=== PATIENT | male | born 1950 | race Caucasian/White ===

== ENCOUNTER 2019-06-11 13:49 | Inpatient (IN) | payer MEDICARE, SELFPAY ==
[2019-06-11] VITALS (9 sets, daily range): BP systolic 89–123; BP diastolic 48–83; PULSE 120–130; RESP 16–20; TEMP 36.5–36.9; O2SAT 88–96; BMI 17.6
--- NOTE | ~2019-06-11 | XR_ITS ---
EXAMINATION: XR chest 1V portable DATE: 06/15/2019 06:28 INDICATION: Pneumonia. TECHNIQUE: A single frontal view of the chest was obtained. COMPARISON: Chest single view 06/14/2019 FINDINGS: The lungs are hyperexpanded, consistent with emphysema. There are patchy airspace opacities in all right lung zones. There is mild atelectasis at left lung base. No pleural effusion or pneumot horax. The heart size is normal. The endotracheal tube tip is 4.4 cm above the tracie. The nasogastri c tube tip is beyond the inferior margin of the radiograph, but at least to the stomach. There is int ernal fixation of proximal left humerus. IMPRESSION: 1. Stable diffuse right lung disease, consistent with pneumonia. 2. Emphysema. Reviewed, dictated and finalized at location A.
--- NOTE | ~2019-06-11 | XR_ITS ---
EXAMINATION: XR chest 1V portable DATE: 06/21/2019 05:44 INDICATION: Pneumonia. TECHNIQUE: A single frontal view of the chest was obtained. COMPARISON: Chest single view 06/19/2019 FINDINGS: The patient is rotated to his right. The lungs are hyperexpanded, consistent with emphysema . There are airspace opacities in all right lung zones and in left lower lung zone. No pleural effusi on or pneumothorax. The heart size is normal. The endotracheal tube tip is 4.5 cm above the tracie. T he nasogastric tube tip is in the stomach. There is an old healed fracture of proximal left humerus w ith internal fixation. There are multiple old healed left rib fractures. IMPRESSION: 1. Stable airspace opacities in right lung and left lower lung zone, consistent with pneumonia. 2. Emphysema. Reviewed, dictated and finalized at location A.
--- NOTE | ~2019-06-11 | XR_ITS ---
EXAMINATION: XR chest 1V portable DATE: 06/13/2019 06:03 INDICATION: Pneumonia. TECHNIQUE: A single frontal view of the chest was obtained. COMPARISON: Chest single view at 1:06 AM, chest CT 06/11/2019 FINDINGS: The lungs are hyperexpanded, consistent with emphysema. There are airspace opacities in all right lung zones. No pleural effusion or pneumothorax. The heart size is normal. The endotracheal tu be tip is 5.8 cm above the tracie. The nasogastric tube tip is beyond the inferior margin of the radi ograph, but at least to the stomach. There is a moderate-sized hiatal hernia. There is an old healed fracture of right clavicle. There are old healed left rib fractures. There is a filter in the inferio r vena cava. IMPRESSION: 1. Stable diffuse right lung disease, consistent with pneumonia. 2. Emphysema. 3. Moderate-sized hiatal hernia. Reviewed, dictated and finalized at location A.
--- NOTE | ~2019-06-11 | XR_ITS ---
EXAMINATION: XR chest 1V portable DATE: 06/16/2019 06:23 INDICATION: Pneumonia. TECHNIQUE: A single frontal view of the chest was obtained. COMPARISON: Chest single view 06/15/2019 FINDINGS: The lungs are hyperexpanded, consistent with emphysema. There are airspace opacities in all right lung zones and in left mid and lower lung zones. No pleural effusion or pneumothorax. The hear t size is normal. The endotracheal tube tip is 3.2 cm above the tracie. There is internal fixation of proximal left humerus. IMPRESSION: 1. Airspace opacities in right lung and left mid and lower lung zones with interval worsening on the left, consistent with pneumonia. 2. Emphysema. Reviewed, dictated and finalized at location A. IMPRESSION: 1. Airspace opacities in right lung and left mid and lower lung zones with inte rval worsening on the left, consistent with pneumonia. 2. Emphysema.
--- NOTE | ~2019-06-11 | XR_ITS ---
XR chest 1V portable DATE: 06/29/2019 10:48 INDICATION: Increased shortness of breath TECHNIQUE: Portable AP chest on 06/25/2019 at 1046 hours COMPARISON: Serial portable chest radiographs from 06/13/2019 through 06/27/2019 portable AP chest at 05 36 hours FINDINGS: There is bilateral hyperinflation and relative flattening of the diaphragm, suggesting COPD . There has been improvement of extensive right-sided and to a lesser extent left lower lung infiltrate s since 06/27/2019. Residual infiltrate remains primarily in the right mid and lower lung zones. Focal irregular density in the right mid to upper lung measuring approximately 3.3 x 4 cm is noted; this m ay represent some focal consolidation, but pulmonary mass lesion is not excluded. Continued radiograp hic follow-up is recommended to ensure complete clearing of this area; failing that, CT thorax would be indicated. Cardiac images also is unchanged. Is aortic calcification, ectasia and tortuosity. Prominence of the central pulmonary arteries suggests pulmonary hypertension. Osteopenia. IMPRESSION: Improvement of bilateral pulmonary infiltrates; cannot exclude large right upper lobe mas s Continued radiographic follow-up is paramount to sure complete clearing and to exclude any right mid to upper pulmonary mass lesion. Reviewed, dictated and finalized at location A. IMPRESSION: Improvement of bilateral pulmonary infiltrates; cannot exclude larg e right upper lobe mass Continued radiographic follow-up is paramount to sure complete clearing and to exclude any right mid to upper pulmonary mass lesion.
--- NOTE | ~2019-06-11 | XR_ITS ---
EXAMINATION: XR chest 1V portable EXAM DATE: 06/24/2019 06:30 INDICATION: Respiratory failure. Intubated. TECHNIQUE: Portable AP frontal chest x-ray was obtained. Comparison is made to prior examination from 06/23/2019. FINDINGS: Endotracheal tube tip is 5 centimeters above the tracie (ideal range is between 2 to 5 cm). There is a nasogastric tube seen with tip collimated off the study, but below the left hemidiaphrag m. There is rather extensive right-sided airspace disease, smaller amount of left infrahilar airspace di sease with indistinct reticulation bilaterally. Small right pleural effusion. There is no pneumotho rax suspected. Cardiac silhouette is stable in size compared to prior exam. The bones are osteopen ic. There are bony degenerative changes. There are old left rib fractures. Left humeral hardware. C ompared to last few days, difficult to appreciate any significant interval change. IMPRESSION: 1. Tubes in position. 2. Extensive right-sided, small amount of left-sided acute airspace disease. Reviewed, dictated and finalized at location A.
--- NOTE | ~2019-06-11 | XR_ITS ---
XR lumbar spine 2-3V 06/11/2019 16:13 Indication: Low back pain Procedure: 3 views of the lumbar spine Comparison: 07/14/2011 Findings: There is a T11 burst fracture which appears chronic. Fracture has progressed since prior ex amination. Osteopenia. There is grade 2 spondylolisthesis at L5-S1. There is moderate disc narrowing at this level. There is an IVC filter. There is contrast in nondilated renal collecting systems bilat erally. No acute fractures identified. There is moderate mid and lower facet hypertrophy. There is at herosclerosis of the aorta. Impression: 1: No acute fracture. 2: Progression of chronic T11 burst fracture. 3: Moderate lumbar spondylosis. Reviewed, dictated and finalized at location A. Impression: 1: No acute fracture. 2: Progression of chronic T11 burst fracture. 3: Moderate lumbar spondylosis.
--- NOTE | ~2019-06-11 | XR_ITS ---
EXAMINATION: XR chest 1V portable DATE: 06/22/2019 05:51 INDICATION: Pneumonia. TECHNIQUE: A single frontal view of the chest was obtained on 2 radiographs. COMPARISON: Chest single view 06/21/2019 FINDINGS: The lungs are hyperexpanded, consistent with emphysema. There are patchy airspace opacities in all right lung zones and in left mid and lower lung zones. There is a small right pleural effusio n. No pneumothorax. The heart size is normal. The endotracheal tube tip is 4.7 cm above the tracie. T he nasogastric tube tip is beyond the inferior margin of the radiograph, but at least to the stomach. There is internal fixation of left humerus. There is an old healed fracture of right clavicle. IMPRESSION: 1. Diffuse right lung disease and mild disease in left mid and lower lung zones with worsening on the left, consistent with pneumonia. 2. Emphysema. Reviewed, dictated and finalized at location A.
--- NOTE | ~2019-06-11 | US_ITS ---
EXAMINATION: US soft tissue LE LT DATE: 06/25/2019 10:54 INDICATION: Left calf mass and bruising. TECHNIQUE: Multiple grayscale and Doppler ultrasound images of the region of concern at the left calf were obtained. COMPARISON: None FINDINGS/IMPRESSION: No abnormal masses or loculated fluid collections identified at the left calf. Reviewed, dictated and finalized at location A.
--- NOTE | ~2019-06-11 | CT_ITS ---
EXAMINATION: CT brain wo con DATE: 06/29/2019 11:01 INDICATION: Confusion. Slurred speech. History of dementia. TECHNIQUE: Computed tomography (CT) of the head was performed without intravenous contrast. The mA wa s adjusted according to patient size. Iterative reconstruction technique was employed. Exam dose: 68 1.00 mGy-cm total exam DLP. COMPARISON: None FINDINGS: Bilateral vertebral artery and carotid siphon internal carotid artery calcifications are no jaquan. Chronic left basal ganglia lacunar infarcts. There is nonspecific diminished attenuation of the cereb ral white matter, likely due to chronic small vessel ischemic changes. No intracranial mass lesion or hemorrhage or recent cerebrovascular accident is evident. CT is not se nsitive for hyperacute ischemic infarct. No midline shift or mass effect. Cerebral volume loss, greater than expected for age. No orbital mass lesion. No subdural or epidural hematoma. There are small fluid levels and opacification of the limited number of left mastoid air cells. There is partial opacification of the right mastoid air cells. No fracture or bone destruction of the cranial vault. IMPRESSION: Left chronic basal ganglia lacunar infarcts No acute intracranial significant abnormality Greater than expected cerebral atrophy for age Bilateral mastoid effusions Reviewed, dictated and finalized at Location A. Reviewed, dictated and finalized at location A.
--- NOTE | ~2019-06-11 | US_ITS ---
EXAMINATION: US venous doppler [facility] DATE: 07/06/2019 11:43 INDICATION: Left lower limb pain and swelling TECHNIQUE: Grayscale ultrasound images without and with compression and Doppler ultrasound images of the left lower extremity veins were obtained. COMPARISON: None. FINDINGS: The visualized portions of left common femoral vein, profunda (deep) femoral vein, femoral vein, popl iteal vein, peroneal veins, posterior tibial veins, gastrocnemius vein and greater saphenous vein out flow are patent. Incidentally noted is segmental occlusion of the mid left femoral artery with no dis cernible internal flow on color Doppler. Flow is seen in the more proximal left femoral artery as wel l as more distally in the left popliteal artery. IMPRESSION: 1. No deep venous thrombosis in the left lower limb. 2. 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 Reviewed, dictated and finalized at location A.
--- NOTE | ~2019-06-11 | XR_ITS ---
EXAMINATION: XR chest 1V portable EXAM DATE: 06/23/2019 05:45 INDICATION: Pneumonia. TECHNIQUE: Portable AP frontal chest x-ray was obtained. Comparison is made to prior examination from 06/22/2019, 06/20. FINDINGS: Endotracheal tube tip is 5 centimeters above the tracie (ideal range is between 2 to 5 cm). There is a nasogastric tube seen with tip collimated off the study, but below the left hemidiaphrag m. There is rather extensive right-sided airspace disease, smaller amount of left infrahilar airspace di sease with indistinct reticulation bilaterally. Small right pleural effusion. There is no pneumotho rax suspected. Cardiac silhouette is stable in size compared to prior exam. The bones are osteopen ic. There are bony degenerative changes. There are old left rib fractures. Left humeral hardware. C ompared to last 2 days, mild progression in airspace disease. IMPRESSION: 1. Tubes in position. 2. Mild interval progression in extensive right, small amount of left-sided pneumonia and/or edema. Reviewed, dictated and finalized at location A. IMPRESSION: 1. Tubes in position. 2. Mild interval progression in extensive right, small amount of left-sided pn eumonia and/or edema.
--- NOTE | ~2019-06-11 | XR_ITS ---
EXAMINATION: XR chest 1V portable DATE: 06/19/2019 05:54 INDICATION: Pneumonia TECHNIQUE: frontal view of the chest was obtained. COMPARISON: Chest radiograph dated 06/18/2019 FINDINGS: Endotracheal tube tip 4.0 cm above the tracie. Nasogastric tube extends below the left hemidiaphragm with distal tip collimated off the study. Patient is rotated to the right. Hyperexpansion of lungs. Persistent interstitial and airspace opacit ies throughout the right lung. Improvement in the more subtle opacities in the left lower lung zone. Heart size is normal. IVC filter projects over the intrahepatic inferior vena cava. Several old bilat eral rib fractures. Partially visualized internal fixation of the left humerus.. IMPRESSION: 1. Bilateral lung disease more extensive on the right with improvement in the left lower lung zone wh ich could represent pulmonary edema and/or pneumonia. 2. Emphysema. Reviewed, dictated and finalized at location A. IMPRESSION: 1. Bilateral lung disease more extensive on the right with improvement in the l eft lower lung zone which could represent pulmonary edema and/or pneumonia. 2. Emphysema.
--- NOTE | ~2019-06-11 | XR_ITS ---
EXAMINATION: XR chest ET placement DATE: 06/13/2019 01:04 INDICATION: Intubation. TECHNIQUE: A single frontal view of the chest was obtained. COMPARISON: Chest single view 06/11/2019, chest CT 06/11/2019 FINDINGS: The patient is rotated to his right. The lungs are hyperexpanded with lucencies, consistent with emphysema. There are airspace opacities in all right lung zones. No pleural effusion or pneumot horax. The heart size is normal. The endotracheal tube tip is 4 cm above the tracie. The nasogastric tube tip is in the stomach. There is a filter in the intrahepatic inferior vena cava. There are old h ealed bilateral rib fractures. There is an old healed fracture of right clavicle. IMPRESSION: 1. Worsened diffuse right lung disease, consistent with pneumonia. 2. Emphysema. Reviewed, dictated and finalized at location A.
--- NOTE | ~2019-06-11 | XR_ITS ---
EXAMINATION: XR chest 1V portable INDICATION: Shortness of breath TECHNIQUE: Portable AP chest at 0121 hours COMPARISON: 06/29/2019 FINDINGS: The lungs are hyperinflated. Diffuse lung disease persists with slight worsening in the rig ht lower and upper lung zones. There is no pleural effusion or pneumothorax. The cardiomediastinal si lhouette is stable. Orthopedic hardware is noted in the proximal left humerus. There are healed bilat eral rib fractures. IMPRESSION: 1. Diffuse lung disease with slight worsening on the right, consistent with pneumonia and/or pulmonar y edema and/or atelectasis. Reviewed, dictated and finalized at location A. IMPRESSION: 1. Diffuse lung disease with slight worsening on the right, consistent with pne umonia and/or pulmonary edema and/or atelectasis.
--- NOTE | ~2019-06-11 | XR_ITS ---
EXAMINATION: XR chest 1V portable DATE: 06/20/2019 05:22 INDICATION: Pneumonia. TECHNIQUE: A single frontal view of the chest was obtained. COMPARISON: Chest single view 06/19/2019 FINDINGS: The patient is rotated to his left. The lungs are hyperexpanded, consistent with emphysema. There are patchy airspace opacities in all right lung zones and in left lower lung zone. No pleural effusion or pneumothorax. The heart size is normal. The endotracheal tube tip is 4.5 cm above the car roseann. The nasogastric tube tip is in the stomach. There is internal fixation of left humerus. IMPRESSION: 1. Multifocal lung disease with slight improvement, consistent with pneumonia. 2. Emphysema. Reviewed, dictated and finalized at location A.
--- NOTE | ~2019-06-11 | US_ITS ---
EXAMINATION:US venous doppler LE BI INDICATION:Fever TECHNIQUE: Multiple grayscale, color flow and Doppler images of the lower extremity deep venous syste ms were obtained and reviewed. COMPARISON:No prior studies for comparison. FINDINGS: The common femoral, superficial femoral and popliteal veins demonstrate normal respiratory variation, augmentation and compressibility. Color flow is also seen within the posterior tibial, pe roneal, greater saphenous and profunda veins. Right peroneal vein not visualized. IMPRESSION: 1: No lower extremity deep venous thrombosis. Reviewed, dictated and finalized at location A.
--- NOTE | ~2019-06-11 | CT_ITS ---
EXAMINATION: CTA LE DATE: 07/06/2019 17:41 INDICATION: Left femoral arterial clot. TECHNIQUE: Computed tomographic angiography (CTA) of the left lower extremity was performed with 100 mL Omnipaque-350 intravenous contrast. Automated exposure control and iterative reconstruction techni que were employed. The dose-length product was 512.72 mGy-cm. Maximum intensity projection 3D-reconst ructions of the arteries were created by the technologist on a separate workstation. COMPARISON: Ultrasound 07/06/2019 FINDINGS: There is severe stenosis of right external iliac artery. Partially visualized is at least mild stenos is of left common iliac artery. There is mild stenosis of left external iliac artery and common femor al artery. There is no significant stenosis of right left profunda femoris. There is total occlusion of distal left superficial femoral artery. There is reconstitution of flow in above-knee popliteal ar owen, which demonstrate moderate stenosis. There is mild stenosis of left below-knee popliteal artery and anterior tibial artery. There is moderate stenosis of the tibioperoneal trunk. Posterior tibial artery and peroneal artery are small with moderate to severe stenosis. There is a total right hip art hroplasty. IMPRESSION: 1. 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 2. Total occlusion of distal left superficial femoral artery with reconstitution of flow in above-kne e popliteal artery. 3. Moderate stenosis of left tibioperoneal trunk. 4. Small left posterior tibial artery and peroneal artery with moderate to severe stenosis. Reviewed, dictated and finalized at location A. IMPRESSION: 1. 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 2. Total occlusion of distal left superficial femoral artery with reconstitutio n of flow in above-knee popliteal artery. 3. Moderate stenosis of left tibioperoneal trunk. 4. Small left posterior tibial artery and peroneal artery with moderate to mariza re stenosis.
--- NOTE | ~2019-06-11 | XR_ITS ---
XR chest 1V portable DATE: 06/25/2019 10:55 INDICATION: Hypoxia TECHNIQUE: Portable AP chest on 06/25/2019 at 1053 hours COMPARISON: 06/24/2019 portable AP chest at 0559 hours FINDINGS: Persistent patchy infiltrates in the right mid and both lower lung zones, right greater nasim n left. The left-sided infiltrate is increased since 06/24/2019. Heart size is normal. Endotracheal and nasogastric tubes have been removed since 06/24/2019. IVC filter is noted at approximately L2 level. There is a pin in the proximal left humerus for old proximal left humeral shaft fracture Diffuse osteopenia with multiple fracture deformities of the thoracic spine. Bilateral probable old r ib fractures. IMPRESSION: Persistent bilateral infiltrates, right greater than left, increased in the left lower ivette ng since 06/24/2019 Reviewed, dictated and finalized at location A. IMPRESSION: Persistent bilateral infiltrates, right greater than left, increase d in the left lower lung since 06/24/2019
--- NOTE | ~2019-06-11 | XR_ITS ---
EXAMINATION: XR chest 2V DATE: 07/02/2019 10:24 INDICATION: Pneumonia. TECHNIQUE: Frontal and lateral views of the chest were obtained on 3 radiographs. COMPARISON: Chest single view 06/30/2019, chest CT 06/11/2019 FINDINGS: The patient is rotated to his right. The lungs are hyperexpanded with architectural distort ion, consistent with emphysema. There are airspace opacities in right mid and lower lung zones. There is mild atelectasis in left lower lung zone. There is a small right pleural effusion. No pneumothora x. The heart size is normal. Again seen is a chronic burst fracture in thoracic spine. There is a shasta ter in the intrahepatic inferior vena cava. There are old healed left rib fractures. IMPRESSION: 1. Stable airspace opacities in right mid and lower lung zones, consistent with pneumonia. 2. Small right pleural effusion. Reviewed, dictated and finalized at location A.
--- NOTE | ~2019-06-11 | XR_ITS ---
EXAMINATION: XR chest 1V portable EXAM DATE: 06/19/2019 20:16 INDICATION: Worsening oxygen saturation. Pneumonia. Possible right renal mass. Respiratory failure. TECHNIQUE: Portable AP frontal chest x-ray was obtained. Comparison is made to prior examination from earlier same date, 06/17. FINDINGS: Again there is extensive right-sided, small amount of left-sided airspace disease most like ly acute infectious process. Endotracheal tube and gastric tube are in position. No pneumothorax. The re are some chronic hyperinflation. There are no pleural effusions. Cardiomediastinal silhouette is n ormal. Accounting for differences in technique, there is no significant interval change. IMPRESSION: 1. Extensive right-sided, smaller left-sided airspace disease likely acute infectious process. 2. Hyperinflation. Reviewed, dictated and finalized at location A. IMPRESSION: 1. Extensive right-sided, smaller left-sided airspace disease likely acute inf ectious process. 2. Hyperinflation.
--- NOTE | ~2019-06-11 | XR_ITS ---
EXAMINATION: XR chest 1V portable EXAM DATE: 06/11/2019 15:11 INDICATION: Hypoxic. Shortness of breath. Back pain. TECHNIQUE: Portable AP frontal chest x-ray was obtained. Comparison is made to prior examination from 07/15/2011. FINDINGS: Suspect patchy ill-defined bilateral perihilar airspace disease, could be acute infectious process. Heart is normal in size making edema less likely. Please clinically correlate. There is no i ndeterminant left upper lobe 1 cm nodular density which is new compared to prior study, possible canc er. There is no pneumothorax suspected. There are no pleural effusions. The bones are osteopenic. Th ere are bony degenerative changes. There is left humeral intramedullary alexi. IMPRESSION: 1. Ill-defined bilateral perihilar airspace disease suspicious for acute infectious process. 2. Indeterminate left upper lobe nodular density for which nonemergent chest CT is recommended. Reviewed, dictated and finalized at location B. IMPRESSION: 1. Ill-defined bilateral perihilar airspace disease suspicious for acute infec tious process. 2. Indeterminate left upper lobe nodular density for which nonemergent chest C T is recommended.
--- NOTE | ~2019-06-11 | XR_ITS ---
EXAMINATION: XR chest 1V portable DATE: 06/27/2019 06:06 INDICATION: Pneumonia TECHNIQUE: frontal view of the chest was obtained. COMPARISON: Chest radiograph dated 06/26/2019 FINDINGS: Hyperexpansion of lungs consistent with emphysema better appreciated on CT dated 06/11/2019 Increasing hazy opacities in the bilateral lower lung zones with new blunting at the costophrenic angles consist ent with small bilateral pleural effusions. Otherwise unchanged interstitial and scattered more patch y airspace opacities throughout both lungs relatively sparing the left upper lung zone. No pneumothor ax. Heart size is normal. Tortuous and atherosclerotic thoracic aorta. IVC filter projects over the c ephalad-most superior vena cava. Partially visualized intramedullary alexi and screw fixation at the pr oximal left humerus. Old bilateral rib fractures. IMPRESSION: 1. Diffuse bilateral interstitial and airspace opacities which could represent pneumonia, pulmonary e shanna, atelectasis or some combination thereof. 2. Increasing small bilateral pleural effusions. 3. Emphysema. Reviewed, dictated and finalized at location A. IMPRESSION: 1. Diffuse bilateral interstitial and airspace opacities which could represent pneumonia, pulmonary edema, atelectasis or some combination thereof. 2. Increasing small bilateral pleural effusions. 3. Emphysema.
--- NOTE | ~2019-06-11 | XR_ITS ---
EXAMINATION: XR chest 1V portable DATE: 06/18/2019 05:52 INDICATION: Pneumonia. TECHNIQUE: A single frontal view of the chest was obtained on 2 radiographs. COMPARISON: Chest single view 06/17/2019 FINDINGS: The patient is rotated to his right. The lungs are hyperexpanded, consistent with emphysema . There are airspace opacities in all right lung zones. There are mild airspace opacities in left mid and lower lung zones. No pleural effusion or pneumothorax. The heart size is normal. The endotrachea l tube tip is 3.0 cm above the tracie. The nasogastric tube tip is in the stomach. There is internal fixation of left humerus. There are multiple old healed left rib fractures. IMPRESSION: 1. Multifocal lung disease with worsening on the left, consistent with pneumonia. 2. Emphysema. Reviewed, dictated and finalized at location A. IMPRESSION: 1. Multifocal lung disease with worsening on the left, consistent with pneumoni a. 2. Emphysema.
--- NOTE | ~2019-06-11 | US_ITS ---
EXAMINATION: US venous doppler [facility] DATE: 06/28/2019 11:23 INDICATION: Lower limb swelling TECHNIQUE: Grayscale ultrasound images without and with compression and Doppler ultrasound images of the bilateral lower extremity veins were obtained. COMPARISON: None. FINDINGS: The visualized portions of right common femoral vein, profunda (deep) femoral vein, femoral vein, pop liteal vein, posterior tibial veins, peroneal veins, gastrocnemius vein and greater saphenous vein ou tflow are patent. The visualized portions of left common femoral vein, profunda femoral vein, femoral vein, popliteal v ein, posterior tibial veins, peroneal veins, gastrocnemius vein and greater saphenous vein outflow ar e patent. IMPRESSION: 1. No deep venous thrombosis in either lower limb. Reviewed, dictated and finalized at location A.
--- NOTE | ~2019-06-11 | XR_ITS ---
EXAMINATION: XR abdomen NG/feed tube insert DATE: 06/13/2019 01:04 INDICATION: Nasogastric tube placement. TECHNIQUE: An upright view of the abdomen was obtained. COMPARISON: None. FINDINGS: The lower abdomen is excluded. There are no dilated loops of bowel. The nasogastric tube ti p is in the stomach. There is a filter in the intrahepatic inferior vena cava. There is a total right hip arthroplasty. IMPRESSION: 1. Nasogastric tube tip in the stomach. Reviewed, dictated and finalized at location A.
--- NOTE | ~2019-06-11 | CT_ITS ---
EXAMINATION: CT brain wo con INDICATION: Transient alteration of awareness COMPARISON: 06/29/2019 TECHNIQUE: Standard unenhanced head CT. The dose-length product (DLP) was 756.67 mGy-cm. The mA was a djusted according to patient size. Iterative reconstruction technique was employed. FINDINGS: There is no acute intraparenchymal hemorrhage. No evidence of mass lesion. No evidence of a cute infarction. 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 There is mild perivent ricular and subcortical hypodensity probably related to small vessel ischemic disease. There is mild prominence of the sulci and ventricles related to cerebral atrophy. Intracranial calcified cerebral a therosclerosis is noted. There are no extra-axial collections. There is no mass effect or midline chanda ft. The orbits and soft tissues are unremarkable. There are bilateral mastoid effusions, right great er than left. IMPRESSION: 1. No acute intracranial abnormality. 2. Age related findings. 3. Bilateral mastoid effusions, right greater than left. Reviewed, dictated and finalized at location A.
--- NOTE | ~2019-06-11 | US_ITS ---
US arterial duplex LE 07/06/2019 17:23 Indication: Leg pain Procedure: High-resolution arterial duplex Doppler examination of the lower extremity arteries Comparison: No prior studies for comparison. Findings: The following velocities were obtained in the lower extremity arteries: Right: Common femoral artery 36 cm/s, profunda femoral artery 29 cm/s, proximal femoral artery 22 cm/ s, mid femoral artery 27 cm/s, distal femoral artery 66 cm/s, proximal popliteal artery 21 cm/s, dist al popliteal artery 23 cm/s, posterior tibial artery 26 cm/s, anterior tibial artery 23 cm/s, peronea l artery 14 cm/s, dorsalis pedis artery 25 cm/s. Left: Common femoral artery 81 cm/s, profundus femoral artery 48 cm/s, proximal femoral artery 18 cm/ s, mid femoral artery minimal-no flow visualized, distal femoral artery 47 cm/s, proximal popliteal a rtery 39 cm/s, distal popliteal artery 73 cm/s, posterior tibial artery 29 cm/s, anterior tibial libertad juhi 15 cm/s, peroneal artery 26 cm/s, dorsalis pedis artery 35 cm/s. Impression: 1: Patent right lower extremity arteries without evidence for occlusion. 2: Minimal-no flow visualized in the mid left femoral artery, suspicious for hemodynamically signific ant stenosis. The remainder of the left lower extremity arteries are patent. Reviewed, dictated and finalized at location A. Impression: 1: Patent right lower extremity arteries without evidence for occlusion. 2: Minimal-no flow visualized in the mid left femoral artery, suspicious for he modynamically significant stenosis. The remainder of the left lower extremity a rteries are patent.
--- NOTE | ~2019-06-11 | XR_ITS ---
EXAMINATION: XR barium swallow modified DATE: 06/30/2019 12:26 INDICATION: Drooling TECHNIQUE: The patient was given barium-containing material of multiple consistencies to swallow by otilio castro speech pathologist while I performed fluoroscopy. A single fluoroscopic spot image was recorded. Otilio castro DAP for this procedure was 3.0 Gycm2. Fluoroscopy exposure time was 4.3 minutes. A single lateral spot radiograph of the neck soft tissues was obtained. FINDINGS: The single lateral spot radiograph of the neck demonstrates mild spondylosis. There is delayed initia tion of swallow with vallecular residue but no evidence of aspiration or penetration. IMPRESSION: 1. No aspiration or penetration. Please refer to the speech therapy report for additional swallow-rel ated findings and intake recommendations. Reviewed, dictated and finalized at location A. IMPRESSION: 1. No aspiration or penetration. Please refer to the speech therapy report for additional swallow-related findings and intake recommendations.
--- NOTE | ~2019-06-11 | CT_ITS ---
EXAMINATION: CT chest w con DATE: 06/11/2019 16:01 INDICATION: Lung nodule. TECHNIQUE: Computed tomography (CT) of the chest was performed with 75 cc Omnipaque 350 intravenous c ontrast. The dose-length product was 256.19 mGy-cm. Automated exposure control and iterative reconstr uction technique were employed. COMPARISON: 12/10/2015 FINDINGS: There is a moderate size hiatal hernia with fluid throughout the esophagus, consistent with reflux. There is abnormal thickening of the distal esophagus near the gastroesophageal junction abov e the diaphragm which may relate to esophagitis, although underlying mass is not excluded. There is m oderate atherosclerosis of the aorta without evidence for aneurysm or dissection. There is an IVC shasta ter. There is a 2.6 x 1.9 cm exophytic right renal mass posteriorly measuring 82 Hounsfield units, franklin spicious for renal cell carcinoma. This was not identified on prior examination. There are possible g allstones. There are multiple wedge compression deformities of the thoracic spine which are likely ch ronic. There is a T11 burst fracture which is chronic. There is moderate emphysema. There is mixed in terstitial and airspace consolidation of the right upper and lower lobes. There is left lower lobe at electasis. Stable small fissural nodule on the left, likely benign. No endobronchial lesions. Calcifi ed granuloma left upper lobe. 4 mm left lower lobe nodule, image 94, unchanged. No pneumothorax. No t horacic lymphadenopathy. Subsolid 5.5 mm right middle lobe nodule, image 96 is unchanged. IMPRESSION: 1. Mixed interstitial and airspace disease right upper and lower lobe superimposed on fibrosis and em physema, consistent with pneumonia. 2: 2.6 cm exophytic right renal mass, concerning for renal cell carcinoma. Recommend consultation . 3: Moderate size hiatal hernia with fluid throughout the esophagus, consistent with reflux. Normal ab normal thickening of the distal esophagus near the gastroesophageal junction above the diaphragm whic h may relate to esophagitis, although underlying mass is not excluded. 4: Stable bilateral pulmonary nodules, likely benign. Reviewed, dictated and finalized at location A. IMPRESSION: 1. Mixed interstitial and airspace disease right upper and lower lobe superimpo sed on fibrosis and emphysema, consistent with pneumonia. 2: 2.6 cm exophytic right renal mass, concerning for renal cell carcinoma. [facility] 3: Moderate size hiatal hernia with fluid throughout the esophagus, consistent with reflux. Normal abnormal thickening of the distal esophagus near the gastro esophageal junction above the diaphragm which may relate to esophagitis, althou gh underlying mass is not excluded. 4: Stable bilateral pulmonary nodules, likely benign.
--- NOTE | ~2019-06-11 | XR_ITS ---
EXAMINATION: XR chest 1V portable DATE: 06/14/2019 06:10 INDICATION: Pneumonia. TECHNIQUE: A single frontal view of the chest was obtained on 2 radiographs. COMPARISON: Chest single view 06/13/2019 FINDINGS: The lungs are hyperexpanded, consistent with emphysema. There are airspace opacities in all right lung zones. No pleural effusion or pneumothorax. The heart size is normal. The endotracheal tu be tip is 4.1 cm above the tracie. The nasogastric tube tip is in the stomach. There is internal fixa tion of proximal left humerus. IMPRESSION: 1. Stable airspace opacities in all right lung zones, consistent with pneumonia. 2. Emphysema. Reviewed, dictated and finalized at location A. IMPRESSION: 1. Stable airspace opacities in all right lung zones, consistent with pneumonia . 2. Emphysema.
--- NOTE | ~2019-06-11 | XR_ITS ---
EXAMINATION: XR chest 1V portable DATE: 06/17/2019 06:30 INDICATION: Pneumonia. TECHNIQUE: A single frontal view of the chest was obtained on 2 radiographs. COMPARISON: Chest single view 06/16/2019 FINDINGS: The patient is rotated to his right. The lungs are hyperexpanded, consistent with emphysema . There are airspace opacities in all right lung zones. No pleural effusion or pneumothorax. The hear t size is normal. There are multiple old healed bilateral rib fractures. There is an old healed fract ure of proximal left humerus with internal fixation. The endotracheal tube tip is 4.2 cm above the ca johny. The nasogastric tube tip is beyond the inferior margin of the radiograph, but at least to the s tomach. IMPRESSION: 1. Unchanged diffuse right lung disease, consistent with pneumonia. 2. Emphysema. Reviewed, dictated and finalized at location A.
--- NOTE | ~2019-06-11 | CT_ITS ---
EXAMINATION: CTA brain DATE: 06/30/2019 22:22 INDICATION: Seizure activity, transient alteration of awareness TECHNIQUE: Computed tomographic angiography (CTA) of the head was performed with 100 mL Omnipaque-350 intravenous contrast. Volume-rendered and maximum intensity projection 3D reconstructions of the int racranial arteries were created by the technologist on a separate workstation. Automated exposure con trol and iterative reconstruction technique were employed. COMPARISON: Noncontrast CT from earlier the same date FINDINGS: There is no significant stenosis of the basilar artery or posterior cerebral arteries. Ther e is no significant stenosis of the intracranial internal carotid arteries or the anterior or middle cerebral arteries. The anterior communicating artery and posterior communicating arteries are normal. There is no aneurysm. Calcified atherosclerosis is noted. There is moderate venous contamination. IMPRESSION: 1. No large vessel occlusion. Reviewed, dictated and finalized at location A.
--- NOTE | ~2019-06-11 | XR_ITS ---
EXAMINATION: XR chest 1V portable DATE: 06/26/2019 06:15 INDICATION: Pneumonia TECHNIQUE: frontal view of the chest was obtained. COMPARISON: Chest radiograph dated 06/25/19 FINDINGS: Improved aeration of lungs with decrease in patchy airspace opacities in the left lower lung zone. Mi nimal change in scattered patchy airspace opacities throughout the right lung. Bilateral increased in terstitial pattern with few right-sided peripheral Gretchen B-lines consistent with mild pulmonary raghav a. Increased lucency and architectural distortion at the apices consistent with emphysema. No pneumot horax or definitive pleural effusion. Old bilateral rib fracture deformities. Oliver and screw fixation of an old healed proximal diaphyseal fracture of the left humerus. IVC filter at the level of the cep halad most superior vena cava. IMPRESSION: 1. Diffuse lung disease with minimal change on the right and slight improvement in lung disease in th e left lower lung zone which could represent pneumonia, pulmonary edema, atelectasis or some combinat ion thereof. 2. Emphysema. Reviewed, dictated and finalized at location A. IMPRESSION: 1. Diffuse lung disease with minimal change on the right and slight improvement in lung disease in the left lower lung zone which could represent pneumonia, p ulmonary edema, atelectasis or some combination thereof. 2. Emphysema.
--- NOTE | 2019-06-11 14:11 | PC.NURSE ---
pt denies sob. placed on 02 at 2 lpm nasal cannula for room air sat of 88-90%. saturation came up to 92-93% after oxygen placed.
--- NOTE | 2019-06-11 14:30 | ECG_ITS ---
Measurements Intervals [place] Rate: 135 P: 56 WI: 147 QRS: 50 QRSD: 86 T: 62 QT: 332 QTc: 498 Interpretive Statements SINUS TACHYCARDIA VENTRICULAR PREMATURE COMPLEXES INCOMPLETE RIGHT BUNDLE BRANCH BLOCK NONSPECIFIC ST & T-WAVE ABNORMALITY- ANTERIOR LEADS ABNORMAL ECG Electronically Signed On 06-11-2019 19:14:45 CDT by Nicko Capps D.O.
--- NOTE | 2019-06-11 14:41 | ED.BACK ---
HPI - Back Pain/Injury General Chief Complaint: Back Pain/Injury Stated Complaint: back pain Time Seen by Provider: 06/11/19 14:35 Source: patient Mode of arrival: EMS Limitations: no limitations History of Present Illness HPI Narrative: Patient is a 69 year old male who presents to the emergency department by emergency medical services, with complaints of lower back pain that started 5 days ago. He states that he pushed a bee hive with his leg and that is when his pain started. He notes that he has had back pain in the past but never in his lower back. His pain is better when he does not move, but it worsens when he moves. He rates his pain in the bed a 0/10. Patient is able to walk with his walker but states that his pain worsens. He denies is pain moving to his legs or being short of breath. He has been eating normally. Patient is a daily smoker and drinks about 3 beers a day. He denies drinking any beers today. Patient does not smoke marijuana. He denies a history of lung disease and does not use an inhaler at home. Patient is allergic to bee stings. He has a surgical history of a hip replacement, right leg repair, and a hernia repair. Patient is and is in the ED alone. MD elicited complaint: back pain Pertinent past history: other (pushed a bee hive) Onset (ago): day(s) (5) Timing: intermittent Pain scale (0-10): 0 Location: sacrum Radiation: none Context: other (pushing a bee hive) Associated symptoms: denies other symptoms Related Data Home Medications Medication Instructions Recorded Confirmed No Home Medications 06/11/19 06/11/19 Allergies Allergy/AdvReac Type Severity Reaction Status Date / Time bee pollen Allergy Unknown Anaphylaxis Verified 06/11/19 14:00 Honey Bee Allergy Severe Anaphylaxis Uncoded 06/11/19 14:00 Review of Systems Review of Systems: All systems reviewed & are unremarkable except as noted in HPI and below Constitutional: Constitutional: Reports no additional constitutional complaints and Reports other (eating normally) Cardiovascular: Cardiovascular: Reports no additional cardiovascular complaints and Reports chest pain Respiratory: Respiratory: Denies dyspnea Gastrointestinal: Gastrointestinal: Denies abdominal pain, Denies constipation, Denies diarrhea, Denies nausea and Denies vomiting Musculoskeletal: Musculoskeletal: Reports back pain (lower), Denies arthralgias and Denies joint swelling PMFSH Past Medical History Medical History (Updated 06/11/19 @ 15:06 by Roverto Longoria) Anemia Anxiety Arthritis Barretts esophagus COPD (chronic obstructive pulmonary disease) Dementia Depression Eating disorder Patient has difficulty swallowing Emphysema of lung GERD (gastroesophageal reflux disease) GI bleed Surgical History Surgical History (Updated 06/11/19 @ 15:06 by Roverto Longoria) History of orthopedic surgery ORIF on right tibia History of right hip replacement History of surgery on arm left arm ORIF Hx of tonsillectomy Social History Social History (Updated 06/11/19 @ 15:06 by Roverto Longoria) Smoking packs per day: 1 Smoking cigarettes per day: 20.0 Smoking status: Current every day smoker Tobacco type: cigarettes Second hand tobacco smoke exposure: No Alcohol intake: current Drinks per week: 36 Alcohol use details: Patient drinks 3 beers a day. Substance use: never Substance use type: does not use Living arrangements: alone Additional living arrangements comments: Patient lives alone and is . Gender identity (if verbalized by the patient): Male Spiritual care concerns: No Agree to blood products: Yes Exam Const: General: poor hygiene Nutritional Appearance: thin HENMT: Mouth: Yes lip normal (black around lips) and Yes tongue normal (black) Eyes: Other: Eyes sunken in Resp: Effort & Inspection: normal respiratory effort Auscultation: crackles bilateral and rales bilateral Cardio: Rate: ta
[2019-06-11 15:00] LABS: Basophils Absolute Auto 0.1 K/mm3 (0.0-0.1); Basophils Percent Auto 0.4 % (0.2-1.2); Eosinophils Percent Auto 0.1 % (0-4.4); Hematocrit 44.9 % (42.0-52.0); Hemoglobin 15.4 g/dL (14.0-18.0); Immature Granulocyte Absolute 0.06 K/mm3 (0.00-0.031); Immature Granulocyte Percent A 0.4 % (0-0.5); Lymphocytes Absolute Auto 2.16 K/mm3 (0.9-3.2); Lymphocytes Percent Auto 15.5 % (18.3-44.2); Mean Corpuscular HGB Conc 34.3 g/dl (32-36); Mean Corpuscular Hemoglobin 30.9 pg (26-34); Mean Corpuscular Volume 90.2 fl (80-100); Mean Platelet Volume 10.3 fl (7.4-10.4); Monocytes Absolute Auto 1.2 K/mm3 (0.1-0.6); Monocytes Percent Auto 8.5 % (2.6-8.5); Neutrophils Absolute Auto 10.5 K/mm3 (1.3-6.7); Neutrophils Percent Auto 75.1 % (45.5-73.1); Platelet Count Result 299 k/mm3 (150-375); Red Blood Count 4.98 M/mm3 (4.6-6.20); Red Cell Distribution Width 14.1 % (11.5-14.5); White Blood Count 13.9 K/mm3 (4.5-10.0)
[2019-06-11 15:12] LABS: Alanine Aminotransferase 11 U/L (4-50); Alkaline Phosphatase 52 U/L (38-126); Aspartate Amino Transferase 22 U/L (17-59); Bilirubin,Total 0.6 mg/dL (0.2-1.3); Blood Urea Nitrogen 51 mg/dL (9-20); Calcium 8.9 mg/dL (8.4-10.2); Carbon Dioxide 26 mmol/L (22-30); Chloride 98 mmol/L (98-107); Estimated CRCL calculation 70 ml/min; Estimated Glomerular Filt Rate > 60; Glucose 129 mg/dL (75-110); Potassium 3.4 mmol/L (3.4-5.0); Sodium 136 mmol/L (137-145)
[2019-06-11 15:14] LABS: Alveolar/Arterial O2 Gradient 114.7 mmHg; Base Excess ABG 1.3 mEq/l (+/-2.0); Fractional Inspired Oxygen 30 %; HCO3 ABG 24.4 mEq/l (22.0-26.0); Oxygen Content ABG 19.2 %vol (16.0-22.0); Oxygen Saturation ABG 92.3 % (95.0-100.0); Oxyhemoglobin 86.4 % THb (90.0-100.0); PCO2 ABG 34.3 mmHg (35.0-45.0); PO2 ABG 58.9 mmHg (80.0-100.0); PO2 FiO2 Ratio Arterial Blood 1.96 %; Total Hemoglobin 15.8 g/dL (12.0-18.0)
[2019-06-11 15:15] LABS: Ethanol < 10 mg/dL (<10)
[2019-06-11 15:15] LABS: Device NASAL CANNULA; Liters per Minute 2.5 LPM; Modified Allen's Test Pass; Site Drawn RIGHT RADIAL
[2019-06-11] MEDS: SODIUM CHLORIDE 0.9% IV 1,000 ML 999 ML IV CONT (16:01)
[2019-06-11 16:59] LABS: Lactic Acid 2.1 mmol/L (0.7-2.1)
[2019-06-11] MEDS: ALBUTEROL SULFATE (*SP) AEROSOL 1 PUFF 2 PUFF INHALATION ×2 (17:31→19:49)
--- NOTE | 2019-06-11 18:26 | ADMGEN ---
This patient, Arvind Bone, was admitted to Medical Room 250-01. Patient/family oriented to hospital policies and general routines including ID bracelet, bed and alarms, visiting hours, pain management, procedures, bathroom and other care routines, personal items, smoking policy, room service/diet, and visiting hours. Valuables list has been completed. Information on how to activate the Rapid Response Team has been discussed. Patient/Family are encouraged to report perceived risks to care and to ask questions if they do not understand what they are told or what they should do.
--- NOTE | 2019-06-11 18:46 | PC.NURSE ---
Katherine Dallas notified of pt on tele from er [facility]. New orders received.
[2019-06-11 19:11] LABS: Hematocrit 41.9 % (42.0-52.0); Hemoglobin 14.2 g/dL (14.0-18.0)
[2019-06-11 19:13] LABS: IFOB Positive Control Positive; Immunochemical Fecal Occult Bl Positive (N)
[2019-06-11 19:20] LABS: INR 1.2; Prothrombin Time 14.8 Seconds (11.1-14.7)
[2019-06-11 19:21] LABS: Partial Thromboplastin Time 36.3 SECONDS (22.3-36.8)
[2019-06-11 19:24] LABS: D Dimer 1.16 ug/mL (<0.48)
--- NOTE | 2019-06-11 19:30 | PM.IMHP ---
H&P: HPI History of Present Illness Chief complaint: Low back pain. Narrative: Arvind Bone is a 69-year-old male smoker with history of alcoholism, GERD, Wooten's esophagus, peptic ulcers, COPD, and DVT who presented to the emergency department earlier today for evaluation of low back pain. He has frequent mid back pain due to history of compression fractures, but about 5 days he developed acute pain in the lower back while trying to push a heavy item across the floor using his leg. He has been taking pzso-mkh-[id number] analgesics (?all of them?) with only some relief. His pain is worse with any type of movement, ?and it hurts like hell.? He cannot further qualify, however. There is essentially no pain if he is lying still. Not long after arriving to the floor, he passed a large melanotic stool. An x-ray of the lumbar spine showed no acute fractures but did demonstrate progression of a chronic T11 burst fracture and also showed moderate lumbar spondylosis. A chest x-ray was performed as he was hypoxic 88%, and that showed ill-defined bilateral perihilar space disease suspicious for infection in an indeterminate left upper lobe nodular density. A subsequent chest CT showed findings of pneumonia, a 2.6 centimeter exophytic right renal mass concerning for renal cell carcinoma, stable bilateral pulmonary nodules, and abnormal thickening of the distal esophagus which may be esophagitis although underlying mass not excluded. With further questioning, he does note having a cough for a couple of weeks, productive of green sputum as well as mild shortness of breath with exertion. He has lost some weight over the years, of which he cannot qualify. He denies GI symptoms, telling me he has not experienced heartburn for over 6 months time. No fever, chills, or sweats. He denies headache and neck ache. No sinus congestion, rhinorrhea, otalgia, or odynophagia. He denies chest pain, pleuritic pain, palpitations, orthopnea, PND, and lower extremity edema. He does not believe that he has been having dark stools at home but ?I do not ever look. Occasional dysphagia but no concerns for aspiration. He denies recent travel. No sick contacts. Of note, his last EGD was in November [address] Contreras which showed extensive Wooten's esophagus, esophageal and duodenal ulcers, and hiatal hernia. He has had no follow-up since that time. Review of Systems Review of Systems: Narrative: Twelve systems were reviewed with pertinent positives and negatives as per HPI. No headache. No neck ache. No lymphadenopathy. He denies hematuria. He denies ever having signs or symptoms of alcohol withdrawal. Except as documented, all other systems were reviewed and are negative. [facility] Past Medical History Medical History (Updated 06/11/19 @ 23:02 by Sheyla Dallas PA-C) Alcoholism Anemia Anxiety Arthritis Barretts esophagus Last EGD was on November 10, [address] Contreras and showed Wooten's esophagus, esophageal ulcers, duodenal ulcers, and hiatal hernia. He has had no follow-up since that time. Compression fracture History of T11 burst fracture. COPD with emphysema Dementia Depression Duodenal ulcer Esophageal ulcer GERD (gastroesophageal reflux disease) Osteoporosis Peripheral neuropathy Presence of IVC filter Inserted after trauma in 2002. Tobacco abuse Surgical History Surgical History (Updated 06/11/19 @ 22:12 by Sheyla Dallas PA-C) History of cholecystectomy History of orthopedic surgery ORIF right tibia/fibula fracture History of right hip replacement History of right inguinal hernia repair Open repair with mesh per Dr. Hitchcock. History of surgery on arm Intramedullary alexi left humeral shaft fracture. History of tonsillectomy Family History Family History Father Family history of osteoporosis Mother Hypertension Family history of hypothyroidism Sibling Family history of di
[2019-06-11 19:50] LABS: Lipase 28 U/L (23-300)
[2019-06-11] MEDS: THIAMINE HCL 200 MG/2 ML VIAL 100 MG IV PUSH (23:53)
[2019-06-11] MEDS: NICOTINE (*PBKC) 21 MG PATCH 1 PATCH TRANSDERM (23:54)
[2019-06-12] VITALS (12 sets, daily range): BP systolic 103–131; BP diastolic 58–84; PULSE 109–165; RESP 18–26; TEMP 35.7–37.7; O2SAT 87–95; BMI 17.6
[2019-06-12 00:30] LABS: Hematocrit 37.7 % (42.0-52.0); Hemoglobin 12.8 g/dL (14.0-18.0)
[2019-06-12 00:45] LABS: Magnesium 1.7 mg/dL (1.6-2.3); Phosphorus 2.6 mg/dL (2.5-4.5)
[2019-06-12] MEDS: LORAZEPAM INJ 2 MG/ML VIAL 1 MG IV PUSH (05:13)
[2019-06-12 05:20] LABS: Basophils Absolute Auto 0.1 K/mm3 (0.0-0.1); Basophils Percent Auto 0.4 % (0.2-1.2); Eosinophils Absolute Auto 0.1 K/mm3 (0-0.3); Eosinophils Percent Auto 0.4 % (0-4.4); Hematocrit 38.3 % (42.0-52.0); Immature Granulocyte Absolute 0.06 K/mm3 (0.00-0.031); Immature Granulocyte Percent A 0.4 % (0-0.5); Lymphocytes Absolute Auto 2.68 K/mm3 (0.9-3.2); Lymphocytes Percent Auto 18.8 % (18.3-44.2); Mean Corpuscular HGB Conc 33.9 g/dl (32-36); Mean Corpuscular Hemoglobin 30.7 pg (26-34); Mean Corpuscular Volume 90.3 fl (80-100); Mean Platelet Volume 9.8 fl (7.4-10.4); Monocytes Absolute Auto 1.4 K/mm3 (0.1-0.6); Monocytes Percent Auto 9.8 % (2.6-8.5); Neutrophils Percent Auto 70.2 % (45.5-73.1); Platelet Count Result 274 k/mm3 (150-375); Red Blood Count 4.24 M/mm3 (4.6-6.20); Red Cell Distribution Width 13.8 % (11.5-14.5); White Blood Count 14.2 K/mm3 (4.5-10.0)
[2019-06-12 05:31] LABS: Alanine Aminotransferase 9 U/L (4-50); Albumin Level 3.2 g/dL (3.5-5.1); Alkaline Phosphatase 48 U/L (38-126); Aspartate Amino Transferase 18 U/L (17-59); Bilirubin,Total 0.7 mg/dL (0.2-1.3); Blood Urea Nitrogen 44 mg/dL (9-20); Calcium 8.2 mg/dL (8.4-10.2); Carbon Dioxide 27 mmol/L (22-30); Chloride 102 mmol/L (98-107); Estimated CRCL calculation 80 ml/min; Estimated Glomerular Filt Rate > 60; Glucose 97 mg/dL (75-110); Phosphorus 2.1 mg/dL (2.5-4.5); Potassium 3.4 mmol/L (3.4-5.0); Sodium 135 mmol/L (137-145)
[2019-06-12] MEDS: CHLORDIAZEPOXIDE 25 MG CAPSULE PO ×4 (05:42→23:19)
--- NOTE | 2019-06-12 06:10 | ECG_ITS ---
Measurements Intervals [place] Rate: 163 P: HI: 0 QRS: 69 QRSD: 102 T: 44 QT: 267 QTc: 440 Interpretive Statements SINUS TACHYCARDIA INTERMITTENT RIGHT BUNDLE BRANCH BLOCK QRS MORPHOLOGY ABNORMAL ECG Electronically Signed On 06-12-2019 7:05:02 CDT by Nicko Capps D.O.
[2019-06-12 07:48] LABS: Glucose Point of Care 100 (65-105)
[2019-06-12] MEDS: ALBUTEROL SULFATE (*SP) AEROSOL 1 PUFF 2 PUFF INHALATION ×2 (08:40→12:52)
[2019-06-12] MEDS: PANTOPRAZOLE SODIUM IV 40 MG VIAL IV PUSH ×2 (09:16→20:23)
[2019-06-12] MEDS: MAGNESIUM SULF 2 GM/WATER 50ML 2 GM/50 ML BAG IVPB (09:16)
[2019-06-12] MEDS: FOLIC ACID 1 MG TABLET PO (09:23)
[2019-06-12] MEDS: POTASSIUM CHLORIDE 20 MEQ TABLET PO (09:23)
[2019-06-12] MEDS: POTASSIUM PHOS/SODIUM PHOS 250 MG TABLET PO ×2 (09:23→17:04)
[2019-06-12] MEDS: NICOTINE (*PBKC) 21 MG PATCH 1 PATCH TRANSDERM (09:23)
[2019-06-12] MEDS: THIAMINE HCL 100 MG TABLET PO (09:23)
--- NOTE | 2019-06-12 10:19 | WPDGICN ---
Assessment and Plan Assessment and plan (1) Barretts esophagus: Code(s): K22.70 - Wooten's esophagus without dysplasia Status: Acute Assessment and Plan: because of his history of esophagitis and Wooten's mucosa, he will definitely need of follow-up EGD in the near future. 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 EGD can be done as an outpatient when he has recovered from other problems (2) Melena: Code(s): K92.1 - Melena Status: Acute Assessment and Plan: there is no evidence of active bleeding. His blood counts are stable. GI Consult Note Consult date/time: 06/12/19 10:19 HPI: Arvind Bone is a 69 year old male Who was admitted primarily because of back pain after he has attempted to move some heavy boxes. He has history of back problems and compression fractions in the past. He takes an aspirin tablet for that, but nothing along the lines of an NSAID on a daily basis. He states that he has not been on medication for few years in fact has not seen a doctor for several years. On Admission was found to be somewhat hypoxic and chest x-ray shows of probable pneumonia and also some thickening of the distal esophagus. I have seen the patient once, 8 years ago, when he had an EGD and we found esophagitis with esophageal ulcers and I believe a duodenal ulcer. Biopsies showed Wooten's esophagus. He was started on medication but he has no idea if in he even took any medication or if he did for how long. He did not follow up with us as he was supposed to. At this time he denies vomiting he states appetite is fair. He ate breakfast this morning but was mainly leftovers from last night. He denies dysphagia. He states his bowel movements are normal but apparently he had 1 that was dark before admission. His hemoglobin has remained stable. He denies any history of liver disease. He is known to be a heavy user of alcohol Review of Systems Review of Systems: All systems reviewed & are unremarkable except as noted in HPI and below [facility] Past Medical History Medical History Alcoholism Anemia Anxiety Arthritis Barretts esophagus Last EGD was on November 10, [address] Contreras and showed Wooten's esophagus, esophageal ulcers, duodenal ulcers, and hiatal hernia. He has had no follow-up since that time. Compression fracture History of T11 burst fracture. COPD with emphysema Dementia Depression Duodenal ulcer Esophageal ulcer GERD (gastroesophageal reflux disease) Osteoporosis Peripheral neuropathy Presence of IVC filter Inserted after trauma in 2002. Tobacco abuse Surgical History Surgical History History of cholecystectomy History of orthopedic surgery ORIF right tibia/fibula fracture History of right hip replacement History of right inguinal hernia repair Open repair with mesh per Dr. Hitchcock. History of surgery on arm Intramedullary alexi left humeral shaft fracture. History of tonsillectomy Family History Family History Father Family history of osteoporosis Mother Hypertension Family history of hypothyroidism Sibling Family history of diabetes mellitus in first degree relative Diabetes mellitus Family history of malignant neoplasm Social History Social History Social History: The patient lives alone in [place]. He is on disability. He designates his son, Gigi, as his surrogate decision maker and he wishes to be a full code. He smokes between 2 and 2.5 packs of cigarettes per day and has for over 50 years. He drinks between 6 and 12 beers per day He denies drug use. Additional living arrangements comments: Spiritual care concerns: No Agree to blood products: Yes Meds Home Medications and Allergies Home Medications
--- NOTE | 2019-06-12 11:03 | WPDURCON ---
Assessment and Plan Assessment and plan (1) Right renal mass: Code(s): N28.89 - Other specified disorders of kidney and ureter Status: Acute Assessment and Plan: No intervention during this hospitalization. Needs to get over his acute problems with his COPD and pneumonia. He will need a formal evaluation with a dedicated CT have kidneys with and without contrast in A couple of months. Further recommendation will be made pending that study and determination will be made regarding proceeding with surveillance versus cryoablation of the lesion versus partial nephrectomy Or complete nephrectomy. Urology Consult Note HPI Date Seen: 06/12/19 Time Seen: 11:04 Requesting Physician: LINDA Castellanos Primary Care Provider: Joe Angel, Consult Narrative Reason for consult: Right renal mass 2.6 cm Narrative: Arvind Bone is a 69 year old male who was admitted with complaints of nonspecific back pain as well as shortness of breath. He was also found to have a pneumonia. Other findings revealed a soft the Traci thickening with mass needing to be ruled out. During evaluation of his CT of his chest an incidental finding of a 2.6 cm exophytic posterior right renal mass was seen. We are asked to see him regarding this. denies any gross hematuria. He also has a history of COPD. Review of Systems Review of Systems: All systems reviewed & are unremarkable except as noted in HPI and below [facility] Past Medical History Medical History Alcoholism Anemia Anxiety Arthritis Barretts esophagus Last EGD was on November 10, [address] Contreras and showed Wooten's esophagus, esophageal ulcers, duodenal ulcers, and hiatal hernia. He has had no follow-up since that time. Compression fracture History of T11 burst fracture. COPD with emphysema Dementia Depression Duodenal ulcer Esophageal ulcer GERD (gastroesophageal reflux disease) Osteoporosis Peripheral neuropathy Presence of IVC filter Inserted after trauma in 2002. Tobacco abuse Surgical History Surgical History History of cholecystectomy History of orthopedic surgery ORIF right tibia/fibula fracture History of right hip replacement History of right inguinal hernia repair Open repair with mesh per Dr. Hitchcock. History of surgery on arm Intramedullary alexi left humeral shaft fracture. History of tonsillectomy Family History Family History Father Family history of osteoporosis Mother Hypertension Family history of hypothyroidism Sibling Family history of diabetes mellitus in first degree relative Diabetes mellitus Family history of malignant neoplasm Social History Social History Social History: The patient lives alone in [place]. He is on disability. He designates his son, Gigi, as his surrogate decision maker and he wishes to be a full code. He smokes between 2 and 2.5 packs of cigarettes per day and has for over 50 years. He drinks between 6 and 12 beers per day He denies drug use. Additional living arrangements comments: Spiritual care concerns: No Agree to blood products: Yes Meds Home Medications and Allergies Home Medications Medication Instructions Recorded Confirmed Type No Home Medications 06/11/19 06/11/19 History Allergies Allergy/AdvReac Type Severity Reaction Status Date / Time bee pollen Allergy Unknown Anaphylaxis Verified 06/11/19 14:00 Honey Bee Allergy Severe Anaphylaxis Uncoded 06/11/19 14:00 Vital Signs Vital Signs - 24 hr 06/11/19 13:50 06/11/19 15:27 06/11/19 17:29 Temperature 36.5 C Pulse Rate 130 H 128 H 124 H Pulse Rate [Bilateral Radial] Respiratory Rate 18 20 16 Blood Pressure 119/72 123/83 123/71 Pulse Oxime
[2019-06-12] MEDS: LIDOCAINE 5% PATCH 1 PATCH TRANSDERM (11:20)
--- NOTE | 2019-06-12 11:30 | PCSTNOTE ---
Attempted schedule pt for MBS; however, testing was canceled due to pt having other testing first. This information is per xray transporter. RN then verified cancellation.
--- NOTE | 2019-06-12 11:41 | PM.IMPN ---
Progress Note: A&P Assessment and Plan (1) Pneumonia: Qualifiers: Laterality: unspecified laterality Lung location: unspecified part of lung Pneumonia type: due to unspecified organism Qualified Code(s): J18.9 - Pneumonia, unspecified organism Code(s): J18.9 - Pneumonia, unspecified organism Status: Acute Assessment and Plan: Continue IV azithromycin and rocephin (day 2). Continue albuterol MDI PRN. COVID-19 testing through [facility] performed today. Legionella and pneumococcal antigens pending. Blood cultures pending with no growth to date. (2) Acute respiratory failure: Qualifiers: Respiratory failure complication: hypoxia Qualified Code(s): J96.01 - Acute respiratory failure with hypoxia Code(s): J96.00 - Acute respiratory failure, unspecified whether with hypoxia or hypercapnia Status: Acute Assessment and Plan: Suspect secondary to above, superimposed on emphysema. Does not use supplemental O2 at home. Patient's son notes he activated EMS when the patient's O2 saturation was 83% on room air at home. Edit: Was requiring 2L nasal cannula much of the day today. Notified by nursing late this afternoon that saturations were 83% on 2L; then 87% on 4L. Returned to bedside for reassessment and patient was saturating 88-92% now on 6L nasal cannula. Patient is much more tachypneic with increased work of breathing this afternoon compared to this morning. Transfer to IMU (ICU with IMU overflow status). 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 Appreciate GI consultation - noted Dr Contreras's plan for outpatient EGD. Continue protonix BID. (4) Tachycardia: Code(s): R00.0 - Tachycardia, unspecified Status: Acute Assessment and Plan: Suspect secondary to acute infection. Sinus tach on EKG. Will monitor. (5) Melena: Code(s): K92.1 - Melena Status: Acute Assessment and Plan: x1. H&H stable. Monitor. (6) COPD with emphysema: Qualifiers: Emphysema type: unspecified Qualified Code(s): J43.9 - Emphysema, unspecified Code(s): J43.9 - Emphysema, unspecified Status: Chronic Assessment and Plan: Emphysema noted on imaging. Patient is not noted to be on any inhalers. Continue respiratory regimen noted above. (7) Right renal mass: Code(s): N28.89 - Other specified disorders of kidney and ureter Status: Acute Assessment and Plan: Incidental finding noted on imaging. Discussed case with Dr Gastelum - appreciate his input. Noted the patient can follow up outpatient for repeat imaging. (8) Tobacco abuse: Code(s): Z72.0 - Tobacco use Status: Chronic Assessment and Plan: Smoking cessation encouraged. Nicotine patch. (9) Alcoholism: Code(s): F10.20 - Alcohol dependence, uncomplicated Status: Chronic Assessment and Plan: Known to drink heavily, but patient's son notes he has cut back quite a bit recently. No signs or symptoms if withdrawal today. Continue monitoring with CIWA protocol, librium, thiamine, and folic acid. v Subjective Date/time seen: 06/12/19 1015 Interval history: Mr. Bone is a 69yo M admitted with pneumonia. He reports feeling okay today other than his back pain. He denies any chest pain. He reports a productive cough and shortness of breath. It is recorded that he had
[2019-06-12 11:50] LABS: Hematocrit 35.4 % (42.0-52.0); Hemoglobin 12.1 g/dL (14.0-18.0)
[2019-06-12 12:12] LABS: Glucose Point of Care 96 (65-105)
[2019-06-12] MEDS: SODIUM CHLORIDE 0.9% IV 500 ML 999 ML IV CONT (16:25)
[2019-06-12 20:28] LABS: Glucose Point of Care 82 (65-105)
[2019-06-12 22:47] LABS: Alveolar/Arterial O2 Gradient 473.8 mmHg; Base Excess ABG 1.2 mEq/l (+/-2.0); Carboxyhemoglobin 0.3 % THb (0-2.0); Fractional Inspired Oxygen 80 %; HCO3 ABG 23.8 mEq/l (22.0-26.0); Methemoglobin ABG 0.4 %THb (0-1.5); Oxygen Content ABG 15.2 %vol (16.0-22.0); Oxygen Saturation ABG 94.2 % (95.0-100.0); Oxyhemoglobin 91.3 % THb (90.0-100.0); PCO2 ABG 31.4 mmHg (35.0-45.0); PO2 ABG 63.6 mmHg (80.0-100.0); PO2 FiO2 Ratio Arterial Blood 0.79 %; Total Hemoglobin 11.8 g/dL (12.0-18.0); pH ABG 7.498 (7.350-7.450)
[2019-06-12 22:48] LABS: Modified Allen's Test Pass; Site Drawn RIGHT RADIAL
[2019-06-12 22:49] LABS: Device NASAL CANNULA
--- NOTE | 2019-06-12 23:30 | PM.EVENT ---
Event Note Event Note Event Note: I received a phone call from the patient's nurse at around 22:45 with reports of increasing oxygen requirement. Despite now being on 15 liters non-rebreather, his SpO2 remained around 88%. The patient was tachypneic and told me ?I feel like crap.? ABG was obtained, and demonstrated a pH of 7.498, pCO2 31.4, PO2 63.6 and a bicarb of 23.8. He was obviously beginning to tire out, and due to his frail state it was decided to go ahead and intubate. I did discuss this with attending critical care physician, Dr. Alonzo, prior to the procedure, and he was in agreement. Dr. Alonzo gave vent settings and sedation orders. Patient gave verbal consent for intubation. Please see procedure note and postprocedure chest x-ray
--- NOTE | 2019-06-12 23:45 | WPDPROCEDUR ---
Procedures Intubation: Intubation Date: 06/12/19 <ADRIANNA Fabian Last Filed: 06/13/19 00:13> Intubation Time: 23:45 <ADRIANNA Fabian Last Filed: 06/13/19 00:13> Consent: Patient gave verbal consent. <ADRIANNA Fabian Last Filed: 06/13/19 00:13> A pre-procedural Time-Out was completed immediately before starting the procedure and confirmed: Patient Identification, Site, Procedure, Patient Position and the Availability of Requisite Equipment: Yes <ADRIANNA Fabian Last Filed: 06/13/19 00:13> Sedative: etomidate <ADRIANNA Fabian Last Filed: 06/13/19 00:13> Mg given: 15 <ADRIANNA Fabian Last Filed: 06/13/19 00:13> Paralytic: succinylcholine <ADRINANA Fabian Last Filed: 06/13/19 00:13> Mg given: 60 <ADRIANNA Fabian Last Filed: 06/13/19 00:13> Laryngoscope: fiber optic video scope <ADRIANNA Fabian Last Filed: 06/13/19 00:13> ET tube size: 7.5 <ADRIANNA Fabian Last Filed: 06/13/19 00:13> Tube secured depth (cm): 23 <ADRIANNA Fabian Last Filed: 06/13/19 00:13> Tube secured location: lips <ADRIANNA Fabian Last Filed: 06/13/19 00:13> Tube placement confirmation: visualized tube passing through cords, equal breath sounds bilaterally, no breath sounds over epigastrium and confirmation by capnometry <ADRIANNA Fabian Last Filed: 06/13/19 00:13> Patient tolerated procedure: well <ADRIANNA Fabian Last Filed: 06/13/19 00:13> Intubation complications: none <ADRIANNA Fabian Last Filed: 06/13/19 00:13> Additional comments: Dr. Jason Jamison, attending ED physician, was available if need be. <Sheyla Dallas PA-C - Last Filed: 06/13/19 00:13>
[2019-06-13] VITALS (20 sets, daily range): BP systolic 87–129; BP diastolic 68–99; PULSE 110–125; RESP 13–27; TEMP 36.8–37.7; O2SAT 95–100; BMI 17.6
[2019-06-13] MEDS: PROPOFOL IV EMULSION 100 ML 3.5 MG IV CONT (00:05)
[2019-06-13] MEDS: MIDAZOLAM HCL 2 MG/2 ML VIAL IV PUSH (01:08)
[2019-06-13] MEDS: MIDAZOLAM HCL 50 MG in DEXTROSE 5% 90 ML 6 MG IV CONT ×2 (01:09→14:24)
[2019-06-13 02:04] LABS: Alveolar/Arterial O2 Gradient 422.3 mmHg; Base Excess ABG -0.7 mEq/l (+/-2.0); Carboxyhemoglobin 0.3 % THb (0-2.0); Fractional Inspired Oxygen 80 %; HCO3 ABG 23.8 mEq/l (22.0-26.0); Methemoglobin ABG 0.4 %THb (0-1.5); Oxygen Content ABG 16.3 %vol (16.0-22.0); Oxygen Saturation ABG 97.5 % (95.0-100.0); Oxyhemoglobin 95.8 % THb (90.0-100.0); PCO2 ABG 38.8 mmHg (35.0-45.0); PO2 ABG 97.3 mmHg (80.0-100.0); PO2 FiO2 Ratio Arterial Blood 1.22 %; Reduced Hemoglobin 3.5 %THb (0-5.0); pH ABG 7.406 (7.350-7.450)
[2019-06-13 02:06] LABS: Arterial Blood Gas Vent Mode CMV; Arterial Blood Gas Ventilator rate 16 /MIN; Device VENTILATOR; Modified Allen's Test Unable to perform; Site Drawn RIGHT RADIAL
[2019-06-13 02:07] LABS: Arterial Blood Gas PEEP 8 cmH2O; Arterial Blood Gas Tidal Volume 400 ml
[2019-06-13 06:04] LABS: Basophils Absolute Auto 0.2 K/mm3 (0.0-0.1); Basophils Percent Auto 0.8 % (0.2-1.2); Eosinophils Absolute Auto 0.3 K/mm3 (0-0.3); Eosinophils Percent Auto 1.5 % (0-4.4); Hemoglobin 10.9 g/dL (14.0-18.0); Immature Granulocyte Percent A 0.5 % (0-0.5); Lymphocytes Absolute Auto 2.51 K/mm3 (0.9-3.2); Lymphocytes Percent Auto 13.2 % (18.3-44.2); Mean Corpuscular Hemoglobin 31.1 pg (26-34); Monocytes Absolute Auto 2.3 K/mm3 (0.1-0.6); Monocytes Percent Auto 11.9 % (2.6-8.5); Neutrophils Absolute Auto 13.7 K/mm3 (1.3-6.7); Neutrophils Percent Auto 72.1 % (45.5-73.1); Platelet Count Result 261 k/mm3 (150-375); Red Blood Count 3.51 M/mm3 (4.6-6.20); Red Cell Distribution Width 14.4 % (11.5-14.5)
[2019-06-13 06:44] LABS: Alanine Aminotransferase 10 U/L (4-50); Albumin Level 3.2 g/dL (3.5-5.1); Alkaline Phosphatase 53 U/L (38-126); Aspartate Amino Transferase 22 U/L (17-59); Bilirubin,Total 0.7 mg/dL (0.2-1.3); Blood Urea Nitrogen 40 mg/dL (9-20); Carbon Dioxide 26 mmol/L (22-30); Chloride 101 mmol/L (98-107); Creatine Kinase 188 U/L (55-170); Estimated CRCL calculation 55 ml/min; Estimated Glomerular Filt Rate > 60; Glucose 109 mg/dL (75-110); Lactate Dehydrogenase 353 U/L (313-618); Magnesium 2.2 mg/dL (1.6-2.3); Phosphorus 4.2 mg/dL (2.5-4.5); Potassium 4.1 mmol/L (3.4-5.0); Sodium 135 mmol/L (137-145)
[2019-06-13 06:57] LABS: CRP 37.8 mg/dL (<1.0)
--- NOTE | 2019-06-13 08:27 | PCSTNOTE ---
Spoke with nursing regarding MBS. Patient has been intubated and is no longer appropriate for evaluation at this time.
[2019-06-13] MEDS: FOLIC ACID 1 MG TABLET PO (08:45)
[2019-06-13] MEDS: NICOTINE (*PBKC) 21 MG PATCH 1 PATCH TRANSDERM (08:46)
[2019-06-13] MEDS: LIDOCAINE 5% PATCH 1 PATCH TRANSDERM (08:46)
[2019-06-13] MEDS: PANTOPRAZOLE SODIUM IV 40 MG VIAL IV PUSH ×2 (08:46→20:22)
[2019-06-13] MEDS: POTASSIUM PHOS/SODIUM PHOS 250 MG TABLET PO (08:47)
[2019-06-13] MEDS: THIAMINE HCL 100 MG TABLET PO (08:47)
--- NOTE | 2019-06-13 09:16 | WPDCNINT ---
Assessment and Plan Assessment and plan (1) Acute respiratory failure: Qualifiers: Respiratory failure complication: hypoxia Qualified Code(s): J96.01 - Acute respiratory failure with hypoxia Code(s): J96.00 - Acute respiratory failure, unspecified whether with hypoxia or hypercapnia Status: Acute Assessment and Plan: patient presented with shortness of breath, hypoxia. Chest x-ray and CT chest showed right-sided pneumonia - patient was intubated on 06/12/2019 - Currently on CMV mode, 70% FiO2, peep of 8. Will wean FiO2 as tolerated - continue ceftriaxone and azithromycin - patient did not have any known sick contacts or travel history with the last 14 days. He has been sitting on a recliner for the last 5 days according to his son. - SARS-COV-2 PCR swab has been sent - patient is on droplet and airborne precaution - ferritin is normal, LDH is normal, lymphocytes are normal. CRP is 37.8. D- dimer 1.16. Will obtain procalcitonin (2) Pneumonia: Qualifiers: Pneumonia type: due to unspecified organism Laterality: unspecified laterality Lung location: unspecified part of lung Qualified Code(s): J18.9 - Pneumonia, unspecified organism Code(s): J18.9 - Pneumonia, unspecified organism Status: Acute Assessment and Plan: Chest x-ray and CT chest showed right-sided pneumonia - antibiotics as above (3) COPD with emphysema: Qualifiers: Emphysema type: unspecified Qualified Code(s): J43.9 - Emphysema, unspecified Code(s): J43.9 - Emphysema, unspecified Status: Chronic Assessment and Plan: patient history of COPD with emphysema - maintain O2 sats between 90-96% (4) Right renal mass: Code(s): N28.89 - Other specified disorders of kidney and ureter Status: Acute Assessment and Plan: right renal mass, incidental finding on CT chest - no gross hematuria - appreciate urology evaluation recommendation, no intervention during this hospitalization. Will need a formal evaluation with a dedicated CT of the kidneys with and without contrast and a couple of months. (5) Alcoholism: Code(s): F10.20 - Alcohol dependence, uncomplicated Status: Chronic Assessment and Plan: continue folic acid, Librium, thiamine (6) GERD (gastroesophageal reflux disease): Code(s): K21.9 - Gastro-esophageal reflux disease without esophagitis Status: Acute Assessment and Plan: continue Protonix (7) DVT prophylaxis: Code(s): Z29.9 - Encounter for prophylactic measures, unspecified Status: Acute Assessment and Plan: SCDs, stool for occult blood is positive, patient dropped his hemoglobin. Will avoid chemoprophylaxis for now Additional Plan will discuss with family and update them with patient's condition and plan of care Code status: Full code Critical care time spent: 43 minutes Due to a high probability of clinically significant, life threatening deterioration, the patient required my highest level of preparedness to intervene emergently and I personally spent this critical care time directly and personally managing the patient. This critical care time included obtaining a history; examining the patient; pulse oximetry; ordering and review of studies; arranging urgent treatment with development of a management plan; evaluation of patient's response to treatment; frequent reassessment; and discussions with other providers. It was exclusive of separately billable procedures and treating other patients and teaching time. Please see Assessment and Plan section and the rest of the note for further information on patient assessment and treatment Plastic Surgery Technician Consult Note Consult date: 06/13/19 Time Seen: 06:58 Reason for consult: Acute respiratory failure, pneumonia, melena, right renal mass, anemia HPI: Arvind Bone is a 69 year old male with significant past medical hi
[2019-06-13 10:04] LABS: Hematocrit 33.7 % (42.0-52.0); Hemoglobin 11.3 g/dL (14.0-18.0)
[2019-06-13 11:01] LABS: Glucose Point of Care 96 (65-105)
--- NOTE | 2019-06-13 11:10 | PCFNICU ---
ICU Rounding Note: Pt current nutrition is NPO. Nutrition recommendation: Vital AF 1.2 Last recorded weight is 57.6 kg. Bowel Motility:+BM documented on 06/10 Labs Reviewed:BUN 40,Na 135,Alb 3.2 Meds Noted: Fentanyl, Folic Acid, Thiamine, Protonix Additional Notes: Patient is currently on the mechanical ventilator. Plans to start tube feedings today. Recommend:Vital AF 1.2 at 25 ml/hr advance by 10 ml/hr to goal rate of 60 ml/hr providing 1728 kcals/108 gms protein/1168 ml water. Free water flush 30 ml q 4 hours. Following daily in ICU rounds. Assessing/reassessing every Tuesday and Tuesday.
--- NOTE | 2019-06-13 14:24 | PCPTNOTE ---
Spoke w Dr Vann regarding hold orders for PT/OT due to decline in medical status, on vent/sedated in ICU. He was agreeable to holding PT/OT
--- NOTE | 2019-06-13 16:45 | PM.IMPN ---
Progress Note: A&P Assessment and Plan (1) Pneumonia: Qualifiers: Pneumonia type: due to unspecified organism Laterality: unspecified laterality Lung location: unspecified part of lung Qualified Code(s): J18.9 - Pneumonia, unspecified organism Code(s): J18.9 - Pneumonia, unspecified organism Status: Acute Assessment and Plan: Continue IV azithromycin and rocephin (day 3). Continue albuterol MDI PRN. COVID-19 testing through [facility] performed 06/11 though low index of suspicion. Legionella and pneumococcal antigens pending. Blood cultures pending with no growth to date. (2) Acute respiratory failure: Qualifiers: Respiratory failure complication: hypoxia Qualified Code(s): J96.01 - Acute respiratory failure with hypoxia Code(s): J96.00 - Acute respiratory failure, unspecified whether with hypoxia or hypercapnia Status: Acute Assessment and Plan: Suspect secondary to above, superimposed on emphysema. Does not use supplemental O2 at home. Patient's son notes he activated EMS when the patient's O2 saturation was 83% on room air at home. Intubated and mechanically ventilated now . 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 Appreciate GI consultation - noted Dr Contreras's plan for outpatient EGD. Continue protonix BID., stool positive for blood and monitor serial CBCs (4) Tachycardia: Code(s): R00.0 - Tachycardia, unspecified Status: Acute Assessment and Plan: Suspect secondary to acute infection. Sinus tach on EKG. Will monitor. (5) Melena: Code(s): K92.1 - Melena Status: Acute Assessment and Plan: x1. H&H stable. Monitor. Continue PPI (6) COPD with emphysema: Qualifiers: Emphysema type: unspecified Qualified Code(s): J43.9 - Emphysema, unspecified Code(s): J43.9 - Emphysema, unspecified Status: Chronic Assessment and Plan: Emphysema noted on imaging. Patient is not noted to be on any inhalers. Continue respiratory regimen noted above. (7) Right renal mass: Code(s): N28.89 - Other specified disorders of kidney and ureter Status: Acute Assessment and Plan: Incidental finding noted on imaging. Discussed case with Dr Gastelum - appreciate his input. Noted the patient can follow up outpatient for repeat imaging. (8) Tobacco abuse: Code(s): Z72.0 - Tobacco use Status: Chronic Assessment and Plan: Smoking cessation encouraged. Nicotine patch. (9) Alcoholism: Code(s): F10.20 - Alcohol dependence, uncomplicated Status: Chronic Assessment and Plan: Known to drink heavily, but patient's son notes he has cut back quite a bit recently. No signs or symptoms if withdrawal . Continue monitoring with CIWA protocol, librium, thiamine, and folic acid. v Subjective Date/time seen: 06/13/19 16:45 Interval history: Date of visit 06/12 Mr. Bone is a 69yo M admitted with pneumonia. Became more acutely short of breath last p.m. 7 and had to be intubated and mechanically ventilated. Son Ervin notes that his father has been sitting in his recliner at home for nearly five days prior to admission. Ervin confirms his dad has had no travel in the last 14 days and no known sick contacts. Continues on the ventilator and sedated at present time Exam Narrative: Exam Narrative: Monie
[2019-06-13 18:36] LABS: Glucose Point of Care 96 (65-105)
[2019-06-13 18:36] LABS: Glucose Point of Care 139 (65-105)
[2019-06-13 23:39] LABS: Glucose Point of Care 90 (65-105)
[2019-06-14] VITALS (21 sets, daily range): BP systolic 94–110; BP diastolic 57–85; PULSE 107–127; RESP 10–25; TEMP 37.1–38.2; O2SAT 90–100
[2019-06-14 05:16] LABS: Alveolar/Arterial O2 Gradient 163.7 mmHg; Carboxyhemoglobin 0.2 % THb (0-2.0); Fractional Inspired Oxygen 40 %; HCO3 ABG 28.5 mEq/l (22.0-26.0); Methemoglobin ABG 0.3 %THb (0-1.5); Oxygen Content ABG 13.4 %vol (16.0-22.0); Oxygen Saturation ABG 92.7 % (95.0-100.0); PCO2 ABG 48.3 mmHg (35.0-45.0); PO2 FiO2 Ratio Arterial Blood 1.65 %; Reduced Hemoglobin 8.5 %THb (0-5.0); Total Hemoglobin 10.4 g/dL (12.0-18.0); pH ABG 7.389 (7.350-7.450)
[2019-06-14 05:17] LABS: Device VENTILATOR; Modified Allen's Test Pass; Site Drawn RIGHT RADIAL
[2019-06-14 05:18] LABS: Arterial Blood Gas PEEP 8 cmH2O; Arterial Blood Gas Pressure Support 0 cmH2O; Arterial Blood Gas Tidal Volume 400 ml; Arterial Blood Gas Vent Mode CMV; Arterial Blood Gas Ventilator rate 16 /MIN
[2019-06-14 05:55] LABS: Basophils Absolute Auto 0.1 K/mm3 (0.0-0.1); Basophils Percent Auto 0.3 % (0.2-1.2); Hematocrit 29.9 % (42.0-52.0); Hemoglobin 9.9 g/dL (14.0-18.0); Immature Granulocyte Absolute 0.11 K/mm3 (0.00-0.031); Immature Granulocyte Percent A 0.6 % (0-0.5); Lymphocytes Absolute Auto 2.03 K/mm3 (0.9-3.2); Lymphocytes Percent Auto 10.5 % (18.3-44.2); Mean Corpuscular HGB Conc 33.1 g/dl (32-36); Mean Corpuscular Hemoglobin 31.1 pg (26-34); Mean Platelet Volume 10.5 fl (7.4-10.4); Monocytes Absolute Auto 2.2 K/mm3 (0.1-0.6); Monocytes Percent Auto 11.4 % (2.6-8.5); Neutrophils Percent Auto 72.2 % (45.5-73.1); Platelet Count Result 304 k/mm3 (150-375); Red Blood Count 3.18 M/mm3 (4.6-6.20); Red Cell Distribution Width 14.6 % (11.5-14.5); White Blood Count 19.4 K/mm3 (4.5-10.0)
[2019-06-14 06:08] LABS: D Dimer 1.91 ug/mL (<0.48)
[2019-06-14] MEDS: MIDAZOLAM HCL 50 MG in DEXTROSE 5% 90 ML 6 MG IV CONT (06:49)
[2019-06-14 06:53] LABS: Alanine Aminotransferase 10 U/L (4-50); Albumin Level 3.2 g/dL (3.5-5.1); Alkaline Phosphatase 73 U/L (38-126); Aspartate Amino Transferase 20 U/L (17-59); Bilirubin,Total 0.3 mg/dL (0.2-1.3); Blood Urea Nitrogen 40 mg/dL (9-20); CRP > 45.0 mg/dL (<1.0); Calcium 7.7 mg/dL (8.4-10.2); Carbon Dioxide 27 mmol/L (22-30); Chloride 96 mmol/L (98-107); Estimated CRCL calculation 45 ml/min; Estimated Glomerular Filt Rate > 60; Glucose 231 mg/dL (75-110); Lactate Dehydrogenase 249 U/L (313-618); Magnesium 2.3 mg/dL (1.6-2.3); Phosphorus 3.5 mg/dL (2.5-4.5); Potassium 3.7 mmol/L (3.4-5.0); Sodium 132 mmol/L (137-145)
[2019-06-14 07:46] LABS: Pneumococcal Antigen Urine Not Detected (Not Detected)
[2019-06-14] MEDS: LIDOCAINE 5% PATCH 1 PATCH TRANSDERM (09:15)
[2019-06-14] MEDS: THIAMINE HCL 100 MG TABLET PO (09:15)
[2019-06-14] MEDS: NICOTINE (*PBKC) 21 MG PATCH 1 PATCH TRANSDERM (09:15)
[2019-06-14] MEDS: FOLIC ACID 1 MG TABLET PO (09:15)
[2019-06-14] MEDS: PANTOPRAZOLE SODIUM IV 40 MG VIAL IV PUSH ×2 (09:16→21:20)
--- NOTE | 2019-06-14 11:54 | WPDINTPN ---
Progress Note: A&P Assessment and Plan (1) Acute respiratory failure: Qualifiers: Respiratory failure complication: hypoxia Qualified Code(s): J96.01 - Acute respiratory failure with hypoxia Code(s): J96.00 - Acute respiratory failure, unspecified whether with hypoxia or hypercapnia Status: Acute Assessment and Plan: patient presented with shortness of breath, hypoxia. Chest x-ray and CT chest showed right-sided pneumonia - patient was intubated on 06/12/2019 - Currently on CMV mode, 70% FiO2, peep of 8. Will wean FiO2 as tolerated - continue ceftriaxone and azithromycin - elevated WBC count, along with CRP, will add vancomycin - patient did not have any known sick contacts or travel history with the last 14 days. He has been sitting on a recliner for the last 5 days according to his son. - SARS-COV-2 PCR came back negative - patient is off precautions - ferritin is normal, LDH is normal, lymphocytes are normal. CRP more elevated, D- dimer 1.16. procalcitonin pending (2) Pneumonia: Qualifiers: Pneumonia type: due to unspecified organism Laterality: unspecified laterality Lung location: unspecified part of lung Qualified Code(s): J18.9 - Pneumonia, unspecified organism Code(s): J18.9 - Pneumonia, unspecified organism Status: Acute Assessment and Plan: Chest x-ray and CT chest showed right-sided pneumonia - antibiotics as above - sputum cultures pending - blood cultures are negative x2 (3) COPD with emphysema: Qualifiers: Emphysema type: unspecified Qualified Code(s): J43.9 - Emphysema, unspecified Code(s): J43.9 - Emphysema, unspecified Status: Chronic Assessment and Plan: patient history of COPD with emphysema - maintain O2 sats between 90-96% (4) Right renal mass: Code(s): N28.89 - Other specified disorders of kidney and ureter Status: Acute Assessment and Plan: right renal mass, incidental finding on CT chest - no gross hematuria - appreciate urology evaluation recommendation, no intervention during this hospitalization. Will need a formal evaluation with a dedicated CT of the kidneys with and without contrast and a couple of months. (5) Alcoholism: Code(s): F10.20 - Alcohol dependence, uncomplicated Status: Chronic Assessment and Plan: continue folic acid, Librium, thiamine (6) GERD (gastroesophageal reflux disease): Code(s): K21.9 - Gastro-esophageal reflux disease without esophagitis Status: Acute Assessment and Plan: continue Protonix (7) DVT prophylaxis: Code(s): Z29.9 - Encounter for prophylactic measures, unspecified Status: Acute Assessment and Plan: SCDs, stool for occult blood is positive, patient dropped his hemoglobin. Will avoid chemoprophylaxis for now (8) Dietary counseling and surveillance: Code(s): Z71.3 - Dietary counseling and surveillance Status: Acute Assessment and Plan: patient tolerating tube feeds Additional Plan will discuss with family and update them with patient's condition and plan of care Code status: Full code Critical care time spent: 33 minutes Due to a high probability of clinically significant, life threatening deterioration, the patient required my highest level of preparedness to intervene emergently and I personally spent this critical care time directly and personally managing the patient. This critical care time included obtaining a history; examining the patient; pulse oximetry; ordering and review of studies; arranging urgent treatment with development of a management plan; evaluation of patient's response to treatment; frequent reassessment; and discussions with other providers. It was exclusive of separately billable procedures and treating other patients and teaching time. Please see Assessment and Plan section and the rest of the note for further
--- NOTE | 2019-06-14 12:17 | PCDIET ---
ICU Rounding Note: Patient tolerating Vital 1.2 at 60mL/hr goal rate. Residuals 55mL and below. Last recorded weight is 56.8kg which is decreased. Bowel Motility: +BM on 06/11/19. Labs Reviewed: BUN (40), Na (132), Alb (3.2) Meds Noted: Zithromax, Folic Acid, Versed, Rocephin, Protonix, K-Phos, Fentanyl, Thiamine, Vancomycin Additional Notes: No documented skin breakdown. Recommend continuing present tube feeding at this time. Following daily in ICU rounds. Assessing/reassessing every Tuesday/Tuesday.
[2019-06-14 12:59] LABS: Glucose Point of Care 117 (65-105)
[2019-06-14 14:50] LABS: Legionella pneumophila Ag Ur Not Detected (Not Detected)
--- NOTE | 2019-06-14 17:26 | P.PNIM_ITS ---
Progress Note: A&P Assessment and Plan (1) Pneumonia: Qualifiers: Pneumonia type: due to unspecified organism Laterality: unspecified laterality Lung location: unspecified part of lung Qualified Code(s): J18.9 - Pneumonia, unspecified organism Code(s): J18.9 - Pneumonia, unspecified organism Status: Acute Assessment and Plan: * Continue IV azithromycin and rocephin (day 4). Continue albuterol MDI PRN. * COVID-19 testing through [facility] negative,. Legionella and pneumococcal antigens pending. Blood cultures with no growth to date. (2) Acute respiratory failure: Qualifiers: Respiratory failure complication: hypoxia Qualified Code(s): J96.01 - Acute respiratory failure with hypoxia Code(s): J96.00 - Acute respiratory failure, unspecified whether with hypoxia or hypercapnia Status: Acute Assessment and Plan: * Suspect secondary to above, superimposed on emphysema. Does not use supplemental O2 at home. Patient's son notes he activated EMS when the patient's O2 saturation was 83% on room air at home. * Intubated and mechanically ventilated now . 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 * Appreciate GI consultation - noted Dr Contreras's plan for outpatient EGD. * Continue protonix BID., stool positive for blood and monitor serial CBCs * Hgb 9.9 today (4) Tachycardia: Code(s): R00.0 - Tachycardia, unspecified Status: Acute Assessment and Plan: * Suspect secondary to acute infection. Sinus tach on EKG. Will monitor. (5) Melena: Code(s): K92.1 - Melena Status: Acute Assessment and Plan: * x1. H&H stable. Monitor. Continue PPI * as above hgb 9.9 06/13 (6) COPD with emphysema: Qualifiers: Emphysema type: unspecified Qualified Code(s): J43.9 - Emphysema, unspecified Code(s): J43.9 - Emphysema, unspecified Status: Chronic Assessment and Plan: * Emphysema noted on imaging. Patient is not noted to be on any inhalers. Continue respiratory regimen noted above. (7) Right renal mass: Code(s): N28.89 - Other specified disorders of kidney and ureter Status: Acute Assessment and Plan: * Incidental finding noted on imaging. * Discussed case with Dr Gastelum - appreciate his input. Noted the patient can follow up outpatient for repeat imaging. (8) Tobacco abuse: Code(s): Z72.0 - Tobacco use Status: Chronic Assessment and Plan: * Smoking cessation encouraged. Nicotine patch. (9) Alcoholism: Code(s): F10.20 - Alcohol dependence, uncomplicated Status: Chronic Assessment and Plan: * Known to drink heavily, but patient's son notes he has cut back quite a bit recently. * No signs or symptoms if withdrawal . Continue monitoring with CIWA protocol, librium, thiamine, and folic acid. v Subjective Date/time seen: 06/14/19 17:26 Interval history: Date of visit 06/13 Mr. Bone is a 69yo M admit
--- NOTE | 2019-06-14 17:26 | PM.IMPN ---
Progress Note: A&P Assessment and Plan (1) Pneumonia: Qualifiers: Pneumonia type: due to unspecified organism Laterality: unspecified laterality Lung location: unspecified part of lung Qualified Code(s): J18.9 - Pneumonia, unspecified organism Code(s): J18.9 - Pneumonia, unspecified organism Status: Acute Assessment and Plan: Continue IV azithromycin and rocephin (day 4). Continue albuterol MDI PRN. COVID-19 testing through [facility] negative,. Legionella and pneumococcal antigens pending. Blood cultures with no growth to date. (2) Acute respiratory failure: Qualifiers: Respiratory failure complication: hypoxia Qualified Code(s): J96.01 - Acute respiratory failure with hypoxia Code(s): J96.00 - Acute respiratory failure, unspecified whether with hypoxia or hypercapnia Status: Acute Assessment and Plan: Suspect secondary to above, superimposed on emphysema. Does not use supplemental O2 at home. Patient's son notes he activated EMS when the patient's O2 saturation was 83% on room air at home. Intubated and mechanically ventilated now . 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 Appreciate GI consultation - noted Dr Contreras's plan for outpatient EGD. Continue protonix BID., stool positive for blood and monitor serial CBCs Hgb 9.9 today (4) Tachycardia: Code(s): R00.0 - Tachycardia, unspecified Status: Acute Assessment and Plan: Suspect secondary to acute infection. Sinus tach on EKG. Will monitor. (5) Melena: Code(s): K92.1 - Melena Status: Acute Assessment and Plan: x1. H&H stable. Monitor. Continue PPI as above hgb 9.9 06/13 (6) COPD with emphysema: Qualifiers: Emphysema type: unspecified Qualified Code(s): J43.9 - Emphysema, unspecified Code(s): J43.9 - Emphysema, unspecified Status: Chronic Assessment and Plan: Emphysema noted on imaging. Patient is not noted to be on any inhalers. Continue respiratory regimen noted above. (7) Right renal mass: Code(s): N28.89 - Other specified disorders of kidney and ureter Status: Acute Assessment and Plan: Incidental finding noted on imaging. Discussed case with Dr Gastelum - appreciate his input. Noted the patient can follow up outpatient for repeat imaging. (8) Tobacco abuse: Code(s): Z72.0 - Tobacco use Status: Chronic Assessment and Plan: Smoking cessation encouraged. Nicotine patch. (9) Alcoholism: Code(s): F10.20 - Alcohol dependence, uncomplicated Status: Chronic Assessment and Plan: Known to drink heavily, but patient's son notes he has cut back quite a bit recently. No signs or symptoms if withdrawal . Continue monitoring with CIWA protocol, librium, thiamine, and folic acid. v Subjective Date/time seen: 06/14/19 17:26 Interval history: Date of visit 06/13 Mr. Bone is a 69yo M admitted with pneumonia. Became more acutely short of breath p.m. 06/11 and had to be intubated and mechanically ventilated. Son Ervin notes that his father has been sitting in his recliner at home for nearly five days prior to admission. Ervin confirms his dad has had no travel in the last 14 days and no known sick contacts. Continues on the ventilator and sedated at present time. Covod test negative Exam Narrative: Exam N
[2019-06-14 17:43] LABS: Glucose Point of Care 134 (65-105)
[2019-06-14] MEDS: MIDAZOLAM HCL 50 MG in DEXTROSE 5% 90 ML 8 MG IV CONT (23:38)
[2019-06-15] VITALS (24 sets, daily range): BP systolic 88–115; BP diastolic 57–66; PULSE 87–116; RESP 15–18; TEMP 37.2–38.2; O2SAT 93–100
[2019-06-15 03:49] LABS: Alveolar/Arterial O2 Gradient 127.3 mmHg; Base Excess ABG 8.1 mEq/l (+/-2.0); Carboxyhemoglobin 0.3 % THb (0-2.0); Fractional Inspired Oxygen 35 %; HCO3 ABG 33.2 mEq/l (22.0-26.0); Methemoglobin ABG 0.4 %THb (0-1.5); Oxygen Content ABG 12.6 %vol (16.0-22.0); Oxygen Saturation ABG 93.1 % (95.0-100.0); Oxyhemoglobin 92.1 % THb (90.0-100.0); PCO2 ABG 49.7 mmHg (35.0-45.0); PO2 ABG 64.5 mmHg (80.0-100.0); PO2 FiO2 Ratio Arterial Blood 1.84 %; Reduced Hemoglobin 7.2 %THb (0-5.0); Total Hemoglobin 9.7 g/dL (12.0-18.0); pH ABG 7.443 (7.350-7.450)
[2019-06-15 03:51] LABS: Device VENTILATOR; Site Drawn LEFT BRACHIAL
[2019-06-15 03:52] LABS: Arterial Blood Gas PEEP 8 cmH2O; Arterial Blood Gas Tidal Volume 400 ml; Arterial Blood Gas Vent Mode CMV; Arterial Blood Gas Ventilator rate 16 /MIN
[2019-06-15 04:58] LABS: Basophils Absolute Auto 0.1 K/mm3 (0.0-0.1); Basophils Percent Auto 0.3 % (0.2-1.2); Eosinophils Absolute Auto 0.5 K/mm3 (0-0.3); Hematocrit 24.4 % (42.0-52.0); Hemoglobin 8.3 g/dL (14.0-18.0); Immature Granulocyte Absolute 0.21 K/mm3 (0.00-0.031); Immature Granulocyte Percent A 1.2 % (0-0.5); Lymphocytes Absolute Auto 1.64 K/mm3 (0.9-3.2); Lymphocytes Percent Auto 9.6 % (18.3-44.2); Mean Corpuscular Hemoglobin 31.6 pg (26-34); Mean Corpuscular Volume 92.8 fl (80-100); Mean Platelet Volume 10.9 fl (7.4-10.4); Monocytes Absolute Auto 2.5 K/mm3 (0.1-0.6); Monocytes Percent Auto 14.3 % (2.6-8.5); Neutrophils Absolute Auto 12.3 K/mm3 (1.3-6.7); Neutrophils Percent Auto 71.6 % (45.5-73.1); Platelet Count Result 319 k/mm3 (150-375); Red Blood Count 2.63 M/mm3 (4.6-6.20); Red Cell Distribution Width 14.6 % (11.5-14.5); White Blood Count 17.2 K/mm3 (4.5-10.0)
[2019-06-15 05:12] LABS: Alanine Aminotransferase 10 U/L (4-50); Albumin Level 2.7 g/dL (3.5-5.1); Alkaline Phosphatase 73 U/L (38-126); Aspartate Amino Transferase 23 U/L (17-59); Bilirubin,Total 0.3 mg/dL (0.2-1.3); Blood Urea Nitrogen 30 mg/dL (9-20); Calcium 7.7 mg/dL (8.4-10.2); Carbon Dioxide 32 mmol/L (22-30); Chloride 97 mmol/L (98-107); Estimated CRCL calculation 64 ml/min; Estimated Glomerular Filt Rate > 60; Glucose 128 mg/dL (75-110); Magnesium 2.4 mg/dL (1.6-2.3); Phosphorus 2.4 mg/dL (2.5-4.5); Potassium 3.9 mmol/L (3.4-5.0); Sodium 133 mmol/L (137-145)
[2019-06-15 05:53] LABS: CRP 32.5 mg/dL (<1.0)
[2019-06-15] MEDS: POTASSIUM/PHOSPHORUS/SODIUM 1.5 GM PACKET 1 PACKET PO (08:59)
[2019-06-15] MEDS: NICOTINE (*PBKC) 21 MG PATCH 1 PATCH TRANSDERM (08:59)
[2019-06-15] MEDS: FOLIC ACID 1 MG TABLET PO (09:00)
[2019-06-15] MEDS: THIAMINE HCL 100 MG TABLET PO (09:00)
[2019-06-15] MEDS: PANTOPRAZOLE SODIUM IV 40 MG VIAL IV PUSH ×2 (09:00→20:36)
[2019-06-15] MEDS: LIDOCAINE 5% PATCH 1 PATCH TRANSDERM (09:01)
[2019-06-15 09:38] LABS: Glucose Point of Care 94 (65-105)
--- NOTE | 2019-06-15 11:48 | PCDIET ---
Nutrition Follow-Up Complete: Nutrition Diagnosis: Inadequate energy intake related to decreased appetite as evidenced by BMI of 17.7 Nutrition Goal: Meet estimated nutritional needs Goal met. Patient tolerating Vital 1.2 at 60mL/hr goal rate. Residuals 60mL and below. Last recorded weight is 59.9 kg which is increased. +I/O noted. Bowel Motility: Last documented bowel movement on 06/11/19. Labs Reviewed: Glu (128), BUN (30), Na (133), Alb (2.7), [place]win Ca (8.74), PO4 (2.4), Mg (2.4), CRP (32.5) Meds Noted: Zithromax, Rocephin, Fentanyl, Folic Acid, Versed, K-Phos, Thiamine, Vancomycin Additional Notes: No documented skin breakdown. Recommend continuing present tube feeding; will continue to monitor with same goal. Nutrition Monitoring and Evaluation: Follow up every Tuesday/Tuesday. Follow daily in ICU rounds.
[2019-06-15 12:00] LABS: Glucose Point of Care 108 (65-105)
--- NOTE | 2019-06-15 14:46 | P.PNIM_ITS ---
Progress Note: A&P Assessment and Plan (1) Pneumonia: Qualifiers: Pneumonia type: due to unspecified organism Laterality: unspecified laterality Lung location: unspecified part of lung Qualified Code(s): J18.9 - Pneumonia, unspecified organism Code(s): J18.9 - Pneumonia, unspecified organism Status: Acute Assessment and Plan: * Continue IV azithromycin and rocephin (day 5). Continue albuterol MDI PRN. * COVID-19 testing through [facility] negative,. Legionella and pneumococcal antigens negative. Blood cultures with no growth to date. * still marked infiltrate on cxr (2) Acute respiratory failure: Qualifiers: Respiratory failure complication: hypoxia Qualified Code(s): J96.01 - Acute respiratory failure with hypoxia Code(s): J96.00 - Acute respiratory failure, unspecified whether with hypoxia or hypercapnia Status: Acute Assessment and Plan: * Suspect secondary to above, superimposed on emphysema. Does not use supplemental O2 at home. Patient's son notes he activated EMS when the patient's O2 saturation was 83% on room air at home. * Intubated and mechanically ventilated now . 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 * Appreciate GI consultation - noted Dr Contreras's plan for outpatient EGD. * Continue protonix BID., stool positive for blood and monitor serial CBCs * Hgb 8.3, today noted to have melanic stool early in course of treatment (4) Tachycardia: Code(s): R00.0 - Tachycardia, unspecified Status: Acute Assessment and Plan: * Suspect secondary to acute infection. Sinus tach on EKG. Will monitor. (5) Melena: Code(s): K92.1 - Melena Status: Acute Assessment and Plan: * x1. H&H slowly declining. Monitor. Continue PPI * as above hgb 8.3 today (6) COPD with emphysema: Qualifiers: Emphysema type: unspecified Qualified Code(s): J43.9 - Emphysema, unspecified Code(s): J43.9 - Emphysema, unspecified Status: Chronic Assessment and Plan: * Emphysema noted on imaging. Patient is not noted to be on any inhalers. Continue respiratory regimen noted above. (7) Right renal mass: Code(s): N28.89 - Other specified disorders of kidney and ureter Status: Acute Assessment and Plan: * Incidental finding noted on imaging. * Discussed case with Dr Gastelum - appreciate his input. Noted the patient can follow up outpatient for repeat imaging. (8) Tobacco abuse: Code(s): Z72.0 - Tobacco use Status: Chronic Assessment and Plan: * Smoking cessation encouraged. Nicotine patch. (9) Alcoholism: Code(s): F10.20 - Alcohol dependence, uncomplicated Status: Chronic Assessment and Plan: * Known to drink heavily, but patient's son notes he has cut back quite a bit recently. * No signs or symptoms if withdrawal . Continue monitoring with CIWA protocol, librium, thiamine, and folic acid. v Subjective
--- NOTE | 2019-06-15 14:46 | PM.IMPN ---
Progress Note: A&P Assessment and Plan (1) Pneumonia: Qualifiers: Pneumonia type: due to unspecified organism Laterality: unspecified laterality Lung location: unspecified part of lung Qualified Code(s): J18.9 - Pneumonia, unspecified organism Code(s): J18.9 - Pneumonia, unspecified organism Status: Acute Assessment and Plan: Continue IV azithromycin and rocephin (day 5). Continue albuterol MDI PRN. COVID-19 testing through [facility] negative,. Legionella and pneumococcal antigens negative. Blood cultures with no growth to date. still marked infiltrate on cxr (2) Acute respiratory failure: Qualifiers: Respiratory failure complication: hypoxia Qualified Code(s): J96.01 - Acute respiratory failure with hypoxia Code(s): J96.00 - Acute respiratory failure, unspecified whether with hypoxia or hypercapnia Status: Acute Assessment and Plan: Suspect secondary to above, superimposed on emphysema. Does not use supplemental O2 at home. Patient's son notes he activated EMS when the patient's O2 saturation was 83% on room air at home. Intubated and mechanically ventilated now . 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 Appreciate GI consultation - noted Dr Contreras's plan for outpatient EGD. Continue protonix BID., stool positive for blood and monitor serial CBCs Hgb 8.3, today noted to have melanic stool early in course of treatment (4) Tachycardia: Code(s): R00.0 - Tachycardia, unspecified Status: Acute Assessment and Plan: Suspect secondary to acute infection. Sinus tach on EKG. Will monitor. (5) Melena: Code(s): K92.1 - Melena Status: Acute Assessment and Plan: x1. H&H slowly declining. Monitor. Continue PPI as above hgb 8.3 today (6) COPD with emphysema: Qualifiers: Emphysema type: unspecified Qualified Code(s): J43.9 - Emphysema, unspecified Code(s): J43.9 - Emphysema, unspecified Status: Chronic Assessment and Plan: Emphysema noted on imaging. Patient is not noted to be on any inhalers. Continue respiratory regimen noted above. (7) Right renal mass: Code(s): N28.89 - Other specified disorders of kidney and ureter Status: Acute Assessment and Plan: Incidental finding noted on imaging. Discussed case with Dr Gastelum - appreciate his input. Noted the patient can follow up outpatient for repeat imaging. (8) Tobacco abuse: Code(s): Z72.0 - Tobacco use Status: Chronic Assessment and Plan: Smoking cessation encouraged. Nicotine patch. (9) Alcoholism: Code(s): F10.20 - Alcohol dependence, uncomplicated Status: Chronic Assessment and Plan: Known to drink heavily, but patient's son notes he has cut back quite a bit recently. No signs or symptoms if withdrawal . Continue monitoring with CIWA protocol, librium, thiamine, and folic acid. v Subjective Date/time seen: 06/15/19 14:46 Interval history: Date of visit 06/14 Mr. Bone is a 69yo M admitted with pneumonia. Became more acutely short of breath p.m. 4/7 and had to be intubated and mechanically ventilated. Son Ervin notes that his father has been sitting in his recliner at home for nearly five days prior to admission. Ervin confirms his dad has had no travel in the last 14 days and no known sick contacts.
--- NOTE | 2019-06-15 15:23 | WPDINTPN ---
Progress Note: A&P Assessment and Plan (1) Acute respiratory failure: Qualifiers: Respiratory failure complication: hypoxia Qualified Code(s): J96.01 - Acute respiratory failure with hypoxia Code(s): J96.00 - Acute respiratory failure, unspecified whether with hypoxia or hypercapnia Status: Acute Assessment and Plan: patient presented with shortness of breath, hypoxia. Chest x-ray and CT chest showed right-sided pneumonia - patient was intubated on 06/12/2019 - Currently on CMV mode, 70% FiO2, peep of 8. Will wean FiO2 as tolerated - continue ceftriaxone, azithromycin vancomycin - patient did not have any known sick contacts or travel history with the last 14 days. He has been sitting on a recliner for the last 5 days according to his son. - SARS-COV-2 PCR came back negative - patient is off precautions - ferritin is normal, LDH is normal, lymphocytes are normal. CRP more elevated, D- dimer 1.16. procalcitonin pending (2) Pneumonia: Qualifiers: Pneumonia type: due to unspecified organism Laterality: unspecified laterality Lung location: unspecified part of lung Qualified Code(s): J18.9 - Pneumonia, unspecified organism Code(s): J18.9 - Pneumonia, unspecified organism Status: Acute Assessment and Plan: Chest x-ray and CT chest showed right-sided pneumonia - antibiotics as above - sputum cultures growing yeast - blood cultures are negative x2 (3) COPD with emphysema: Qualifiers: Emphysema type: unspecified Qualified Code(s): J43.9 - Emphysema, unspecified Code(s): J43.9 - Emphysema, unspecified Status: Chronic Assessment and Plan: patient history of COPD with emphysema - maintain O2 sats between 90-96% (4) Right renal mass: Code(s): N28.89 - Other specified disorders of kidney and ureter Status: Acute Assessment and Plan: right renal mass, incidental finding on CT chest - no gross hematuria - appreciate urology evaluation recommendation, no intervention during this hospitalization. Will need a formal evaluation with a dedicated CT of the kidneys with and without contrast and a couple of months. (5) Alcoholism: Code(s): F10.20 - Alcohol dependence, uncomplicated Status: Chronic Assessment and Plan: continue folic acid, Librium, thiamine (6) GERD (gastroesophageal reflux disease): Code(s): K21.9 - Gastro-esophageal reflux disease without esophagitis Status: Acute Assessment and Plan: continue Protonix (7) DVT prophylaxis: Code(s): Z29.9 - Encounter for prophylactic measures, unspecified Status: Acute Assessment and Plan: SCDs, stool for occult blood is positive, patient dropped his hemoglobin. Will avoid chemoprophylaxis for now (8) Dietary counseling and surveillance: Code(s): Z71.3 - Dietary counseling and surveillance Status: Acute Assessment and Plan: patient tolerating tube feeds Additional Plan will discuss with family and update them with patient's condition and plan of care Code status: Full code Critical care time spent: 32 minutes Due to a high probability of clinically significant, life threatening deterioration, the patient required my highest level of preparedness to intervene emergently and I personally spent this critical care time directly and personally managing the patient. This critical care time included obtaining a history; examining the patient; pulse oximetry; ordering and review of studies; arranging urgent treatment with development of a management plan; evaluation of patient's response to treatment; frequent reassessment; and discussions with other providers. It was exclusive of separately billable procedures and treating other patients and teaching time. Please see Assessment and Plan section and the rest of the note for further information on patient assessment and treatm
[2019-06-15] MEDS: MIDAZOLAM HCL 50 MG in DEXTROSE 5% 90 ML 6 MG IV CONT (16:02)
[2019-06-15 18:21] LABS: Glucose Point of Care 155 (65-105)
[2019-06-16] VITALS (24 sets, daily range): BP systolic 98–130; BP diastolic 57–85; PULSE 84–115; RESP 15–23; TEMP 36.3–37.9; O2SAT 89–100
[2019-06-16 00:07] LABS: Glucose Point of Care 102 (65-105)
[2019-06-16 04:24] LABS: Alveolar/Arterial O2 Gradient 93.7 mmHg; Base Excess ABG 9.5 mEq/l (+/-2.0); Fractional Inspired Oxygen 30 %; HCO3 ABG 34.9 mEq/l (22.0-26.0); Methemoglobin ABG 0.2 %THb (0-1.5); Oxygen Content ABG 15.1 %vol (16.0-22.0); Oxygen Saturation ABG 91.7 % (95.0-100.0); Oxyhemoglobin 90.8 % THb (90.0-100.0); PCO2 ABG 51.2 mmHg (35.0-45.0); Total Hemoglobin 11.8 g/dL (12.0-18.0); pH ABG 7.452 (7.350-7.450)
[2019-06-16 04:25] LABS: Modified Allen's Test Pass; Site Drawn RIGHT RADIAL
[2019-06-16 04:26] LABS: Arterial Blood Gas Vent Mode CMV; Arterial Blood Gas Ventilator rate 14 /MIN; Device VENTILATOR
[2019-06-16 04:27] LABS: Arterial Blood Gas PEEP 8 cmH2O; Arterial Blood Gas Tidal Volume 400 ml
[2019-06-16 05:13] LABS: Basophils Absolute Auto 0.1 K/mm3 (0.0-0.1); Basophils Percent Auto 0.5 % (0.2-1.2); Eosinophils Absolute Auto 0.8 K/mm3 (0-0.3); Eosinophils Percent Auto 4.1 % (0-4.4); Hemoglobin 9.2 g/dL (14.0-18.0); Immature Granulocyte Absolute 0.23 K/mm3 (0.00-0.031); Immature Granulocyte Percent A 1.2 % (0-0.5); Lymphocytes Absolute Auto 3.03 K/mm3 (0.9-3.2); Lymphocytes Percent Auto 16.4 % (18.3-44.2); Mean Corpuscular HGB Conc 31.7 g/dl (32-36); Mean Corpuscular Hemoglobin 30.9 pg (26-34); Mean Corpuscular Volume 97.3 fl (80-100); Mean Platelet Volume 11.3 fl (7.4-10.4); Monocytes Absolute Auto 4.4 K/mm3 (0.1-0.6); Monocytes Percent Auto 23.9 % (2.6-8.5); Neutrophils Percent Auto 53.9 % (45.5-73.1); Platelet Count Result 298 k/mm3 (150-375); Red Blood Count 2.98 M/mm3 (4.6-6.20); White Blood Count 18.5 K/mm3 (4.5-10.0)
[2019-06-16 05:49] LABS: Alanine Aminotransferase 14 U/L (4-50); Albumin Level 2.9 g/dL (3.5-5.1); Alkaline Phosphatase 77 U/L (38-126); Aspartate Amino Transferase 47 U/L (17-59); Bilirubin,Total 0.1 mg/dL (0.2-1.3); Blood Urea Nitrogen 20 mg/dL (9-20); CRP 20.5 mg/dL (<1.0); Calcium 7.9 mg/dL (8.4-10.2); Carbon Dioxide 33 mmol/L (22-30); Chloride 94 mmol/L (98-107); Estimated CRCL calculation 89 ml/min; Estimated Glomerular Filt Rate > 60; Glucose 97 mg/dL (75-110); Lactate Dehydrogenase 403 U/L (313-618); Magnesium 2.4 mg/dL (1.6-2.3); Phosphorus 2.5 mg/dL (2.5-4.5); Potassium 3.7 mmol/L (3.4-5.0); Sodium 132 mmol/L (137-145)
[2019-06-16 05:52] LABS: D Dimer 2.41 ug/mL (<0.48)
[2019-06-16 06:08] LABS: Glucose Point of Care 97 (65-105)
[2019-06-16] MEDS: NICOTINE (*PBKC) 21 MG PATCH 1 PATCH TRANSDERM (09:00)
[2019-06-16] MEDS: THIAMINE HCL 100 MG TABLET PO (09:00)
[2019-06-16] MEDS: FOLIC ACID 1 MG TABLET PO (09:00)
[2019-06-16] MEDS: LIDOCAINE 5% PATCH 1 PATCH TRANSDERM (09:01)
[2019-06-16] MEDS: PANTOPRAZOLE SODIUM IV 40 MG VIAL IV PUSH ×2 (09:01→20:11)
[2019-06-16] MEDS: FUROSEMIDE INJ 40 MG/4 ML VIAL IV PUSH (09:19)
[2019-06-16] MEDS: MIDAZOLAM HCL 50 MG in DEXTROSE 5% 90 ML IV CONT (10:56)
[2019-06-16 11:47] LABS: Glucose Point of Care 108 (65-105)
--- NOTE | 2019-06-16 14:07 | WPDINTPN ---
Progress Note: A&P Assessment and Plan (1) Acute respiratory failure: Qualifiers: Respiratory failure complication: hypoxia Qualified Code(s): J96.01 - Acute respiratory failure with hypoxia Code(s): J96.00 - Acute respiratory failure, unspecified whether with hypoxia or hypercapnia Status: Acute Assessment and Plan: patient presented with shortness of breath, hypoxia. Chest x-ray and CT chest showed right-sided pneumonia - patient was intubated on 06/12/2019 - Currently on CMV mode, 30% FiO2, peep of 8. Will wean peep - continue ceftriaxone, azithromycin vancomycin - patient did not have any known sick contacts or travel history with the last 14 days. He has been sitting on a recliner for the last 5 days according to his son. - SARS-COV-2 PCR came back negative - patient is off precautions - ferritin is normal, LDH is normal, lymphocytes are normal. CRP more elevated, D- dimer 1.16. procalcitonin pending (2) Pneumonia: Qualifiers: Pneumonia type: due to unspecified organism Laterality: unspecified laterality Lung location: unspecified part of lung Qualified Code(s): J18.9 - Pneumonia, unspecified organism Code(s): J18.9 - Pneumonia, unspecified organism Status: Acute Assessment and Plan: Chest x-ray and CT chest showed right-sided pneumonia - antibiotics as above - sputum cultures growing yeast - blood cultures are negative x2 (3) COPD with emphysema: Qualifiers: Emphysema type: unspecified Qualified Code(s): J43.9 - Emphysema, unspecified Code(s): J43.9 - Emphysema, unspecified Status: Chronic Assessment and Plan: patient history of COPD with emphysema - maintain O2 sats between 90-96% (4) Right renal mass: Code(s): N28.89 - Other specified disorders of kidney and ureter Status: Acute Assessment and Plan: right renal mass, incidental finding on CT chest - no gross hematuria - appreciate urology evaluation recommendation, no intervention during this hospitalization. Will need a formal evaluation with a dedicated CT of the kidneys with and without contrast and a couple of months. (5) Alcoholism: Code(s): F10.20 - Alcohol dependence, uncomplicated Status: Chronic Assessment and Plan: continue folic acid, Librium, thiamine (6) GERD (gastroesophageal reflux disease): Code(s): K21.9 - Gastro-esophageal reflux disease without esophagitis Status: Acute Assessment and Plan: continue Protonix (7) DVT prophylaxis: Code(s): Z29.9 - Encounter for prophylactic measures, unspecified Status: Acute Assessment and Plan: SCDs, stool for occult blood is positive, patient dropped his hemoglobin. Will avoid chemoprophylaxis for now (8) Dietary counseling and surveillance: Code(s): Z71.3 - Dietary counseling and surveillance Status: Acute Assessment and Plan: patient tolerating tube feeds Additional Plan will discuss with family and update them with patient's condition and plan of care Code status: Full code Critical care time spent: 33 minutes Due to a high probability of clinically significant, life threatening deterioration, the patient required my highest level of preparedness to intervene emergently and I personally spent this critical care time directly and personally managing the patient. This critical care time included obtaining a history; examining the patient; pulse oximetry; ordering and review of studies; arranging urgent treatment with development of a management plan; evaluation of patient's response to treatment; frequent reassessment; and discussions with other providers. It was exclusive of separately billable procedures and treating other patients and teaching time. Please see Assessment and Plan section and the rest of the note for further information on patient assessment and treatment Subjec
--- NOTE | 2019-06-16 15:28 | P.PNIM_ITS ---
Progress Note: A&P Assessment and Plan (1) Pneumonia: Qualifiers: Pneumonia type: due to unspecified organism Laterality: unspecified laterality Lung location: unspecified part of lung Qualified Code(s): J18.9 - Pneumonia, unspecified organism Code(s): J18.9 - Pneumonia, unspecified organism Status: Acute Assessment and Plan: * Continue IV azithromycin and rocephin (day 6). Continue albuterol MDI PRN. * COVID-19 testing through [facility] negative,. Legionella and pneumococcal antigens negative. Blood cultures with no growth to date. * still marked infiltrate on cxr (2) Acute respiratory failure: Qualifiers: Respiratory failure complication: hypoxia Qualified Code(s): J96.01 - Acute respiratory failure with hypoxia Code(s): J96.00 - Acute respiratory failure, unspecified whether with hypoxia or hypercapnia Status: Acute Assessment and Plan: * Suspect secondary to above, superimposed on emphysema. Does not use supplemental O2 at home. Patient's son notes he activated EMS when the patient's O2 saturation was 83% on room air at home. * Intubated and mechanically ventilated now . 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 * Appreciate GI consultation - noted Dr Contreras's plan for outpatient EGD. * Continue protonix BID., stool positive for blood and monitor serial CBCs * Hgb 9.2, today noted to have melanic stool early in course of treatment (4) Tachycardia: Code(s): R00.0 - Tachycardia, unspecified Status: Acute Assessment and Plan: * Suspect secondary to acute infection. Sinus tach on EKG. Will monitor. (5) Melena: Code(s): K92.1 - Melena Status: Acute Assessment and Plan: * x1. H&H slowly declining. Monitor. Continue PPI * as above hgb 9.2 today (6) COPD with emphysema: Qualifiers: Emphysema type: unspecified Qualified Code(s): J43.9 - Emphysema, unspecified Code(s): J43.9 - Emphysema, unspecified Status: Chronic Assessment and Plan: * Emphysema noted on imaging. Patient is not noted to be on any inhalers. Continue respiratory regimen noted above. (7) Right renal mass: Code(s): N28.89 - Other specified disorders of kidney and ureter Status: Acute Assessment and Plan: * Incidental finding noted on imaging. * Discussed case with Dr Gastelum - appreciate his input. Noted the patient can follow up outpatient for repeat imaging. (8) Tobacco abuse: Code(s): Z72.0 - Tobacco use Status: Chronic Assessment and Plan: * Smoking cessation encouraged. Nicotine patch. (9) Alcoholism: Code(s): F10.20 - Alcohol dependence, uncomplicated Status: Chronic Assessment and Plan: * Known to drink heavily, but patient's son notes he has cut back quite a bit recently. * No signs or symptoms if withdrawal . Continue monitoring with CIWA protocol, librium, thiamine, and folic acid. v Subjective
--- NOTE | 2019-06-16 15:28 | PM.IMPN ---
Progress Note: A&P Assessment and Plan (1) Pneumonia: Qualifiers: Pneumonia type: due to unspecified organism Laterality: unspecified laterality Lung location: unspecified part of lung Qualified Code(s): J18.9 - Pneumonia, unspecified organism Code(s): J18.9 - Pneumonia, unspecified organism Status: Acute Assessment and Plan: Continue IV azithromycin and rocephin (day 6). Continue albuterol MDI PRN. COVID-19 testing through [facility] negative,. Legionella and pneumococcal antigens negative. Blood cultures with no growth to date. still marked infiltrate on cxr (2) Acute respiratory failure: Qualifiers: Respiratory failure complication: hypoxia Qualified Code(s): J96.01 - Acute respiratory failure with hypoxia Code(s): J96.00 - Acute respiratory failure, unspecified whether with hypoxia or hypercapnia Status: Acute Assessment and Plan: Suspect secondary to above, superimposed on emphysema. Does not use supplemental O2 at home. Patient's son notes he activated EMS when the patient's O2 saturation was 83% on room air at home. Intubated and mechanically ventilated now . 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 Appreciate GI consultation - noted Dr Contreras's plan for outpatient EGD. Continue protonix BID., stool positive for blood and monitor serial CBCs Hgb 9.2, today noted to have melanic stool early in course of treatment (4) Tachycardia: Code(s): R00.0 - Tachycardia, unspecified Status: Acute Assessment and Plan: Suspect secondary to acute infection. Sinus tach on EKG. Will monitor. (5) Melena: Code(s): K92.1 - Melena Status: Acute Assessment and Plan: x1. H&H slowly declining. Monitor. Continue PPI as above hgb 9.2 today (6) COPD with emphysema: Qualifiers: Emphysema type: unspecified Qualified Code(s): J43.9 - Emphysema, unspecified Code(s): J43.9 - Emphysema, unspecified Status: Chronic Assessment and Plan: Emphysema noted on imaging. Patient is not noted to be on any inhalers. Continue respiratory regimen noted above. (7) Right renal mass: Code(s): N28.89 - Other specified disorders of kidney and ureter Status: Acute Assessment and Plan: Incidental finding noted on imaging. Discussed case with Dr Gastelum - appreciate his input. Noted the patient can follow up outpatient for repeat imaging. (8) Tobacco abuse: Code(s): Z72.0 - Tobacco use Status: Chronic Assessment and Plan: Smoking cessation encouraged. Nicotine patch. (9) Alcoholism: Code(s): F10.20 - Alcohol dependence, uncomplicated Status: Chronic Assessment and Plan: Known to drink heavily, but patient's son notes he has cut back quite a bit recently. No signs or symptoms if withdrawal . Continue monitoring with CIWA protocol, librium, thiamine, and folic acid. v Subjective Date/time seen: 06/16/19 15:28 Interval history: Date of visit 06/15 Mr. Bone is a 69yo M admitted with pneumonia. Became more acutely short of breath p.m. 4/7 and had to be intubated and mechanically ventilated. Son Ervin notes that his father has been sitting in his recliner at home for nearly five days prior to admission. Ervin confirms his dad has had no travel in the last 14 days and no known sick contacts. C
[2019-06-16] MEDS: polyethylene glycoL 3350 17 GM POWD.PACK PO (15:59)
[2019-06-16 17:35] LABS: Glucose Point of Care 138 (65-105)
[2019-06-16 21:35] LABS: Vancomycin Trough 7.2 ug/mL (10.0-20.0)
[2019-06-17] VITALS (23 sets, daily range): BP systolic 97–142; BP diastolic 59–75; PULSE 99–124; RESP 14–21; TEMP 37–37.4; O2SAT 95–100
[2019-06-17 00:13] LABS: Glucose Point of Care 120 (65-105)
[2019-06-17] MEDS: MIDAZOLAM HCL 50 MG in DEXTROSE 5% 90 ML 6 MG IV CONT ×2 (02:54→17:46)
[2019-06-17 02:55] LABS: Prolactin 9.5 ng/mL (***)
[2019-06-17 04:35] LABS: Basophils Absolute Auto 0.1 K/mm3 (0.0-0.1); Basophils Percent Auto 0.4 % (0.2-1.2); Eosinophils Absolute Auto 0.4 K/mm3 (0-0.3); Eosinophils Percent Auto 2.6 % (0-4.4); Hematocrit 27.8 % (42.0-52.0); Hemoglobin 8.9 g/dL (14.0-18.0); Immature Granulocyte Absolute 0.35 K/mm3 (0.00-0.031); Immature Granulocyte Percent A 2.1 % (0-0.5); Lymphocytes Absolute Auto 3.56 K/mm3 (0.9-3.2); Lymphocytes Percent Auto 21.1 % (18.3-44.2); Mean Corpuscular Hemoglobin 30.5 pg (26-34); Mean Corpuscular Volume 95.2 fl (80-100); Mean Platelet Volume 10.7 fl (7.4-10.4); Monocytes Absolute Auto 4.4 K/mm3 (0.1-0.6); Monocytes Percent Auto 25.8 % (2.6-8.5); Neutrophils Absolute Auto 8.1 K/mm3 (1.3-6.7); Platelet Count Result 298 k/mm3 (150-375); Red Blood Count 2.92 M/mm3 (4.6-6.20); Red Cell Distribution Width 14.7 % (11.5-14.5); White Blood Count 16.9 K/mm3 (4.5-10.0)
[2019-06-17 04:43] LABS: Alveolar/Arterial O2 Gradient 133.9 mmHg; Base Excess ABG 12.1 mEq/l (+/-2.0); Carboxyhemoglobin 0.3 % THb (0-2.0); Fractional Inspired Oxygen 35 %; HCO3 ABG 36.4 mEq/l (22.0-26.0); Methemoglobin ABG 0.4 %THb (0-1.5); Oxygen Content ABG 12.8 %vol (16.0-22.0); Oxygen Saturation ABG 93.5 % (95.0-100.0); PCO2 ABG 46.3 mmHg (35.0-45.0); PO2 ABG 61.8 mmHg (80.0-100.0); PO2 FiO2 Ratio Arterial Blood 1.77 %; Reduced Hemoglobin 8.3 %THb (0-5.0)
[2019-06-17 04:45] LABS: Device VENTILATOR; Modified Allen's Test Pass; Site Drawn RIGHT RADIAL; pH ABG 7.513 (7.350-7.450)
[2019-06-17 04:46] LABS: Arterial Blood Gas PEEP 8 cmH2O; Arterial Blood Gas Tidal Volume 400 ml; Arterial Blood Gas Vent Mode CMV; Arterial Blood Gas Ventilator rate 14 /MIN
[2019-06-17 04:58] LABS: Alanine Aminotransferase 18 U/L (4-50); Albumin Level 2.8 g/dL (3.5-5.1); Alkaline Phosphatase 69 U/L (38-126); Aspartate Amino Transferase 62 U/L (17-59); Bilirubin,Total 0.2 mg/dL (0.2-1.3); Blood Urea Nitrogen 19 mg/dL (9-20); Calcium 7.7 mg/dL (8.4-10.2); Carbon Dioxide 34 mmol/L (22-30); Chloride 88 mmol/L (98-107); Estimated CRCL calculation 105 ml/min; Estimated Glomerular Filt Rate > 60; Glucose 94 mg/dL (75-110); Phosphorus 3.1 mg/dL (2.5-4.5); Potassium 3.4 mmol/L (3.4-5.0); Sodium 129 mmol/L (137-145)
[2019-06-17 05:10] LABS: CRP 19.6 mg/dL (<1.0)
[2019-06-17] MEDS: FUROSEMIDE INJ 40 MG/4 ML VIAL IV PUSH (08:45)
[2019-06-17] MEDS: NICOTINE (*PBKC) 21 MG PATCH 1 PATCH TRANSDERM (08:55)
[2019-06-17] MEDS: PANTOPRAZOLE SODIUM IV 40 MG VIAL IV PUSH ×2 (08:57→21:39)
[2019-06-17] MEDS: polyethylene glycoL 3350 17 GM POWD.PACK PO (08:57)
[2019-06-17] MEDS: THIAMINE HCL 100 MG TABLET PO (08:57)
[2019-06-17] MEDS: LIDOCAINE 5% PATCH 1 PATCH TRANSDERM (08:57)
[2019-06-17] MEDS: FOLIC ACID 1 MG TABLET PO (08:57)
[2019-06-17] MEDS: DORNASE ALFA INH SOLN 1 MG/ML 2.5 ML AMP 2.5 MG INHALATION ×2 (10:39→20:59)
[2019-06-17 11:46] LABS: Glucose Point of Care 106 (65-105)
--- NOTE | 2019-06-17 13:44 | WPDINTPN ---
Progress Note: A&P Assessment and Plan (1) Acute respiratory failure: Qualifiers: Respiratory failure complication: hypoxia Qualified Code(s): J96.01 - Acute respiratory failure with hypoxia Code(s): J96.00 - Acute respiratory failure, unspecified whether with hypoxia or hypercapnia Status: Acute Assessment and Plan: patient presented with shortness of breath, hypoxia. Chest x-ray and CT chest showed right-sided pneumonia - patient was intubated on 06/12/2019 - Currently on CMV mode, 35% FiO2, peep of 8. Will wean peep - stop ceftriaxone and azithromycin. Continue vancomycin, will add imipenem since that has not been much change on the chest x-ray. - patient did not have any known sick contacts or travel history with the last 14 days. He has been sitting on a recliner for the last 5 days according to his son. - SARS-COV-2 PCR came back negative - patient is off precautions - ferritin is normal, LDH is normal, lymphocytes are normal. CRP more elevated, D- dimer 1.16. procalcitonin pending (2) Pneumonia: Qualifiers: Pneumonia type: due to unspecified organism Laterality: unspecified laterality Lung location: unspecified part of lung Qualified Code(s): J18.9 - Pneumonia, unspecified organism Code(s): J18.9 - Pneumonia, unspecified organism Status: Acute Assessment and Plan: chest x-ray shows unchanged effusion right lung disease consistent with pneumonia - antibiotics as above - sputum cultures growing yeast - blood cultures are negative x2 (3) COPD with emphysema: Qualifiers: Emphysema type: unspecified Qualified Code(s): J43.9 - Emphysema, unspecified Code(s): J43.9 - Emphysema, unspecified Status: Chronic Assessment and Plan: patient history of COPD with emphysema - maintain O2 sats between 90-96% (4) Right renal mass: Code(s): N28.89 - Other specified disorders of kidney and ureter Status: Acute Assessment and Plan: right renal mass, incidental finding on CT chest - no gross hematuria - appreciate urology evaluation recommendation, no intervention during this hospitalization. Will need a formal evaluation with a dedicated CT of the kidneys with and without contrast and a couple of months. (5) Alcoholism: Code(s): F10.20 - Alcohol dependence, uncomplicated Status: Chronic Assessment and Plan: continue folic acid, thiamine (6) GERD (gastroesophageal reflux disease): Code(s): K21.9 - Gastro-esophageal reflux disease without esophagitis Status: Acute Assessment and Plan: continue Protonix (7) DVT prophylaxis: Code(s): Z29.9 - Encounter for prophylactic measures, unspecified Status: Acute Assessment and Plan: SCDs, stool for occult blood is positive, patient dropped his hemoglobin. Will avoid chemoprophylaxis for now (8) Dietary counseling and surveillance: Code(s): Z71.3 - Dietary counseling and surveillance Status: Acute Assessment and Plan: patient tolerating tube feeds Additional Plan will discuss with family and update them with patient's condition and plan of care Code status: Full code Critical care time spent: 31 minutes Due to a high probability of clinically significant, life threatening deterioration, the patient required my highest level of preparedness to intervene emergently and I personally spent this critical care time directly and personally managing the patient. This critical care time included obtaining a history; examining the patient; pulse oximetry; ordering and review of studies; arranging urgent treatment with development of a management plan; evaluation of patient's response to treatment; frequent reassessment; and discussions with other providers. It was exclusive of separately billable procedures and treating other patients and teaching time. Please see Assessment and Pl
--- NOTE | 2019-06-17 15:42 | P.PNIM_ITS ---
Progress Note: A&P Assessment and Plan (1) Pneumonia: Qualifiers: Pneumonia type: due to unspecified organism Laterality: unspecified laterality Lung location: unspecified part of lung Qualified Code(s): J18.9 - Pneumonia, unspecified organism Code(s): J18.9 - Pneumonia, unspecified organism Status: Acute Assessment and Plan: * IV azithromycin and rocephin (day 7). Intensivest changed to imipenem and Vanc since slow to improve and d/c ceftriaxone. Continue albuterol MDI PRN. * COVID-19 testing through [facility] negative,. Legionella and pneumococcal antigens negative. Blood cultures with no growth to date. * still marked infiltrate on cxr but wbc stight lower (2) Acute respiratory failure: Qualifiers: Respiratory failure complication: hypoxia Qualified Code(s): J96.01 - Acute respiratory failure with hypoxia Code(s): J96.00 - Acute respiratory failure, unspecified whether with hypoxia or hypercapnia Status: Acute Assessment and Plan: * Suspect secondary to above, superimposed on emphysema. Does not use supplemental O2 at home. Patient's son notes he activated EMS when the patient's O2 saturation was 83% on room air at home. * Intubated and mechanically ventilated now and air marshal to decrease peep for further wean . 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 * Appreciate GI consultation - noted Dr Contreras's plan for outpatient EGD. * Continue protonix BID., stool positive for blood and monitor serial CBCs * Hgb 8.9, today noted to have melanic stool early in course of treatment (4) Tachycardia: Code(s): R00.0 - Tachycardia, unspecified Status: Acute Assessment and Plan: * Suspect secondary to acute infection. Sinus tach on EKG. Will monitor. (5) Melena: Code(s): K92.1 - Melena Status: Acute Assessment and Plan: * x1. H&H slowly declining. Monitor. Continue PPI * as above hgb 8.9 today (6) COPD with emphysema: Qualifiers: Emphysema type: unspecified Qualified Code(s): J43.9 - Emphysema, unspecified Code(s): J43.9 - Emphysema, unspecified Status: Chronic Assessment and Plan: * Emphysema noted on imaging. Patient is not noted to be on any inhalers. Continue respiratory regimen noted above. (7) Right renal mass: Code(s): N28.89 - Other specified disorders of kidney and ureter Status: Acute Assessment and Plan: * Incidental finding noted on imaging. * Discussed case with Dr Gastelum - appreciate his input. Noted the patient can follow up outpatient for repeat imaging. (8) Tobacco abuse: Code(s): Z72.0 - Tobacco use Status: Chronic Assessment and Plan: * Smoking cessation encouraged. Nicotine patch. (9) Alcoholism: Code(s): F10.20 - Alcohol dependence, uncomplicated Status: Chronic Assessment and Plan: * Known to drink heavily, but patient's son notes he has cut back quite a bit recently. * No signs or symptoms
--- NOTE | 2019-06-17 15:42 | PM.IMPN ---
Progress Note: A&P Assessment and Plan (1) Pneumonia: Qualifiers: Pneumonia type: due to unspecified organism Laterality: unspecified laterality Lung location: unspecified part of lung Qualified Code(s): J18.9 - Pneumonia, unspecified organism Code(s): J18.9 - Pneumonia, unspecified organism Status: Acute Assessment and Plan: IV azithromycin and rocephin (day 7). Intensivest changed to imipenem and Vanc since slow to improve and d/c ceftriaxone. Continue albuterol MDI PRN. COVID-19 testing through [facility] negative,. Legionella and pneumococcal antigens negative. Blood cultures with no growth to date. still marked infiltrate on cxr but wbc stight lower (2) Acute respiratory failure: Qualifiers: Respiratory failure complication: hypoxia Qualified Code(s): J96.01 - Acute respiratory failure with hypoxia Code(s): J96.00 - Acute respiratory failure, unspecified whether with hypoxia or hypercapnia Status: Acute Assessment and Plan: Suspect secondary to above, superimposed on emphysema. Does not use supplemental O2 at home. Patient's son notes he activated EMS when the patient's O2 saturation was 83% on room air at home. Intubated and mechanically ventilated now and activities therapist to decrease peep for further wean . 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 Appreciate GI consultation - noted Dr Contreras's plan for outpatient EGD. Continue protonix BID., stool positive for blood and monitor serial CBCs Hgb 8.9, today noted to have melanic stool early in course of treatment (4) Tachycardia: Code(s): R00.0 - Tachycardia, unspecified Status: Acute Assessment and Plan: Suspect secondary to acute infection. Sinus tach on EKG. Will monitor. (5) Melena: Code(s): K92.1 - Melena Status: Acute Assessment and Plan: x1. H&H slowly declining. Monitor. Continue PPI as above hgb 8.9 today (6) COPD with emphysema: Qualifiers: Emphysema type: unspecified Qualified Code(s): J43.9 - Emphysema, unspecified Code(s): J43.9 - Emphysema, unspecified Status: Chronic Assessment and Plan: Emphysema noted on imaging. Patient is not noted to be on any inhalers. Continue respiratory regimen noted above. (7) Right renal mass: Code(s): N28.89 - Other specified disorders of kidney and ureter Status: Acute Assessment and Plan: Incidental finding noted on imaging. Discussed case with Dr Gastelum - appreciate his input. Noted the patient can follow up outpatient for repeat imaging. (8) Tobacco abuse: Code(s): Z72.0 - Tobacco use Status: Chronic Assessment and Plan: Smoking cessation encouraged. Nicotine patch. (9) Alcoholism: Code(s): F10.20 - Alcohol dependence, uncomplicated Status: Chronic Assessment and Plan: Known to drink heavily, but patient's son notes he has cut back quite a bit recently. No signs or symptoms if withdrawal . Continue monitoring with CIWA protocol, librium, thiamine, and folic acid. v Subjective Date/time seen: 06/17/19 15:42 Interval history: Date of visit 06/16 Mr. Bone is a 69yo M admitted with pneumonia. Became more acutely short of breath p.m. 4 and had to be intubated and mechanically ventilated. Son Ervin notes that his father has been sitting in his rec
[2019-06-17] MEDS: POTASSIUM CHLORIDE 20 MEQ PACKET (FOR LIQUID) 40 MEQ PO (16:14)
[2019-06-17 18:24] LABS: Glucose Point of Care 107 (65-105)
[2019-06-18] VITALS (27 sets, daily range): BP systolic 97–121; BP diastolic 56–76; PULSE 103–129; RESP 14–25; TEMP 36.8–38.3; O2SAT 90–100
[2019-06-18 03:10] LABS: Alveolar/Arterial O2 Gradient 120.9 mmHg; Base Excess ABG 13.1 mEq/l (+/-2.0); Carboxyhemoglobin 0.3 % THb (0-2.0); Fractional Inspired Oxygen 35 %; HCO3 ABG 37.7 mEq/l (22.0-26.0); Methemoglobin ABG 0.5 %THb (0-1.5); Oxygen Content ABG 12.1 %vol (16.0-22.0); Oxygen Saturation ABG 95.4 % (95.0-100.0); Oxyhemoglobin 92.8 % THb (90.0-100.0); PCO2 ABG 49.2 mmHg (35.0-45.0); PO2 ABG 71.5 mmHg (80.0-100.0); PO2 FiO2 Ratio Arterial Blood 2.04 %; Reduced Hemoglobin 6.4 %THb (0-5.0); Total Hemoglobin 9.2 g/dL (12.0-18.0); pH ABG 7.502 (7.350-7.450)
[2019-06-18 03:11] LABS: Device VENTILATOR; Modified Allen's Test Pass; Site Drawn RIGHT RADIAL
[2019-06-18 03:12] LABS: Arterial Blood Gas PEEP 8 cmH2O; Arterial Blood Gas Tidal Volume 400 ml; Arterial Blood Gas Vent Mode CMV; Arterial Blood Gas Ventilator rate 14 /MIN
[2019-06-18 06:17] LABS: Glucose Point of Care 112 (65-105)
[2019-06-18] MEDS: LIDOCAINE 5% PATCH 1 PATCH TRANSDERM (08:11)
[2019-06-18] MEDS: FOLIC ACID 1 MG TABLET PO (08:11)
[2019-06-18] MEDS: THIAMINE HCL 100 MG TABLET PO (08:11)
[2019-06-18] MEDS: POTASSIUM CHLORIDE 20 MEQ PACKET (FOR LIQUID) 40 MEQ PO (08:11)
[2019-06-18] MEDS: PANTOPRAZOLE SODIUM IV 40 MG VIAL IV PUSH ×2 (08:11→21:20)
[2019-06-18] MEDS: polyethylene glycoL 3350 17 GM POWD.PACK PO (08:11)
[2019-06-18] MEDS: NICOTINE (*PBKC) 21 MG PATCH 1 PATCH TRANSDERM (08:12)
[2019-06-18 08:21] LABS: Basophils Absolute Auto 0.1 K/mm3 (0.0-0.1); Basophils Percent Auto 0.4 % (0.2-1.2); Eosinophils Absolute Auto 0.7 K/mm3 (0-0.3); Eosinophils Percent Auto 3.9 % (0-4.4); Hematocrit 24.3 % (42.0-52.0); Immature Granulocyte Absolute 0.53 K/mm3 (0.00-0.031); Immature Granulocyte Percent A 3.2 % (0-0.5); Lymphocytes Absolute Auto 3.15 K/mm3 (0.9-3.2); Lymphocytes Percent Auto 18.7 % (18.3-44.2); Mean Corpuscular HGB Conc 32.9 g/dl (32-36); Mean Corpuscular Hemoglobin 30.4 pg (26-34); Mean Corpuscular Volume 92.4 fl (80-100); Mean Platelet Volume 9.4 fl (7.4-10.4); Monocytes Absolute Auto 3.1 K/mm3 (0.1-0.6); Monocytes Percent Auto 18.5 % (2.6-8.5); Neutrophils Absolute Auto 9.3 K/mm3 (1.3-6.7); Neutrophils Percent Auto 55.3 % (45.5-73.1); Platelet Count Result 484 k/mm3 (150-375); Red Blood Count 2.63 M/mm3 (4.6-6.20); Red Cell Distribution Width 14.5 % (11.5-14.5); White Blood Count 16.8 K/mm3 (4.5-10.0)
[2019-06-18 08:35] LABS: D Dimer 3.16 ug/mL (<0.48)
[2019-06-18 08:36] LABS: Alanine Aminotransferase 31 U/L (4-50); Albumin Level 2.8 g/dL (3.5-5.1); Alkaline Phosphatase 74 U/L (38-126); Aspartate Amino Transferase 123 U/L (17-59); Bilirubin,Total 0.2 mg/dL (0.2-1.3); Blood Urea Nitrogen 19 mg/dL (9-20); Calcium 7.9 mg/dL (8.4-10.2); Carbon Dioxide > 40 mmol/L (22-30); Chloride 85 mmol/L (98-107); Estimated CRCL calculation 86 ml/min; Estimated Glomerular Filt Rate > 60; Glucose 118 mg/dL (75-110); Lactate Dehydrogenase 437 U/L (313-618); Magnesium 1.9 mg/dL (1.6-2.3); Phosphorus 4.2 mg/dL (2.5-4.5); Potassium 3.7 mmol/L (3.4-5.0); Sodium 128 mmol/L (137-145)
[2019-06-18 09:04] LABS: CRP 19.6 mg/dL (<1.0)
[2019-06-18 09:14] LABS: Vancomycin Trough 12.4 ug/mL (10.0-20.0)
[2019-06-18] MEDS: ALBUTEROL SULFATE NEB 2.5 MG/0.5 ML INH INHALATION ×3 (09:20→19:46)
[2019-06-18] MEDS: IPRATROPIUM BR 0.02% INH SOLN 0.5 MG/2.5 ML VIAL INHALATION ×3 (09:20→19:46)
[2019-06-18] MEDS: DORNASE ALFA INH SOLN 1 MG/ML 2.5 ML AMP 2.5 MG INHALATION ×2 (09:20→19:46)
[2019-06-18] MEDS: MIDAZOLAM HCL 50 MG in DEXTROSE 5% 90 ML 6 MG IV CONT (11:02)
[2019-06-18 11:13] LABS: Glucose Point of Care 101 (65-105)
--- NOTE | 2019-06-18 11:45 | PCDIET ---
ICU Rounding Note: Patient tolerating Vital 1.2 at 60mL/hr goal rate. No significant residuals reported. Last recorded weight is 61.3kg which is increased from last review. +I/O. Bowel Motility: No bowel movement documented since 05/11/19. Patient has been on Miralax and MD plans to add Dulcolax now. Labs Reviewed: Glu (118), Cr (0.6), Na (128), Alb (2.8), Corwin Ca (8.86) Meds Noted: Albuterol, Fentanyl, Folic Acid, Atrovent, Versed, Protonix, Miralax, KCl, K-Phos, Vitamin B1, Vancomycin Additional Notes: Sacrum reddened, but no open sores documented. Recommend continuing present tube feeding. Following daily in ICU rounds. Assessing/reassessing every Tuesday/Tuesday.
--- NOTE | 2019-06-18 11:49 | WPDINTPN ---
Progress Note: A&P Assessment and Plan (1) Acute respiratory failure: Qualifiers: Respiratory failure complication: hypoxia Qualified Code(s): J96.01 - Acute respiratory failure with hypoxia Code(s): J96.00 - Acute respiratory failure, unspecified whether with hypoxia or hypercapnia Status: Acute Assessment and Plan: patient presented with shortness of breath, hypoxia. Chest x-ray and CT chest showed right-sided pneumonia - patient was intubated on 06/12/2019 - Currently on CMV mode, 35% FiO2, peep of 8. Will wean peep - Continue vancomycin, will add imipenem since that has not been much change on the chest x-ray. - according to his son Ervin, patient did not have any known sick contacts or travel history with the last 14 days prior to admission. He has been sitting on a recliner for the last 5 days according to his son. - SARS-COV-2 PCR came back negative - patient is off precautions - ferritin is normal, LDH is normal, lymphocytes are normal. CRP more elevated, D- dimer 1.16. procalcitonin pending (2) Pneumonia: Qualifiers: Pneumonia type: due to unspecified organism Laterality: unspecified laterality Lung location: unspecified part of lung Qualified Code(s): J18.9 - Pneumonia, unspecified organism Code(s): J18.9 - Pneumonia, unspecified organism Status: Acute Assessment and Plan: chest x-ray shows unchanged effusion right lung disease consistent with pneumonia - antibiotics as above - sputum cultures growing yeast - blood cultures are negative x2 - FEBRILE, will repeat blood, urine and sputum cultures - will have pulmonology evaluate the patient, possible bronch (3) COPD with emphysema: Qualifiers: Emphysema type: unspecified Qualified Code(s): J43.9 - Emphysema, unspecified Code(s): J43.9 - Emphysema, unspecified Status: Chronic Assessment and Plan: patient history of COPD with emphysema - maintain O2 sats between 90-96% (4) Right renal mass: Code(s): N28.89 - Other specified disorders of kidney and ureter Status: Acute Assessment and Plan: right renal mass, incidental finding on CT chest - no gross hematuria - appreciate urology evaluation recommendation, no intervention during this hospitalization. Will need a formal evaluation with a dedicated CT of the kidneys with and without contrast and a couple of months. (5) Alcoholism: Code(s): F10.20 - Alcohol dependence, uncomplicated Status: Chronic Assessment and Plan: continue folic acid, thiamine (6) GERD (gastroesophageal reflux disease): Code(s): K21.9 - Gastro-esophageal reflux disease without esophagitis Status: Acute Assessment and Plan: continue Protonix (7) DVT prophylaxis: Code(s): Z29.9 - Encounter for prophylactic measures, unspecified Status: Acute Assessment and Plan: will start heparin SQ will continue SCDs, (8) Dietary counseling and surveillance: Code(s): Z71.3 - Dietary counseling and surveillance Status: Acute Assessment and Plan: patient tolerating tube feeds Additional Plan discussed with his son, Ervin on 06/17/2019 and updated him with patient's condition and plan of care. I answered all questions Code status: Full code Critical care time spent: 31 minutes Due to a high probability of clinically significant, life threatening deterioration, the patient required my highest level of preparedness to intervene emergently and I personally spent this critical care time directly and personally managing the patient. This critical care time included obtaining a history; examining the patient; pulse oximetry; ordering and review of studies; arranging urgent treatment with development of a management plan; evaluation of patient's response to treatment; frequent reassessment; and discussions with other providers. It was exclu
--- NOTE | 2019-06-18 13:28 | PM.CNPUL ---
Assessment and Plan Assessment and plan (1) Acute respiratory failure: Qualifiers: Respiratory failure complication: hypoxia Qualified Code(s): J96.01 - Acute respiratory failure with hypoxia Code(s): J96.00 - Acute respiratory failure, unspecified whether with hypoxia or hypercapnia Status: Acute Assessment and Plan: He was intubated June 11, not requiring high O2, only 35% with PEEP 8 in CMV mode. Covid (-) WBC has been increasing, now slightly lower. Has hyponatremia, left short, normal ferritin and LDH. He has not traveled or had exposure to sick individuals. (2) Pneumonia: Qualifiers: Laterality: unspecified laterality Lung location: unspecified part of lung Pneumonia type: due to unspecified organism Qualified Code(s): J18.9 - Pneumonia, unspecified organism Code(s): J18.9 - Pneumonia, unspecified organism Status: Acute Assessment and Plan: Has infitlrates with right sided effusion. Will plan for bronchoscopy tomorrow to remove secretiosn and obtain specimens for microbiologic exam. He is on vanco and imipenem was added. Continues to have fevers wit hnegative cultures. (3) COPD with emphysema: Qualifiers: Emphysema type: unspecified Qualified Code(s): J43.9 - Emphysema, unspecified Code(s): J43.9 - Emphysema, unspecified Status: Chronic Assessment and Plan: Has COPD at baseline. Was not on home O2. History of Present Illness History of Present Illness Consult date: 06/25/19 Requesting physician: Shakeel Alonzo MD Chief complaint: non-resolving infiltrates Narrative: NEW CONSULT: Shantell Bone is a 69 yo man with pneumonia and COPD admitted June 10 with back pain, had a right renal mass. Sputum is growing yeast, spiking fevers, wbc is high, and he is not responding to imipenem. I spoke with his son Ervin about performing a bronchoscopy tomorrow; he agreed. [phone]. This is to evaluate persistent infiltrates not responding to treatment. Review of Systems Review of Systems: ROS unobtainable: Yes unobtainable due to endotracheal tube PMFSH Past Medical History Medical History Alcoholism Anemia Anxiety Arthritis Barretts esophagus Last EGD was on November 10, [address] Contreras and showed Wooten's esophagus, esophageal ulcers, duodenal ulcers, and hiatal hernia. He has had no follow-up since that time. Compression fracture History of T11 burst fracture. COPD with emphysema Dementia Depression Duodenal ulcer Esophageal ulcer GERD (gastroesophageal reflux disease) Osteoporosis Peripheral neuropathy Presence of IVC filter Inserted after trauma in 2002. Tobacco abuse Surgical History Surgical History History of cholecystectomy History of orthopedic surgery ORIF right tibia/fibula fracture History of right hip replacement History of right inguinal hernia repair Open repair with mesh per Dr. Hitchcock. History of surgery on arm Intramedullary alexi left humeral shaft fracture. History of tonsillectomy Family History Family History Father Family history of osteoporosis Mother Hypertension Family history of hypothyroidism Sibling Family history of diabetes mellitus in first degree relative Diabetes mellitus Family history of malignant neoplasm Social History Social History Social History: The patient lives alone in [place]. He is on disability. He designates his son, Gigi, as his surrogate decision maker and he wishes to be a full code. He smokes between 2 and 2.5 packs of cigarettes per day and has for over 50 years. He drinks between 6 and 12 beers per day He denies drug use. Additional living arrangements comments: Spiritual care concern
[2019-06-18] MEDS: BISACODYL 10 MG SUPPOSITORY RECTAL (14:21)
--- NOTE | 2019-06-18 17:23 | P.PNIM_ITS ---
Progress Note: A&P Assessment and Plan (1) Pneumonia: Qualifiers: Pneumonia type: due to unspecified organism Laterality: unspecified laterality Lung location: unspecified part of lung Qualified Code(s): J18.9 - Pneumonia, unspecified organism Code(s): J18.9 - Pneumonia, unspecified organism Status: Acute Assessment and Plan: * IV azithromycin and rocephin (7 days). Intensivest changed to imipenem and Vanc 06/16 since slow to improve and d/c ceftriaxone. Continue albuterol MDI PRN. Pulmonary to do bronch 06/18 * COVID-19 testing through [facility] negative,. Legionella and pneumococcal antigens negative. Blood cultures with no growth to date. * still marked infiltrate on cxr but wbc no change at 16K (2) Acute respiratory failure: Qualifiers: Respiratory failure complication: hypoxia Qualified Code(s): J96.01 - Acute respiratory failure with hypoxia Code(s): J96.00 - Acute respiratory failure, unspecified whether with hypoxia or hypercapnia Status: Acute Assessment and Plan: * Suspect secondary to above, superimposed on emphysema. Does not use supplemental O2 at home. Patient's son notes he activated EMS when the patient's O2 saturation was 83% on room air at home. * Intubated and mechanically ventilated now and waste chopper to decrease peep for further wean * and as above bronch 06/18 . 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 * Appreciate GI consultation - noted Dr Contreras's plan for outpatient EGD. * Continue protonix BID., stool positive for blood and monitor serial CBCs * Hgb 8.0, today noted to have melanic stool early in course of treatment (4) Tachycardia: Code(s): R00.0 - Tachycardia, unspecified Status: Acute Assessment and Plan: * Suspect secondary to acute infection. Sinus tach on EKG. Will monitor. (5) Melena: Code(s): K92.1 - Melena Status: Acute Assessment and Plan: * x1. H&H slowly declining. Monitor. Continue PPI * as above hgb 8.0 today (6) COPD with emphysema: Qualifiers: Emphysema type: unspecified Qualified Code(s): J43.9 - Emphysema, unspecified Code(s): J43.9 - Emphysema, unspecified Status: Chronic Assessment and Plan: * Emphysema noted on imaging. Patient is not noted to be on any inhalers. Continue respiratory regimen noted above. (7) Right renal mass: Code(s): N28.89 - Other specified disorders of kidney and ureter Status: Acute Assessment and Plan: * Incidental finding noted on imaging. * case was discussed with Dr Gastelum - appreciate his input. Noted the patient can follow up outpatient for repeat imaging. (8) Tobacco abuse: Code(s): Z72.0 - Tobacco use Status: Chronic Assessment and Plan: * Smoking cessation encouraged. Nicotine patch. (9) Alcoholism: Code(s): F10.20 - Alcohol dependence, uncomplicated Status: Chronic Assessment and Plan: * Known to drink heavily, but patient's so
--- NOTE | 2019-06-18 17:23 | PM.IMPN ---
Progress Note: A&P Assessment and Plan (1) Pneumonia: Qualifiers: Pneumonia type: due to unspecified organism Laterality: unspecified laterality Lung location: unspecified part of lung Qualified Code(s): J18.9 - Pneumonia, unspecified organism Code(s): J18.9 - Pneumonia, unspecified organism Status: Acute Assessment and Plan: IV azithromycin and rocephin (7 days). Intensivest changed to imipenem and Vanc 06/16 since slow to improve and d/c ceftriaxone. Continue albuterol MDI PRN. Pulmonary to do bronch 06/18 COVID-19 testing through [facility] negative,. Legionella and pneumococcal antigens negative. Blood cultures with no growth to date. still marked infiltrate on cxr but wbc no change at 16K (2) Acute respiratory failure: Qualifiers: Respiratory failure complication: hypoxia Qualified Code(s): J96.01 - Acute respiratory failure with hypoxia Code(s): J96.00 - Acute respiratory failure, unspecified whether with hypoxia or hypercapnia Status: Acute Assessment and Plan: Suspect secondary to above, superimposed on emphysema. Does not use supplemental O2 at home. Patient's son notes he activated EMS when the patient's O2 saturation was 83% on room air at home. Intubated and mechanically ventilated now and admissions clerk to decrease peep for further wean and as above bronch 06/18 . 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 Appreciate GI consultation - noted Dr Contreras's plan for outpatient EGD. Continue protonix BID., stool positive for blood and monitor serial CBCs Hgb 8.0, today noted to have melanic stool early in course of treatment (4) Tachycardia: Code(s): R00.0 - Tachycardia, unspecified Status: Acute Assessment and Plan: Suspect secondary to acute infection. Sinus tach on EKG. Will monitor. (5) Melena: Code(s): K92.1 - Melena Status: Acute Assessment and Plan: x1. H&H slowly declining. Monitor. Continue PPI as above hgb 8.0 today (6) COPD with emphysema: Qualifiers: Emphysema type: unspecified Qualified Code(s): J43.9 - Emphysema, unspecified Code(s): J43.9 - Emphysema, unspecified Status: Chronic Assessment and Plan: Emphysema noted on imaging. Patient is not noted to be on any inhalers. Continue respiratory regimen noted above. (7) Right renal mass: Code(s): N28.89 - Other specified disorders of kidney and ureter Status: Acute Assessment and Plan: Incidental finding noted on imaging. case was discussed with Dr Gastelum - appreciate his input. Noted the patient can follow up outpatient for repeat imaging. (8) Tobacco abuse: Code(s): Z72.0 - Tobacco use Status: Chronic Assessment and Plan: Smoking cessation encouraged. Nicotine patch. (9) Alcoholism: Code(s): F10.20 - Alcohol dependence, uncomplicated Status: Chronic Assessment and Plan: Known to drink heavily, but patient's son notes he has cut back quite a bit recently. No signs or symptoms if withdrawal . Continue monitoring with CIWA protocol, librium, thiamine, and folic acid. v Subjective Date/time seen: 06/18/19 17:23 Interval history: Date of visit 06/17 Mr. Bone is a 69yo M admitted with pneumonia. Became more acutely short of breath p.m. 06/11 and had to be intubated and mechanically antonio
[2019-06-18 18:30] LABS: Glucose Point of Care 120 (65-105)
[2019-06-18] MEDS: HEPARIN SODIUM 5,000 UNITS/ML VIAL 5000 UNITS SUB-Q (21:20)
[2019-06-19] VITALS (33 sets, daily range): BP systolic 98–117; BP diastolic 55–70; PULSE 101–124; RESP 14–23; TEMP 36.9–38.7; O2SAT 83–100
[2019-06-19 00:52] LABS: Glucose Point of Care 94 (65-105)
[2019-06-19] MEDS: ALBUTEROL SULFATE NEB 2.5 MG/0.5 ML INH INHALATION ×4 (01:33→19:55)
[2019-06-19] MEDS: IPRATROPIUM BR 0.02% INH SOLN 0.5 MG/2.5 ML VIAL INHALATION ×4 (01:34→19:55)
[2019-06-19] MEDS: MIDAZOLAM HCL 50 MG in DEXTROSE 5% 90 ML 8 MG IV CONT ×2 (03:18→15:01)
[2019-06-19 04:44] LABS: Alveolar/Arterial O2 Gradient 150.5 mmHg; Base Excess ABG 13.4 mEq/l (+/-2.0); Carboxyhemoglobin 0.3 % THb (0-2.0); Fractional Inspired Oxygen 40 %; HCO3 ABG 38.2 mEq/l (22.0-26.0); Methemoglobin ABG 0.6 %THb (0-1.5); Oxygen Content ABG 10.6 %vol (16.0-22.0); Oxygen Saturation ABG 94.2 % (95.0-100.0); Oxyhemoglobin 92.1 % THb (90.0-100.0); PCO2 ABG 51.7 mmHg (35.0-45.0); PO2 ABG 66.8 mmHg (80.0-100.0); PO2 FiO2 Ratio Arterial Blood 1.67 %; Total Hemoglobin 8.1 g/dL (12.0-18.0); pH ABG 7.487 (7.350-7.450)
[2019-06-19 04:47] LABS: Device VENTILATOR; Modified Allen's Test Unable to perform; Site Drawn LEFT RADIAL
[2019-06-19 04:48] LABS: Arterial Blood Gas PEEP 8 cmH2O; Arterial Blood Gas Tidal Volume 400 ml; Arterial Blood Gas Vent Mode CMV; Arterial Blood Gas Ventilator rate 14 /MIN
[2019-06-19 05:18] LABS: Alanine Aminotransferase 33 U/L (4-50); Albumin Level 2.6 g/dL (3.5-5.1); Alkaline Phosphatase 63 U/L (38-126); Aspartate Amino Transferase 128 U/L (17-59); Bilirubin,Total 0.1 mg/dL (0.2-1.3); Blood Urea Nitrogen 15 mg/dL (9-20); Calcium 7.6 mg/dL (8.4-10.2); Carbon Dioxide 38 mmol/L (22-30); Chloride 86 mmol/L (98-107); Estimated CRCL calculation 86 ml/min; Estimated Glomerular Filt Rate > 60; Glucose 117 mg/dL (75-110); Magnesium 1.9 mg/dL (1.6-2.3); Phosphorus 4.2 mg/dL (2.5-4.5); Potassium 3.9 mmol/L (3.4-5.0); Sodium 128 mmol/L (137-145)
[2019-06-19] MEDS: DORNASE ALFA INH SOLN 1 MG/ML 2.5 ML AMP 2.5 MG INHALATION ×2 (08:49→23:02)
[2019-06-19] MEDS: FOLIC ACID 1 MG TABLET PO (09:23)
[2019-06-19] MEDS: THIAMINE HCL 100 MG TABLET PO (09:23)
[2019-06-19] MEDS: GUAIFENESIN 200 MG/10 ML UDC PO ×3 (09:23→17:28)
[2019-06-19] MEDS: HEPARIN SODIUM 5,000 UNITS/ML VIAL 5000 UNITS SUB-Q ×2 (09:46→20:58)
[2019-06-19] MEDS: NICOTINE (*PBKC) 21 MG PATCH 1 PATCH TRANSDERM (09:46)
[2019-06-19] MEDS: PANTOPRAZOLE SODIUM IV 40 MG VIAL IV PUSH ×2 (09:46→20:59)
[2019-06-19] MEDS: polyethylene glycoL 3350 17 GM POWD.PACK PO (09:47)
--- NOTE | 2019-06-19 09:53 | P.PNIM_ITS ---
Progress Note: A&P Assessment and Plan (1) Pneumonia: Qualifiers: Pneumonia type: due to unspecified organism Laterality: unspecified laterality Lung location: unspecified part of lung Qualified Code(s): J18.9 - Pneumonia, unspecified organism Code(s): J18.9 - Pneumonia, unspecified organism Status: Acute Assessment and Plan: * IV azithromycin and rocephin initially * Intensivest changed to imipenem and Vanc 06/16 * Continue albuterol MDI PRN. * Pulmonary to do bronch 06/18 * COVID-19 testing through [facility] negative,. Legionella and pneumococcal antigens negative. Blood cultures with no growth to date. * Still marked infiltrate on cxr but wbc no change at 16K (2) Acute respiratory failure: Qualifiers: Respiratory failure complication: hypoxia Qualified Code(s): J96.01 - Acute respiratory failure with hypoxia Code(s): J96.00 - Acute respiratory failure, unspecified whether with hypoxia or hypercapnia Status: Acute Assessment and Plan: * Suspect secondary to above, superimposed on emphysema. * Wean from vent as possible . 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 * GI following * Continue protonix BID., stool positive for blood and monitor serial CBCs (4) Tachycardia: Code(s): R00.0 - Tachycardia, unspecified Status: Acute Assessment and Plan: * Suspect secondary to acute infection. Sinus tach on EKG. (5) Melena: Code(s): K92.1 - Melena Status: Acute Assessment and Plan: * x1. H&H slowly declining. Monitor. Continue PPI (6) COPD with emphysema: Qualifiers: Emphysema type: unspecified Qualified Code(s): J43.9 - Emphysema, unspecified Code(s): J43.9 - Emphysema, unspecified Status: Chronic Assessment and Plan: * Emphysema noted on imaging. Patient is not noted to be on any inhalers. Continue respiratory regimen noted above. (7) Right renal mass: Code(s): N28.89 - Other specified disorders of kidney and ureter Status: Acute Assessment and Plan: * Incidental finding noted on imaging. * Can f/u with outpatient imaging (8) Tobacco abuse: Code(s): Z72.0 - Tobacco use Status: Chronic Assessment and Plan: * Patient not receptive to smoking cessation counseling due to medical condition (9) Alcoholism: Code(s): F10.20 - Alcohol dependence, uncomplicated Status: Chronic Assessment and Plan: * Monitor for s/sx w/d v Subjective Date/time seen: 06/19/19 09:53 Interval history: 69 y/o male admitted 06/10 with pneumonia and respiratory failure. Review of Systems Review of Systems: ROS unobtainable: Yes unobtainable due to medical condition Exam Narrative: Exam Narrative: HEENT: PERRL, sclerae nonicteric, pharyngeal mucosa pink and intact NECK: No JVD CHEST: Decreased BS with scattered crackles
--- NOTE | 2019-06-19 09:53 | PM.IMPN ---
Progress Note: A&P Assessment and Plan (1) Pneumonia: Qualifiers: Pneumonia type: due to unspecified organism Laterality: unspecified laterality Lung location: unspecified part of lung Qualified Code(s): J18.9 - Pneumonia, unspecified organism Code(s): J18.9 - Pneumonia, unspecified organism Status: Acute Assessment and Plan: IV azithromycin and rocephin initially Intensivest changed to imipenem and Vanc 06/16 Continue albuterol MDI PRN. Pulmonary to do bronch 06/18 COVID-19 testing through [facility] negative,. Legionella and pneumococcal antigens negative. Blood cultures with no growth to date. Still marked infiltrate on cxr but wbc no change at 16K (2) Acute respiratory failure: Qualifiers: Respiratory failure complication: hypoxia Qualified Code(s): J96.01 - Acute respiratory failure with hypoxia Code(s): J96.00 - Acute respiratory failure, unspecified whether with hypoxia or hypercapnia Status: Acute Assessment and Plan: Suspect secondary to above, superimposed on emphysema. Wean from vent as possible . 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 GI following Continue protonix BID., stool positive for blood and monitor serial CBCs (4) Tachycardia: Code(s): R00.0 - Tachycardia, unspecified Status: Acute Assessment and Plan: Suspect secondary to acute infection. Sinus tach on EKG. (5) Melena: Code(s): K92.1 - Melena Status: Acute Assessment and Plan: x1. H&H slowly declining. Monitor. Continue PPI (6) COPD with emphysema: Qualifiers: Emphysema type: unspecified Qualified Code(s): J43.9 - Emphysema, unspecified Code(s): J43.9 - Emphysema, unspecified Status: Chronic Assessment and Plan: Emphysema noted on imaging. Patient is not noted to be on any inhalers. Continue respiratory regimen noted above. (7) Right renal mass: Code(s): N28.89 - Other specified disorders of kidney and ureter Status: Acute Assessment and Plan: Incidental finding noted on imaging. Can f/u with outpatient imaging (8) Tobacco abuse: Code(s): Z72.0 - Tobacco use Status: Chronic Assessment and Plan: Patient not receptive to smoking cessation counseling due to medical condition (9) Alcoholism: Code(s): F10.20 - Alcohol dependence, uncomplicated Status: Chronic Assessment and Plan: Monitor for s/sx w/d v Subjective Date/time seen: 06/19/19 09:53 Interval history: 69 y/o male admitted 06/10 with pneumonia and respiratory failure. Review of Systems Review of Systems: ROS unobtainable: Yes unobtainable due to medical condition Exam Narrative: Exam Narrative: HEENT: PERRL, sclerae nonicteric, pharyngeal mucosa pink and intact NECK: No JVD CHEST: Decreased BS with scattered crackles HEART: NL S1/S2, regular, no murmur ABDOMEN: BS+, soft, nontender, no mass, no bruits EXTREMITIES: No cyanosis, edema, or clubbing NEUROLOGIC: CN intact and symmetric to inspection. MUSCULOSKELETAL: Tone and strength symmetric. PSYCH: Drowsy, responds some to voice, touch, but does not follow commands Objective Data Vital Signs Vital Signs: Vital Signs - 24 hr 06/18/19 10:00 06/18/19 12:00 06/18/19 12:58 Temperature 99.3 F 100.6 F H Pulse Rate 115 H 119 H 123 H R
--- NOTE | 2019-06-19 11:07 | PCDIET ---
Nutrition Follow-Up Complete: Nutrition Diagnosis: Inadequate energy intake related to decreased appetite as evidenced by BMI of 17.7. Nutrition Goal: Patient to meet estimated nutritional needs Goal in progress. Patient previously tolerating enteral feedings which are being held for bronchoscopy later today. Vital 1.5 at 50mL/hr was previously substituted for Vital 1.2 at 60mL/hr due to shortage of enteral feeding supply in facility which has now resolved. Last recorded weight is 62.1 kg which is increased. +I/O noted. Bowel Motility: +BM today. Labs Reviewed: Glu (117), Na (128), Alb (2.6), [place] Ca (8.72), CRP (21.0) Meds Noted: Albuterol, Atrovent, LR at 150mL/hr, Versed, Vitamin B1, Vancomycin, Fentanyl, Folic Acid, Protonix, Miralax, K-Phos Additional Notes: Scrotum macerated. No other skin breakdown reported. Recommend resuming Vital 1.2 at 60mL/hr once procedure is complete. Nutrition Monitoring and Evaluation: Follow up every Tuesday/Tuesday. Follow daily in ICU rounds.
[2019-06-19 13:00] LABS: Glucose Point of Care 93 (65-105)
[2019-06-19] MEDS: MIDAZOLAM HCL 2 MG/2 ML VIAL 4 MG (13:05)
--- NOTE | 2019-06-19 13:35 | WPDINTPN ---
Progress Note: A&P Assessment and Plan (1) Acute respiratory failure: Qualifiers: Respiratory failure complication: hypoxia Qualified Code(s): J96.01 - Acute respiratory failure with hypoxia Code(s): J96.00 - Acute respiratory failure, unspecified whether with hypoxia or hypercapnia Status: Acute Assessment and Plan: patient presented with shortness of breath, hypoxia. Chest x-ray and CT chest showed right-sided pneumonia - patient was intubated on 06/12/2019 - Currently on CMV mode, 40% FiO2, peep of 8. - Continue vancomycin and imipenem - appreciate pulmonology evaluation, bronchoscopy will be done today - SARS-COV-2 PCR came back negative - patient is off precautions - patient remains febrile, will check bilateral LE venous Dopplers (2) Pneumonia: Qualifiers: Pneumonia type: due to unspecified organism Laterality: unspecified laterality Lung location: unspecified part of lung Qualified Code(s): J18.9 - Pneumonia, unspecified organism Code(s): J18.9 - Pneumonia, unspecified organism Status: Acute Assessment and Plan: chest x-ray shows unchanged effusion right lung disease consistent with pneumonia - antibiotics as above - sputum cultures growing yeast - blood cultures are negative x2 - repeat sputum cultures growing gram-negative bacilli - repeat blood and urine cultures pending - bronch today (3) COPD with emphysema: Qualifiers: Emphysema type: unspecified Qualified Code(s): J43.9 - Emphysema, unspecified Code(s): J43.9 - Emphysema, unspecified Status: Chronic Assessment and Plan: patient history of COPD with emphysema - maintain O2 sats between 90-96% (4) Right renal mass: Code(s): N28.89 - Other specified disorders of kidney and ureter Status: Acute Assessment and Plan: right renal mass, incidental finding on CT chest - no gross hematuria - appreciate urology evaluation recommendation, no intervention during this hospitalization. Will need a formal evaluation with a dedicated CT of the kidneys with and without contrast and a couple of months. (5) Alcoholism: Code(s): F10.20 - Alcohol dependence, uncomplicated Status: Chronic Assessment and Plan: continue folic acid, thiamine (6) GERD (gastroesophageal reflux disease): Code(s): K21.9 - Gastro-esophageal reflux disease without esophagitis Status: Acute Assessment and Plan: continue Protonix (7) DVT prophylaxis: Code(s): Z29.9 - Encounter for prophylactic measures, unspecified Status: Acute Assessment and Plan: heparin SQ and SCDs, (8) Dietary counseling and surveillance: Code(s): Z71.3 - Dietary counseling and surveillance Status: Acute Assessment and Plan: patient tolerating tube feeds Additional Plan discussed with his son, Ervin and updated him with patient's condition and plan of care. I answered all questions Code status: Full code Critical care time spent: 32 minutes Due to a high probability of clinically significant, life threatening deterioration, the patient required my highest level of preparedness to intervene emergently and I personally spent this critical care time directly and personally managing the patient. This critical care time included obtaining a history; examining the patient; pulse oximetry; ordering and review of studies; arranging urgent treatment with development of a management plan; evaluation of patient's response to treatment; frequent reassessment; and discussions with other providers. It was exclusive of separately billable procedures and treating other patients and teaching time. Please see Assessment and Plan section and the rest of the note for further information on patient assessment and treatment Subjective Date/time seen: 06/19/19 13:35 Reason for consult: Acute respiratory f
[2019-06-19 15:19] LABS: Appearance Bronchial Fluid Cloudy; Color Bronchial Fluid Red; Lymphocytes Bronchial Fluid 3 %; Macrophages Bronchial Fluid 2; Monocytes Bronchial Fluid 1 %; Neutrophils Bronchial Fluid 94 %; Source Bronchial Fluid Bronchial Lavage
[2019-06-19 18:22] LABS: Glucose Point of Care 109 (65-105)
--- NOTE | 2019-06-19 19:40 | PM.OP ---
Procedure Note - Brief Procedure Note - Brief Date of procedure: 06/19/19 Pre-op diagnosis: non-resolving infiltrates Surgeon: BRONCHOSCOPY Informed consent obtained from his son, Ervin, by phone yesterday. Please see Endoprose note through the endoscopy documentation. Start time 12;28 pm, end time 12:43. Samples obtained. Secretions were white, modest in amount, and he tolerated the procedure well. BAL in medial basal segment RLL. All segments were washed and suctioned to clear airways, which were swollen and mildly inflammed. Meds: Versed 2 mg IVP as well as versed and fentanyl drips. Ciara Villanueva MD
--- NOTE | 2019-06-19 20:02 | PCRCNOTE ---
PRIOR TO ALBUTEROL TX, PT DECOMPENSATED SPO2 TO 77%. INCREASED FIO2 TO 100%. PT CONTINUED TO DECOMPENSATE TO 53% - BAGGED PT FOR APRX 2 MINUTES FOR SPO2 97%. RETURNED FIO2 TO 40%. POST ALBUTEROL TX, PT DECOMPENSATED TO 78%. UNABLE TO MAINTAIN SPO2 90% OR ABOVE. RHODA MARTIN NOTIFIED AND CALLED DR. GIRON.
--- NOTE | 2019-06-19 20:07 | PCRCNOTE ---
FIO2 INCREASED TO 100% DUE TO DECOMPENSATION. PER VERONICA DUONG, STAT CXR ORDERED.
--- NOTE | 2019-06-19 23:07 | PCRCNOTE ---
PT SPO2 DROPPED TO 83% ON 60% FIO2. INCREASED TO 100% FOR SPO2 ONLY UP TO 85%. UNABLE TO WEAN FIO2. RN VERONICA AWARE. FIO2 LEFT AT 100% AT THIS TIME.
--- NOTE | 2019-06-19 23:13 | PCRCNOTE ---
PT SPO2 DROPPED TO 77%. BAGGED MFOR APRX 3 MINUTES TO ACHIEVE SPO2 97%. PLACED BACK ON VENT WITH ORDERED SETTINGS AND 100%FIO2.
[2019-06-19 23:56] LABS: Glucose Point of Care 125 (65-105)
[2019-06-20] VITALS (27 sets, daily range): BP systolic 95–115; BP diastolic 58–71; PULSE 88–115; RESP 14–27; TEMP 36.4–37.9; O2SAT 96–100
[2019-06-20] MEDS: GUAIFENESIN 200 MG/10 ML UDC PO ×4 (00:05→18:41)
[2019-06-20] MEDS: ALBUTEROL SULFATE NEB 2.5 MG/0.5 ML INH INHALATION ×4 (01:40→19:40)
[2019-06-20] MEDS: IPRATROPIUM BR 0.02% INH SOLN 0.5 MG/2.5 ML VIAL INHALATION ×4 (01:41→19:40)
[2019-06-20] MEDS: MIDAZOLAM HCL 50 MG in DEXTROSE 5% 90 ML 8 MG IV CONT (03:49)
[2019-06-20 04:22] LABS: Alveolar/Arterial O2 Gradient 224.2 mmHg; Base Excess ABG 12.9 mEq/l (+/-2.0); Carboxyhemoglobin 0.3 % THb (0-2.0); Fractional Inspired Oxygen 60 %; HCO3 ABG 37.2 mEq/l (22.0-26.0); Methemoglobin ABG 0.5 %THb (0-1.5); Oxygen Content ABG 12.4 %vol (16.0-22.0); Oxygen Saturation ABG 99.1 % (95.0-100.0); Oxyhemoglobin 97.6 % THb (90.0-100.0); PCO2 ABG 47.2 mmHg (35.0-45.0); PO2 ABG 151.7 mmHg (80.0-100.0); PO2 FiO2 Ratio Arterial Blood 2.53 %; Reduced Hemoglobin 1.6 %THb (0-5.0); Total Hemoglobin 8.8 g/dL (12.0-18.0)
[2019-06-20 04:26] LABS: Arterial Blood Gas Ventilator rate 20 /MIN; Device VENTILATOR; Modified Allen's Test Pass; Site Drawn RIGHT RADIAL; pH ABG 7.514 (7.350-7.450)
[2019-06-20 04:27] LABS: Arterial Blood Gas PEEP 10 cmH2O; Arterial Blood Gas Tidal Volume 400 ml; Arterial Blood Gas Vent Mode CMV
[2019-06-20 05:14] LABS: Alanine Aminotransferase 35 U/L (4-50); Albumin Level 2.7 g/dL (3.5-5.1); Alkaline Phosphatase 57 U/L (38-126); Aspartate Amino Transferase 147 U/L (17-59); Bilirubin,Total 0.2 mg/dL (0.2-1.3); Blood Urea Nitrogen 17 mg/dL (9-20); CRP 25.9 mg/dL (<1.0); Calcium 7.8 mg/dL (8.4-10.2); Carbon Dioxide 36 mmol/L (22-30); Chloride 86 mmol/L (98-107); Estimated CRCL calculation 111 ml/min; Estimated Glomerular Filt Rate > 60; Glucose 117 mg/dL (75-110); Magnesium 2.3 mg/dL (1.6-2.3); Phosphorus 4.2 mg/dL (2.5-4.5); Potassium 4.2 mmol/L (3.4-5.0); Sodium 127 mmol/L (137-145)
[2019-06-20 05:54] LABS: Glucose Point of Care 110 (65-105)
[2019-06-20 08:32] LABS: Basophils Absolute Auto 0.1 K/mm3 (0.0-0.1); Basophils Percent Auto 0.4 % (0.2-1.2); Eosinophils Absolute Auto 0.3 K/mm3 (0-0.3); Eosinophils Percent Auto 1.4 % (0-4.4); Hematocrit 22.3 % (42.0-52.0); Hemoglobin 7.3 g/dL (14.0-18.0); Immature Granulocyte Absolute 0.36 K/mm3 (0.00-0.031); Immature Granulocyte Percent A 1.7 % (0-0.5); Lymphocytes Absolute Auto 2.55 K/mm3 (0.9-3.2); Lymphocytes Percent Auto 12.3 % (18.3-44.2); Mean Corpuscular HGB Conc 32.7 g/dl (32-36); Mean Corpuscular Hemoglobin 30.7 pg (26-34); Mean Corpuscular Volume 93.7 fl (80-100); Mean Platelet Volume 9.3 fl (7.4-10.4); Monocytes Absolute Auto 2.8 K/mm3 (0.1-0.6); Monocytes Percent Auto 13.4 % (2.6-8.5); Neutrophils Absolute Auto 14.6 K/mm3 (1.3-6.7); Neutrophils Percent Auto 70.8 % (45.5-73.1); Platelet Count Result 616 k/mm3 (150-375); Red Blood Count 2.38 M/mm3 (4.6-6.20); Red Cell Distribution Width 14.5 % (11.5-14.5); White Blood Count 20.7 K/mm3 (4.5-10.0)
[2019-06-20] MEDS: THIAMINE HCL 100 MG TABLET PO (09:13)
[2019-06-20] MEDS: FOLIC ACID 1 MG TABLET PO (09:13)
[2019-06-20] MEDS: polyethylene glycoL 3350 17 GM POWD.PACK PO (09:14)
[2019-06-20] MEDS: PANTOPRAZOLE SODIUM IV 40 MG VIAL IV PUSH ×2 (09:14→21:06)
[2019-06-20] MEDS: HEPARIN SODIUM 5,000 UNITS/ML VIAL 5000 UNITS SUB-Q ×2 (09:14→21:05)
--- NOTE | 2019-06-20 09:51 | P.PNIM_ITS ---
Progress Note: A&P Assessment and Plan (1) Pneumonia: Qualifiers: Pneumonia type: due to unspecified organism Laterality: unspecified laterality Lung location: unspecified part of lung Qualified Code(s): J18.9 - Pneumonia, unspecified organism Code(s): J18.9 - Pneumonia, unspecified organism Status: Acute Assessment and Plan: * IV azithromycin and rocephin initially * Intensivest changed to imipenem and Vanc 06/16 * Continue albuterol MDI PRN. * Pulmonary to do bronch 06/18 * COVID-19 testing through [facility] negative * Legionella and pneumococcal antigens negative. * Blood cultures with no growth to date. * 06/19 Bronch results noted * 06/20 Sputum culture growing Stenotrophomonas maltophilia which should be sensitive to imipenem, sens pending * 06/20 CXR improving (2) Acute respiratory failure: Qualifiers: Respiratory failure complication: hypoxia Qualified Code(s): J96.01 - Acute respiratory failure with hypoxia Code(s): J96.00 - Acute respiratory failure, unspecified whether with hypoxia or hypercapnia Status: Acute Assessment and Plan: * Suspect secondary to above, superimposed on emphysema. * Wean from vent as possible . 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 * GI following * Continue protonix BID. * Heme + stool * F/u h/h (4) Tachycardia: Code(s): R00.0 - Tachycardia, unspecified Status: Acute Assessment and Plan: * Suspect secondary to acute infection. Sinus tach on EKG. (5) Melena: Code(s): K92.1 - Melena Status: Acute Assessment and Plan: * x1. H&H slowly declining. Monitor. Continue PPI (6) COPD with emphysema: Qualifiers: Emphysema type: unspecified Qualified Code(s): J43.9 - Emphysema, unspecified Code(s): J43.9 - Emphysema, unspecified Status: Chronic Assessment and Plan: * Emphysema noted on imaging. Patient is not noted to be on any inhalers. Continue respiratory regimen noted above. (7) Right renal mass: Code(s): N28.89 - Other specified disorders of kidney and ureter Status: Acute Assessment and Plan: * Incidental finding noted on imaging. * Can f/u with outpatient imaging (8) Tobacco abuse: Code(s): Z72.0 - Tobacco use Status: Chronic Assessment and Plan: * Patient not receptive to smoking cessation counseling due to medical condition (9) Alcoholism: Code(s): F10.20 - Alcohol dependence, uncomplicated Status: Chronic Assessment and Plan: * Monitor for s/sx w/d v Subjective Date/time seen: 06/20/19 09:51 Interval history: 69 y/o male admitted 06/10 with pneumonia and respiratory failure. 06/19 was agitated and required increased sedation in AM. Review of Systems Review of Systems: ROS unobtainable: Yes unobtainable due to medical condition Exam
--- NOTE | 2019-06-20 09:51 | PM.IMPN ---
Progress Note: A&P Assessment and Plan (1) Pneumonia: Qualifiers: Pneumonia type: due to unspecified organism Laterality: unspecified laterality Lung location: unspecified part of lung Qualified Code(s): J18.9 - Pneumonia, unspecified organism Code(s): J18.9 - Pneumonia, unspecified organism Status: Acute Assessment and Plan: IV azithromycin and rocephin initially Intensivest changed to imipenem and Vanc 06/16 Continue albuterol MDI PRN. Pulmonary to do bronch 06/18 COVID-19 testing through [facility] negative Legionella and pneumococcal antigens negative. Blood cultures with no growth to date. 06/19 Bronch results noted 06/20 Sputum culture growing Stenotrophomonas maltophilia which should be sensitive to imipenem, sens pending 06/20 CXR improving (2) Acute respiratory failure: Qualifiers: Respiratory failure complication: hypoxia Qualified Code(s): J96.01 - Acute respiratory failure with hypoxia Code(s): J96.00 - Acute respiratory failure, unspecified whether with hypoxia or hypercapnia Status: Acute Assessment and Plan: Suspect secondary to above, superimposed on emphysema. Wean from vent as possible . 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 GI following Continue protonix BID. Heme + stool F/u h/h (4) Tachycardia: Code(s): R00.0 - Tachycardia, unspecified Status: Acute Assessment and Plan: Suspect secondary to acute infection. Sinus tach on EKG. (5) Melena: Code(s): K92.1 - Melena Status: Acute Assessment and Plan: x1. H&H slowly declining. Monitor. Continue PPI (6) COPD with emphysema: Qualifiers: Emphysema type: unspecified Qualified Code(s): J43.9 - Emphysema, unspecified Code(s): J43.9 - Emphysema, unspecified Status: Chronic Assessment and Plan: Emphysema noted on imaging. Patient is not noted to be on any inhalers. Continue respiratory regimen noted above. (7) Right renal mass: Code(s): N28.89 - Other specified disorders of kidney and ureter Status: Acute Assessment and Plan: Incidental finding noted on imaging. Can f/u with outpatient imaging (8) Tobacco abuse: Code(s): Z72.0 - Tobacco use Status: Chronic Assessment and Plan: Patient not receptive to smoking cessation counseling due to medical condition (9) Alcoholism: Code(s): F10.20 - Alcohol dependence, uncomplicated Status: Chronic Assessment and Plan: Monitor for s/sx w/d v Subjective Date/time seen: 06/20/19 09:51 Interval history: 69 y/o male admitted 06/10 with pneumonia and respiratory failure. 06/19 was agitated and required increased sedation in AM. Review of Systems Review of Systems: ROS unobtainable: Yes unobtainable due to medical condition Exam Narrative: Exam Narrative: HEENT: PERRL, sclerae nonicteric, pharyngeal mucosa pink and intact NECK: No JVD CHEST: Decreased BS with scattered crackles HEART: NL S1/S2, regular, no murmur ABDOMEN: BS+, soft, nontender, no mass, no bruits EXTREMITIES: No cyanosis, edema, or clubbing NEUROLOGIC: CN intact and symmetric to inspection. MUSCULOSKELETAL: Tone and strength symmetric. PSYCH: Drowsy, responds some to voice, touch, but does not follow commands Objective Data Vital Signs Vital Sig
--- NOTE | 2019-06-20 10:55 | PCDIET ---
ICU Rounding Note: Patient tolerating Vital 1.5 at 50mL/hr. No significant residuals. Infecious disease consulted. Last recorded weight is 67.7kg which is increased. +I/O. Bowel Motility: +BM on 06/19/19. Labs Reviewed: Hgb (7.3), Hct (22.3), Glu (117), Cr (0.5), Na (127), Alb (2.7), Corwin Ca (8.84) Meds Noted: Albuterol, Fentanyl, Folic Acid, Heparin, Atrovent, Versed, Protonix, Miralax, KPhos, Thiamine, Vancomycin Additional Notes: Scrotum macerated; no other skin issues reported. Following daily in ICU rounds. Assessing/reassessing every Tuesday/Tuesday.
--- NOTE | 2019-06-20 12:19 | WPDINTPN ---
Progress Note: A&P Assessment and Plan (1) Acute respiratory failure: Qualifiers: Respiratory failure complication: hypoxia Qualified Code(s): J96.01 - Acute respiratory failure with hypoxia Code(s): J96.00 - Acute respiratory failure, unspecified whether with hypoxia or hypercapnia Status: Acute Assessment and Plan: patient presented with shortness of breath, hypoxia. Chest x-ray and CT chest showed right-sided pneumonia - patient was intubated on 06/12/2019 - patient had increased oxygen requirements overnight, but this morning has been weaned down to 40% FiO2, peep of 10 in CMV mode of ventilation - sputum cultures growing stenotrophomonas, continue imipenem and vancomycin for now.. - Continue vancomycin and imipenem - CRP and a leukocytosis elevated, will have Infectious Disease evaluate the patient - patient a bronchoscopy on 06/19/2019 - SARS-COV-2 PCR came back negative - patient is off precautions - patient was febrile, lower extremity venous Dopplers were done on 06/19/2019, NO DVT bilateral lower extremities. (2) Pneumonia: Qualifiers: Pneumonia type: due to unspecified organism Laterality: unspecified laterality Lung location: unspecified part of lung Qualified Code(s): J18.9 - Pneumonia, unspecified organism Code(s): J18.9 - Pneumonia, unspecified organism Status: Acute Assessment and Plan: chest x-ray shows unchanged effusion right lung disease consistent with pneumonia - antibiotics as above - Treatment as above (3) COPD with emphysema: Qualifiers: Emphysema type: unspecified Qualified Code(s): J43.9 - Emphysema, unspecified Code(s): J43.9 - Emphysema, unspecified Status: Chronic Assessment and Plan: patient history of COPD with emphysema - maintain O2 sats between 90-96% (4) Right renal mass: Code(s): N28.89 - Other specified disorders of kidney and ureter Status: Acute Assessment and Plan: right renal mass, incidental finding on CT chest - no gross hematuria - appreciate urology evaluation recommendation, no intervention during this hospitalization. Will need a formal evaluation with a dedicated CT of the kidneys with and without contrast and a couple of months. (5) Alcoholism: Code(s): F10.20 - Alcohol dependence, uncomplicated Status: Chronic Assessment and Plan: continue folic acid, thiamine (6) GERD (gastroesophageal reflux disease): Code(s): K21.9 - Gastro-esophageal reflux disease without esophagitis Status: Acute Assessment and Plan: continue Protonix (7) DVT prophylaxis: Code(s): Z29.9 - Encounter for prophylactic measures, unspecified Status: Acute Assessment and Plan: heparin SQ and SCDs, (8) Dietary counseling and surveillance: Code(s): Z71.3 - Dietary counseling and surveillance Status: Acute Assessment and Plan: patient tolerating tube feeds Additional Plan discussed with his son, Ervin and updated him with patient's condition and plan of care. I answered all questions Code status: Full code Critical care time spent: 33 minutes Due to a high probability of clinically significant, life threatening deterioration, the patient required my highest level of preparedness to intervene emergently and I personally spent this critical care time directly and personally managing the patient. This critical care time included obtaining a history; examining the patient; pulse oximetry; ordering and review of studies; arranging urgent treatment with development of a management plan; evaluation of patient's response to treatment; frequent reassessment; and discussions with other providers. It was exclusive of separately billable procedures and treating other patients and teaching time. Please see Assessment and Plan section and the rest of the note for further information on
[2019-06-20] MEDS: NICOTINE (*PBKC) 21 MG PATCH 1 PATCH TRANSDERM (13:16)
[2019-06-20] MEDS: LIDOCAINE 5% PATCH 1 PATCH TRANSDERM (13:57)
[2019-06-20] MEDS: DORNASE ALFA INH SOLN 1 MG/ML 2.5 ML AMP 2.5 MG INHALATION ×2 (14:22→19:40)
[2019-06-20 16:50] LABS: Glucose Point of Care 97 (65-105)
--- NOTE | 2019-06-20 17:53 | PC.NURSE ---
Spoke with Dr Gupta Regarding patient temp of 100.2. Dr gupta ordered IV Tylenol. Order read back and confirmed.
[2019-06-20 18:37] LABS: Glucose Point of Care 110 (65-105)
--- NOTE | 2019-06-20 21:57 | PM.PNPUL ---
Progress Note: A&P Assessment and Plan (1) Acute respiratory failure: Qualifiers: Respiratory failure complication: hypoxia Qualified Code(s): J96.01 - Acute respiratory failure with hypoxia Code(s): J96.00 - Acute respiratory failure, unspecified whether with hypoxia or hypercapnia Status: Acute Assessment and Plan: Due to pneumonia and underlying COPD. (2) COPD with emphysema: Qualifiers: Emphysema type: unspecified Qualified Code(s): J43.9 - Emphysema, unspecified Code(s): J43.9 - Emphysema, unspecified Status: Chronic Assessment and Plan: Was not treated prior to admission. (3) Pneumonia: Qualifiers: Laterality: unspecified laterality Lung location: unspecified part of lung Pneumonia type: due to unspecified organism Qualified Code(s): J18.9 - Pneumonia, unspecified organism Code(s): J18.9 - Pneumonia, unspecified organism Status: Acute Assessment and Plan: Bronchoscopy yesterday yielded Stenotrophomonas in sputum. Vanco and Imipenem; ID has been consulted. Subjective Date/time seen: 06/20/19 21:57 Interval history: 69 y/o male admitted 06/10 with pneumonia R>L, COPD and acute respiratory failure. 06/19 was agitated and required increased sedation this morning. He is growing Stenotrophomonas in his sputum from the bronchoscopy yesterday. Still has fevers. WBC remains elevated 20.7. ID has been consulted per Dr Alonzo. He remain on mechanical ventilation. Review of Systems Review of Systems: ROS unobtainable: Yes unobtainable due to endotracheal tube Exam Narrative: Exam Narrative: Chronically ill appearing, thin. Const: General: comfortable Eyes: General: appearance normal, both eyes and all related structures Neck: Neck: no JVD Resp: Auscultation: diminished lung sounds Cardio: Rate: regular rate Rhythm: regular rhythm GI: Auscultation: normal bowel sounds Urinary Catheter: Urinary Catheter: patent and draining Skin: General skin exam: normal color Neuro: Speech: No normal speech Psych: Other: sedated Objective Data Vital Signs Vital Signs: Vital Signs - 24 hr 06/19/19 22:00 06/19/19 23:02 06/19/19 23:05 Temperature 38.5 C H Pulse Rate 118 H 115 H 115 H Respiratory Rate 20 22 H 21 H Blood Pressure 111/69 Pulse Oximetry 92 83 L 06/19/19 23:30 06/19/19 23:58 06/20/19 01:40 Temperature 38.7 C H 38.6 C H Pulse Rate 116 H 102 H Respiratory Rate 21 H 20 Blood Pressure 117/69 Pulse Oximetry 100 100 06/20/19 01:47 06/20/19 02:00 06/20/19 04:00 Temperature 37.3 C 36.8 C Pulse Rate 102 H 104 H 90 Respiratory Rate 20 20 20 Blood Pressure 115/71 101/67 Pulse Oximetry 100 100 06/20/19 06:00 06/20/19 08:00 06/20/19 08:15 Temperature 36.7 C 36.8 C Pulse Rate 113 H 115 H 113 H Respiratory Rate 14 22 H 27 H Blood Pressure 114/69 109/63 Pulse Oximetry 99 97 06/20/19 08:18 06/20/19 08:23 06/20/19 08:27 Temperature 37.1 C Pulse Rate 107 H 111 H Respiratory Rate 21 H Blood Pressure Pulse Oximetry 96 06/20/19 10:00 06/20/19 11:40 06/20/19 12:00 Temperature 36.7 C Pulse Rate 113 H 112 H 111 H Respiratory Rate 21 H 22 H Blood Pressure 112/65 109/64 Pulse Oximetry 97 100 100 06/20/19 14:00 06/20/19 14:22 06/20/19 14:26 Temperature 37.6 C H Pulse Rate 113 H 109 H 114 H Respiratory Rate 20 20 Blood Pressure 103/69 Pulse Oximetry 100 100 06/20/19 14:35 06/20/19 16:00 06/20/19 17:31 Temperature 37.8 C H Pulse Rate 112 H 114 H 111 H Respiratory Rate 20 21 H Blood Pressure 95/59 L Pulse Oximetry 100 100 06/20/19 18:00 06/20/19 18:40 06/20/19 19:40 Temperature 37.9 C H 37.8 C H Pulse Rate 114 H 114 H Respiratory Rate 19 22 H Blood Pressure 111/67 Pulse Oximetry 98 06/20/19 19:50 06/20/19 19:52 06/20/19 20:00 Temperature 36.9 C Pulse Rate 112 H 112 H 101 H Respiratory Rate 20 20 Blood Pres
[2019-06-21] VITALS (26 sets, daily range): BP systolic 92–117; BP diastolic 53–87; PULSE 85–122; RESP 14–23; TEMP 36.4–37.9; O2SAT 91–100
[2019-06-21] MEDS: GUAIFENESIN 200 MG/10 ML UDC PO ×4 (00:07→18:24)
[2019-06-21 00:40] LABS: Glucose Point of Care 103 (65-105)
[2019-06-21] MEDS: ALBUTEROL SULFATE NEB 2.5 MG/0.5 ML INH INHALATION ×2 (01:31→09:35)
[2019-06-21] MEDS: IPRATROPIUM BR 0.02% INH SOLN 0.5 MG/2.5 ML VIAL INHALATION ×4 (01:31→20:11)
[2019-06-21 03:38] LABS: Alveolar/Arterial O2 Gradient 160.3 mmHg; Base Excess ABG 13.5 mEq/l (+/-2.0); Carboxyhemoglobin 0.3 % THb (0-2.0); Fractional Inspired Oxygen 40 %; HCO3 ABG 38.5 mEq/l (22.0-26.0); Methemoglobin ABG 0.6 %THb (0-1.5); Oxygen Content ABG 10.5 %vol (16.0-22.0); Oxygen Saturation ABG 93.5 % (95.0-100.0); Oxyhemoglobin 91.4 % THb (90.0-100.0); PCO2 ABG 52.7 mmHg (35.0-45.0); PO2 ABG 64.3 mmHg (80.0-100.0); PO2 FiO2 Ratio Arterial Blood 1.61 %; Reduced Hemoglobin 7.7 %THb (0-5.0); Total Hemoglobin 8.1 g/dL (12.0-18.0); pH ABG 7.481 (7.350-7.450)
[2019-06-21 03:40] LABS: Arterial Blood Gas PEEP 10 cmH2O; Arterial Blood Gas Vent Mode CMV; Arterial Blood Gas Ventilator rate 20 /MIN; Device VENTILATOR; Modified Allen's Test Pass; Site Drawn LEFT RADIAL
[2019-06-21 03:41] LABS: Arterial Blood Gas Tidal Volume 400 ml
[2019-06-21 05:26] LABS: Glucose Point of Care 87 (65-105)
[2019-06-21 05:27] LABS: Alanine Aminotransferase 36 U/L (4-50); Albumin Level 2.7 g/dL (3.5-5.1); Alkaline Phosphatase 72 U/L (38-126); Aspartate Amino Transferase 155 U/L (17-59); Bilirubin,Total 0.2 mg/dL (0.2-1.3); Blood Urea Nitrogen 16 mg/dL (9-20); Calcium 7.9 mg/dL (8.4-10.2); Carbon Dioxide 39 mmol/L (22-30); Chloride 86 mmol/L (98-107); Estimated CRCL calculation 111 ml/min; Estimated Glomerular Filt Rate > 60; Glucose 94 mg/dL (75-110); Magnesium 2.4 mg/dL (1.6-2.3); Potassium 4.2 mmol/L (3.4-5.0); Sodium 127 mmol/L (137-145)
[2019-06-21 08:00] LABS: Basophils Absolute Auto 0.1 K/mm3 (0.0-0.1); Basophils Percent Auto 0.6 % (0.2-1.2); Eosinophils Absolute Auto 0.4 K/mm3 (0-0.3); Eosinophils Percent Auto 2.5 % (0-4.4); Hematocrit 22.9 % (42.0-52.0); Hemoglobin 7.2 g/dL (14.0-18.0); Immature Granulocyte Absolute 0.22 K/mm3 (0.00-0.031); Immature Granulocyte Percent A 1.3 % (0-0.5); Lymphocytes Absolute Auto 2.81 K/mm3 (0.9-3.2); Lymphocytes Percent Auto 16.2 % (18.3-44.2); Mean Corpuscular HGB Conc 31.4 g/dl (32-36); Mean Corpuscular Hemoglobin 30.3 pg (26-34); Mean Corpuscular Volume 96.2 fl (80-100); Monocytes Absolute Auto 2.6 K/mm3 (0.1-0.6); Neutrophils Absolute Auto 11.2 K/mm3 (1.3-6.7); Neutrophils Percent Auto 64.4 % (45.5-73.1); Platelet Count Result 607 k/mm3 (150-375); Red Blood Count 2.38 M/mm3 (4.6-6.20); Red Cell Distribution Width 14.6 % (11.5-14.5); White Blood Count 17.4 K/mm3 (4.5-10.0)
[2019-06-21] MEDS: polyethylene glycoL 3350 17 GM POWD.PACK PO (08:40)
[2019-06-21] MEDS: FOLIC ACID 1 MG TABLET PO (08:40)
[2019-06-21] MEDS: PANTOPRAZOLE SODIUM IV 40 MG VIAL IV PUSH ×2 (08:40→21:36)
[2019-06-21] MEDS: HEPARIN SODIUM 5,000 UNITS/ML VIAL 5000 UNITS SUB-Q (08:41)
[2019-06-21] MEDS: NICOTINE (*PBKC) 21 MG PATCH 1 PATCH TRANSDERM (08:41)
[2019-06-21] MEDS: THIAMINE HCL 100 MG TABLET PO (08:57)
--- NOTE | 2019-06-21 09:30 | P.PNIM_ITS ---
Progress Note: A&P Assessment and Plan (1) Pneumonia: Qualifiers: Laterality: unspecified laterality Lung location: unspecified part of lung Pneumonia type: due to unspecified organism Qualified Code(s): J18.9 - Pneumonia, unspecified organism Code(s): J18.9 - Pneumonia, unspecified organism Status: Acute Assessment and Plan: * IV azithromycin and rocephin initially but changed to imipenem and Vanc 06/16 * Continue albuterol and atrovent nebs * Pulmonary did bronch 06/19/19 * COVID-19 testing through [facility] negative * Legionella and pneumococcal antigens negative. * Blood cultures with no growth to date. * Sputum Cx 06/18/19: Sputum culture growing Stenotrophomonas maltophilia which should be sensitive to imipenem, sens pending * 06/19/19 Bronch results: Negative for fungal elements but Cx growing gram negative bacilli * 06/20 CXR improving overall but WBC still elevated in the 16-20K range. * Appreciate pulmonary input; ID consult ordered (2) Acute respiratory failure: Qualifiers: Respiratory failure complication: hypoxia Qualified Code(s): J96.01 - Acute respiratory failure with hypoxia Code(s): J96.00 - Acute respiratory failure, unspecified whether with hypoxia or hypercapnia Status: Acute Assessment and Plan: * Secondary to above, superimposed on emphysema. * Wean from vent as possible * Vent management per fireboat operator; Appreciate fireboat operator input. Discussed. 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 * HH on admission was 15.4/44.9 on 06/11/19 * GI following who recommended outpatient EGD. * Continue Protonix BID. * Heme + stool * HH slowly trending down to 7.2/22.9 (related to dilution?) * Will re-consult GI (4) Tachycardia: Code(s): R00.0 - Tachycardia, unspecified Status: Acute Assessment and Plan: * Suspect secondary to acute infection. Sinus tach on EKG. * Tele showing sinus arrhythmias (5) Melena: Code(s): K92.1 - Melena Status: Acute Assessment and Plan: * x1 in the ER and Guaiac positive * H&H slowly declining. * Continue PPI (6) COPD with emphysema: Qualifiers: Emphysema type: unspecified Qualified Code(s): J43.9 - Emphysema, unspecified Code(s): J43.9 - Emphysema, unspecified Status: Chronic Assessment and Plan: * Emphysema noted on imaging. * Patient is not noted to be on any inhalers. * Continue respiratory regimen noted above. (7) Right renal mass: Code(s): N28.89 - Other specified disorders of kidney and ureter Status: Acute Assessment and Plan: * Right renal mass measuring 2.6cm incidentally noted on imaging. * Will need f/u with outpatient imaging (8) Tobacco abuse: Code(s): Z72.0 - Tobacco use Status: Chronic Assessment and Plan: * Patient not receptive to smoking cessation counseling due to medical condition * Continue Nicotine patch (9) Alcoholism: Code(s): F10.20 - Alcohol dependence, uncomplicated Status: Chronic Assessment and Plan: * Monitor for s/sx w/d * Contineu Thiamine and Folate. * Currently on s
--- NOTE | 2019-06-21 09:30 | PM.IMPN ---
Progress Note: A&P Assessment and Plan (1) Pneumonia: Qualifiers: Laterality: unspecified laterality Lung location: unspecified part of lung Pneumonia type: due to unspecified organism Qualified Code(s): J18.9 - Pneumonia, unspecified organism Code(s): J18.9 - Pneumonia, unspecified organism Status: Acute Assessment and Plan: IV azithromycin and rocephin initially but changed to imipenem and Vanc 06/16 Continue albuterol and atrovent nebs Pulmonary did bronch 06/19/19 COVID-19 testing through [facility] negative Legionella and pneumococcal antigens negative. Blood cultures with no growth to date. Sputum Cx 06/18/19: Sputum culture growing Stenotrophomonas maltophilia which should be sensitive to imipenem, sens pending 06/19/19 Bronch results: Negative for fungal elements but Cx growing gram negative bacilli 06/20 CXR improving overall but WBC still elevated in the 16-20K range. Appreciate pulmonary input; ID consult ordered (2) Acute respiratory failure: Qualifiers: Respiratory failure complication: hypoxia Qualified Code(s): J96.01 - Acute respiratory failure with hypoxia Code(s): J96.00 - Acute respiratory failure, unspecified whether with hypoxia or hypercapnia Status: Acute Assessment and Plan: Secondary to above, superimposed on emphysema. Wean from vent as possible Vent management per stitcher operator; Appreciate stitcher operator input. Discussed. 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 HH on admission was 15.4/44.9 on 06/11/19 GI following who recommended outpatient EGD. Continue Protonix BID. Heme + stool HH slowly trending down to 7.2/22.9 (related to dilution?) Will re-consult GI (4) Tachycardia: Code(s): R00.0 - Tachycardia, unspecified Status: Acute Assessment and Plan: Suspect secondary to acute infection. Sinus tach on EKG. Tele showing sinus arrhythmias (5) Melena: Code(s): K92.1 - Melena Status: Acute Assessment and Plan: x1 in the ER and Guaiac positive H&H slowly declining. Continue PPI (6) COPD with emphysema: Qualifiers: Emphysema type: unspecified Qualified Code(s): J43.9 - Emphysema, unspecified Code(s): J43.9 - Emphysema, unspecified Status: Chronic Assessment and Plan: Emphysema noted on imaging. Patient is not noted to be on any inhalers. Continue respiratory regimen noted above. (7) Right renal mass: Code(s): N28.89 - Other specified disorders of kidney and ureter Status: Acute Assessment and Plan: Right renal mass measuring 2.6cm incidentally noted on imaging. Will need f/u with outpatient imaging (8) Tobacco abuse: Code(s): Z72.0 - Tobacco use Status: Chronic Assessment and Plan: Patient not receptive to smoking cessation counseling due to medical condition Continue Nicotine patch (9) Alcoholism: Code(s): F10.20 - Alcohol dependence, uncomplicated Status: Chronic Assessment and Plan: Monitor for s/sx w/d Contineu Thiamine and Folate. Currently on sedation Elevated AST - possibly related to congestion? or alcoholism? Lasix once and check TCK. (10) Hyponatremia: Code(s): E87.1 - Hypo-osmolality and hyponatremia Status: Acute Assessment and Plan: Na 136 on admission but down to 127. Fluid positive at 9.2L Lasix IV once (11) DVT prophylaxis: Code(s): Z29.9 - Encounter for prophylactic measures, unspecified Status: Acute Assessment and Plan: Doppler negative. H
[2019-06-21] MEDS: FUROSEMIDE INJ 40 MG/4 ML VIAL IV PUSH (10:22)
--- NOTE | 2019-06-21 11:19 | PM.PNPUL ---
Progress Note: A&P Assessment and Plan (1) Hospital-acquired bacterial pneumonia: Code(s): J15.9 - Unspecified bacterial pneumonia Status: Acute Assessment and Plan: -Stenotrophomonas Maltophia growing in sputum from 06/17 along with intermittent fevers and persistent leukocytosis and persistent infiltrates. - Would recommend starting Bactrim high dose bid for 7-10 days (2) Acute respiratory failure: Qualifiers: Respiratory failure complication: hypoxia Qualified Code(s): J96.01 - Acute respiratory failure with hypoxia Code(s): J96.00 - Acute respiratory failure, unspecified whether with hypoxia or hypercapnia Status: Acute Assessment and Plan: - recommend slowly decreasing PEEP, patients on minimal FiO2 and stable - consider sedation holidays and CPAP trials (3) COPD with emphysema: Qualifiers: Emphysema type: unspecified Qualified Code(s): J43.9 - Emphysema, unspecified Code(s): J43.9 - Emphysema, unspecified Status: Chronic Assessment and Plan: - continue Ipratopium 0.5 mg Q6h scheduled - change Albuterol 2.5 mg to Q6h PRN in light of tachycardia Time Spent With Patient Time with patient: 25 - 35 minutes Subjective Date/time seen: 06/21/19 11:19 Interval history: Pt is intubated, sedated on CMV 400/10/30% on combination of versed and fentanyl drip. Somewhat awake Review of Systems Review of Systems: ROS unobtainable: Yes unobtainable due to endotracheal tube Exam Const: General: no acute distress Neck: Neck: supple and no JVD Resp: Auscultation: crackles and diminished lung sounds Cardio: Rate: tachycardic Rhythm: regular rhythm GI: Auscultation: normal bowel sounds Extrem: General: normal to inspection, no edema and no pedal edema Objective Data Vital Signs Vital Signs: Vital Signs - 24 hr 06/20/19 11:40 06/20/19 12:00 06/20/19 14:00 Temperature 36.7 C 37.6 C H Pulse Rate 112 H 111 H 113 H Respiratory Rate 22 H 20 Blood Pressure 109/64 103/69 Pulse Oximetry 100 100 100 06/20/19 14:22 06/20/19 14:26 06/20/19 14:35 Temperature Pulse Rate 109 H 114 H 112 H Respiratory Rate 20 20 Blood Pressure Pulse Oximetry 100 04/15/20 16:00 06/20/19 17:31 06/20/19 18:00 Temperature 37.8 C H 37.9 C H Pulse Rate 114 H 111 H 114 H Respiratory Rate 21 H 19 Blood Pressure 95/59 L 111/67 Pulse Oximetry 100 100 98 06/20/19 18:40 06/20/19 19:40 06/20/19 19:50 Temperature 37.8 C H Pulse Rate 114 H 112 H Respiratory Rate 22 H Blood Pressure Pulse Oximetry 100 06/20/19 19:52 06/20/19 20:00 06/20/19 22:00 Temperature 36.9 C 36.4 C L Pulse Rate 112 H 101 H 88 Respiratory Rate 20 20 20 Blood Pressure 100/60 100/58 L Pulse Oximetry 100 100 06/20/19 23:10 06/21/19 00:00 06/21/19 01:31 Temperature 36.4 C Pulse Rate 91 86 85 Respiratory Rate 20 20 Blood Pressure 104/64 Pulse Oximetry 100 99 06/21/19 01:40 06/21/19 01:57 06/21/19 02:00 Temperature Pulse Rate 85 85 96 Respiratory Rate 20 20 Blood Pressure 112/62 Pulse Oximetry 100 99 06/21/19 04:00 06/21/19 04:39 06/21/19 06:00 Temperature 37.2 C 37.6 C H Pulse Rate 106 H 108 H 119 H Respiratory Rate 20 22 H Blood Pressure 105/66 116/87 Pulse Oximetry 100 100 97 06/21/19 09:35 06/21/19 09:45 06/21/19 11:17 Temperature 37.9 C H Pulse Rate 118 H 118 H Respiratory Rate 20 20 Blood Pressure Pulse Oximetry 99 Intake/Output Intake/Output: Intake & Output 06/18/19 06/19/19 06/20/19 06/21/19 23:59 23:59 23:59 23:59 Intake Total 3300 2025 1965 840 Output Total 1925 1200 1375 900 Balance 1375 825 590 -60 Meds/Results Medications: Active Medications Generic Name Dose Route Start Last Admin Trade Name Freq PRN Reason Stop Dose Admin Albuterol 2.5 mg 06/18/19 08:00 06/21/19 09:35 Albuterol Sulf Neb 2.5mg/0.5ml INHALATION 2.5 mg Q6HRT CANDI Administration Dorna
--- NOTE | 2019-06-21 11:36 | PCDIET ---
ICU Rounding Note: Pt current nutrition is Vital 1.5 at 50ml/hr. Nutrition recommendation: Agree Last recorded weight is 67.2kg, steady Bowel Motility: 06/18 Labs Reviewed:C reactive 25.9, Mg 2.4, Bilirubin 155, Na 127, Hgb 7.2, Hct 22.9 Meds Noted:Fentanyl, Folic Acid, Thiamin, Mirilax, Protonix Additional Notes: Agree with folic acid/thiamin due to ETOH use. Pt tolerating EN at goal with 0 residuals. EN providing 1650kcals over 22hrs meeting 100% of pt needs. Following daily in ICU rounds. Assessing/reassessing q t/f.
[2019-06-21 12:45] LABS: Glucose Point of Care 119 (65-105)
--- NOTE | 2019-06-21 13:22 | WPDINTPN ---
Progress Note: A&P Assessment and Plan (1) Acute respiratory failure: Qualifiers: Respiratory failure complication: hypoxia Qualified Code(s): J96.01 - Acute respiratory failure with hypoxia Code(s): J96.00 - Acute respiratory failure, unspecified whether with hypoxia or hypercapnia Status: Acute Assessment and Plan: patient presented with shortness of breath, hypoxia. Chest x-ray and CT chest showed right-sided pneumonia - patient was intubated on 06/12/2019 - On CMV mode of ventilation, 40% FiO2, peep of 10 - sputum cultures growing stenotrophomonas, continue imipenem and vancomycin for now.. - infectious Disease has been consulted - patient a bronchoscopy on 06/19/2019, BAL also growing stenotrophomonas - SARS-COV-2 PCR came back negative - patient was febrile, lower extremity venous Dopplers were done on 06/19/2019, NO DVT bilateral lower extremities. - will diurese today (2) Pneumonia: Qualifiers: Pneumonia type: due to unspecified organism Laterality: unspecified laterality Lung location: unspecified part of lung Qualified Code(s): J18.9 - Pneumonia, unspecified organism Code(s): J18.9 - Pneumonia, unspecified organism Status: Acute Assessment and Plan: chest x-ray shows unchanged effusion right lung disease consistent with pneumonia - antibiotics as above - Treatment as above (3) COPD with emphysema: Qualifiers: Emphysema type: unspecified Qualified Code(s): J43.9 - Emphysema, unspecified Code(s): J43.9 - Emphysema, unspecified Status: Chronic Assessment and Plan: patient history of COPD with emphysema - maintain O2 sats between 90-96% (4) Right renal mass: Code(s): N28.89 - Other specified disorders of kidney and ureter Status: Acute Assessment and Plan: right renal mass, incidental finding on CT chest - no gross hematuria - appreciate urology evaluation recommendation, no intervention during this hospitalization. Will need a formal evaluation with a dedicated CT of the kidneys with and without contrast and a couple of months. (5) Alcoholism: Code(s): F10.20 - Alcohol dependence, uncomplicated Status: Chronic Assessment and Plan: continue folic acid, thiamine (6) GERD (gastroesophageal reflux disease): Code(s): K21.9 - Gastro-esophageal reflux disease without esophagitis Status: Acute Assessment and Plan: continue Protonix (7) DVT prophylaxis: Code(s): Z29.9 - Encounter for prophylactic measures, unspecified Status: Acute Assessment and Plan: heparin SQ and SCDs, (8) Dietary counseling and surveillance: Code(s): Z71.3 - Dietary counseling and surveillance Status: Acute Assessment and Plan: patient tolerating tube feeds (9) Anemia: Code(s): D64.9 - Anemia, unspecified Status: Acute Assessment and Plan: hemoglobin has been trending down, patient was guaiac positive - patient had some melena on admission - continue Protonix q.12 hours Additional Plan discussed with his son, Ervin and updated him with patient's condition and plan of care. I answered all questions Code status: Full code Critical care time spent: 32 minutes Due to a high probability of clinically significant, life threatening deterioration, the patient required my highest level of preparedness to intervene emergently and I personally spent this critical care time directly and personally managing the patient. This critical care time included obtaining a history; examining the patient; pulse oximetry; ordering and review of studies; arranging urgent treatment with development of a management plan; evaluation of patient's response to treatment; frequent reassessment; and discussions with other providers. It was exclusive of separately billable procedures and treating other patients and teaching ti
--- NOTE | 2019-06-21 15:38 | WPDINFPN2 ---
Progress Note: A&P Assessment and Plan (1) Hospital-acquired bacterial pneumonia: Code(s): J15.9 - Unspecified bacterial pneumonia Status: Acute Assessment and Plan: Stenotrophomonas HCAP REC TMP-SMX #1 and follow Subjective Date/time seen: 06/21/19 15:38 Objective Data Vital Signs Vital Signs: Vital Signs - 24 hr 06/20/19 16:00 06/20/19 17:31 06/20/19 18:00 Temperature 37.8 C H 37.9 C H Pulse Rate 114 H 111 H 114 H Respiratory Rate 21 H 19 Blood Pressure 95/59 L 111/67 Pulse Oximetry 100 100 98 06/20/19 18:40 06/20/19 19:40 06/20/19 19:50 Temperature 37.8 C H Pulse Rate 114 H 112 H Respiratory Rate 22 H Blood Pressure Pulse Oximetry 100 06/20/19 19:52 06/20/19 20:00 06/20/19 22:00 Temperature 36.9 C 36.4 C L Pulse Rate 112 H 101 H 88 Respiratory Rate 20 20 20 Blood Pressure 100/60 100/58 L Pulse Oximetry 100 100 06/20/19 23:10 06/21/19 00:00 06/21/19 01:31 Temperature 36.4 C Pulse Rate 91 86 85 Respiratory Rate 20 20 Blood Pressure 104/64 Pulse Oximetry 100 99 06/21/19 01:40 06/21/19 01:57 06/21/19 02:00 Temperature Pulse Rate 85 85 96 Respiratory Rate 20 20 Blood Pressure 112/62 Pulse Oximetry 100 99 06/21/19 04:00 06/21/19 04:39 06/21/19 06:00 Temperature 37.2 C 37.6 C H Pulse Rate 106 H 108 H 119 H Respiratory Rate 20 22 H Blood Pressure 105/66 116/87 Pulse Oximetry 100 100 97 06/21/19 09:35 06/21/19 09:45 06/21/19 11:17 Temperature 37.9 C H Pulse Rate 118 H 118 H Respiratory Rate 20 20 Blood Pressure Pulse Oximetry 99 Intake/Output Intake/Output: Intake & Output 06/18/19 06/19/19 06/20/19 06/21/19 23:59 23:59 23:59 23:59 Intake Total 3300 5 1965 840 Output Total 1925 1200 1375 900 Balance 1375 825 590 -60 Meds/Results Medications: Active Medications Generic Name Dose Route Start Last Admin Trade Name Freq PRN Reason Stop Dose Admin Albuterol 2.5 mg 06/21/19 11:36 Albuterol Sulf Neb 2.5mg/0.5ml INHALATION Q6HRT PRN Wheezing Dornase Deonte 2.5 mg 06/17/19 10:25 06/21/19 09:35 Pulmozyme INHALATION Not Given Q12HRT CANDI Folic Acid 1 mg 06/12/19 09:00 06/21/19 08:40 Folic Acid PO 1 mg DAILY CANDI Administration Guaifenesin 200 mg 06/19/19 08:00 06/21/19 13:51 Guaifenesin Liq PO 200 mg Q6HR CANDI Administration Heparin Sodium (Porcine) 5,000 units 06/18/19 21:00 06/21/19 08:41 Heparin Sodium SUB-Q 5,000 units Q12HR CANDI Administration Fentanyl Citrate 2,500 mcg in 250 mls @ 12.5 mls/hr 06/20/19 14:00 06/21/19 12:03 Fentanyl 2,500 Mcg/Ns 250 Ml IV CONT 125 mcg/hr .Q20H CANDI 12.5 mls/hr Administration Protocol 125 MCG/HR Midazolam HCl 50 mg in 100 mls @ 8 mls/hr 06/20/19 14:00 06/21/19 08:00 Versed 50 Mg/D5w 100 Ml IV CONT 4 mg/hr .[id number] CANDI 8 mls/hr Titration Protocol 4 MG/HR Acetaminophen 1,000 mg in 100 mls @ 400 mls/hr 06/20/19 17:58 06/21/19 11:17 Ofirmev 1,000 Mg Ivpb IVPB 06/21/19 17:59 400 mls/hr Q6H PRN Administration Pain Rated 4-6 Ipratropium Wilkinson 0.5 mg 06/18/19 08:00 06/21/19 09:35 Atrovent Neb INHALATION 0.5 mg Q6HRT CANDI Administration Lidocaine 1 patch 06/12/19 10:00 06/20/19 13:57 Lidoderm TRANSDERM 1 patch DAILY CANDI Administration Multi-Ingred Cream/Lotion/Oil/Oint 1 applic 06/13/19 09:00 06/21/19 08:41 Lubrifresh Pm Eye Ointment EACH EYE 1 applic Q12HR CANDI Administration Nicotine 1 patch 06/11/19 23:10 06/21/19 08:41 Nicoderm Cq 21 Mg TRANSDERM 1 patch QAM CANDI Administration Pantoprazole Sodium 40 mg 06/12/19 09:00 06/21/19 08:40 Protonix Iv IV PUSH 40 mg Q12HR CANDI Administration Polyethylene Glycol 17 gm 06/16/19 14:12 06/21/19 08:40 Miralax PO 17 gm QAM CANDI Administration Thiamine HCl 100 mg 06/12/19 09:00 06/21/19 08:57 Vitamin B-1 PO 100 mg QAM CANDI Adminis
--- NOTE | 2019-06-21 16:53 | CONS_ITS ---
DATE OF CONSULTATION: 06/21/2019 REASON FOR CONSULTATION: Pneumonia. HISTORY OF PRESENT ILLNESS: The patient is a 69-year-old male who cannot provide any history, as he is intubated and sedated. He recently was admitted to the hospital on June 10 with back pain in the lower spine. After arrival, he had melena, hypoxemia, right renal mass, distal esophagus thickening along with cough. His hospital course has been complicated by respiratory insufficiency requiring intubation on the evening of the . He was given imipenem and vancomycin for suspected pneumonia when his chest x-ray showed further deterioration. He had a bronchoscopy performed on June 18 and consultation now requested. His hospital course otherwise has been complicated by ongoing respiratory insufficiency requiring a mechanical ventilation, multiple electrolyte abnormalities, persistent tachycardia. Bronchoscopy revealed erythematous airways with white thin mucus aspirated from all lobes. ALLERGIES: NO KNOWN DRUG ALLERGIES. HABITS: Alcohol to excess and tobacco to excess. PRESENT MEDICATIONS: No systemic immunosuppressants. PAST MEDICAL HISTORY: Tonsillectomy, inguinal hernia repair, right hip replacement, cholecystectomy, IVC filter, peripheral neuropathy, osteoporosis, GERD, Wooten's esophagus, peptic ulcer disease, depression, dementia, details not available. Compression fracture in the past. Anxiety and anemia. REVIEW OF SYSTEMS: 14-point review not obtainable from the patient, but attempted, intubated and sedated. FAMILY HISTORY: Not pertinent to his present illness. SOCIAL HISTORY: Lives locally, disabled and no family at the bedside. PHYSICAL EXAMINATION: GENERAL: Middle-aged male who appears much older than his actual age. Cachectic. No respiratory distress. He is on no pressors, sedated. VITAL SIGNS: Temperature on arrival was normal, jill up to 37.7 the following day. On the and , he had a temperature up to 38.2 and up to 38.3 on the . In the last 24 hours, T-max 37.9, 118, 20, 116/87. SKIN: No generalized rashes. Warm and dry. Poor turgor. EENT: The conjunctivae are normal. There is no icterus. Orogastric tube and oral endotracheal tube. Compromised exam, but inspection is normal otherwise. NECK: There is no meningismus mass, thyromegaly. LUNGS: Diminished breath sounds. Coarse at both bases. Breath sounds are vesicular. Clear to percussion. CHEST: No indwelling vascular devices. There is a peripheral IV in the left arm. CARDIAC: Tachycardic. Regular. No murmur or gallop. ABDOMEN: Soft. There is no apparent tenderness. No masses. No evidence of ascites on exam. EXTREMITIES: No clubbing, cyanosis, or edema. LABORATORY DATA: From the bronchoscopy, two sputum samples with Stenotrophomonas. His sputum culture from the 8th had yeast. Blood cultures, 4 sets total, no growth. His white blood cell count has been persistently high 17.4 today, down from 20.7, hemoglobin 7.2, which is lower and platelets are 607. Blood gas 7.48, 53, 64, 39 on the noted ventilator settings. His hyponatremia, CO2 is 39, chloride is 86, BUN and creatinine normal. His magnesium 2.4. AST is high, ALT is normal. Albumin 2.7. Bronchial alveolar lavage was red, cloudy, 94% . Viral cultures from the bronchoscopy are in process. RADIOLOGY DATA: I personally reviewed his chest x-ray, he has infiltrates in the right and left lungs without change. ASSESSMENT: 1. Fever with lung infiltrates, hypoxemia and positive BAL. I suspect true pneumonia with the above organism and not an airway colonizer. Other pathogens are less likely in this situation. 2. Chronic obstructive pulmonary disease with acute and chronic respiratory failure. 3. Alcoh
[2019-06-21 18:44] LABS: Glucose Point of Care 120 (65-105)
[2019-06-21] MEDS: DORNASE ALFA INH SOLN 1 MG/ML 2.5 ML AMP 2.5 MG INHALATION (20:11)
[2019-06-22] VITALS (30 sets, daily range): BP systolic 99–125; BP diastolic 52–83; PULSE 98–117; RESP 20–24; TEMP 37.3–37.9; O2SAT 83–100
[2019-06-22 00:24] LABS: Glucose Point of Care 87 (65-105)
[2019-06-22] MEDS: GUAIFENESIN 200 MG/10 ML UDC PO ×4 (00:43→18:29)
[2019-06-22] MEDS: ALBUTEROL SULFATE NEB 2.5 MG/0.5 ML INH INHALATION ×3 (01:11→13:27)
[2019-06-22] MEDS: IPRATROPIUM BR 0.02% INH SOLN 0.5 MG/2.5 ML VIAL INHALATION ×4 (01:12→19:53)
[2019-06-22 04:36] LABS: Alveolar/Arterial O2 Gradient 229.1 mmHg; Base Excess ABG 12.1 mEq/l (+/-2.0); Carboxyhemoglobin 0.3 % THb (0-2.0); Fractional Inspired Oxygen 50 %; HCO3 ABG 36.6 mEq/l (22.0-26.0); Methemoglobin ABG 0.6 %THb (0-1.5); Oxygen Content ABG 10.4 %vol (16.0-22.0); Oxygen Saturation ABG 95.6 % (95.0-100.0); Oxyhemoglobin 93.4 % THb (90.0-100.0); PCO2 ABG 48.2 mmHg (35.0-45.0); PO2 ABG 73.2 mmHg (80.0-100.0); PO2 FiO2 Ratio Arterial Blood 1.46 %; Reduced Hemoglobin 5.7 %THb (0-5.0); pH ABG 7.498 (7.350-7.450)
[2019-06-22 04:37] LABS: Modified Allen's Test Pass; Site Drawn LEFT RADIAL; Total Hemoglobin 7.8 g/dL (12.0-18.0)
[2019-06-22 04:38] LABS: Arterial Blood Gas PEEP 12 cmH2O; Arterial Blood Gas Pressure Support 0 cmH2O; Arterial Blood Gas Tidal Volume 400 ml; Arterial Blood Gas Vent Mode CMV; Arterial Blood Gas Ventilator rate 12 /MIN; Device VENTILATOR
[2019-06-22 04:52] LABS: Basophils Percent Auto 0.3 % (0.2-1.2); Eosinophils Absolute Auto 0.3 K/mm3 (0-0.3); Eosinophils Percent Auto 1.9 % (0-4.4); Hematocrit 22.4 % (42.0-52.0); Hemoglobin 7.4 g/dL (14.0-18.0); Immature Granulocyte Absolute 0.14 K/mm3 (0.00-0.031); Immature Granulocyte Percent A 0.9 % (0-0.5); Lymphocytes Absolute Auto 1.69 K/mm3 (0.9-3.2); Lymphocytes Percent Auto 11.3 % (18.3-44.2); Mean Corpuscular Hemoglobin 29.8 pg (26-34); Mean Corpuscular Volume 90.3 fl (80-100); Mean Platelet Volume 9.1 fl (7.4-10.4); Monocytes Absolute Auto 1.9 K/mm3 (0.1-0.6); Monocytes Percent Auto 12.7 % (2.6-8.5); Neutrophils Absolute Auto 10.9 K/mm3 (1.3-6.7); Neutrophils Percent Auto 72.9 % (45.5-73.1); Platelet Count Result 710 k/mm3 (150-375); Red Blood Count 2.48 M/mm3 (4.6-6.20); Red Cell Distribution Width 14.2 % (11.5-14.5); White Blood Count 14.9 K/mm3 (4.5-10.0)
[2019-06-22 05:11] LABS: Alanine Aminotransferase 44 U/L (4-50); Albumin Level 2.7 g/dL (3.5-5.1); Alkaline Phosphatase 76 U/L (38-126); Aspartate Amino Transferase 165 U/L (17-59); Bilirubin,Total 0.1 mg/dL (0.2-1.3); Blood Urea Nitrogen 16 mg/dL (9-20); Carbon Dioxide > 40 mmol/L (22-30); Chloride 85 mmol/L (98-107); Estimated CRCL calculation 94 ml/min; Estimated Glomerular Filt Rate > 60; Glucose 116 mg/dL (75-110); Magnesium 2.1 mg/dL (1.6-2.3); Sodium 128 mmol/L (137-145)
[2019-06-22] MEDS: polyethylene glycoL 3350 17 GM POWD.PACK PO (08:15)
[2019-06-22] MEDS: NICOTINE (*PBKC) 21 MG PATCH 1 PATCH TRANSDERM (08:15)
[2019-06-22] MEDS: PANTOPRAZOLE SODIUM IV 40 MG VIAL IV PUSH ×2 (08:16→20:26)
[2019-06-22] MEDS: THIAMINE HCL 100 MG TABLET PO (08:16)
[2019-06-22] MEDS: FOLIC ACID 1 MG TABLET PO (08:16)
[2019-06-22] MEDS: LIDOCAINE 5% PATCH 1 PATCH TRANSDERM (08:17)
[2019-06-22 08:37] LABS: Creatine Kinase 3083 U/L (55-170)
--- NOTE | 2019-06-22 08:38 | P.PNIM_ITS ---
Progress Note: A&P Assessment and Plan (1) Pneumonia: Qualifiers: Laterality: unspecified laterality Lung location: unspecified part of lung Pneumonia type: due to unspecified organism Qualified Code(s): J18.9 - Pneumonia, unspecified organism Code(s): J18.9 - Pneumonia, unspecified organism Status: Acute Assessment and Plan: * IV azithromycin and rocephin initially but changed to imipenem and Vanc on 06/16 and to TMP/SMX IV on 06/21/19 * BCx negative on 06/11/19. Sputum 06/12 growing yeast * 06/18/19: Repeat BCx NGTD; Sputum culture growing Stenotrophomonas maltophilia sensitive to Levaquin and TMP/SMX * Pulmonary did bronch 06/19/19 * COVID-19 testing through [facility] negative * Legionella and pneumococcal antigens negative. * Bronch Cx 06/19/19: growing Stenotrophomonas maltophilia with same sensitivity pattern and Patt Albicans. * No acid fast bacilli seen by bronch sample * 06/21 CXR reviewed without much change overall and mostly right sided; WBC trending down. * Appreciate pulmonary and ID input * Continue atrovent nebs (2) Acute respiratory failure: Qualifiers: Respiratory failure complication: hypoxia Qualified Code(s): J96.01 - Acute respiratory failure with hypoxia Code(s): J96.00 - Acute respiratory failure, unspecified whether with hypoxia or hypercapnia Status: Acute Assessment and Plan: * Secondary to above, superimposed on emphysema. * Wean from vent as possible * Vent management per gas singer; Appreciate gas singer input. Discussed. (3) Rhabdomyolysis: Qualifiers: Rhabdomyolysis type: non-traumatic Qualified Code(s): M62.82 - Rhabdomyolysis Code(s): M62.82 - Rhabdomyolysis Status: Acute Assessment and Plan: Total CK 188 on admission but now up to 3083. Probably related to viral illness and/or medications. Contineu to monitor. (4) Barretts esophagus: Qualifiers: Wooten's esophagus type: with dysplasia of unspecified degree Qualified Code(s): K22.719 - Wooten's esophagus with dysplasia, unspecified Code(s): K22.70 - Wooten's esophagus without dysplasia Status: Chronic Assessment and Plan: * Noted on EGD dating back to 2011, but did not follow up. * HH on admission was 15.4/44.9 on 06/11/19 * GI following who recommended outpatient EGD. * Continue Protonix BID. * Heme + stool * HH slowly trending down to 7 range * GI re-consulted (5) Tachycardia: Code(s): R00.0 - Tachycardia, unspecified Status: Acute Assessment and Plan: * Suspect secondary to acute infection. Sinus tach on EKG. * Tele showing sinus arrhythmias at times (6) Melena: Code(s): K92.1 - Melena Status: Acute Assessment and Plan: * x1 event in the ER * Stool Guaiac positive * H&H slowly declining to 7 range where it has remained stablepast 3 days * Continue PPI * GI re-consulted (7) COPD with emphysema: Qualifiers: Emphysema type: unspecified Qualified Code(s): J43.9 - Emphysema, unspecified Code(s): J43.9 - Emphysema, unspecified Status: Chronic Assessment and Plan: * Emphysema noted on imaging. * Patient is not noted to be on any inhalers at home. * Has not required steroids here and no wheezing on exam * Continue respiratory regimen noted above. (8) Right renal mass: Code(s): N28.89 - Other specified disorders of kidney and ureter Status: Acute Assessment
--- NOTE | 2019-06-22 08:38 | PM.IMPN ---
Progress Note: A&P Assessment and Plan (1) Pneumonia: Qualifiers: Laterality: unspecified laterality Lung location: unspecified part of lung Pneumonia type: due to unspecified organism Qualified Code(s): J18.9 - Pneumonia, unspecified organism Code(s): J18.9 - Pneumonia, unspecified organism Status: Acute Assessment and Plan: IV azithromycin and rocephin initially but changed to imipenem and Vanc on 06/16 and to TMP/SMX IV on 06/21/19 BCx negative on 06/11/19. Sputum 06/12 growing yeast 06/18/19: Repeat BCx NGTD; Sputum culture growing Stenotrophomonas maltophilia sensitive to Levaquin and TMP/SMX Pulmonary did bronch 06/19/19 COVID-19 testing through [facility] negative Legionella and pneumococcal antigens negative. Bronch Cx 06/19/19: growing Stenotrophomonas maltophilia with same sensitivity pattern and Patt Albicans. No acid fast bacilli seen by bronch sample 06/21 CXR reviewed without much change overall and mostly right sided; WBC trending down. Appreciate pulmonary and ID input Continue atrovent nebs (2) Acute respiratory failure: Qualifiers: Respiratory failure complication: hypoxia Qualified Code(s): J96.01 - Acute respiratory failure with hypoxia Code(s): J96.00 - Acute respiratory failure, unspecified whether with hypoxia or hypercapnia Status: Acute Assessment and Plan: Secondary to above, superimposed on emphysema. Wean from vent as possible Vent management per spot man; Appreciate spot man input. Discussed. (3) Rhabdomyolysis: Qualifiers: Rhabdomyolysis type: non-traumatic Qualified Code(s): M62.82 - Rhabdomyolysis Code(s): M62.82 - Rhabdomyolysis Status: Acute Assessment and Plan: Total CK 188 on admission but now up to 3083. Probably related to viral illness and/or medications. Contineu to monitor. (4) Barretts esophagus: Qualifiers: Wooten's esophagus type: with dysplasia of unspecified degree Qualified Code(s): K22.719 - Wooten's esophagus with dysplasia, unspecified Code(s): K22.70 - Wooten's esophagus without dysplasia Status: Chronic Assessment and Plan: Noted on EGD dating back to 2011, but did not follow up. HH on admission was 15.4/44.9 on 06/11/19 GI following who recommended outpatient EGD. Continue Protonix BID. Heme + stool HH slowly trending down to 7 range GI re-consulted (5) Tachycardia: Code(s): R00.0 - Tachycardia, unspecified Status: Acute Assessment and Plan: Suspect secondary to acute infection. Sinus tach on EKG. Tele showing sinus arrhythmias at times (6) Melena: Code(s): K92.1 - Melena Status: Acute Assessment and Plan: x1 event in the ER Stool Guaiac positive H&H slowly declining to 7 range where it has remained stablepast 3 days Continue PPI GI re-consulted (7) COPD with emphysema: Qualifiers: Emphysema type: unspecified Qualified Code(s): J43.9 - Emphysema, unspecified Code(s): J43.9 - Emphysema, unspecified Status: Chronic Assessment and Plan: Emphysema noted on imaging. Patient is not noted to be on any inhalers at home. Has not required steroids here and no wheezing on exam Continue respiratory regimen noted above. (8) Right renal mass: Code(s): N28.89 - Other specified disorders of kidney and ureter Status: Acute Assessment and Plan: Right renal mass measuring 2.6cm incidentally noted on imaging. Will need f/u with outpatient imaging (9) Tobacco abuse: Code(s): Z72.0 - Tobacco use Status: Chronic Assessment and Plan: Patient not receptive to smoking cessation counseling due to medical condition Continue Nicotine patch (10) Alcoholism: Code(s): F10.20 - Alcohol dependence, uncomplicated Status: Chronic Assessment and Plan: Marley
[2019-06-22] MEDS: DORNASE ALFA INH SOLN 1 MG/ML 2.5 ML AMP 2.5 MG INHALATION ×2 (09:22→19:53)
--- NOTE | 2019-06-22 11:11 | PCDIET ---
Nutrition Follow-Up Complete: Nutrition Diagnosis: Decreased energy intake related to decreased appetite as evidenced by BMI of 17.7. Nutrition Goal: Patient to meet estimated nutritional needs. Goal met. Patient tolerating Vital 1.5 at 50mL/hr. No residuals reported. Last recorded weight is 66 kg which is decreased from last review (still up from admission). Bowel Motility: Last reported BM on 06/19/19. Good bowel sounds, per RN. Continuing Miralax daily. Labs Reviewed: Glu (116), Na (128), Alb (2.7) Meds Noted: Albuterol, Fentanyl, Folic Acid, Atrovent, Versed, Protonix, Miralax, Vitamin B1 Additional Notes: Scrotum macerated. No other reported skin issues. Recommend continuing present tube feeding. Nutrition Monitoring and Evaluation: Follow up every Tuesday/Tuesday. Follow daily in ICU rounds.
[2019-06-22 13:03] LABS: Glucose Point of Care 97 (65-105)
--- NOTE | 2019-06-22 13:03 | WPDINTPN ---
Progress Note: A&P Assessment and Plan (1) Acute respiratory failure: Qualifiers: Respiratory failure complication: hypoxia Qualified Code(s): J96.01 - Acute respiratory failure with hypoxia Code(s): J96.00 - Acute respiratory failure, unspecified whether with hypoxia or hypercapnia Status: Acute Assessment and Plan: patient presented with shortness of breath, hypoxia. Chest x-ray and CT chest showed right-sided pneumonia - patient was intubated on 06/12/2019 - patient a bronchoscopy on 06/19/2019, - On CMV mode of ventilation, 50% FiO2, peep of 12. peep was decreased to 10. - sputum cultures And BAL cultures growing stenotrophomonas. Patient was started on sulfamethoxazole and trimethoprim - vancomycin and imipenem were discontinued on 06/21/2019. - Appreciate infectious disease evaluation recommendation. - SARS-COV-2 PCR negative 06/13/2019 - patient was febrile, lower extremity venous Dopplers were done on 06/19/2019, NO DVT bilateral lower extremities. - responded well to diuresis, hold diuresis today (2) Pneumonia: Qualifiers: Pneumonia type: due to unspecified organism Laterality: unspecified laterality Lung location: unspecified part of lung Qualified Code(s): J18.9 - Pneumonia, unspecified organism Code(s): J18.9 - Pneumonia, unspecified organism Status: Acute Assessment and Plan: chest x-ray shows unchanged effusion right lung disease consistent with pneumonia - antibiotics as above - continue Pulmozyme (3) COPD with emphysema: Qualifiers: Emphysema type: unspecified Qualified Code(s): J43.9 - Emphysema, unspecified Code(s): J43.9 - Emphysema, unspecified Status: Chronic Assessment and Plan: patient history of COPD with emphysema - maintain O2 sats between 90-96% (4) Right renal mass: Code(s): N28.89 - Other specified disorders of kidney and ureter Status: Acute Assessment and Plan: right renal mass, incidental finding on CT chest - no gross hematuria - appreciate urology evaluation recommendation, no intervention during this hospitalization. Will need a formal evaluation with a dedicated CT of the kidneys with and without contrast and a couple of months. (5) Alcoholism: Code(s): F10.20 - Alcohol dependence, uncomplicated Status: Chronic Assessment and Plan: continue folic acid, thiamine (6) GERD (gastroesophageal reflux disease): Code(s): K21.9 - Gastro-esophageal reflux disease without esophagitis Status: Acute Assessment and Plan: continue Protonix (7) DVT prophylaxis: Code(s): Z29.9 - Encounter for prophylactic measures, unspecified Status: Acute Assessment and Plan: will hold heparin as patient dropped his hemoglobin. Also discontinue SCDs and place patient on foot pumps (8) Dietary counseling and surveillance: Code(s): Z71.3 - Dietary counseling and surveillance Status: Acute Assessment and Plan: patient tolerating tube feeds - positive bowel movement (9) Anemia: Code(s): D64.9 - Anemia, unspecified Status: Acute Assessment and Plan: hemoglobin has been trending down, patient was guaiac positive - patient had some melena on admission - continue Protonix q.12 hours Additional Plan discussed with his son, Ervin and updated him with patient's condition and plan of care. I answered all questions Code status: Full code Critical care time spent: 32 minutes Due to a high probability of clinically significant, life threatening deterioration, the patient required my highest level of preparedness to intervene emergently and I personally spent this critical care time directly and personally managing the patient. This critical care time included obtaining a history; examining the patient; pulse oximetry; ordering and review of studies; arranging urg
--- NOTE | 2019-06-22 15:03 | WPDINFPN2 ---
Progress Note: A&P Assessment and Plan (1) Hospital-acquired bacterial pneumonia: Code(s): J15.9 - Unspecified bacterial pneumonia Status: Acute Assessment and Plan: 1. Stenotrophomonas HCAP, slightly improved status 2. Respiratory failure 3. COPD 4. Alcohol to excess 5. Tobacco REC TMP-SMX #2, continue IV, tolerating, no rash Subjective Date/time seen: 06/22/19 15:04 Exam Narrative: Exam Narrative: t max 37.9 Const: General: no acute distress Eyes: Sclera: normal sclerae Resp: Effort & Inspection: normal respiratory effort Auscultation: rales and diminished lung sounds Cardio: Rate: tachycardic Rhythm: regular rhythm Heart sounds: no gallops GI: Inspection: non-distended GI Palp: Yes Soft to palpation and No Tenderness to palpation present (GI) Objective Data Vital Signs Vital Signs: Vital Signs - 24 hr 06/21/19 16:00 06/21/19 16:23 06/21/19 18:00 Temperature 37.1 C 37.1 C Pulse Rate 108 H 103 H 103 H Respiratory Rate 23 H 20 Blood Pressure 104/57 L 101/58 L Pulse Oximetry 95 99 91 06/21/19 20:00 06/21/19 20:13 06/21/19 20:14 Temperature 36.9 C Pulse Rate 98 101 H 101 H Respiratory Rate 22 H 21 H Blood Pressure 95/62 L Pulse Oximetry 91 91 06/21/19 20:40 06/21/19 23:08 06/21/19 23:30 Temperature Pulse Rate 105 H 114 H 114 H Respiratory Rate 22 H 14 Blood Pressure 117/65 Pulse Oximetry 100 97 06/22/19 00:00 06/22/19 01:15 06/22/19 01:20 Temperature Pulse Rate 112 H 108 H 108 H Respiratory Rate 20 20 Blood Pressure 99/68 L Pulse Oximetry 93 86 L 06/22/19 01:30 06/22/19 01:44 06/22/19 02:00 Temperature 37.9 C H Pulse Rate 103 H 116 H Respiratory Rate 20 20 Blood Pressure 117/72 Pulse Oximetry 94 99 06/22/19 04:00 06/22/19 04:19 06/22/19 06:00 Temperature 37.6 C H 37.5 C Pulse Rate 107 H 105 H 100 Respiratory Rate 20 20 Blood Pressure 102/74 104/80 Pulse Oximetry 99 98 100 06/22/19 08:00 06/22/19 09:23 06/22/19 09:26 Temperature 37.6 C Pulse Rate 105 H 104 H 104 H Respiratory Rate 20 23 H Blood Pressure 115/70 Pulse Oximetry 99 100 06/22/19 09:32 06/22/19 10:00 06/22/19 12:00 Temperature 37.6 C 37.4 C Pulse Rate 105 H 106 H 106 H Respiratory Rate 20 20 22 H Blood Pressure 115/70 125/68 Pulse Oximetry 100 100 06/22/19 13:28 06/22/19 13:31 06/22/19 14:00 Temperature 37.3 C Pulse Rate 99 101 H 103 H Respiratory Rate 20 20 Blood Pressure 102/52 L Pulse Oximetry 98 95 Intake/Output Intake/Output: Intake & Output 06/19/19 06/20/19 06/21/19 06/22/19 23:59 23:59 23:59 23:59 Intake Total 2025 1965 2334 1447 Output Total 1200 1375 2300 500 Balance 825 590 34 947 Meds/Results Medications: Active Medications Generic Name Dose Route Start Last Admin Trade Name Freq PRN Reason Stop Dose Admin Albuterol 2.5 mg 06/21/19 11:36 06/22/19 13:27 Albuterol Sulf Neb 2.5mg/0.5ml INHALATION 2.5 mg Q6HRT PRN Administration Wheezing Dornase Deonte 2.5 mg 06/17/19 10:25 06/22/19 09:22 Pulmozyme INHALATION 2.5 mg Q12HRT CANDI Administration Folic Acid 1 mg 06/12/19 09:00 06/22/19 08:16 Folic Acid PO 1 mg DAILY CANDI Administration Guaifenesin 200 mg 06/19/19 08:00 06/22/19 12:54 Guaifenesin Liq PO 200 mg Q6HR CANDI Administration Heparin Sodium (Porcine) 5,000 units 06/18/19 21:00 06/21/19 08:41 Heparin Sodium SUB-Q 5,000 units Q12HR CANDI Administration Fentanyl Citrate 2,500 mcg in 250 mls @ 12.5 mls/hr 06/20/19 14:00 06/22/19 12:00 Fentanyl 2,500 Mcg/Ns 250 Ml IV CONT 125 mcg/hr .Q20H CANDI 12.5 mls/hr Titration Protocol 125 MCG/HR Midazolam HCl 50 mg in 100 mls @ 8 mls/hr 06/20/19 14:00 06/22/19 12:00 Versed 50 Mg/D5w 100 Ml IV CONT 4 mg/hr .[id number] CANDI 8 mls/hr Titration Protocol 4 MG/HR Trimethoprim/Sulfamethoxazole 260 mls @ 260 mls/hr 06/21/19 18:00 06/22/19 12:53
--- NOTE | 2019-06-22 16:39 | PM.PNPUL ---
Progress Note: A&P Assessment and Plan (1) COPD with emphysema: Qualifiers: Emphysema type: unspecified Qualified Code(s): J43.9 - Emphysema, unspecified Code(s): J43.9 - Emphysema, unspecified Status: Chronic Assessment and Plan: - continue Atrovent 0.5 mg Q6h with Albuterol 2.5 mg Q6h PRN (2) Hospital-acquired bacterial pneumonia: Code(s): J15.9 - Unspecified bacterial pneumonia Status: Acute Assessment and Plan: - continue Bactrim per Dr. Rios recs - wean PEEP if possible - consider sedation holidays and CPAP trials Subjective Date/time seen: 06/22/19 16:39 Interval history: Sedated on Fentanyl 125 mcg/hr and Versed 4 mg/hr this morning. Started on Bactrim for Stenotrophomonas yesterday. All other antibiotics discontinued. Less tachycardic today. Review of Systems Review of Systems: All systems reviewed & are unremarkable except as noted in HPI and below Exam Const: General: no acute distress HENMT: Mouth: Yes moist mucous membranes Neck: Neck: supple and no JVD Resp: Auscultation: crackles and diminished lung sounds Cardio: Rate: tachycardic Rhythm: regular rhythm GI: Auscultation: normal bowel sounds Extrem: General: normal to inspection, no edema and no pedal edema Objective Data Vital Signs Vital Signs: Vital Signs - 24 hr 06/21/19 18:00 06/21/19 20:00 06/21/19 20:13 Temperature 37.1 C 36.9 C Pulse Rate 103 H 98 101 H Respiratory Rate 20 22 H Blood Pressure 101/58 L 95/62 L Pulse Oximetry 91 91 91 06/21/19 20:14 06/21/19 20:40 06/21/19 23:08 Temperature Pulse Rate 101 H 105 H 114 H Respiratory Rate 21 H 22 H 14 Blood Pressure 117/65 Pulse Oximetry 100 06/21/19 23:30 06/22/19 00:00 06/22/19 01:15 Temperature Pulse Rate 114 H 112 H 108 H Respiratory Rate 20 Blood Pressure 99/68 L Pulse Oximetry 97 93 86 L 06/22/19 01:20 06/22/19 01:30 06/22/19 01:44 Temperature Pulse Rate 108 H 103 H Respiratory Rate 20 20 Blood Pressure Pulse Oximetry 94 04/17/20 02:00 06/22/19 04:00 06/22/19 04:19 Temperature 37.9 C H 37.6 C H Pulse Rate 116 H 107 H 105 H Respiratory Rate 20 20 Blood Pressure 117/72 102/74 Pulse Oximetry 99 99 98 06/22/19 06:00 06/22/19 08:00 06/22/19 09:23 Temperature 37.5 C 37.6 C Pulse Rate 100 105 H 104 H Respiratory Rate 20 20 23 H Blood Pressure 104/80 115/70 Pulse Oximetry 100 99 06/22/19 09:26 06/22/19 09:32 06/22/19 10:00 Temperature 37.6 C Pulse Rate 104 H 105 H 106 H Respiratory Rate 20 20 Blood Pressure 115/70 Pulse Oximetry 100 100 06/22/19 12:00 06/22/19 13:28 06/22/19 13:31 Temperature 37.4 C Pulse Rate 106 H 99 101 H Respiratory Rate 22 H 20 Blood Pressure 125/68 Pulse Oximetry 100 98 06/22/19 14:00 Temperature 37.3 C Pulse Rate 103 H Respiratory Rate 20 Blood Pressure 102/52 L Pulse Oximetry 95 Intake/Output Intake/Output: Intake & Output 06/19/19 06/20/19 06/21/19 06/22/19 23:59 23:59 23:59 23:59 Intake Total 5 1965 2334 1707 Output Total 1200 1375 2300 500 Balance 825 860 43 5731 Meds/Results Medications: Active Medications Generic Name Dose Route Start Last Admin Trade Name Freq PRN Reason Stop Dose Admin Albuterol 2.5 mg 06/21/19 11:36 06/22/19 13:27 Albuterol Sulf Neb 2.5mg/0.5ml INHALATION 2.5 mg Q6HRT PRN Administration Wheezing Dornase Deonte 2.5 mg 06/17/19 10:25 06/22/19 09:22 Pulmozyme INHALATION 2.5 mg Q12HRT CANDI Administration Folic Acid 1 mg 06/12/19 09:00 06/22/19 08:16 Folic Acid PO 1 mg DAILY CANDI Administration Guaifenesin 200 mg 06/19/19 08:00 06/22/19 12:54 Guaifenesin Liq PO 200 mg Q6HR CANDI Administration Heparin Sodium (Porcine) 5,000 units 06/18/19 21:00 06/21/19 08:41 Heparin Sodium SUB-Q 5,000 units Q12HR CANDI Administration Fentanyl Citrate 2,500 mcg in 250 mls @ 12.5 mls/hr 06/20/19 14:00 06/22/19
[2019-06-22 18:50] LABS: Glucose Point of Care 104 (65-105)
[2019-06-23] VITALS (33 sets, daily range): BP systolic 91–127; BP diastolic 53–75; PULSE 88–125; RESP 17–26; TEMP 36.5–38.1; O2SAT 98–100
[2019-06-23] MEDS: GUAIFENESIN 200 MG/10 ML UDC PO ×5 (00:03→23:44)
[2019-06-23 00:09] LABS: Glucose Point of Care 87 (65-105)
[2019-06-23] MEDS: IPRATROPIUM BR 0.02% INH SOLN 0.5 MG/2.5 ML VIAL INHALATION ×4 (01:21→20:25)
[2019-06-23 03:47] LABS: Alveolar/Arterial O2 Gradient 217.1 mmHg; Base Excess ABG 13.7 mEq/l (+/-2.0); Carboxyhemoglobin 0.3 % THb (0-2.0); Fractional Inspired Oxygen 50 %; HCO3 ABG 38.6 mEq/l (22.0-26.0); Methemoglobin ABG 0.7 %THb (0-1.5); Oxygen Saturation ABG 96.5 % (95.0-100.0); Oxyhemoglobin 94.6 % THb (90.0-100.0); PCO2 ABG 51.9 mmHg (35.0-45.0); PO2 FiO2 Ratio Arterial Blood 1.62 %; Reduced Hemoglobin 4.4 %THb (0-5.0); Total Hemoglobin 8.2 g/dL (12.0-18.0); pH ABG 7.489 (7.350-7.450)
[2019-06-23 03:48] LABS: Arterial Blood Gas PEEP 10 cmH2O; Arterial Blood Gas Tidal Volume 400 ml; Arterial Blood Gas Vent Mode CMV; Arterial Blood Gas Ventilator rate 20 /MIN; Device VENTILATOR; Modified Allen's Test Pass; Site Drawn LEFT RADIAL
[2019-06-23 05:16] LABS: Alanine Aminotransferase 55 U/L (4-50); Albumin Level 2.7 g/dL (3.5-5.1); Alkaline Phosphatase 82 U/L (38-126); Aspartate Amino Transferase 171 U/L (17-59); Bilirubin,Total 0.1 mg/dL (0.2-1.3); Blood Urea Nitrogen 14 mg/dL (9-20); Carbon Dioxide 37 mmol/L (22-30); Chloride 85 mmol/L (98-107); Creatine Kinase 2511 U/L (55-170); Estimated CRCL calculation 112 ml/min; Estimated Glomerular Filt Rate > 60; Glucose 102 mg/dL (75-110); Magnesium 2.1 mg/dL (1.6-2.3); Phosphorus 4.3 mg/dL (2.5-4.5); Sodium 129 mmol/L (137-145)
[2019-06-23] MEDS: DORNASE ALFA INH SOLN 1 MG/ML 2.5 ML AMP 2.5 MG INHALATION ×2 (08:21→20:25)
[2019-06-23] MEDS: ALBUTEROL SULFATE NEB 2.5 MG/0.5 ML INH INHALATION ×3 (08:21→20:25)
[2019-06-23] MEDS: THIAMINE HCL 100 MG TABLET PO (08:35)
[2019-06-23] MEDS: FOLIC ACID 1 MG TABLET PO (08:35)
[2019-06-23] MEDS: NICOTINE (*PBKC) 21 MG PATCH 1 PATCH TRANSDERM (08:35)
[2019-06-23] MEDS: polyethylene glycoL 3350 17 GM POWD.PACK PO (08:35)
[2019-06-23] MEDS: PANTOPRAZOLE SODIUM IV 40 MG VIAL IV PUSH ×2 (08:35→20:49)
[2019-06-23] MEDS: LIDOCAINE 5% PATCH 1 PATCH TRANSDERM (08:36)
[2019-06-23 11:54] LABS: Glucose Point of Care 105 (65-105)
--- NOTE | 2019-06-23 12:52 | WPDINTPN ---
Progress Note: A&P Assessment and Plan (1) Acute respiratory failure: Qualifiers: Respiratory failure complication: hypoxia Qualified Code(s): J96.01 - Acute respiratory failure with hypoxia Code(s): J96.00 - Acute respiratory failure, unspecified whether with hypoxia or hypercapnia Status: Acute Assessment and Plan: Patient presented with shortness of breath, hypoxia. Chest x-ray and CT chest showed right-sided pneumonia - patient was intubated on 06/12/2019 - patient a bronchoscopy on 06/19/2019 Because of no significant improvement with antibiotics and supportive measures. - On CMV mode of ventilation, 50% FiO2, peep of 8. peep was decreased to 8. He was placed on SBT trial though he can be extubated today because of mental status and significant amount of secretion. - sputum cultures And BAL cultures growing stenotrophomonas. Patient was started on sulfamethoxazole and trimethoprim. - vancomycin and imipenem were discontinued on 06/21/2019. - Appreciate infectious disease evaluation recommendation. - SARS-COV-2 PCR negative 06/13/2019 - patient was febrile, lower extremity venous Dopplers were done on 06/19/2019, NO DVT bilateral lower extremities. - He had a net positive fluid balance of 1.5 L yesterday. He will be given 40 mg of Lasix and will try to make him net negative with 1-1.5 L in the next 24 hours. Fentanyl and Versed for sedation. Daily sedation vacation trials. (2) Pneumonia: Qualifiers: Laterality: unspecified laterality Lung location: unspecified part of lung Pneumonia type: due to unspecified organism Qualified Code(s): J18.9 - Pneumonia, unspecified organism Code(s): J18.9 - Pneumonia, unspecified organism Status: Acute Assessment and Plan: chest x-ray shows unchanged effusion right lung disease consistent with pneumonia - He is currently on Bactrim IV. Rest of the antibiotics have been discontinued by Infectious Disease service. - continue Pulmozyme. Still having moderate amount of secretions. (3) COPD with emphysema: Qualifiers: Emphysema type: unspecified Qualified Code(s): J43.9 - Emphysema, unspecified Code(s): J43.9 - Emphysema, unspecified Status: Chronic Assessment and Plan: patient history of COPD with emphysema - maintain O2 sats between 90-96%. He is not actively wheezing. Systemic steroids not indicated. (4) Right renal mass: Code(s): N28.89 - Other specified disorders of kidney and ureter Status: Acute Assessment and Plan: right renal mass, incidental finding on CT chest - no gross hematuria - appreciate urology evaluation recommendation, no intervention during this hospitalization. Will need a formal evaluation with a dedicated CT of the kidneys with and without contrast and a couple of months. (5) Alcoholism: Code(s): F10.20 - Alcohol dependence, uncomplicated Status: Chronic Assessment and Plan: continue folic acid, thiamine (6) GERD (gastroesophageal reflux disease): Code(s): K21.9 - Gastro-esophageal reflux disease without esophagitis Status: Acute Assessment and Plan: continue Protonix (7) DVT prophylaxis: Code(s): Z29.9 - Encounter for prophylactic measures, unspecified Status: Acute Assessment and Plan: will hold heparin as patient dropped his hemoglobin. Also discontinue SCDs and place patient on foot pumps (8) Dietary counseling and surveillance: Code(s): Z71.3 - Dietary counseling and surveillance Status: Acute Assessment and Plan: patient tolerating tube feeds - positive bowel movement (9) Anemia: Code(s): D64.9 - Anemia, unspecified Status: Acute Assessment and Plan: Hemoglobin has been trending down, patient was guaiac positive - patient had some melena on admission - continue Protonix q.12 hours (10) Rha
[2019-06-23] MEDS: DEXTROSE 5% IN WATER 250 ML 10 ML (12:59)
[2019-06-23] MEDS: FUROSEMIDE INJ 40 MG/4 ML VIAL IV PUSH (13:25)
--- NOTE | 2019-06-23 14:55 | P.PNIM_ITS ---
Progress Note: A&P Assessment and Plan (1) Pneumonia: Qualifiers: Laterality: unspecified laterality Lung location: unspecified part of lung Pneumonia type: due to unspecified organism Qualified Code(s): J18.9 - Pneumonia, unspecified organism Code(s): J18.9 - Pneumonia, unspecified organism Status: Acute Assessment and Plan: * IV azithromycin and rocephin initially but changed to imipenem and Vanc on 06/16 and to TMP/SMX IV on 06/21/19 * BCx negative on 06/11/19. Sputum 06/12 growing yeast * 06/18/19: Repeat BCx NGTD; Sputum culture growing Stenotrophomonas maltophilia sensitive to Levaquin and TMP/SMX * Pulmonary did bronch 06/19/19 * COVID-19 testing through [facility] negative * Legionella and pneumococcal antigens negative. * Bronch Cx 06/19/19: growing Stenotrophomonas maltophilia with same sensitivity pattern and Patt Albicans. * No acid fast bacilli seen by bronch sample * 06/22 CXR reviewed and appears worsening * Appreciate pulmonary and ID input * Continue atrovent nebs (2) Acute respiratory failure: Qualifiers: Respiratory failure complication: hypoxia Qualified Code(s): J96.01 - Acute respiratory failure with hypoxia Code(s): J96.00 - Acute respiratory failure, unspecified whether with hypoxia or hype rcapnia Status: Acute Assessment and Plan: * Secondary to above, superimposed on emphysema. * Wean vent as possible * Vent management per bread distributor; Appreciate bread distributor input. Discussed. (3) Rhabdomyolysis: Qualifiers: Rhabdomyolysis type: non-traumatic Qualified Code(s): M62.82 - Rhabdomyolysis Code(s): M62.82 - Rhabdomyolysis Status: Acute Assessment and Plan: * Total CK 188 on admission but now up to 3083. Probably related to viral illness and/or medications. * Repeat level down to 2511 * Continue to monitor. (4) Barretts esophagus: Qualifiers: Wooten's esophagus type: with dysplasia of unspecified degree Qualified Code(s): K22.719 - Wooten's esophagus with dysplasia, unspecified Code(s): K22.70 - Wooten's esophagus without dysplasia Status: Chronic Assessment and Plan: * Noted on EGD dating back to 2011, but did not follow up. * HH on admission was 15.4/44.9 on 06/11/19 * GI following who recommended outpatient EGD. * Heme + stool * HH slowly trending down to 7 range * Continue Protonix BID. * GI re-consulted (5) Tachycardia: Code(s): R00.0 - Tachycardia, unspecified Status: Acute Assessment and Plan: * No CTA but venous doppler on 06/18 was negative for DVT * TSH 3.1 on 06/12/19 * Suspect secondary to acute infection. Sinus tach on EKG. * Tele showing sinus arrhythmias/sinus tach at times * May worsen as sedation being weaned (6) Melena: Code(s): K92.1 - Melena Status: Acute Assessment and Plan: * x1 event in the ER * Stool Guaiac positive * H&H slowly declining to 7 range where it has remained stablepast 3 days (not checked today) * Continue PPI * GI re-consulted but not sen yet (7) COPD with emphysema: Qualifiers: Emphysema type: unspecified Qualified Code(s): J43.9 - Emphysema, unspecified Code(s): J43.9 - Emphysema, unspecified Status: Chronic Assessment and Plan: * Emphysema noted on imaging. * Patient is not noted to be on any inhalers at home. * Has not required steroids here and no wheezing on exam * Continue respiratory regimen noted above.
--- NOTE | 2019-06-23 14:55 | PM.IMPN ---
Progress Note: A&P Assessment and Plan (1) Pneumonia: Qualifiers: Laterality: unspecified laterality Lung location: unspecified part of lung Pneumonia type: due to unspecified organism Qualified Code(s): J18.9 - Pneumonia, unspecified organism Code(s): J18.9 - Pneumonia, unspecified organism Status: Acute Assessment and Plan: IV azithromycin and rocephin initially but changed to imipenem and Vanc on 06/16 and to TMP/SMX IV on 06/21/19 BCx negative on 06/11/19. Sputum 06/12 growing yeast 06/18/19: Repeat BCx NGTD; Sputum culture growing Stenotrophomonas maltophilia sensitive to Levaquin and TMP/SMX Pulmonary did bronch 06/19/19 COVID-19 testing through [facility] negative Legionella and pneumococcal antigens negative. Bronch Cx 06/19/19: growing Stenotrophomonas maltophilia with same sensitivity pattern and Patt Albicans. No acid fast bacilli seen by bronch sample 06/22 CXR reviewed and appears worsening Appreciate pulmonary and ID input Continue atrovent nebs (2) Acute respiratory failure: Qualifiers: Respiratory failure complication: hypoxia Qualified Code(s): J96.01 - Acute respiratory failure with hypoxia Code(s): J96.00 - Acute respiratory failure, unspecified whether with hypoxia or hypercapnia Status: Acute Assessment and Plan: Secondary to above, superimposed on emphysema. Wean vent as possible Vent management per tile designer; Appreciate tile designer input. Discussed. (3) Rhabdomyolysis: Qualifiers: Rhabdomyolysis type: non-traumatic Qualified Code(s): M62.82 - Rhabdomyolysis Code(s): M62.82 - Rhabdomyolysis Status: Acute Assessment and Plan: Total CK 188 on admission but now up to 3083. Probably related to viral illness and/or medications. Repeat level down to 2511 Continue to monitor. (4) Barretts esophagus: Qualifiers: Wooten's esophagus type: with dysplasia of unspecified degree Qualified Code(s): K22.719 - Wooten's esophagus with dysplasia, unspecified Code(s): K22.70 - Wooten's esophagus without dysplasia Status: Chronic Assessment and Plan: Noted on EGD dating back to 2011, but did not follow up. HH on admission was 15.4/44.9 on 06/11/19 GI following who recommended outpatient EGD. Heme + stool HH slowly trending down to 7 range Continue Protonix BID. GI re-consulted (5) Tachycardia: Code(s): R00.0 - Tachycardia, unspecified Status: Acute Assessment and Plan: No CTA but venous doppler on 06/18 was negative for DVT TSH 3.1 on 06/12/19 Suspect secondary to acute infection. Sinus tach on EKG. Tele showing sinus arrhythmias/sinus tach at times May worsen as sedation being weaned (6) Melena: Code(s): K92.1 - Melena Status: Acute Assessment and Plan: x1 event in the ER Stool Guaiac positive H&H slowly declining to 7 range where it has remained stablepast 3 days (not checked today) Continue PPI GI re-consulted but not sen yet (7) COPD with emphysema: Qualifiers: Emphysema type: unspecified Qualified Code(s): J43.9 - Emphysema, unspecified Code(s): J43.9 - Emphysema, unspecified Status: Chronic Assessment and Plan: Emphysema noted on imaging. Patient is not noted to be on any inhalers at home. Has not required steroids here and no wheezing on exam Continue respiratory regimen noted above. (8) Right renal mass: Code(s): N28.89 - Other specified disorders of kidney and ureter Status: Acute Assessment and Plan: Right renal mass measuring 2.6cm incidentally noted on imaging. Will need f/u with outpatient imaging (9) Tobacco abuse: Code(s): Z72.0 - Tobacco use Status: Chronic Assessment and Plan: Patient not receptive to smoking cessation counseling due to medical condition Continue Nicotine patch
[2019-06-23] MEDS: ACETAMINOPHEN ELIXIR 325 MG/10.15 ML UDC 650 MG PO (16:31)
[2019-06-23 18:18] LABS: Glucose Point of Care 126 (65-105)
[2019-06-24] VITALS (23 sets, daily range): BP systolic 99–128; BP diastolic 59–82; PULSE 97–134; RESP 18–96; TEMP 36.6–37.8; O2SAT 90–100
[2019-06-24 00:13] LABS: Glucose Point of Care 116 (65-105)
[2019-06-24 03:57] LABS: Basophils Absolute Auto 0.1 K/mm3 (0.0-0.1); Basophils Percent Auto 0.4 % (0.2-1.2); Eosinophils Absolute Auto 0.3 K/mm3 (0-0.3); Eosinophils Percent Auto 1.9 % (0-4.4); Hematocrit 21.9 % (42.0-52.0); Hemoglobin 7.3 g/dL (14.0-18.0); Immature Granulocyte Absolute 0.09 K/mm3 (0.00-0.031); Immature Granulocyte Percent A 0.7 % (0-0.5); Lymphocytes Percent Auto 14.9 % (18.3-44.2); Mean Corpuscular HGB Conc 33.3 g/dl (32-36); Mean Corpuscular Volume 90.1 fl (80-100); Mean Platelet Volume 8.4 fl (7.4-10.4); Monocytes Absolute Auto 2.2 K/mm3 (0.1-0.6); Monocytes Percent Auto 16.4 % (2.6-8.5); Neutrophils Absolute Auto 8.8 K/mm3 (1.3-6.7); Neutrophils Percent Auto 65.7 % (45.5-73.1); Platelet Count Result 800 k/mm3 (150-375); Red Blood Count 2.43 M/mm3 (4.6-6.20); Red Cell Distribution Width 14.2 % (11.5-14.5); White Blood Count 13.4 K/mm3 (4.5-10.0)
[2019-06-24 04:08] LABS: Creatine Kinase 1219 U/L (55-170)
[2019-06-24 04:10] LABS: Alanine Aminotransferase 59 U/L (4-50); Albumin Level 2.8 g/dL (3.5-5.1); Alkaline Phosphatase 84 U/L (38-126); Aspartate Amino Transferase 140 U/L (17-59); Bilirubin,Total 0.2 mg/dL (0.2-1.3); Blood Urea Nitrogen 15 mg/dL (9-20); Carbon Dioxide 39 mmol/L (22-30); Chloride 85 mmol/L (98-107); Estimated CRCL calculation 83 ml/min; Estimated Glomerular Filt Rate > 60; Glucose 114 mg/dL (75-110); Phosphorus 4.6 mg/dL (2.5-4.5); Potassium 3.4 mmol/L (3.4-5.0); Sodium 129 mmol/L (137-145)
[2019-06-24] MEDS: GUAIFENESIN 200 MG/10 ML UDC PO ×2 (06:11→11:07)
[2019-06-24 06:14] LABS: Alveolar/Arterial O2 Gradient 207.7 mmHg; Base Excess ABG 13.2 mEq/l (+/-2.0); Fractional Inspired Oxygen 45 %; HCO3 ABG 38.2 mEq/l (22.0-26.0); Oxygen Content ABG 12.8 %vol (16.0-22.0); Oxygen Saturation ABG 89.9 % (95.0-100.0); Oxyhemoglobin 86.8 % THb (90.0-100.0); PCO2 ABG 51.7 mmHg (35.0-45.0); PO2 ABG 54.3 mmHg (80.0-100.0); PO2 FiO2 Ratio Arterial Blood 1.21 %; Total Hemoglobin 10.5 g/dL (12.0-18.0); pH ABG 7.487 (7.350-7.450)
[2019-06-24 06:15] LABS: Device VENTILATOR; Modified Allen's Test Pass; Site Drawn RIGHT RADIAL
[2019-06-24 06:16] LABS: Arterial Blood Gas PEEP 8 cmH2O; Arterial Blood Gas Tidal Volume 400 ml; Arterial Blood Gas Vent Mode CMV; Arterial Blood Gas Ventilator rate 20 /MIN
[2019-06-24] MEDS: IPRATROPIUM BR 0.02% INH SOLN 0.5 MG/2.5 ML VIAL INHALATION ×4 (06:34→20:26)
--- NOTE | 2019-06-24 06:34 | PCRCNOTE ---
Window of time for administration has passed. See next scheduled administration.
[2019-06-24] MEDS: NICOTINE (*PBKC) 21 MG PATCH 1 PATCH TRANSDERM (08:16)
[2019-06-24] MEDS: PANTOPRAZOLE SODIUM IV 40 MG VIAL IV PUSH ×2 (08:16→20:11)
[2019-06-24] MEDS: THIAMINE HCL 100 MG TABLET PO (08:16)
[2019-06-24] MEDS: polyethylene glycoL 3350 17 GM POWD.PACK PO (08:16)
[2019-06-24] MEDS: FOLIC ACID 1 MG TABLET PO (08:17)
[2019-06-24] MEDS: LIDOCAINE 5% PATCH 1 PATCH TRANSDERM (08:17)
[2019-06-24] MEDS: DORNASE ALFA INH SOLN 1 MG/ML 2.5 ML AMP 2.5 MG INHALATION ×2 (08:45→20:26)
[2019-06-24] MEDS: ALBUTEROL SULFATE NEB 2.5 MG/0.5 ML INH INHALATION ×3 (08:46→20:26)
--- NOTE | 2019-06-24 09:15 | WPDGIPROGNO ---
Progress Note: A&P Assessment and Plan (1) Anemia: Code(s): D64.9 - Anemia, unspecified Status: Acute Assessment and Plan: he has a heme-positive stool, although there has been obvious apparent gastrointestinal bleeding. No stools for the past 2 days. The anemia is likely multifactorial. At this point we will observe him but consider EGD if blood counts begin to drop or if there is overt evidence of bleeding. (2) Alcoholism: Code(s): F10.20 - Alcohol dependence, uncomplicated Status: Chronic Assessment and Plan: Not surprisingly, LFTs are somewhat elevated, though bilirubin is normal an INR reasonably good. Subjective Date/time seen: 06/24/19 09:15 Patient remains intubated and sedated due to pneumonia and respiratory failure. There had been a steady drop in his hemoglobin since admission, down to 8.3 g on June 14. He has remained in the 7.3-7.4 range for the past 4 days. No recent bowel movement. No blood in NG tube.. We know from CT scan that he apparently has esophagitis and he has a past been found to have reflux esophagitis and in fact Wooten's esophagus. Exam GI: Inspection: normal to inspection GI Palp: No abdominal tenderness Percussion: Yes normal to percussion Auscultation: normal bowel sounds Objective Data Vital Signs Vital Signs: Vital Signs - 24 hr 06/23/19 10:00 06/23/19 12:00 06/23/19 12:40 Temperature 37.4 C 37.6 C H Pulse Rate 113 H 116 H 112 H Respiratory Rate 21 H 19 Blood Pressure 117/69 123/75 Pulse Oximetry 98 99 99 06/23/19 12:52 06/23/19 14:00 06/23/19 14:24 Temperature 37.8 C H Pulse Rate 114 H 117 H 122 H Respiratory Rate 26 H 17 Blood Pressure 127/63 Pulse Oximetry 99 98 06/23/19 14:25 06/23/19 14:30 06/23/19 16:00 Temperature 38.1 C H Pulse Rate 121 H 121 H 125 H Respiratory Rate 23 H 24 H Blood Pressure 106/60 Pulse Oximetry 99 100 06/23/19 16:31 06/23/19 17:07 06/23/19 17:34 Temperature 38.1 C H 37.9 C H Pulse Rate 117 H Respiratory Rate Blood Pressure Pulse Oximetry 98 04/18/20 18:00 06/23/19 19:56 06/23/19 20:00 Temperature 37.7 C H 36.7 C Pulse Rate 102 H 95 88 Respiratory Rate 20 20 Blood Pressure 100/61 100/61 Pulse Oximetry 100 100 99 06/23/19 20:26 06/23/19 20:35 06/23/19 22:00 Temperature 36.5 C Pulse Rate 90 89 91 Respiratory Rate 20 20 21 H Blood Pressure 91/53 L Pulse Oximetry 100 06/23/19 23:30 06/24/19 00:00 06/24/19 02:00 Temperature 36.6 C 36.8 C Pulse Rate 90 97 107 H Respiratory Rate 18 21 H Blood Pressure 105/65 102/62 Pulse Oximetry 100 100 98 06/24/19 04:00 06/24/19 05:30 06/24/19 06:00 Temperature 37.3 C 37.4 C Pulse Rate 111 H 115 H 112 H Respiratory Rate 23 H 20 Blood Pressure 110/61 105/61 Pulse Oximetry 98 97 99 06/24/19 08:00 06/24/19 08:47 06/24/19 08:48 Temperature 37.3 C Pulse Rate 114 H 115 H 114 H Respiratory Rate 20 20 Blood Pressure 99/59 L Pulse Oximetry 98 99 06/24/19 08:52 Temperature Pulse Rate 114 H Respiratory Rate 20 Blood Pressure Pulse Oximetry Intake/Output Intake/Output: Intake & Output 06/21/19 06/22/19 06/23/19 06/24/19 23:59 23:59 23:59 23:59 Intake Total 2334 2848 2752.5 1321.5 Output Total 2300 1400 3125 950 Balance 34 1448 -372.5 371.5 Meds/Results Medications: Active Medications Generic Name Dose Route Start Last Admin Trade Name Freq PRN Reason Stop Dose Admin Acetaminophen 650 mg 06/23/19 12:51 06/23/19 16:31 Tylenol Elixir PO 650 mg Q6H PRN Administration Fever > 100.4 Albuterol 2.5 mg 06/21/19 11:36 06/24/19 08:46 Albuterol Sulf Neb 2.5mg/0.5ml INHALATION 2.5 mg Q6HRT PRN Administration Wheezing Dornase Deonte 2.5 mg 06/17/19 10:25 06/24/19 08:45 Pulmozyme INHALATION 2.5 mg Q12HRT CANDI Administration Folic Acid 1 mg 06/12/19 09:00 06/24/19 08:17 Folic Acid PO 1 mg DAILY CANDI Administration Gu
--- NOTE | 2019-06-24 10:12 | P.PNIM_ITS ---
Progress Note: A&P Assessment and Plan (1) Pneumonia: Qualifiers: Pneumonia type: due to unspecified organism Laterality: unspecified laterality Lung location: unspecified part of lung Qualified Code(s): J18.9 - Pneumonia, unspecified organism Code(s): J18.9 - Pneumonia, unspecified organism Status: Acute Assessment and Plan: * IV azithromycin and rocephin initially but changed to imipenem and Vanc on 06/16 and to TMP/SMX IV on 06/21/19 * BCx negative on 06/11/19. Sputum 06/12 growing yeast * 06/18/19: Repeat BCx NGTD; Sputum culture growing Stenotrophomonas maltophilia sensitive to Levaquin and TMP/SMX * Pulmonary did bronch 06/19/19 * COVID-19 testing through [facility] negative * Legionella and pneumococcal antigens negative. * Bronch Cx 06/19/19: growing Stenotrophomonas maltophilia with same sensitivity pattern and Patt Albicans. * No acid fast bacilli seen by bronch sample * 06/22 CXR reviewed and appears worsening * Appreciate pulmonary and ID input * Continue atrovent nebs * Discussed with sister yesterday by phone (2) Acute respiratory failure: Qualifiers: Respiratory failure complication: hypoxia Qualified Code(s): J96.01 - Acute respiratory failure with hypoxia Code(s): J96.00 - Acute respiratory failure, unspecified whether with hypoxia or hypercapnia Status: Acute Assessment and Plan: * Secondary to above, superimposed on emphysema. * Wean vent as toelrated * Vent management per stunt driver; Appreciate stunt driver input. Discussed. (3) Rhabdomyolysis: Qualifiers: Rhabdomyolysis type: non-traumatic Qualified Code(s): M62.82 - Rhabdomyolysis Code(s): M62.82 - Rhabdomyolysis Status: Acute Assessment and Plan: * Total CK 188 on admission but now up to 3083. Probably related to viral illness and/or medications. * Repeat level down to 1220. Not on IVF. * Continue to monitor. (4) Barretts esophagus: Qualifiers: Wooten's esophagus type: with dysplasia of unspecified degree Qualified Code(s): K22.719 - Wooten's esophagus with dysplasia, unspecified Code(s): K22.70 - Wooten's esophagus without dysplasia Status: Chronic Assessment and Plan: * Noted on EGD dating back to 2011, but did not follow up. * HH on admission was 15.4/44.9 on 06/11/19 * GI following who recommended outpatient EGD. * Heme + stool * HH trended down to 7 range but now stable * Continue Protonix BID. * GI following and appreciate their input (5) Tachycardia: Code(s): R00.0 - Tachycardia, unspecified Status: Acute Assessment and Plan: * No CTA but venous doppler on 06/18 was negative for DVT * TSH 3.1 on 06/12/19 * Suspect secondary to acute infection. Sinus tach on EKG. * Tele showing sinus arrhythmias/sinus tach at times * May worsen as sedation being weaned (6) Melena: Code(s): K92.1 - Melena Status: Acute Assessment and Plan: * x1 event in the ER * Stool Guaiac positive * H&H slowly declining to 7 range where it has remained stable past 4 days * Continue PPI * GI re-consulted but felt conservative approach the best at this time (7) COPD with emphysema: Qualifiers: Emphysema type: unspecified Qualified Code(s): J43.9 - Emphysema, unspecified Code(s): J43.9 - Emphysema, unspecified Status: Chronic Assessment and Plan: * Emphysema noted on imaging. * Patient is not noted to be on any inhalers at home.
--- NOTE | 2019-06-24 10:12 | PM.IMPN ---
Progress Note: A&P Assessment and Plan (1) Pneumonia: Qualifiers: Pneumonia type: due to unspecified organism Laterality: unspecified laterality Lung location: unspecified part of lung Qualified Code(s): J18.9 - Pneumonia, unspecified organism Code(s): J18.9 - Pneumonia, unspecified organism Status: Acute Assessment and Plan: IV azithromycin and rocephin initially but changed to imipenem and Vanc on 06/16 and to TMP/SMX IV on 06/21/19 BCx negative on 06/11/19. Sputum 06/12 growing yeast 06/18/19: Repeat BCx NGTD; Sputum culture growing Stenotrophomonas maltophilia sensitive to Levaquin and TMP/SMX Pulmonary did bronch 06/19/19 COVID-19 testing through [facility] negative Legionella and pneumococcal antigens negative. Bronch Cx 06/19/19: growing Stenotrophomonas maltophilia with same sensitivity pattern and Patt Albicans. No acid fast bacilli seen by bronch sample 06/22 CXR reviewed and appears worsening Appreciate pulmonary and ID input Continue atrovent nebs Discussed with sister yesterday by phone (2) Acute respiratory failure: Qualifiers: Respiratory failure complication: hypoxia Qualified Code(s): J96.01 - Acute respiratory failure with hypoxia Code(s): J96.00 - Acute respiratory failure, unspecified whether with hypoxia or hypercapnia Status: Acute Assessment and Plan: Secondary to above, superimposed on emphysema. Wean vent as toelrated Vent management per oil pipe inspector; Appreciate oil pipe inspector input. Discussed. (3) Rhabdomyolysis: Qualifiers: Rhabdomyolysis type: non-traumatic Qualified Code(s): M62.82 - Rhabdomyolysis Code(s): M62.82 - Rhabdomyolysis Status: Acute Assessment and Plan: Total CK 188 on admission but now up to 3083. Probably related to viral illness and/or medications. Repeat level down to 1220. Not on IVF. Continue to monitor. (4) Barretts esophagus: Qualifiers: Wooten's esophagus type: with dysplasia of unspecified degree Qualified Code(s): K22.719 - Wooten's esophagus with dysplasia, unspecified Code(s): K22.70 - Wooten's esophagus without dysplasia Status: Chronic Assessment and Plan: Noted on EGD dating back to 2011, but did not follow up. HH on admission was 15.4/44.9 on 06/11/19 GI following who recommended outpatient EGD. Heme + stool HH trended down to 7 range but now stable Continue Protonix BID. GI following and appreciate their input (5) Tachycardia: Code(s): R00.0 - Tachycardia, unspecified Status: Acute Assessment and Plan: No CTA but venous doppler on 06/18 was negative for DVT TSH 3.1 on 06/12/19 Suspect secondary to acute infection. Sinus tach on EKG. Tele showing sinus arrhythmias/sinus tach at times May worsen as sedation being weaned (6) Melena: Code(s): K92.1 - Melena Status: Acute Assessment and Plan: x1 event in the ER Stool Guaiac positive H&H slowly declining to 7 range where it has remained stable past 4 days Continue PPI GI re-consulted but felt conservative approach the best at this time (7) COPD with emphysema: Qualifiers: Emphysema type: unspecified Qualified Code(s): J43.9 - Emphysema, unspecified Code(s): J43.9 - Emphysema, unspecified Status: Chronic Assessment and Plan: Emphysema noted on imaging. Patient is not noted to be on any inhalers at home. Has not required steroids here and no wheezing on exam Continue respiratory regimen noted above. (8) Right renal mass: Code(s): N28.89 - Other specified disorders of kidney and ureter Status: Acute Assessment and Plan: Right renal mass measuring 2.6cm incidentally noted on imaging. Will need f/u with outpatient imaging (9) Tobacco abuse: Code(s): Z72.0 - Tobacco use Status: Chronic Assessment and Plan:
[2019-06-24] MEDS: FUROSEMIDE INJ 40 MG/4 ML VIAL IV PUSH (11:06)
--- NOTE | 2019-06-24 11:07 | WPDINTPN ---
Progress Note: A&P Assessment and Plan (1) Acute respiratory failure: Qualifiers: Respiratory failure complication: hypoxia Qualified Code(s): J96.01 - Acute respiratory failure with hypoxia Code(s): J96.00 - Acute respiratory failure, unspecified whether with hypoxia or hypercapnia Status: Acute Assessment and Plan: Patient presented with shortness of breath, hypoxia. Chest x-ray and CT chest showed right-sided pneumonia. - patient was intubated on 06/12/2019. He was extubated on 06/24/19. - patient a bronchoscopy on 06/19/2019 Because of no significant improvement with antibiotics and supportive measures. - On CMV mode of ventilation, 50% FiO2, peep of 8. - sputum cultures And BAL cultures growing stenotrophomonas. Patient was started on sulfamethoxazole and trimethoprim. - vancomycin and imipenem were discontinued on 06/21/2019. - Appreciate infectious disease evaluation recommendation. - SARS-COV-2 PCR negative 06/13/2019 - patient was febrile, lower extremity venous Dopplers were done on 06/19/2019, NO DVT bilateral lower extremities. Fentanyl and Versed for sedation. We will wean Versed today. Daily sedation vacation trials. He was placed on SBT trial with pressure support of 10 and a PEEP of 5. He will be wean down to pressure support of 5 over PEEP of 5 if he is doing well. A blood gas will be performed while he is on pressure support 5/5 for 30 minutes to 1 hour. If blood gas looks acceptable and clinically he is better with no tachypnea and oxygen saturations are within acceptable range then an attempt will be made to extubate him. Has been intubated for 12 days already an will likely need tracheostomy in the next few days if he is not extubated. Leak test will be performed before extubation because of prolonged need for intubation. Tube feed has been on hold for extubation if he does well with SBT trial. He was given 1 dose of Lasix today. He tolerated SBT trial very well. ABG showed mild alkalosis. He was awake and alert. He was extubated successfully and seems to be tolerating it very well. He is currently on 6 L of oxygen through nasal cannula. He has good strength cough. (2) Pneumonia: Qualifiers: Laterality: unspecified laterality Lung location: unspecified part of lung Pneumonia type: due to unspecified organism Qualified Code(s): J18.9 - Pneumonia, unspecified organism Code(s): J18.9 - Pneumonia, unspecified organism Status: Acute Assessment and Plan: chest x-ray shows effusion right lung disease consistent with pneumonia - He is currently on Bactrim IV. Rest of the antibiotics have been discontinued by Infectious Disease service. - continue Pulmozyme. Still having small amount of secretions. Reviewed chest x-ray today. Is still showing bilateral airspace disease more on the right side but a bit better compared to chest x-ray done yesterday. (3) COPD with emphysema: Qualifiers: Emphysema type: unspecified Qualified Code(s): J43.9 - Emphysema, unspecified Code(s): J43.9 - Emphysema, unspecified Status: Chronic Assessment and Plan: patient history of COPD with emphysema - maintain O2 sats between 90-96%. Continue bronchodilators. He is not actively wheezing. Systemic steroids not indicated. (4) Right renal mass: Code(s): N28.89 - Other specified disorders of kidney and ureter Status: Acute Assessment and Plan: right renal mass, incidental finding on CT chest - no gross hematuria - appreciate urology evaluation recommendation, no intervention during this hospitalization. Will need a formal evaluation with a dedicated CT of the kidneys with and without contrast and a couple of months. (5) Alcoholism: Code(s): F10.20 - Alcohol dependence, uncomplicated Status: Chronic Assessment and Plan: continue folic acid, thiamine (6)
[2019-06-24 11:26] LABS: Glucose Point of Care 100 (65-105)
[2019-06-24 12:38] LABS: Alveolar/Arterial O2 Gradient 171.8 mmHg; Base Excess ABG 13.7 mEq/l (+/-2.0); Fractional Inspired Oxygen 40 %; HCO3 ABG 37.6 mEq/l (22.0-26.0); Oxygen Content ABG 10.3 %vol (16.0-22.0); Oxygen Saturation ABG 93.7 % (95.0-100.0); Oxyhemoglobin 90.6 % THb (90.0-100.0); PCO2 ABG 45.4 mmHg (35.0-45.0); PO2 ABG 61.2 mmHg (80.0-100.0); PO2 FiO2 Ratio Arterial Blood 1.53 %
[2019-06-24 12:39] LABS: pH ABG 7.536 (7.350-7.450)
[2019-06-24 12:40] LABS: Device VENTILATOR; Modified Allen's Test Pass; Site Drawn LEFT RADIAL
[2019-06-24 12:41] LABS: Arterial Blood Gas Vent Mode SPONTANEOUS; Arterial Blood Gas Ventilator rate 0 /MIN; Peak Inspiratory Pressure 0 cmH2O
[2019-06-24 12:42] LABS: Arterial Blood Gas Minute Volume 0 LPM; Arterial Blood Gas PEEP 5 cmH2O; Arterial Blood Gas Pressure Support 5 cmH2O; Arterial Blood Gas Tidal Volume 0 ml
--- NOTE | 2019-06-24 14:59 | PCOTNOTE ---
Nurse reports they would like therapy to hold off until tomorrow, since the patient was just extubated. Will complete OT eval tomorrow.
--- NOTE | 2019-06-24 15:03 | PCPTNOTE ---
PT eval referral received this later afternoon - review of chart revealed pt had just been extubated this date after 12 days of intubation. Call made to ICU - to hold eval until tomorrow.
[2019-06-24 17:26] LABS: Glucose Point of Care 113 (65-105)
[2019-06-24 23:49] LABS: Glucose Point of Care 113 (65-105)
[2019-06-25] VITALS (24 sets, daily range): BP systolic 118–154; BP diastolic 59–94; PULSE 95–114; RESP 17–97; TEMP 36.9–37.7; O2SAT 87–100
[2019-06-25] MEDS: IPRATROPIUM BR 0.02% INH SOLN 0.5 MG/2.5 ML VIAL INHALATION ×4 (02:14→19:41)
[2019-06-25] MEDS: ALBUTEROL SULFATE NEB 2.5 MG/0.5 ML INH INHALATION ×4 (02:14→19:40)
[2019-06-25 04:59] LABS: Basophils Absolute Auto 0.1 K/mm3 (0.0-0.1); Basophils Percent Auto 0.8 % (0.2-1.2); Eosinophils Percent Auto 0.3 % (0-4.4); Hematocrit 24.8 % (42.0-52.0); Hemoglobin 8.1 g/dL (14.0-18.0); Immature Granulocyte Absolute 0.09 K/mm3 (0.00-0.031); Immature Granulocyte Percent A 0.8 % (0-0.5); Lymphocytes Absolute Auto 2.07 K/mm3 (0.9-3.2); Lymphocytes Percent Auto 17.4 % (18.3-44.2); Mean Corpuscular HGB Conc 32.7 g/dl (32-36); Mean Corpuscular Hemoglobin 30.2 pg (26-34); Mean Corpuscular Volume 92.5 fl (80-100); Mean Platelet Volume 10.3 fl (7.4-10.4); Monocytes Percent Auto 16.5 % (2.6-8.5); Neutrophils Absolute Auto 7.6 K/mm3 (1.3-6.7); Neutrophils Percent Auto 64.2 % (45.5-73.1); Platelet Count Result 582 k/mm3 (150-375); Red Blood Count 2.68 M/mm3 (4.6-6.20); Red Cell Distribution Width 14.3 % (11.5-14.5); White Blood Count 11.9 K/mm3 (4.5-10.0)
[2019-06-25 05:07] LABS: Glucose Point of Care 103 (65-105)
[2019-06-25 05:17] LABS: Alanine Aminotransferase 51 U/L (4-50); Alkaline Phosphatase 75 U/L (38-126); Aspartate Amino Transferase 112 U/L (17-59); Bilirubin,Total 0.3 mg/dL (0.2-1.3); Blood Urea Nitrogen 12 mg/dL (9-20); Calcium 8.3 mg/dL (8.4-10.2); Carbon Dioxide 33 mmol/L (22-30); Chloride 88 mmol/L (98-107); Creatine Kinase 703 U/L (55-170); Estimated CRCL calculation 99 ml/min; Estimated Glomerular Filt Rate > 60; Glucose 100 mg/dL (75-110); Magnesium 1.9 mg/dL (1.6-2.3); Phosphorus 3.5 mg/dL (2.5-4.5); Sodium 129 mmol/L (137-145)
[2019-06-25] MEDS: LIDOCAINE 5% PATCH 1 PATCH TRANSDERM (08:53)
[2019-06-25] MEDS: NICOTINE (*PBKC) 21 MG PATCH 1 PATCH TRANSDERM (08:53)
[2019-06-25] MEDS: PANTOPRAZOLE SODIUM IV 40 MG VIAL IV PUSH ×2 (08:54→20:11)
[2019-06-25] MEDS: DORNASE ALFA INH SOLN 1 MG/ML 2.5 ML AMP 2.5 MG INHALATION ×2 (09:21→19:41)
--- NOTE | 2019-06-25 10:03 | P.PNIM_ITS ---
Progress Note: A&P Assessment and Plan (1) Pneumonia: Qualifiers: Laterality: unspecified laterality Lung location: unspecified part of lung Pneumonia type: due to unspecified organism Qualified Code(s): J18.9 - Pneumonia, unspecified organism Code(s): J18.9 - Pneumonia, unspecified organism Status: Acute Assessment and Plan: * IV azithromycin and rocephin initially but changed to imipenem and Vanc on 06/16 and to TMP/SMX IV on 06/21/19 * BCx negative on 06/11/19. Sputum 06/12 growing yeast * 06/18/19: Repeat BCx Negative; Sputum culture growing Stenotrophomonas maltophilia sensitive to Levaquin and TMP/SMX * Bronch 06/18: growing Stenotrophomonas maltophilia with same sensitivity pattern and Patt Albicans. * No acid fast bacilli seen by bronch sample * COVID-19 testing through [facility] negative; Legionella and pneumococcal antigens negative. * No CXR today: CXR from 06/23 reviewed showing predominately right sided PNA * Appreciate pulmonary and ID input * Continue atrovent nebs * Repeat CXR today given the increased O2 requirment. (2) Acute respiratory failure: Qualifiers: Respiratory failure complication: hypoxia Qualified Code(s): J96.01 - Acute respiratory failure with hypoxia Code(s): J96.00 - Acute respiratory failure, unspecified whether with hypoxia or hypercapnia Status: Acute Assessment and Plan: * Secondary to above, superimposed on emphysema. * Intubated on 06/13/19 * Extubated on 06/24/19 but now on 15L. * Continue aggressive pulmonary toilet * Appreciate dry charge process attendant input. (3) Rhabdomyolysis: Qualifiers: Rhabdomyolysis type: non-traumatic Qualified Code(s): M62.82 - Rhabdomyolysis Code(s): M62.82 - Rhabdomyolysis Status: Acute Assessment and Plan: * Total CK 188 on admission but now up to 3083. Probably related to current illness and/or medications. * Repeat level down to 703. Not on IVF. * Continue to monitor. (4) Tachycardia: Code(s): R00.0 - Tachycardia, unspecified Status: Acute Assessment and Plan: * DDimer positive: No CTA but venous doppler on 06/18 was negative for DVT * TSH 3.1 on 06/12/19 * Suspect secondary to acute infection. Sinus tach on EKG. * Tele showing sinus arrhythmias/sinus tach at times * Continue to monitor (5) Melena: Code(s): K92.1 - Melena Status: Acute Assessment and Plan: * x1 event in the ER * Stool Guaiac positive * Hgb dropped to 7 range but better today at 8.1 * Continue PPI * GI felt conservative approach the best at this time (6) Barretts esophagus: Qualifiers: Wooten's esophagus type: with dysplasia of unspecified degree Qualified Code(s): K22.719 - Wooten's esophagus with dysplasia, unspecified Code(s): K22.70 - [place]en's esophagus without dysplasia Status: Chronic Assessment and Plan: * Noted on EGD dating back to 2011, but did not follow up. * HH on admission was 15.4/44.9 on 06/11/19 * GI following who recommended outpatient EGD. * Continue Protonix BID. * GI following and appreciate their input (7) COPD with emphysema: Qualifiers: Emphysema type: unspecified Qualified Code(s): J43.9 - Emphysema, unspecified Code(s): J43.9 - Emphysema, unspecified Status: Chronic Assessment and Plan: * Emphysema noted on imaging. * Patient is not noted to be on any inhalers at home. * Has not required steroids here and no wheezing on exam
--- NOTE | 2019-06-25 10:03 | PM.IMPN ---
Progress Note: A&P Assessment and Plan (1) Pneumonia: Qualifiers: Laterality: unspecified laterality Lung location: unspecified part of lung Pneumonia type: due to unspecified organism Qualified Code(s): J18.9 - Pneumonia, unspecified organism Code(s): J18.9 - Pneumonia, unspecified organism Status: Acute Assessment and Plan: IV azithromycin and rocephin initially but changed to imipenem and Vanc on 06/16 and to TMP/SMX IV on 06/21/19 BCx negative on 06/11/19. Sputum 06/12 growing yeast 06/18/19: Repeat BCx Negative; Sputum culture growing Stenotrophomonas maltophilia sensitive to Levaquin and TMP/SMX Bronch 06/18: growing Stenotrophomonas maltophilia with same sensitivity pattern and Patt Albicans. No acid fast bacilli seen by bronch sample COVID-19 testing through [facility] negative; Legionella and pneumococcal antigens negative. No CXR today: CXR from 06/23 reviewed showing predominately right sided PNA Appreciate pulmonary and ID input Continue atrovent nebs Repeat CXR today given the increased O2 requirment. (2) Acute respiratory failure: Qualifiers: Respiratory failure complication: hypoxia Qualified Code(s): J96.01 - Acute respiratory failure with hypoxia Code(s): J96.00 - Acute respiratory failure, unspecified whether with hypoxia or hypercapnia Status: Acute Assessment and Plan: Secondary to above, superimposed on emphysema. Intubated on 06/13/19 Extubated on 06/24/19 but now on 15L. Continue aggressive pulmonary toilet Appreciate compensation specialist input. (3) Rhabdomyolysis: Qualifiers: Rhabdomyolysis type: non-traumatic Qualified Code(s): M62.82 - Rhabdomyolysis Code(s): M62.82 - Rhabdomyolysis Status: Acute Assessment and Plan: Total CK 188 on admission but now up to 3083. Probably related to current illness and/or medications. Repeat level down to 703. Not on IVF. Continue to monitor. (4) Tachycardia: Code(s): R00.0 - Tachycardia, unspecified Status: Acute Assessment and Plan: DDimer positive: No CTA but venous doppler on 06/18 was negative for DVT TSH 3.1 on 06/12/19 Suspect secondary to acute infection. Sinus tach on EKG. Tele showing sinus arrhythmias/sinus tach at times Continue to monitor (5) Melena: Code(s): K92.1 - Melena Status: Acute Assessment and Plan: x1 event in the ER Stool Guaiac positive Hgb dropped to 7 range but better today at 8.1 Continue PPI GI felt conservative approach the best at this time (6) Barretts esophagus: Qualifiers: Wooten's esophagus type: with dysplasia of unspecified degree Qualified Code(s): K22.719 - Wooten's esophagus with dysplasia, unspecified Code(s): K22.70 - Wooten's esophagus without dysplasia Status: Chronic Assessment and Plan: Noted on EGD dating back to 2011, but did not follow up. HH on admission was 15.4/44.9 on 06/11/19 GI following who recommended outpatient EGD. Continue Protonix BID. GI following and appreciate their input (7) COPD with emphysema: Qualifiers: Emphysema type: unspecified Qualified Code(s): J43.9 - Emphysema, unspecified Code(s): J43.9 - Emphysema, unspecified Status: Chronic Assessment and Plan: Emphysema noted on imaging. Patient is not noted to be on any inhalers at home. Has not required steroids here and no wheezing on exam Continue respiratory regimen noted above. (8) Right renal mass: Code(s): N28.89 - Other specified disorders of kidney and ureter Status: Acute Assessment and Plan: Right renal mass measuring 2.6cm incidentally noted on imaging. Will need f/u with outpatient imaging (9) Tobacco abuse: Code(s): Z72.0 - Tobacco use Status: Chronic Assessment and Plan: Continue Nicotine patch Discuss benefits of smokin
--- NOTE | 2019-06-25 11:22 | PCDIET ---
ICU Rounding Note: Patient is extubated and NPO. BAIL BOND AGENT evaluation ordered. Patient with increasing O2 requirements. Last recorded weight is 71.0kg which is increased from last review. I/O negative. Bowel Motility: BM x 4 today. Labs Reviewed: Glu (103), K (3.0), Na (129) Meds Noted: Miralax, KCl, Thiamine, Albuterol, Folic Acid, Atrovent, Protonix Additional Notes: Corrected calcium WNL. Scrotum/buttock areas macerated. Will follow for results of BAIL BOND AGENT evaluation and provide further recommendations, as needed. Following daily in ICU rounds. Assessing/reassessing every 3 days.
--- NOTE | 2019-06-25 12:55 | WPDINFPN2 ---
Progress Note: A&P Assessment and Plan (1) Hospital-acquired bacterial pneumonia: Code(s): J15.9 - Unspecified bacterial pneumonia Status: Acute Assessment and Plan: 1. Stenotrophomonas HCAP, improved status. Worsening CXR may be due to spontaneous ventilation, though cannot yet exclude progressive pneumonia 2. Respiratory failure 3. COPD 4. Alcohol to excess, bilirubin normal 5. Tobacco REC TMP-SMX #5 / 10 days tentatively. On high flow O2 Subjective Date/time seen: 06/25/19 12:55 Interval history: extubated yesterday. Offers no complaints. Exam Narrative: Exam Narrative: all temperatures between 37.1 and 37.8 Const: General: no acute distress Other: appears ill Eyes: General: appearance normal, both eyes and all related structures Sclera: sclerae normal Neck: Neck: supple Resp: Effort & Inspection: normal respiratory effort Auscultation: clear to auscultation bilaterally and diminished lung sounds Cardio: Rate: tachycardic Rhythm: regular rhythm Heart sounds: no murmurs GI: Inspection: non-distended GI Palp: Yes Soft to palpation and No Tenderness to palpation present (GI) Urinary Catheter: Urinary Catheter: patent and draining Skin: Other: yellow tinge to his skin, but anicteric slerae Objective Data Vital Signs Vital Signs: Vital Signs - 24 hr 06/24/19 14:00 06/24/19 14:54 06/24/19 15:00 Temperature 37.6 C Pulse Rate 121 H 120 H 119 H Respiratory Rate 23 H 25 H 18 Blood Pressure 103/81 Pulse Oximetry 92 06/24/19 15:30 06/24/19 16:00 06/24/19 17:56 Temperature 37.8 C H Pulse Rate 124 H 134 H 125 H Respiratory Rate 96 H 26 H Blood Pressure 128/82 Pulse Oximetry 90 06/24/19 18:00 06/24/19 20:00 06/24/19 20:26 Temperature 37.7 C H 37.6 C H Pulse Rate 128 H 123 H 124 H Respiratory Rate 19 24 H 27 H Blood Pressure 123/63 116/68 Pulse Oximetry 94 94 06/24/19 20:39 06/24/19 22:00 06/25/19 00:00 Temperature 37.2 C Pulse Rate 129 H 127 H 112 H Respiratory Rate 21 H 20 19 Blood Pressure 116/66 126/67 Pulse Oximetry 90 91 06/25/19 02:00 06/25/19 02:14 06/25/19 02:22 Temperature Pulse Rate 107 H 112 H 106 H Respiratory Rate 20 24 H 24 H Blood Pressure 131/74 Pulse Oximetry 91 06/25/19 04:00 06/25/19 06:00 06/25/19 08:00 Temperature 37.1 C 37.3 C Pulse Rate 114 H 113 H 107 H Respiratory Rate 20 24 H 21 H Blood Pressure 125/93 H 121/59 L 130/71 Pulse Oximetry 90 93 90 06/25/19 09:24 06/25/19 09:25 06/25/19 09:33 Temperature Pulse Rate 110 H 110 H Respiratory Rate 24 H 93 H 20 Blood Pressure Pulse Oximetry 06/25/19 09:53 06/25/19 09:55 06/25/19 10:00 Temperature 37.2 C Pulse Rate 111 H Respiratory Rate 21 H Blood Pressure 138/73 Pulse Oximetry 87 L 87 L 97 06/25/19 10:05 06/25/19 12:00 Temperature 37.7 C H Pulse Rate 107 H Respiratory Rate 19 Blood Pressure 154/94 H Pulse Oximetry 95 94 Intake/Output Intake/Output: Intake & Output 06/22/19 06/23/19 06/24/19 06/25/19 23:59 23:59 23:59 23:59 Intake Total 2848 2752.5 2209.5 520 Output Total 1400 3125 2475 1250 Balance 1448 -372.5 -265.5 -730 Meds/Results Medications: Active Medications Generic Name Dose Route Start Last Admin Trade Name Bruceq PRN Reason Stop Dose Admin Acetaminophen 650 mg 06/23/19 12:51 06/23/19 16:31 Tylenol Elixir PO 650 mg Q6H PRN Administration Fever > 100.4 Albuterol 2.5 mg 06/24/19 20:00 06/25/19 09:21 Albuterol Sulf Neb 2.5mg/0.5ml INHALATION 2.5 mg Q6HRT CANDI Administration Dornase Deonte 2.5 mg 06/17/19 10:25 06/25/19 09:21 Pulmozyme INHALATION 2.5 mg Q12HRT CANDI Administration Folic Acid 1 mg 06/12/19 09:00 06/25/19 08:52 Folic Acid PO Not Given DAILY [facility] Guaifenesin 200 mg 06/19/19 08:00 06/25/19 12:43 Guaifenesin Liq PO Not Given Q6HR [facility] Trimethoprim/Sulfamethoxazole 260 mls @ 260 mls/hr 06/21/19 18:00 06/25/19 06
[2019-06-25 13:05] LABS: Glucose Point of Care 112 (65-105)
--- NOTE | 2019-06-25 14:24 | WPDINTPN ---
Progress Note: A&P Assessment and Plan (1) Acute respiratory failure: Qualifiers: Respiratory failure complication: hypoxia Qualified Code(s): J96.01 - Acute respiratory failure with hypoxia Code(s): J96.00 - Acute respiratory failure, unspecified whether with hypoxia or hypercapnia Status: Acute Assessment and Plan: Patient presented with shortness of breath, hypoxia. intubated on 06/12/2019, bronchoscopy on 06/19/2019, extubated 06/24/2019 - sputum cultures And BAL cultures growing stenotrophomonas. Patient was started on sulfamethoxazole and trimethoprim, , ID following the patient - patient did receive azithromycin and Rocephin initially and then was switched to vancomycin and imipenem were discontinued on 06/21/2019. - SARS-COV-2 PCR negative 06/13/2019 - patient was febrile, lower extremity venous Dopplers were done on 06/19/2019, NO DVT bilateral lower extremities. - patient's oxygen requirements have increased from 6 L nasal cannula O2 15 L high-flow nasal cannula. - Chest x-ray shows persistent bilateral infiltrates right greater than left - increase activity, continue bronchodilators (2) Pneumonia: Qualifiers: Pneumonia type: due to unspecified organism Laterality: unspecified laterality Lung location: unspecified part of lung Qualified Code(s): J18.9 - Pneumonia, unspecified organism Code(s): J18.9 - Pneumonia, unspecified organism Status: Acute Assessment and Plan: chest x-ray as above - continue IV Bactrim per Infectious Disease for stenotrophomonas , antibiotics per Infectious Disease - continue Pulmozyme. Still having small amount of secretions. (3) COPD with emphysema: Qualifiers: Emphysema type: unspecified Qualified Code(s): J43.9 - Emphysema, unspecified Code(s): J43.9 - Emphysema, unspecified Status: Chronic Assessment and Plan: patient history of COPD with emphysema - maintain O2 sats between 90-96%. Continue bronchodilators. He is not actively wheezing. Systemic steroids not indicated. (4) Right renal mass: Code(s): N28.89 - Other specified disorders of kidney and ureter Status: Acute Assessment and Plan: right renal mass, incidental finding on CT chest - no gross hematuria - appreciate urology evaluation recommendation, no intervention during this hospitalization. Will need a formal evaluation with a dedicated CT of the kidneys with and without contrast and a couple of months. (5) Alcoholism: Code(s): F10.20 - Alcohol dependence, uncomplicated Status: Chronic Assessment and Plan: continue folic acid, thiamine (6) GERD (gastroesophageal reflux disease): Code(s): K21.9 - Gastro-esophageal reflux disease without esophagitis Status: Acute Assessment and Plan: continue Protonix Twice a day (7) DVT prophylaxis: Code(s): Z29.9 - Encounter for prophylactic measures, unspecified Status: Acute Assessment and Plan: will hold heparin as patient dropped his hemoglobin. Also discontinue SCDs and place patient on foot pumps (8) Dietary counseling and surveillance: Code(s): Z71.3 - Dietary counseling and surveillance Status: Acute Assessment and Plan: speech evaluation was done, patient passed his swallow test, thin liquids with mechanical soft diet (9) Anemia: Code(s): D64.9 - Anemia, unspecified Status: Acute Assessment and Plan: Hemoglobin has been trending down, patient was guaiac positive - patient had some melena on admission - continue Protonix q.12 hours. Gastroenterology service recommendations appreciated. Conservative management for now but if he has further drop in H&H or has melanotic/fresh blood per rectum then he will need endoscopy. (10) Rhabdomyolysis: Qualifiers: Rhabdomyolysis type: non-traumatic Qualified Code(s): M
--- NOTE | 2019-06-25 14:51 | PM.PNPUL ---
Progress Note: A&P Assessment and Plan (1) Acute respiratory failure: Qualifiers: Respiratory failure complication: hypoxia Qualified Code(s): J96.01 - Acute respiratory failure with hypoxia Code(s): J96.00 - Acute respiratory failure, unspecified whether with hypoxia or hypercapnia Status: Acute Assessment and Plan: He was intubated June 11, extubated June 23. Now on 6 L/min, weaned from 15 L/min earlier today. WBC now decreasing, persistent hyponatremia. Decreased O2 needs today. He did not require high O2 levels while on the vent. (2) Pneumonia: Qualifiers: Laterality: unspecified laterality Lung location: unspecified part of lung Pneumonia type: due to unspecified organism Qualified Code(s): J18.9 - Pneumonia, unspecified organism Code(s): J18.9 - Pneumonia, unspecified organism Status: Acute Assessment and Plan: Has infiltrates with right sided effusion. Bactrim started June 20. Fever resolved. He grew Stenotrophomonas from BAL. (3) COPD with emphysema: Qualifiers: Emphysema type: unspecified Qualified Code(s): J43.9 - Emphysema, unspecified Code(s): J43.9 - Emphysema, unspecified Status: Chronic Assessment and Plan: Has COPD at baseline. Was not on home O2. Has not had wheezing. Talked with him about tobacco cessation. Will address again. PFTs after discharge when he is back to his baseline. He has a right renal mass suspicious for renal cell carcinoma, and may need surgery later. Subjective Date/time seen: 06/25/19 14:51 This 69 yo man is seen in follow up for pneumonia growing Stenotrophomonas, COPD and acute respiratory failure. He was extubated yesterday. He is awake, has been weaned from 15 L/min to 6 L/min, no specific complaints. He passed his swallow today. PT saw him this am, sat him on the side of the bed. He has not been out of bed yet. Afebrile. I talked with him about tobacco cessation. Will try again next visit. d/w Dr Alonzo. June 11-intubated June 18-bronchoscopy June 20- changed to Bactrim for Stenotrophomonas from BAL June 23 - extubated Other issues: Rght renal mass needing CT scan with contrast after discharge; GERD; anemia; alcohol dependence. Was found unresponsive on the floor with rhabdomyolysis prior toadmission. Review of Systems Review of Systems: Narrative: He is coughing, productive of sputum, light color. Denies pain. Exam Const: General: no acute distress Other: Alert, answers questions without difficulty. Eyes: General: appearance normal, both eyes and all related structures Resp: Effort & Inspection: normal respiratory effort Auscultation: diminished lung sounds Cardio: Rate: bradycardic Rhythm: regular rhythm Heart sounds: S1 normal heart sound present and S2 normal heart sound present GI: Auscultation: normal bowel sounds Skin: General skin exam: normal color Psych: Speech and movement: Clear speech present Other: generalized deconditioning, manager java strength is excellent Objective Data Vital Signs Vital Signs: Vital Signs - 24 hr 06/24/19 14:54 06/24/19 15:00 06/24/19 15:30 Temperature Pulse Rate 120 H 119 H 124 H Respiratory Rate 25 H 18 96 H Blood Pressure Pulse Oximetry 06/24/19 16:00 06/24/19 17:56 06/24/19 18:00 Temperature 37.8 C H 37.7 C H Pulse Rate 134 H 125 H 128 H Respiratory Rate 26 H 19 Blood Pressure 128/82 123/63 Pulse Oximetry 90 94 06/24/19 20:00 06/24/19 20:26 06/24/19 20:39 Temperature 37.6 C H Pulse Rate 123 H 124 H 129 H Respiratory Rate 24 H 27 H 21 H Blood Pressure 116/68 Pulse Oximetry 94 06/24/19 22:00 06/25/19 00:00 06/25/19 02:00 Temperature 37.2 C Pulse Rate 127 H 112 H 107 H Respiratory Rate 20 19 20 Blood Pressure 116/66 126/67 131/74 Pulse Oximetry 90 91 91 06/25/19 02:14 06/25/19 02:22 06/25/19 04:00 Temperature 37.1 C Pulse Rate 112 H 106 H 114 H Respiratory Rate 24
[2019-06-25 18:17] LABS: Glucose Point of Care 109 (65-105)
[2019-06-26] VITALS (19 sets, daily range): BP systolic 115–150; BP diastolic 61–87; PULSE 102–117; RESP 20–26; TEMP 36.3–37.7; O2SAT 89–97
[2019-06-26] MEDS: GUAIFENESIN 200 MG/10 ML UDC PO ×4 (00:12→17:07)
[2019-06-26 00:23] LABS: Glucose Point of Care 99 (65-105)
[2019-06-26] MEDS: ALBUTEROL SULFATE NEB 2.5 MG/0.5 ML INH INHALATION ×4 (01:58→20:00)
[2019-06-26] MEDS: IPRATROPIUM BR 0.02% INH SOLN 0.5 MG/2.5 ML VIAL INHALATION ×4 (01:59→20:00)
[2019-06-26 05:09] LABS: Basophils Absolute Auto 0.1 K/mm3 (0.0-0.1); Eosinophils Absolute Auto 0.1 K/mm3 (0-0.3); Eosinophils Percent Auto 0.6 % (0-4.4); Hematocrit 21.2 % (42.0-52.0); Hemoglobin 7.3 g/dL (14.0-18.0); Immature Granulocyte Absolute 0.08 K/mm3 (0.00-0.031); Immature Granulocyte Percent A 0.6 % (0-0.5); Lymphocytes Absolute Auto 2.41 K/mm3 (0.9-3.2); Lymphocytes Percent Auto 17.7 % (18.3-44.2); Mean Corpuscular HGB Conc 34.4 g/dl (32-36); Mean Corpuscular Hemoglobin 30.4 pg (26-34); Mean Corpuscular Volume 88.3 fl (80-100); Mean Platelet Volume 8.5 fl (7.4-10.4); Monocytes Absolute Auto 2.3 K/mm3 (0.1-0.6); Monocytes Percent Auto 17.1 % (2.6-8.5); Neutrophils Absolute Auto 8.6 K/mm3 (1.3-6.7); Platelet Count Result 910 k/mm3 (150-375); Red Cell Distribution Width 13.9 % (11.5-14.5); White Blood Count 13.6 K/mm3 (4.5-10.0)
[2019-06-26 05:21] LABS: Alanine Aminotransferase 44 U/L (4-50); Albumin Level 2.7 g/dL (3.5-5.1); Alkaline Phosphatase 69 U/L (38-126); Aspartate Amino Transferase 78 U/L (17-59); Bilirubin,Total 0.4 mg/dL (0.2-1.3); Blood Urea Nitrogen 7 mg/dL (9-20); Calcium 8.4 mg/dL (8.4-10.2); Carbon Dioxide 31 mmol/L (22-30); Chloride 91 mmol/L (98-107); Estimated CRCL calculation 99 ml/min; Estimated Glomerular Filt Rate > 60; Glucose 94 mg/dL (75-110); Magnesium 1.6 mg/dL (1.6-2.3); Phosphorus 3.6 mg/dL (2.5-4.5); Potassium 3.3 mmol/L (3.4-5.0); Sodium 130 mmol/L (137-145)
[2019-06-26 06:02] LABS: Glucose Point of Care 104 (65-105)
[2019-06-26] MEDS: DORNASE ALFA INH SOLN 1 MG/ML 2.5 ML AMP 2.5 MG INHALATION (08:57)
--- NOTE | 2019-06-26 09:01 | PM.IMPN ---
Progress Note: A&P Assessment and Plan (1) Pneumonia: Qualifiers: Laterality: unspecified laterality Lung location: unspecified part of lung Pneumonia type: due to unspecified organism Qualified Code(s): J18.9 - Pneumonia, unspecified organism Code(s): J18.9 - Pneumonia, unspecified organism Status: Acute Assessment and Plan: Chest x-ray today with diffuse lung disease with minimal change on right slight improvement on the left. Clinically patient has improved. He was initially on IV ceftriaxone and azithromycin but switched to IV imipenem and vancomycin on 06/17/2019. Then switched to IV TMP/SMZ on 06/21/2019 per Infectious Disease. 1st sputum culture on 06/13/2019 with yeast. 2nd sputum culture on 06/18/2019 with stenotrophomonas maltophilia resulting in current IV antibiotic. Bronchoscopy on 06/19 19 with growth of stenotrophomonas maltophilia and Patt albicans. COVID-19 testing through [facility] negative. Legionella pneumococcal antigens negative. Appreciate help from pulmonology and live out nanny. Will transfer to medical floor with telemetry after discussion with live out nanny. (2) Acute respiratory failure: Qualifiers: Respiratory failure complication: hypoxia Qualified Code(s): J96.01 - Acute respiratory failure with hypoxia Code(s): J96.00 - Acute respiratory failure, unspecified whether with hypoxia or hypercapnia Status: Acute Assessment and Plan: Result of pneumonia and emphysema. Patient was intubated on 06/13/2019 with successful extubation on 06/24/2019. Continue respiratory treatments as noted above. Now on high-flow oxygen at 4-5 L. Will wean oxygen as tolerated. (3) Hypokalemia: Code(s): E87.6 - Hypokalemia Status: Acute Assessment and Plan: Potassium 3.3 today with oral replacement given. Will continue to monitor replace as needed. (4) Tachycardia: Code(s): R00.0 - Tachycardia, unspecified Status: Acute Assessment and Plan: D-dimer positive. No CTA chest done but venous Dopplers of the lower extremities negative for DVT. Appears to be result of infection. Telemetry reviewed on 06/26/2019 with sinus rhythm. TSH is normal. Will continue to monitor. (5) Rhabdomyolysis: Qualifiers: Rhabdomyolysis type: non-traumatic Qualified Code(s): M62.82 - Rhabdomyolysis Code(s): M62.82 - Rhabdomyolysis Status: Acute Assessment and Plan: Result of current illness and/or medications. Last creatine kinase down to 703. Not on IV fluids. Will monitor. (6) Melena: Code(s): K92.1 - Melena Status: Acute Assessment and Plan: Had 1 melanotic stool in the ER. Stool guaiac positive. Appreciate input from GI with plan for conservative approach. Hemoglobin 7.3 today but is staying within this range. Will continue to monitor. Continue Protonix. (7) Barretts esophagus: Qualifiers: Wooten's esophagus type: with dysplasia of unspecified degree Qualified Code(s): K22.719 - Wooten's esophagus with dysplasia, unspecified Code(s): K22.70 - Wooten's esophagus without dysplasia Status: Chronic Assessment and Plan: As noted on EGD dating back to 2011 but no follow-up. Appreciate help from GI as noted above. Continue Protonix b.i.d.. Hemoglobin as noted above. Plan for outpatient EGD. (8) COPD with emphysema: Qualifiers: Emphysema type: unspecified Qualified Code(s): J43.9 - Emphysema, unspecified Code(s): J43.9 - Emphysema, unspecified Status: Chronic Assessment and Plan: Noted on imaging. Not on inhalers at home. Continue respiratory treatments as noted above. (9) Right renal mass: Code(s): N28.89 - Other specified disorders of kidney and ureter Status: Acute Assessment and Plan: Right renal mass measuring 2.6cm incidentally noted on imaging. Will need follow-up as outpatient. (1
[2019-06-26] MEDS: FOLIC ACID 1 MG TABLET PO (09:23)
[2019-06-26] MEDS: POTASSIUM CHLORIDE 20 MEQ TABLET 40 MEQ PO (09:23)
[2019-06-26] MEDS: LIDOCAINE 5% PATCH 1 PATCH TRANSDERM (09:24)
[2019-06-26] MEDS: NICOTINE (*PBKC) 21 MG PATCH 1 PATCH TRANSDERM (09:24)
[2019-06-26] MEDS: polyethylene glycoL 3350 17 GM POWD.PACK PO (09:25)
[2019-06-26] MEDS: THIAMINE HCL 100 MG TABLET PO (09:25)
[2019-06-26] MEDS: PANTOPRAZOLE SODIUM IV 40 MG VIAL IV PUSH ×2 (09:25→21:18)
--- NOTE | 2019-06-26 10:58 | PCDIET ---
Nutrition Follow-Up Complete: Nutrition Diagnosis: Inadequate energy intake related to decreased appetite as evidenced by BMI of 17.7. Nutrition Goal: Patient to meet estimated nutritional needs Goal in progress. Diet advanced to soft and bite size, level 6, per INDUSTRIAL MAINTENANCE INSTRUCTOR recommendations. Will follow closely for intakes and recommend further intervention, if needed. Last recorded weight is 71 kg which is stable. Bowel Motility: BM x 4 today. Labs Reviewed: Hgb (7.3), Hct (21.2), BUN (7), Cr (0.6), K (3.3), Na (130), Alb (2.7) Meds Noted: Albuterol, Folic Acid, Atrovent, Miralax, Thiamine, Protonix Additional Notes: Scrotum/buttocks macerated. s/p KCl earlier today. Will continue to monitor with same goal. Nutrition Monitoring and Evaluation: Follow up in 3 days.
--- NOTE | 2019-06-26 13:15 | WPDINTPN ---
Progress Note: A&P Assessment and Plan (1) Acute respiratory failure: Qualifiers: Respiratory failure complication: hypoxia Qualified Code(s): J96.01 - Acute respiratory failure with hypoxia Code(s): J96.00 - Acute respiratory failure, unspecified whether with hypoxia or hypercapnia Status: Acute Assessment and Plan: Patient presented with shortness of breath, hypoxia. intubated on 06/12/2019, bronchoscopy on 06/19/2019, extubated 06/24/2019 - sputum cultures And BAL cultures growing stenotrophomonas. Patient was started on sulfamethoxazole and trimethoprim, , ID following the patient - patient did receive azithromycin and Rocephin initially and then was switched to vancomycin and imipenem were discontinued on 06/21/2019. - SARS-COV-2 PCR negative 06/13/2019 - patient was febrile, lower extremity venous Dopplers were done on 06/19/2019, NO DVT bilateral lower extremities. - Pt currently on 4 L NC and comfortable - Chest x-ray shows persistent bilateral infiltrates right greater than left - increase activity, continue bronchodilators (2) Pneumonia: Qualifiers: Pneumonia type: due to unspecified organism Laterality: unspecified laterality Lung location: unspecified part of lung Qualified Code(s): J18.9 - Pneumonia, unspecified organism Code(s): J18.9 - Pneumonia, unspecified organism Status: Acute Assessment and Plan: chest x-ray as above - continue IV Bactrim per Infectious Disease for stenotrophomonas , antibiotics per Infectious Disease - stop pulmozyme (3) COPD with emphysema: Qualifiers: Emphysema type: unspecified Qualified Code(s): J43.9 - Emphysema, unspecified Code(s): J43.9 - Emphysema, unspecified Status: Chronic Assessment and Plan: patient history of COPD with emphysema - maintain O2 sats between 90-94%. Continue bronchodilators. He is not actively wheezing. Systemic steroids not indicated. (4) Right renal mass: Code(s): N28.89 - Other specified disorders of kidney and ureter Status: Acute Assessment and Plan: right renal mass, incidental finding on CT chest - no gross hematuria - appreciate urology evaluation recommendation, no intervention during this hospitalization. Will need a formal evaluation with a dedicated CT of the kidneys with and without contrast and a couple of months. (5) Alcoholism: Code(s): F10.20 - Alcohol dependence, uncomplicated Status: Chronic Assessment and Plan: continue folic acid, thiamine (6) GERD (gastroesophageal reflux disease): Code(s): K21.9 - Gastro-esophageal reflux disease without esophagitis Status: Acute Assessment and Plan: continue Protonix Twice a day (7) DVT prophylaxis: Code(s): Z29.9 - Encounter for prophylactic measures, unspecified Status: Acute Assessment and Plan: will hold heparin as patient dropped his hemoglobin. Also discontinue SCDs and place patient on foot pumps (8) Dietary counseling and surveillance: Code(s): Z71.3 - Dietary counseling and surveillance Status: Acute Assessment and Plan: speech evaluation was done 06/25/2019, patient passed his swallow test, thin liquids with mechanical soft diet (9) Anemia: Code(s): D64.9 - Anemia, unspecified Status: Acute Assessment and Plan: Hemoglobin has been trending down, patient was guaiac positive - patient had some melena on admission - continue Protonix q.12 hours. Gastroenterology service recommendations appreciated. Conservative management for now but if he has further drop in H&H or has melanotic/fresh blood per rectum then he will need endoscopy. (10) Rhabdomyolysis: Qualifiers: Rhabdomyolysis type: non-traumatic Qualified Code(s): M62.82 - Rhabdomyolysis Code(s): M62.82 - Rhabdomyolysis Status: Acute Assessment and
[2019-06-26 13:16] LABS: Glucose Point of Care 88 (65-105)
--- NOTE | 2019-06-26 13:45 | PC.NURSE ---
This patient, Arvind Bone, was received from ICU on 06/26/19 at 1345. Personal belongings list checked and signed. Patient/family oriented to unit policies and routines
--- NOTE | 2019-06-26 13:56 | PC.NURSE ---
This patient, Arvind Bone, was transferred to [[id number] ] on 06/26/19 at 1356. Personal belongings sent with patient. Belongings list checked and signed with receiving [ ]. Report given to [RHODA Koo ]. Appropriate documentation sent with patient.
--- NOTE | 2019-06-26 14:04 | WPDINFPN2 ---
Progress Note: A&P Assessment and Plan (1) Hospital-acquired bacterial pneumonia: Code(s): J15.9 - Unspecified bacterial pneumonia Status: Acute Assessment and Plan: 1. Stenotrophomonas HCAP, improved status. Improving CXR 2. Respiratory failure 3. COPD 4. Alcohol to excess, bilirubin normal 5. Tobacco REC TMP-SMX #6 / 10 days tentatively. O2 on taper Subjective Date/time seen: 06/26/19 14:04 Interval history: no dyspnea by report Exam Narrative: Exam Narrative: t max 37.7 Const: General: no acute distress Other: cachectic Resp: Effort & Inspection: normal respiratory effort Auscultation: clear to auscultation bilaterally and diminished lung sounds GI: GI Palp: Yes Soft to palpation and No Tenderness to palpation present (GI) Objective Data Vital Signs Vital Signs: Vital Signs - 24 hr 06/25/19 16:00 06/25/19 17:54 06/25/19 17:56 Temperature 37.4 C Pulse Rate 106 H 107 H 110 H Respiratory Rate 19 22 H Blood Pressure 123/72 144/90 H Pulse Oximetry 99 100 06/25/19 19:41 06/25/19 19:50 06/25/19 20:00 Temperature 36.9 C Pulse Rate 102 H 99 106 H Respiratory Rate 22 H 19 18 Blood Pressure 132/79 Pulse Oximetry 94 98 06/25/19 22:00 06/26/19 00:00 06/26/19 01:59 Temperature 36.9 C Pulse Rate 104 H 104 H 106 H Respiratory Rate 26 H 26 H 22 H Blood Pressure 118/83 135/87 Pulse Oximetry 99 95 06/26/19 02:00 06/26/19 02:08 06/26/19 04:00 Temperature 37.7 C H Pulse Rate 107 H 106 H 112 H Respiratory Rate 22 H 24 H 22 H Blood Pressure 123/61 115/62 Pulse Oximetry 97 96 06/26/19 06:00 06/26/19 08:00 06/26/19 08:55 Temperature 37.5 C Pulse Rate 103 H 103 H 109 H Respiratory Rate 25 H 22 H 24 H Blood Pressure 129/73 150/75 H Pulse Oximetry 96 94 06/26/19 09:11 06/26/19 09:13 06/26/19 10:00 Temperature Pulse Rate 106 H 117 H Respiratory Rate 24 H Blood Pressure Pulse Oximetry 90 06/26/19 12:00 06/26/19 13:58 Temperature 37.0 C Pulse Rate 116 H 110 H Respiratory Rate 20 Blood Pressure 144/64 H Pulse Oximetry 94 Intake/Output Intake/Output: Intake & Output 06/23/19 06/24/19 06/25/19 06/26/19 23:59 23:59 23:59 23:59 Intake Total 2752.5 2209.5 1040 880 Output Total 3125 2475 1700 1450 Balance -372.5 -265.5 -660 -570 Meds/Results Medications: Active Medications Generic Name Dose Route Start Last Admin Trade Name Freq PRN Reason Stop Dose Admin Acetaminophen 650 mg 06/23/19 12:51 06/23/19 16:31 Tylenol Elixir PO 650 mg Q6H PRN Administration Fever > 100.4 Albuterol 2.5 mg 06/24/19 20:00 06/26/19 13:59 Albuterol Sulf Neb 2.5mg/0.5ml INHALATION 2.5 mg Q6HRT CANDI Administration Folic Acid 1 mg 06/12/19 09:00 06/26/19 09:23 Folic Acid PO 1 mg DAILY CANDI Administration Guaifenesin 200 mg 06/19/19 08:00 06/26/19 12:33 Guaifenesin Liq PO 200 mg Q6HR CANDI Administration Trimethoprim/Sulfamethoxazole 260 mls @ 260 mls/hr 06/21/19 18:00 06/26/19 12:32 10 ml/ Dextrose IVPB 250 mls/hr Q6HR CANDI Administration Ipratropium [place] 0.5 mg 06/18/19 08:00 06/26/19 13:59 Atrovent Neb INHALATION 0.5 mg Q6HRT CANDI Administration Lidocaine 1 patch 06/12/19 10:00 06/26/19 09:24 Lidoderm TRANSDERM 1 patch DAILY CANDI Administration Multi-Ingred Cream/Lotion/Oil/Oint 1 applic 06/13/19 09:00 06/26/19 09:24 Lubrifresh Pm Eye Ointment EACH EYE Not Given Q12HR CANDI Nicotine 1 patch 06/11/19 23:10 06/26/19 09:24 Nicoderm Cq 21 Mg TRANSDERM 1 patch QAM CANDI Administration Pantoprazole Sodium 40 mg 06/12/19 09:00 06/26/19 09:25 Protonix Iv IV PUSH 40 mg Q12HR CANDI Administration Polyethylene Glycol 17 gm 06/16/19 14:12 06/26/19 09:25 Miralax PO 17 gm QAM CANDI Administration Thiamine HCl 100 mg 06/12/19 09:00 06/26/19 09:25 Vitamin B-1 PO 100 mg QAM CANDI Administration Radiology Results: ITS I
--- NOTE | 2019-06-26 16:53 | PM.PNPUL ---
Progress Note: A&P Assessment and Plan (1) Acute respiratory failure: Qualifiers: Respiratory failure complication: hypoxia Qualified Code(s): J96.01 - Acute respiratory failure with hypoxia Code(s): J96.00 - Acute respiratory failure, unspecified whether with hypoxia or hypercapnia Status: Acute Assessment and Plan: Due to pneumonia and underlying COPD. Vented June 11-, down to 5 L/min. (2) COPD with emphysema: Qualifiers: Emphysema type: unspecified Qualified Code(s): J43.9 - Emphysema, unspecified Code(s): J43.9 - Emphysema, unspecified Status: Chronic Assessment and Plan: Was not treated prior to admission. (3) Pneumonia: Qualifiers: Laterality: unspecified laterality Lung location: unspecified part of lung Pneumonia type: due to unspecified organism Qualified Code(s): J18.9 - Pneumonia, unspecified organism Code(s): J18.9 - Pneumonia, unspecified organism Status: Acute Assessment and Plan: Stenotrophomonas in sputum. Bactrim June 20, started per Dr Rios Infiltrates slightly better. Subjective Date/time seen: 06/26/19 16:53 This 69 yo man is seen in follow up for pneumonia growing Stenotrophomonas, COPD and acute respiratory failure. awake, O2 is down to 4 L/min. Afebrile. Brief discussion about tobacco cessation. He is not back to normal mentally. June 11-intubated June 18-bronchoscopy June 20- changed to Bactrim for Stenotrophomonas from BAL June 23 - extubated June 24 passed swallow study June 25 moved out of ICU; able to stand with 2 person assist. Other issues: Right renal mass needing CT scan with contrast after discharge; GERD; anemia; alcohol dependence. Was found unresponsive on the floor with rhabdomyolysis prior toadmission. Review of Systems Review of Systems: Narrative: He is coughing, productive of sputum, light color. Denies pain. Exam Narrative: Exam Narrative: Chronically ill appearing, thin. Const: General: comfortable and no acute distress Nutritional Appearance: thin Other: Alert, answers questions without difficulty. HENMT: Face and sinus: normal facial exam Mouth: Yes moist mucous membranes and Yes other (ETT) Eyes: General: appearance normal, both eyes and all related structures Neck: Neck: normal visual inspection, no lymphadenopathy, supple and no JVD Chest: Chest palpation & inspection: normal inspection of the chest Resp: Effort & Inspection: normal respiratory effort and decreased respiratory effort Auscultation: crackles, diminished lung sounds and vesicular breath sounds Cardio: Rate: regular rate, bradycardic and tachycardic Rhythm: regular rhythm Heart sounds: S1 normal heart sound present and S2 normal heart sound present GI: Auscultation: normal bowel sounds Urinary Catheter: Urinary Catheter: patent and draining Skin: General skin exam: normal color Neuro: Speech: No normal speech Extrem: General: normal to inspection, no edema and no pedal edema Psych: Speech and movement: Clear speech present Other: generalized deconditioning, 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 Objective Data Vital Signs Vital Signs: Vital Signs - 24 hr 06/25/19 17:54 06/25/19 17:56 06/25/19 19:41 Temperature Pulse Rate 107 H 110 H 102 H Respiratory Rate 22 H 22 H Blood Pressure 144/90 H Pulse Oximetry 100 94 06/25/19 19:50 06/25/19 20:00 06/25/19 22:00 Temperature 36.9 C Pulse Rate 99 106 H 104 H Respiratory Rate 19 18 26 H Blood Pressure 132/79 118/83 Pulse Oximetry 98 99 06/26/19 00:00 06/26/19 01:59 06/26/19 02:00 Temperature 36.9 C Pulse Rate 104 H 106 H 107 H Respiratory Rate 26 H 22 H 22 H Blood Pressure 135/87 123/61 Pulse Oximetry 95 97 06/26/19 02:08 06/26/19 04:00 06/26/19 06:00 Temperature 37.7 C H Pulse Rate 106 H 112 H 103 H Respiratory Rate 24 H 22 H 25 H Blood Pressure 115/62 129/73 Pulse Oximetry 96 96
[2019-06-26 16:59] LABS: Glucose Point of Care 95 (65-105)
[2019-06-26 21:29] LABS: Glucose Point of Care 85 (65-105)
[2019-06-27] VITALS (16 sets, daily range): BP systolic 123–152; BP diastolic 55–86; PULSE 76–127; RESP 16–24; TEMP 36.4–37.6; O2SAT 90–97
[2019-06-27] MEDS: ALBUTEROL SULFATE NEB 2.5 MG/0.5 ML INH INHALATION ×4 (01:51→20:12)
[2019-06-27] MEDS: IPRATROPIUM BR 0.02% INH SOLN 0.5 MG/2.5 ML VIAL INHALATION ×4 (01:51→20:12)
[2019-06-27] MEDS: GUAIFENESIN 200 MG/10 ML UDC PO ×5 (05:39→23:22)
[2019-06-27 06:09] LABS: Hematocrit 25.3 % (42.0-52.0); Hemoglobin 8.3 g/dL (14.0-18.0); Mean Corpuscular HGB Conc 32.8 g/dl (32-36); Mean Corpuscular Hemoglobin 29.4 pg (26-34); Mean Corpuscular Volume 89.7 fl (80-100); Mean Platelet Volume 8.7 fl (7.4-10.4); Platelet Count Result 978 k/mm3 (150-375); Red Blood Count 2.82 M/mm3 (4.6-6.20); White Blood Count 12.5 K/mm3 (4.5-10.0)
[2019-06-27 06:26] LABS: Blood Urea Nitrogen 6 mg/dL (9-20); Calcium 8.8 mg/dL (8.4-10.2); Carbon Dioxide 26 mmol/L (22-30); Chloride 93 mmol/L (98-107); Estimated CRCL calculation 85 ml/min; Estimated Glomerular Filt Rate > 60; Glucose 78 mg/dL (75-110); Magnesium 1.7 mg/dL (1.6-2.3); Potassium 3.5 mmol/L (3.4-5.0); Sodium 128 mmol/L (137-145)
[2019-06-27 07:51] LABS: Glucose Point of Care 79 (65-105)
[2019-06-27] MEDS: NICOTINE (*PBKC) 21 MG PATCH 1 PATCH TRANSDERM (09:19)
[2019-06-27] MEDS: LIDOCAINE 5% PATCH 1 PATCH TRANSDERM (09:20)
[2019-06-27] MEDS: PANTOPRAZOLE SODIUM IV 40 MG VIAL IV PUSH ×2 (09:20→21:55)
[2019-06-27] MEDS: FOLIC ACID 1 MG TABLET PO (09:20)
[2019-06-27] MEDS: THIAMINE HCL 100 MG TABLET PO (09:20)
[2019-06-27] MEDS: polyethylene glycoL 3350 17 GM POWD.PACK PO (09:20)
--- NOTE | 2019-06-27 09:55 | PM.PNPUL ---
Progress Note: A&P Assessment and Plan (1) Acute respiratory failure: Qualifiers: Respiratory failure complication: hypoxia Qualified Code(s): J96.01 - Acute respiratory failure with hypoxia Code(s): J96.00 - Acute respiratory failure, unspecified whether with hypoxia or hypercapnia Status: Acute Assessment and Plan: Due to pneumonia and underlying COPD. Vented June 11-, down to 4 L/min. He is able to get into a chair, and will continue to improve his mobility. His CXR shows small increase in pulmonary effusions. (2) COPD with emphysema: Qualifiers: Emphysema type: unspecified Qualified Code(s): J43.9 - Emphysema, unspecified Code(s): J43.9 - Emphysema, unspecified Status: Chronic Assessment and Plan: Was not treated prior to admission. (3) Pneumonia: Qualifiers: Laterality: unspecified laterality Lung location: unspecified part of lung Pneumonia type: due to unspecified organism Qualified Code(s): J18.9 - Pneumonia, unspecified organism Code(s): J18.9 - Pneumonia, unspecified organism Status: Acute Assessment and Plan: Stenotrophomonas in sputum. Bactrim June 20, started per Dr Rios Infiltrates slightly better. Subjective Date/time seen: 06/27/19 09:55 Interval history: This 69 yo man is seen in follow up for pneumonia growing Stenotrophomonas, COPD and acute respiratory failure. awake, O2 is down to 4 L/min. Afebrile. He is not back to normal mentally. Answers 'Monkey' when asked how he is feeling. HE has Physical Therapist at the bedside, has gotten up and pivoted to the chair. June 11-intubated June 18-bronchoscopy June 20- changed to Bactrim for Stenotrophomonas from BAL June 23 - extubated June 24 passed swallow study June 25 moved out of ICU; able to stand with 2 person assist. June 26 increased activity, up to a chair Other issues: Right renal mass needing CT scan with contrast after discharge; GERD; anemia; alcohol dependence. Was found unresponsive on the floor with rhabdomyolysis prior to admission. Review of Systems Review of Systems: All systems reviewed & are unremarkable except as noted in HPI and below Exam Narrative: Exam Narrative: Chronically ill appearing, thin. Const: General: comfortable and no acute distress Nutritional Appearance: thin Other: Alert, answers questions without difficulty. Does not make sense all the time, responsded with 'monkey' when I asked how he was feeling. HENMT: Face and sinus: normal facial exam Mouth: Yes moist mucous membranes Eyes: General: appearance normal, both eyes and all related structures Neck: Neck: no lymphadenopathy, supple and no JVD Chest: Chest palpation & inspection: normal inspection of the chest Resp: Effort & Inspection: normal respiratory effort and decreased respiratory effort Auscultation: diminished lung sounds Cardio: Rate: regular rate Rhythm: regular rhythm Heart sounds: S1 normal heart sound present and S2 normal heart sound present Skin: General skin exam: normal color Extrem: General: normal to inspection, no edema and no pedal edema Psych: Other: generalized deconditioning Objective Data Vital Signs Vital Signs: Vital Signs - 24 hr 06/26/19 10:00 06/26/19 12:00 06/26/19 13:55 Temperature Pulse Rate 117 H 116 H 109 H Respiratory Rate 24 H Blood Pressure Pulse Oximetry 06/26/19 13:58 06/26/19 14:05 06/26/19 16:00 Temperature 37.0 C Pulse Rate 110 H 111 H 112 H Respiratory Rate 20 24 H Blood Pressure 144/64 H Pulse Oximetry 94 06/26/19 17:48 06/26/19 20:00 06/26/19 20:11 Temperature 37.3 C 36.3 C L Pulse Rate 105 H 115 H 109 H Respiratory Rate 22 H 22 H 24 H Blood Pressure 130/79 140/62 Pulse Oximetry 95 89 L 06/27/19 00:00 06/27/19 01:51 06/27/19 01:59 Temperature 37.0 C Pulse Rate 105 H 104 H 107 H Respiratory Rate 24 H 24 H 24 H Blood Pressure 133/76
[2019-06-27 11:27] LABS: Glucose Point of Care 133 (65-105)
--- NOTE | 2019-06-27 12:30 | WPDINFPN2 ---
Progress Note: A&P Assessment and Plan (1) Hospital-acquired bacterial pneumonia: Code(s): J15.9 - Unspecified bacterial pneumonia Status: Acute Assessment and Plan: 1. Stenotrophomonas HCAP, improved status. Improving CXR, other than small effusions. I doubt empyema 2. Respiratory failure, incompletely compensated, but O2 need is improved 3. COPD 4. Alcohol to excess, bilirubin normal 5. Tobacco REC TMP-SMX #7 / 10 days tentatively.On nutritional support Subjective Date/time seen: 06/27/19 12:30 Interval history: no complaints. Exam Narrative: Exam Narrative: afebrile, cachectic and appears chronically ill. Thoracic kyphosis Const: General: no acute distress Eyes: General: appearance normal, both eyes and all related structures Resp: Effort & Inspection: normal respiratory effort Auscultation: clear to auscultation bilaterally and diminished lung sounds Cardio: Rate: tachycardic Rhythm: regular rhythm Heart sounds: no gallops and no murmurs GI: Inspection: non-distended GI Palp: Yes Soft to palpation and No Tenderness to palpation present (GI) Skin: General skin exam: normal color and no rashes or lesions noted Objective Data Vital Signs Vital Signs: Vital Signs - 24 hr 06/26/19 13:55 06/26/19 13:58 06/26/19 14:05 Temperature 37.0 C Pulse Rate 109 H 110 H 111 H Respiratory Rate 24 H 20 24 H Blood Pressure 144/64 H Pulse Oximetry 94 06/26/19 16:00 06/26/19 17:48 06/26/19 20:00 Temperature 37.3 C 36.3 C L Pulse Rate 112 H 105 H 115 H Respiratory Rate 22 H 22 H Blood Pressure 130/79 140/62 Pulse Oximetry 95 89 L 06/26/19 20:11 06/27/19 00:00 06/27/19 01:51 Temperature 37.0 C Pulse Rate 109 H 105 H 104 H Respiratory Rate 24 H 24 H 24 H Blood Pressure 133/76 Pulse Oximetry 94 93 06/27/19 01:59 06/27/19 04:00 06/27/19 08:00 Temperature 36.5 C Pulse Rate 107 H 117 H 76 Respiratory Rate 24 H 22 H Blood Pressure 123/55 L Pulse Oximetry 92 06/27/19 08:22 06/27/19 08:28 06/27/19 12:00 Temperature Pulse Rate 111 H 114 H 123 H Respiratory Rate 22 H 20 Blood Pressure Pulse Oximetry 91 Intake/Output Intake/Output: Intake & Output 06/24/19 06/25/19 06/26/19 06/27/19 23:59 23:59 23:59 23:59 Intake Total 2209.5 1040 1460 760 Output Total 2475 1700 1850 1600 Balance -265.5 -660 -390 -840 Meds/Results Medications: Active Medications Generic Name Dose Route Start Last Admin Trade Name Freq PRN Reason Stop Dose Admin Acetaminophen 650 mg 06/23/19 12:51 06/23/19 16:31 Tylenol Elixir PO 650 mg Q6H PRN Administration Fever > 100.4 Albuterol 2.5 mg 06/24/19 20:00 06/27/19 08:20 Albuterol Sulf Neb 2.5mg/0.5ml INHALATION 2.5 mg Q6HRT CANDI Administration Folic Acid 1 mg 06/12/19 09:00 06/27/19 09:20 Folic Acid PO 1 mg DAILY CANDI Administration Guaifenesin 200 mg 06/19/19 08:00 06/27/19 11:06 Guaifenesin Liq PO 200 mg Q6HR CANDI Administration Trimethoprim/Sulfamethoxazole 260 mls @ 260 mls/hr 06/21/19 18:00 06/27/19 11:08 10 ml/ Dextrose IVPB 150 mls/hr Q6HR CANDI Infusion Ipratropium [place] 0.5 mg 06/18/19 08:00 06/27/19 08:20 Atrovent Neb INHALATION 0.5 mg Q6HRT CANDI Administration Lidocaine 1 patch 06/12/19 10:00 06/27/19 09:20 Lidoderm TRANSDERM 1 patch DAILY CANDI Administration Multi-Ingred Cream/Lotion/Oil/Oint 1 applic 06/13/19 09:00 06/27/19 09:20 Lubrifresh Pm Eye Ointment EACH EYE 1 applic Q12HR CANDI Administration Nicotine 1 patch 06/11/19 23:10 06/27/19 09:19 Nicoderm Cq 21 Mg TRANSDERM 1 patch QAM CANDI Administration Pantoprazole Sodium 40 mg 06/12/19 09:00 06/27/19 09:20 Protonix Iv IV PUSH 40 mg Q12HR CANDI Administration Polyethylene Glycol 17 gm 06/16/19 14:12 06/27/19 09:20 Miralax PO 17 gm QAM CANDI Administration Thiamine HCl 100 mg 06/12/19 09:00 06/27/19 09:20 Vitamin B-1
--- NOTE | 2019-06-27 15:17 | PM.IMPN ---
Progress Note: A&P Assessment and Plan (1) Pneumonia: Qualifiers: Laterality: unspecified laterality Lung location: unspecified part of lung Pneumonia type: due to unspecified organism Qualified Code(s): J18.9 - Pneumonia, unspecified organism Code(s): J18.9 - Pneumonia, unspecified organism Status: Acute Assessment and Plan: Chest x-ray today again with diffuse lung disease. Continues to improve clinically. He was initially on IV ceftriaxone and azithromycin but switched to IV imipenem and vancomycin on 06/17/2019. Then switched to IV TMP/SMZ on 06/21/2019 per Infectious Disease - on Day #7/10 tentatively. 1st sputum culture on 06/13/2019 with yeast. 2nd sputum culture on 06/18/2019 with stenotrophomonas maltophilia resulting in current IV antibiotic. Bronchoscopy on 06/19 19 with growth of stenotrophomonas maltophilia and Patt albicans. COVID-19 testing through [facility] negative. Legionella pneumococcal antigens negative. Appreciate help from pulmonology and infectious disease. Will continue to monitor. (2) Acute respiratory failure: Qualifiers: Respiratory failure complication: hypoxia Qualified Code(s): J96.01 - Acute respiratory failure with hypoxia Code(s): J96.00 - Acute respiratory failure, unspecified whether with hypoxia or hypercapnia Status: Acute Assessment and Plan: Result of pneumonia and emphysema. Patient was intubated on 06/13/2019 with successful extubation on 06/24/2019. Continue respiratory treatments as noted above. Presently on oxygen by nasal cannula at 5 L. Wean oxygen as tolerated. (3) Edema of left lower extremity: Code(s): R60.0 - Localized edema Status: Acute Assessment and Plan: Left lower extremity noted to be larger than right lower extremity today. Initial venous Dopplers negative for DVT but will recheck as patient is only on foot pumps. (4) Tachycardia: Code(s): R00.0 - Tachycardia, unspecified Status: Acute Assessment and Plan: D-dimer positive. No CTA chest done but initial venous Dopplers of the lower extremities negative for DVT. Appears to be result of infection. Telemetry reviewed on 06/27/2019 with sinus tachycardia with rate in 120s at times. TSH is normal. Will continue to monitor. (5) Hypokalemia: Code(s): E87.6 - Hypokalemia Status: Acute Assessment and Plan: Potassium 3.5 today. Will continue to monitor replace as needed. (6) Rhabdomyolysis: Qualifiers: Rhabdomyolysis type: non-traumatic Qualified Code(s): M62.82 - Rhabdomyolysis Code(s): M62.82 - Rhabdomyolysis Status: Acute Assessment and Plan: Result of current illness and/or medications. Last creatine kinase down to 703. Not on IV fluids. Will monitor. (7) Melena: Code(s): K92.1 - Melena Status: Acute Assessment and Plan: Had 1 melanotic stool in the ER. Stool guaiac positive. Appreciate input from GI with plan for conservative approach. Hemoglobin better at 8.3 today. Will continue to monitor. Continue Protonix. (8) Barretts esophagus: Qualifiers: Wooten's esophagus type: with dysplasia of unspecified degree Qualified Code(s): K22.719 - Wooten's esophagus with dysplasia, unspecified Code(s): K22.70 - Wooten's esophagus without dysplasia Status: Chronic Assessment and Plan: As noted on EGD dating back to 2011 but no follow-up. Appreciate help from GI as noted above. Continue Protonix b.i.d.. Hemoglobin as noted above. Plan for outpatient EGD. (9) COPD with emphysema: Qualifiers: Emphysema type: unspecified Qualified Code(s): J43.9 - Emphysema, unspecified Code(s): J43.9 - Emphysema, unspecified Status: Chronic Assessment and Plan: Noted on imaging. Not on inhalers at home. Continue respiratory treatments as noted above. Appreciate help from pulmonology. (
[2019-06-27 16:46] LABS: Glucose Point of Care 80 (65-105)
[2019-06-27 22:57] LABS: Glucose Point of Care 83 (65-105)
[2019-06-28] VITALS (17 sets, daily range): BP systolic 126–149; BP diastolic 52–73; PULSE 101–118; RESP 16–22; TEMP 37.2–37.6; O2SAT 19–97
[2019-06-28] MEDS: IPRATROPIUM BR 0.02% INH SOLN 0.5 MG/2.5 ML VIAL INHALATION ×4 (01:52→19:34)
[2019-06-28] MEDS: ALBUTEROL SULFATE NEB 2.5 MG/0.5 ML INH INHALATION ×3 (01:53→14:38)
[2019-06-28 05:24] LABS: Hematocrit 24.8 % (42.0-52.0); Hemoglobin 8.4 g/dL (14.0-18.0); Mean Corpuscular HGB Conc 33.9 g/dl (32-36); Mean Corpuscular Hemoglobin 29.9 pg (26-34); Mean Corpuscular Volume 88.3 fl (80-100); Mean Platelet Volume 8.5 fl (7.4-10.4); Platelet Count Result 922 k/mm3 (150-375); Red Blood Count 2.81 M/mm3 (4.6-6.20); Red Cell Distribution Width 14.2 % (11.5-14.5)
[2019-06-28 05:47] LABS: Blood Urea Nitrogen 9 mg/dL (9-20); Calcium 8.5 mg/dL (8.4-10.2); Carbon Dioxide 25 mmol/L (22-30); Chloride 94 mmol/L (98-107); Estimated CRCL calculation 73 ml/min; Estimated Glomerular Filt Rate > 60; Glucose 86 mg/dL (75-110); Magnesium 1.7 mg/dL (1.6-2.3); Potassium 3.8 mmol/L (3.4-5.0); Sodium 128 mmol/L (137-145)
[2019-06-28] MEDS: GUAIFENESIN 200 MG/10 ML UDC PO ×3 (06:10→17:43)
[2019-06-28 07:53] LABS: Glucose Point of Care 100 (65-105)
[2019-06-28] MEDS: PANTOPRAZOLE SODIUM IV 40 MG VIAL IV PUSH ×2 (08:36→21:19)
[2019-06-28] MEDS: polyethylene glycoL 3350 17 GM POWD.PACK PO (08:36)
[2019-06-28] MEDS: NICOTINE (*PBKC) 21 MG PATCH 1 PATCH TRANSDERM (08:37)
[2019-06-28] MEDS: FOLIC ACID 1 MG TABLET PO (08:37)
[2019-06-28] MEDS: THIAMINE HCL 100 MG TABLET PO (08:39)
--- NOTE | 2019-06-28 10:54 | PC.NURSE ---
Pt off the floor via transport for Venous Dopplar test
[2019-06-28 11:49] LABS: Glucose Point of Care 110 (65-105)
--- NOTE | 2019-06-28 13:35 | WPDINFPN2 ---
Progress Note: A&P Assessment and Plan (1) Hospital-acquired bacterial pneumonia: Code(s): J15.9 - Unspecified bacterial pneumonia Status: Acute Assessment and Plan: 1. Stenotrophomonas HCAP, improved status. Improving CXR, other than small effusions. I doubt empyema. WBC almost back to normal 2. Respiratory failure, incompletely compensated, but O2 need is improved 3. COPD 4. Alcohol to excess 5. Tobacco 6. Thrombocytosis REC TMP-SMX #8 / 10 days tentatively. On nutritional support Subjective Date/time seen: 06/28/19 13:35 Interval history: confused, denies dyspnea Exam Narrative: Exam Narrative: t max 37.6 Const: General: no acute distress Other: cachectic Eyes: Sclera: sclerae normal Resp: Effort & Inspection: normal respiratory effort Auscultation: clear to auscultation bilaterally and diminished lung sounds Cardio: Rate: regular rate Rhythm: regular rhythm Heart sounds: no murmurs GI: Inspection: non-distended GI Palp: Yes Soft to palpation and No Tenderness to palpation present (GI) Skin: General skin exam: no rashes or lesions noted Objective Data Vital Signs Vital Signs: Vital Signs - 24 hr 06/27/19 14:00 06/27/19 15:01 06/27/19 15:11 Temperature 36.4 C L Pulse Rate 105 H 114 H 115 H Respiratory Rate 22 H 20 24 H Blood Pressure 152/86 H Pulse Oximetry 90 06/27/19 16:00 06/27/19 20:00 06/27/19 20:13 Temperature Pulse Rate 127 H 118 H 112 H Respiratory Rate 20 Blood Pressure Pulse Oximetry 93 06/27/19 20:25 06/27/19 22:00 06/28/19 00:00 Temperature 37.6 C H Pulse Rate 109 H 119 H 117 H Respiratory Rate 16 Blood Pressure 137/68 Pulse Oximetry 97 06/28/19 01:53 06/28/19 02:00 06/28/19 04:00 Temperature Pulse Rate 106 H 105 H 118 H Respiratory Rate 20 20 Blood Pressure Pulse Oximetry 06/28/19 06:00 06/28/19 08:00 Temperature 37.6 C H Pulse Rate 111 H 114 H Respiratory Rate 16 20 Blood Pressure 126/55 L Pulse Oximetry 96 97 Intake/Output Intake/Output: Intake & Output 0406/26/19 06/27/19 06/28/19 23:59 23:59 23:59 23:59 Intake Total 1040 1460 1870 1180 Output Total 6680 6260 7637 1200 [facility] -660 -390 -880 -20 Meds/Results Medications: Active Medications Generic Name Dose Route Start Last Admin Trade Name Freq PRN Reason Stop Dose Admin Acetaminophen 650 mg 06/23/19 12:51 06/23/19 16:31 Tylenol Elixir PO 650 mg Q6H PRN Administration Fever > 100.4 Albuterol 2.5 mg 06/24/19 20:00 06/28/19 08:28 Albuterol Sulf Neb 2.5mg/0.5ml INHALATION 2.5 mg Q6HRT CANDI Administration Folic Acid 1 mg 06/12/19 09:00 06/28/19 08:37 Folic Acid PO 1 mg DAILY CANDI Administration Guaifenesin 200 mg 06/19/19 08:00 06/28/19 11:41 Guaifenesin Liq PO 200 mg Q6HR CANDI Administration Trimethoprim/Sulfamethoxazole 260 mls @ 260 mls/hr 06/21/19 18:00 06/28/19 12:38 10 ml/ Dextrose IVPB Infused Q6HR CANDI Infusion Ipratropium [place] 0.5 mg 06/18/19 08:00 06/28/19 08:28 Atrovent Neb INHALATION 0.5 mg Q6HRT CANDI Administration Lidocaine 1 patch 06/12/19 10:00 06/28/19 08:38 Lidoderm TRANSDERM Not Given DAILY [facility] Multi-Ingred Cream/Lotion/Oil/Oint 1 applic 06/13/19 09:00 06/28/19 08:36 Lubrifresh Pm Eye Ointment EACH EYE 1 applic Q12HR [facility] Administration Nicotine 1 patch 06/11/19 23:10 06/28/19 08:37 Nicoderm Cq 21 Mg TRANSDERM 1 patch QAM CANDI Administration Pantoprazole Sodium 40 mg 06/12/19 09:00 06/28/19 08:36 Protonix Iv IV PUSH 40 mg Q12HR CANDI Administration Polyethylene Glycol 17 gm 06/16/19 14:12 06/28/19 08:36 Miralax PO 17 gm QAM CANDI Administration Thiamine HCl 100 mg 06/12/19 09:00 06/28/19 08:39 Vitamin B-1 PO 100 mg QAM CANDI Administration Radiology Results: ITS Impressions Chest CT 06/11/19 16:11 IMPRESSION: 1. Mixed interstitial and airspace disease r
--- NOTE | 2019-06-28 14:40 | PM.IMPN ---
Progress Note: A&P Assessment and Plan (1) Pneumonia: Qualifiers: Laterality: unspecified laterality Lung location: unspecified part of lung Pneumonia type: due to unspecified organism Qualified Code(s): J18.9 - Pneumonia, unspecified organism Code(s): J18.9 - Pneumonia, unspecified organism Status: Acute Assessment and Plan: Chest x-ray today again with diffuse lung disease. Continues to improve clinically. He was initially on IV ceftriaxone and azithromycin but switched to IV imipenem and vancomycin on 06/17/2019. Then switched to IV TMP/SMZ on 06/21/2019 per Infectious Disease - on Day #8/10 tentatively. 1st sputum culture on 06/13/2019 with yeast. 2nd sputum culture on 06/18/2019 with stenotrophomonas maltophilia resulting in current IV antibiotic. Bronchoscopy on 06/19 19 with growth of stenotrophomonas maltophilia and Patt albicans. COVID-19 testing through [facility] negative. Legionella pneumococcal antigens negative. Appreciate help from pulmonology and infectious disease. Will continue to monitor. (2) Acute respiratory failure: Qualifiers: Respiratory failure complication: hypoxia Qualified Code(s): J96.01 - Acute respiratory failure with hypoxia Code(s): J96.00 - Acute respiratory failure, unspecified whether with hypoxia or hypercapnia Status: Acute Assessment and Plan: Result of pneumonia and emphysema. Patient was intubated on 06/13/2019 with successful extubation on 06/24/2019. Continue respiratory treatments as noted above. Now down to 4 L oxygen by nasal cannula. Wean oxygen as tolerated. Continue to monitor. Adjust albuterol nebulizer to Xopenex. Continue ipratropium nebulizer treatments. (3) Edema of left lower extremity: Code(s): R60.0 - Localized edema Status: Acute Assessment and Plan: Left lower extremity noted to be larger than right lower extremity yesterday with some improvement today. Initial venous Dopplers negative for DVT. Repeat venous Dopplers of the lower extremities on 06/27/2019 also negative for DVT. Will continue to monitor. (4) Tachycardia: Code(s): R00.0 - Tachycardia, unspecified Status: Acute Assessment and Plan: D-dimer positive. No CTA chest done but initial venous Dopplers of the lower extremities negative for DVT. Appears to be result of infection. Telemetry reviewed on 06/28/2019 with sinus tachycardia with rate in 120s at times. He is on albuterol nebulizer treatments and will transition to Xopenex as may be aggravating issue. TSH is normal. Will discontinue telemetry and monitor clinically at this point. (5) Hypokalemia: Code(s): E87.6 - Hypokalemia Status: Acute Assessment and Plan: Potassium stable at 3.8 today. Will continue to monitor and replace as needed. (6) Rhabdomyolysis: Qualifiers: Rhabdomyolysis type: non-traumatic Qualified Code(s): M62.82 - Rhabdomyolysis Code(s): M62.82 - Rhabdomyolysis Status: Acute Assessment and Plan: Result of current illness and/or medications. Last creatine kinase down to 703. Not on IV fluids. Will monitor. (7) Melena: Code(s): K92.1 - Melena Status: Acute Assessment and Plan: Had 1 melanotic stool in the ER. Stool guaiac positive. Appreciate input from GI with plan for conservative approach. Hemoglobin stable at 8.4 today. Will continue to monitor. Continue Protonix. (8) Barretts esophagus: Qualifiers: Wooten's esophagus type: with dysplasia of unspecified degree Qualified Code(s): K22.719 - Wooten's esophagus with dysplasia, unspecified Code(s): K22.70 - Wooten's esophagus without dysplasia Status: Chronic Assessment and Plan: As noted on EGD dating back to 2011 but no follow-up. Appreciate help from GI as noted above. Continue Protonix b.i.d.. Hemoglobin as noted above. Plan for outpatient EGD. (9) COPD
--- NOTE | 2019-06-28 17:57 | PM.PNPUL ---
Progress Note: A&P Assessment and Plan (1) Acute respiratory failure: Qualifiers: Respiratory failure complication: hypoxia Qualified Code(s): J96.01 - Acute respiratory failure with hypoxia Code(s): J96.00 - Acute respiratory failure, unspecified whether with hypoxia or hypercapnia Status: Acute Assessment and Plan: Due to pneumonia and underlying COPD. Vented June 11-, down to 3 L/min. He is able to get into a chair, and will continue to improve his mobility. His CXR shows small increase in pulmonary effusions. (2) COPD with emphysema: Qualifiers: Emphysema type: unspecified Qualified Code(s): J43.9 - Emphysema, unspecified Code(s): J43.9 - Emphysema, unspecified Status: Chronic Assessment and Plan: Was not treated prior to admission. (3) Pneumonia: Qualifiers: Laterality: unspecified laterality Lung location: unspecified part of lung Pneumonia type: due to unspecified organism Qualified Code(s): J18.9 - Pneumonia, unspecified organism Code(s): J18.9 - Pneumonia, unspecified organism Status: Acute Assessment and Plan: Stenotrophomonas in sputum. Bactrim June 20, started per Dr Rios Infiltrates slightly better. Subjective Date/time seen: 06/28/19 17:57 Interval history: This 69 yo man is seen in follow up for pneumonia growing Stenotrophomonas, COPD and acute respiratory failure. Awake, O2 is down to 3 L/min, confused, told me his father today. Nurse said that was not true. The patient is playing with the [employer] box, thinks it is a remote control. He is not back to normal mentally. He is in a chair at the bedside. June 11-intubated June 18-bronchoscopy June 20- changed to Bactrim for Stenotrophomonas from BAL June 23 - extubated June 24 passed swallow study June 25 moved out of ICU; able to stand with 2 person assist. June 26 increased activity, up to a chair Other issues: Right renal mass needing CT scan with contrast after discharge; GERD; anemia; alcohol dependence. Was found unresponsive on the floor with rhabdomyolysis prior to admission. Review of Systems Review of Systems: All systems reviewed & are unremarkable except as noted in HPI and below ROS unobtainable: Yes unobtainable due to endotracheal tube Exam Narrative: Exam Narrative: Chronically ill appearing, thin. Const: General: comfortable and no acute distress Nutritional Appearance: thin Other: Alert, answers questions without difficulty. Does not make sense all the time, responsded with 'monkey' when I asked how he was feeling. HENMT: Face and sinus: normal facial exam Mouth: Yes moist mucous membranes Eyes: General: appearance normal, both eyes and all related structures Neck: Neck: no lymphadenopathy, supple and no JVD Chest: Chest palpation & inspection: normal inspection of the chest Resp: Effort & Inspection: normal respiratory effort and decreased respiratory effort Auscultation: diminished lung sounds Cardio: Rate: regular rate Rhythm: regular rhythm Heart sounds: S1 normal heart sound present and S2 normal heart sound present GI: Auscultation: normal bowel sounds Urinary Catheter: Urinary Catheter: patent and draining Skin: General skin exam: normal color Neuro: Speech: No normal speech Extrem: General: normal to inspection, no edema and no pedal edema Psych: Speech and movement: Clear speech present Other: generalized deconditioning Objective Data Vital Signs Vital Signs: Vital Signs - 24 hr 06/27/19 20:00 06/27/19 20:13 06/27/19 20:25 Temperature Pulse Rate 118 H 112 H 109 H Respiratory Rate 20 Blood Pressure Pulse Oximetry 93 06/27/19 22:00 06/28/19 00:00 06/28/19 01:53 Temperature 37.6 C H Pulse Rate 119 H 117 H 106 H Respiratory Rate 16 20 Blood Pressure 137/68 Pulse Oximetry 97 06/28/19 02:00 06/28/19 04:00 06/28/19 06:00 Temperature 37.6 C H Pulse Ra
[2019-06-28] MEDS: LEVALBUTEROL NEB 1.25 MG/3 ML 0.63 MG INHALATION (19:34)
[2019-06-29] VITALS (16 sets, daily range): BP systolic 104–190; BP diastolic 51–95; PULSE 88–117; RESP 22–26; TEMP 36.5–37.6; O2SAT 89–100
[2019-06-29] MEDS: GUAIFENESIN 200 MG/10 ML UDC PO ×4 (00:40→23:03)
[2019-06-29] MEDS: LEVALBUTEROL NEB 1.25 MG/3 ML 0.63 MG INHALATION ×4 (01:49→19:32)
[2019-06-29] MEDS: IPRATROPIUM BR 0.02% INH SOLN 0.5 MG/2.5 ML VIAL INHALATION ×4 (01:49→19:32)
[2019-06-29 05:00] LABS: Hematocrit 24.4 % (42.0-52.0); Hemoglobin 8.3 g/dL (14.0-18.0); Mean Corpuscular Hemoglobin 29.7 pg (26-34); Mean Corpuscular Volume 87.5 fl (80-100); Mean Platelet Volume 8.1 fl (7.4-10.4); Platelet Count Result 839 k/mm3 (150-375); Red Blood Count 2.79 M/mm3 (4.6-6.20); Red Cell Distribution Width 14.5 % (11.5-14.5); White Blood Count 9.3 K/mm3 (4.5-10.0)
[2019-06-29 05:11] LABS: Blood Urea Nitrogen 10 mg/dL (9-20); Carbon Dioxide 22 mmol/L (22-30); Chloride 94 mmol/L (98-107); Estimated CRCL calculation 65 ml/min; Estimated Glomerular Filt Rate > 60; Glucose 87 mg/dL (75-110); Magnesium 1.8 mg/dL (1.6-2.3); Sodium 127 mmol/L (137-145)
[2019-06-29] MEDS: PANTOPRAZOLE SODIUM IV 40 MG VIAL IV PUSH ×2 (08:50→20:16)
[2019-06-29] MEDS: LIDOCAINE 5% PATCH 1 PATCH TRANSDERM (08:51)
[2019-06-29] MEDS: NICOTINE (*PBKC) 21 MG PATCH 1 PATCH TRANSDERM (08:52)
--- NOTE | 2019-06-29 10:49 | PM.IMPN ---
Progress Note: A&P Assessment and Plan (1) Unresponsive episode: Code(s): R41.89 - Other symptoms and signs involving cognitive functions and awareness Status: Acute Assessment and Plan: Questionable etiology. Does not appear to be seizure at this point but possibility of stroke or aspiration present. Portable chest x-ray already done and personally reviewed with improvement compared to last xray. CT brain without contrast ordered and in process being done. Restart telemetry. May need MRI brain if CT negative. May also need repeat swallow study with current events. Did have bedside swallow on 06/25/2019 with recommendation for soft & bite sized food. Continue to monitor closely. CT brain with left chronic basal ganglia lacunar infarcts, no acute intracranial significant abnormality, greater than expected cerebral atrophy for age and bilateral mastoid effusions. MRI brain ordered and attempted but could not be completed as patient unable to keep head still. I returned to see patient mid afternoon. Patient now more awake and saying a few words. Indicates he does remember not feeling well this morning but unable to elaborate when asked further questions. Will continue to monitor for now. Updated son, Ervin, by phone this evening. Total time spent in critical care is 40 minutes. (2) Pneumonia: Qualifiers: Laterality: unspecified laterality Lung location: unspecified part of lung Pneumonia type: due to unspecified organism Qualified Code(s): J18.9 - Pneumonia, unspecified organism Code(s): J18.9 - Pneumonia, unspecified organism Status: Acute Assessment and Plan: Chest x-ray today as noted above. 1st sputum culture on 06/13/2019 with yeast. 2nd sputum culture on 06/18/2019 with stenotrophomonas maltophilia resulting in current IV antibiotic. Bronchoscopy on 06/19 19 with growth of stenotrophomonas maltophilia and Patt albicans. COVID-19 testing through [facility] negative. Legionella pneumococcal antigens negative. Appreciate help from pulmonology and infectious disease. He was initially on IV ceftriaxone and azithromycin but switched to IV imipenem and vancomycin on 06/17/2019. Then switched to IV TMP/SMZ on 06/21/2019 per Infectious Disease - on Day #9/10 tentatively. Will continue to monitor. (3) Acute respiratory failure: Qualifiers: Respiratory failure complication: hypoxia Qualified Code(s): J96.01 - Acute respiratory failure with hypoxia Code(s): J96.00 - Acute respiratory failure, unspecified whether with hypoxia or hypercapnia Status: Acute Assessment and Plan: Result of pneumonia and emphysema. Patient was intubated on 06/13/2019 with successful extubation on 06/24/2019. Continue respiratory treatments as noted above. Despite issues this morning, remains on 4 L oxygen with O2 saturation greater than 90%. Continue Xopenex and ipratropium nebulizer treatments. Will monitor with other issues. (4) Tachycardia: Code(s): R00.0 - Tachycardia, unspecified Status: Acute Assessment and Plan: D-dimer positive. No CTA chest done but initial venous and repeat Dopplers of the lower extremities negative for DVT. Appears to be result of infection. Telemetry have been discontinued on 06/28/2019 with persistent sinus tachycardia but no other issues. Restarting tachycardia today given unresponsive episode. Still in sinus rhythm with heart rate in the 110s presently. Transition to Xopenex nebulizers from albuterol yesterday. TSH normal. Continue to monitor. (5) Edema of left lower extremity: Code(s): R60.0 - Localized edema Status: Acute Assessment and Plan: Left lower extremity noted to be larger than right lower extremity yesterday with some improvement today. Initial venous Dopplers negative for DVT. Repeat venous Dopplers of the lower extremities on 06/27/2019 also negative for DVT. Edema now centrally resolved. W
--- NOTE | 2019-06-29 11:51 | PCPTNOTE ---
Pt performed LE exercises and bed mobility with assist, however transfers were not performed today due to change in patients medical status. Patient began breathing loudly and not responding to vedrbal or tactile stimulation when I returned to patient's room from getting linens for neftaly. RN called to room and physician notified. Vital signs taken by RN. PT held for today.
--- NOTE | 2019-06-29 12:46 | WPDINFPN2 ---
Progress Note: A&P Assessment and Plan (1) Hospital-acquired bacterial pneumonia: Code(s): J15.9 - Unspecified bacterial pneumonia Status: Acute Assessment and Plan: 1. Stenotrophomonas HCAP, improved status. Improving CXR, other than small effusions. I doubt empyema. WBC back to normal 2. Respiratory failure, incompletely compensated, but O2 need is improved 3. COPD 4. Alcohol to excess 5. Tobacco 6. Thrombocytosis 7. Decr LOC, not directly related to his pneumonia nor the antibiotic REC TMP-SMX #9 / 10 days. Discussed Subjective Date/time seen: 06/29/19 12:46 Interval history: events noted Exam Narrative: Exam Narrative: afebrile. Cachectic as before, no resp distress. confused, not dysarthric Const: General: no acute distress Eyes: General: appearance normal, both eyes and all related structures Neck: Neck: supple Resp: Effort & Inspection: normal respiratory effort Auscultation: clear to auscultation bilaterally and diminished lung sounds Cardio: Rate: tachycardic Rhythm: regular rhythm Heart sounds: no murmurs GI: Inspection: non-distended GI Palp: Yes Soft to palpation and No Tenderness to palpation present (GI) Objective Data Vital Signs Vital Signs: Vital Signs - 24 hr 06/28/19 14:00 06/28/19 14:38 06/28/19 14:45 Temperature 37.2 C Pulse Rate 114 H 102 H 103 H Respiratory Rate 22 H 20 20 Blood Pressure 149/52 H Pulse Oximetry 19 L 06/28/19 16:00 06/28/19 19:35 06/28/19 19:37 Temperature Pulse Rate 112 H 101 H Respiratory Rate 22 H Blood Pressure Pulse Oximetry 92 06/28/19 19:40 06/28/19 20:00 06/29/19 00:53 Temperature 37.5 C 37.6 C Pulse Rate 104 H 113 H 110 H Respiratory Rate 22 H 22 H 22 H Blood Pressure 132/73 138/81 Pulse Oximetry 93 94 06/29/19 01:50 06/29/19 01:59 06/29/19 04:00 Temperature 37.1 C Pulse Rate 112 H 94 109 H Respiratory Rate 24 H 24 H 22 H Blood Pressure 127/51 L Pulse Oximetry 100 06/29/19 07:45 06/29/19 07:54 06/29/19 10:20 Temperature Pulse Rate 88 94 117 H Respiratory Rate 24 H 24 H Blood Pressure 190/95 H Pulse Oximetry 90 93 Intake/Output Intake/Output: Intake & Output 06/26/19 06/27/19 06/28/19 06/29/19 23:59 23:59 23:59 23:59 Intake Total 1460 1870 1760 570 Output Total 1850 2750 1200 Balance -390 -880 560 570 Meds/Results Medications: Active Medications Generic Name Dose Route Start Last Admin Trade Name Freq PRN Reason Stop Dose Admin Acetaminophen 650 mg 06/23/19 12:51 06/23/19 16:31 Tylenol Elixir PO 650 mg Q6H PRN Administration Fever > 100.4 Folic Acid 1 mg 06/12/19 09:00 06/28/19 08:37 Folic Acid PO 1 mg DAILY CANDI Administration Guaifenesin 200 mg 06/19/19 08:00 06/29/19 12:36 Guaifenesin Liq PO Not Given Q6HR CANDI Trimethoprim/Sulfamethoxazole 260 mls @ 260 mls/hr 06/21/19 18:00 06/29/19 07:49 10 ml/ Dextrose IVPB Infused Q6HR CANDI Infusion Ipratropium [place] 0.5 mg 06/18/19 08:00 06/29/19 07:53 Atrovent Neb INHALATION 0.5 mg Q6HRT CANDI Administration Levalbuterol HCl 0.63 mg 06/28/19 20:00 06/29/19 07:53 Xopenex 1.25 Mg/3 Ml INHALATION 0.63 mg Q6HRT CANDI Administration Lidocaine 1 patch 06/12/19 10:00 06/29/19 08:51 Lidoderm TRANSDERM 1 patch DAILY CANDI Administration Multi-Ingred Cream/Lotion/Oil/Oint 1 applic 06/13/19 09:00 06/29/19 08:51 Lubrifresh Pm Eye Ointment EACH EYE 1 applic Q12HR CANDI Administration Nicotine 1 patch 06/11/19 23:10 06/29/19 08:52 Nicoderm Cq 21 Mg TRANSDERM 1 patch QAM CANDI Administration Pantoprazole Sodium 40 mg 06/12/19 09:00 06/29/19 08:50 Protonix Iv IV PUSH 40 mg Q12HR CANDI Administration Polyethylene Glycol 17 gm 06/16/19 14:12 06/28/19 08:36 Miralax PO 17 gm QAM CANDI Administration Thiamine HCl 100 mg 06/12/19 09:00 06/28/19 08:39 Vitamin B-1 PO 100 mg QAM CANDI Administration
--- NOTE | 2019-06-29 14:00 | PCDIET ---
Nutrition Follow-Up Complete: Inadequate energy intake related to decreased appetite as evidenced by BMI of 17.7 Meet estimated nutritional needs Goal:Goal not met. Continue current goal. Pt current nutrition is Soft and Bite Sized Level 6. Nutrition recommendation: Agree Last recorded weight is 60.5 kg (down from 71kg four days ago, question accuracy) Bowel Motility: Labs Reviewed:Na 127 Meds Noted:Miralax, Thiamin, Folic Acid Additional Notes: RN note on pt pocketing food. BLOCK [employer]ATOR made aware. PO intake poor with average of 30% over the last five meals. Thrive added BID to help meet pt needs. Thrive provides 9 grams of protein, 24 vitamins and minerals, 6grams of fiber, and 270 kcal per serving. Recommend assistance with feeding to help achieve adequate intake. We will continue to monitor PO intake and wt every three days.
[2019-06-29] MEDS: FOLIC ACID 1 MG TABLET PO (14:20)
[2019-06-29] MEDS: THIAMINE HCL 100 MG TABLET PO (14:20)
[2019-06-29] MEDS: polyethylene glycoL 3350 17 GM POWD.PACK PO (14:20)
--- NOTE | 2019-06-29 16:52 | PM.PNPUL ---
Progress Note: A&P Assessment and Plan (1) Acute respiratory failure: Qualifiers: Respiratory failure complication: hypoxia Qualified Code(s): J96.01 - Acute respiratory failure with hypoxia Code(s): J96.00 - Acute respiratory failure, unspecified whether with hypoxia or hypercapnia Status: Acute Assessment and Plan: Due to pneumonia and underlying COPD. Vented June 11-, down to 3 L/min. He is able to get into a chair, and will continue to improve his mobility. His CXR shows improvement in infiltrates and effusions. (2) COPD with emphysema: Qualifiers: Emphysema type: unspecified Qualified Code(s): J43.9 - Emphysema, unspecified Code(s): J43.9 - Emphysema, unspecified Status: Chronic Assessment and Plan: Was not treated prior to admission. (3) Pneumonia: Qualifiers: Laterality: unspecified laterality Lung location: unspecified part of lung Pneumonia type: due to unspecified organism Qualified Code(s): J18.9 - Pneumonia, unspecified organism Code(s): J18.9 - Pneumonia, unspecified organism Status: Acute Assessment and Plan: Stenotrophomonas in sputum. Bactrim June 20, started per Dr Rios, 10 day total Infiltrates slightly better. Subjective Date/time seen: 06/29/19 16:52 Interval history: This 69 yo man had an episode of unresponsiveness while having PT before noon, had a stat head CT. He seemed to improve in 10 minutes, unclear what the precipitating event was. His CXR is better. He is alert, not speaking much; one word answers. O2 need is still low, 3 L/min. June 11-intubated June 18-bronchoscopy June 20- changed to Bactrim for Stenotrophomonas from BAL June 23 - extubated June 24 passed swallow study June 25 moved out of ICU; able to stand with 2 person assist. June 26 increased activity, up to a chair Other issues: Right renal mass needing CT scan with contrast after discharge; GERD; anemia; alcohol dependence. Was found unresponsive on the floor with rhabdomyolysis prior to admission. Review of Systems Review of Systems: All systems reviewed & are unremarkable except as noted in HPI and below Exam Narrative: Exam Narrative: Chronically ill appearing, thin. Const: General: comfortable and no acute distress Nutritional Appearance: thin HENMT: Face and sinus: normal facial exam Mouth: Yes moist mucous membranes Eyes: General: appearance normal, both eyes and all related structures Neck: Neck: no lymphadenopathy, supple and no JVD Chest: Chest palpation & inspection: normal inspection of the chest Resp: Effort & Inspection: normal respiratory effort and decreased respiratory effort Auscultation: diminished lung sounds Cardio: Rate: regular rate Rhythm: regular rhythm Heart sounds: S1 normal heart sound present and S2 normal heart sound present GI: Auscultation: normal bowel sounds Skin: General skin exam: normal color Extrem: General: no edema and no pedal edema Psych: Other: generalized deconditioning Objective Data Vital Signs Vital Signs: Vital Signs - 24 hr 06/28/19 19:35 06/28/19 19:37 06/28/19 19:40 Temperature Pulse Rate 101 H 104 H Respiratory Rate 22 H 22 H Blood Pressure Pulse Oximetry 92 06/28/19 20:00 06/29/19 00:53 06/29/19 01:50 Temperature 37.5 C 37.6 C Pulse Rate 113 H 110 H 112 H Respiratory Rate 22 H 22 H 24 H Blood Pressure 132/73 138/81 Pulse Oximetry 93 94 06/29/19 01:59 06/29/19 04:00 06/29/19 07:45 Temperature 37.1 C Pulse Rate 94 109 H 88 Respiratory Rate 24 H 22 H 24 H Blood Pressure 127/51 L Pulse Oximetry 100 06/29/19 07:54 06/29/19 10:20 06/29/19 12:00 Temperature Pulse Rate 94 117 H 115 H Respiratory Rate 24 H Blood Pressure 190/95 H Pulse Oximetry 90 93 06/29/19 14:00 06/29/19 14:19 Temperature 36.5 C Pulse Rate 100 101 H Respiratory Rate 26 H 24 H Blood Pressure 142/76 H Pul
[2019-06-30] VITALS (22 sets, daily range): BP systolic 114–182; BP diastolic 51–83; PULSE 91–120; RESP 12–24; TEMP 36.4–36.8; O2SAT 89–96
--- NOTE | 2019-06-30 01:03 | ECG_ITS ---
Measurements Intervals [place] Rate: 118 P: 71 [place]: 157 QRS: 44 QRSD: 75 T: 63 QT: 315 QTc: 441 Interpretive Statements SINUS TACHYCARDIA CHANGES TO ATRIAL TACHYCARDIA EARLY PRECORDIAL R/S TRANSITION ABNORMAL ECG Electronically Signed On 06-30-2019 8:54:26 CDT by Nicko Capps D.O.
--- NOTE | 2019-06-30 01:03 | PM.EVENT ---
Event Note Event Note Event Note: Rapid Response Note Called to bedside via Rapid response. Nursing staff found the patient seizing with tonic clonic movement of his upper extremities. On my arrival to bedside the patient has stopped seizing but does appear to be hyperventilating. He is postictal and poorly responsive. Vital signs were stable and ABG was obtained and within normal limits. Bedside glucose was normal. Routine labs and EKG was obtained. CT brain was obtained and was unremarkable. On return from radiology, the patient appears to now be more responsive and at his baseline. He is now answering my questions appropriately. PRN ativan for any further seizures. Seizure precautions. Neurology consult in am. I will reassess the patient as needed overnight.
[2019-06-30 01:04] LABS: Alveolar/Arterial O2 Gradient 150.5 mmHg; Base Excess ABG -10.2 mEq/l (+/-2.0); Carboxyhemoglobin 0.3 % THb (0-2.0); Fractional Inspired Oxygen 36 %; Methemoglobin ABG 0.6 %THb (0-1.5); Oxygen Content ABG 12.6 %vol (16.0-22.0); PCO2 ABG 25.9 mmHg (35.0-45.0); PO2 ABG 76.1 mmHg (80.0-100.0); PO2 FiO2 Ratio Arterial Blood 2.11 %; Reduced Hemoglobin 7.1 %THb (0-5.0); Total Hemoglobin 9.7 g/dL (12.0-18.0); pH ABG 7.352 (7.350-7.450)
[2019-06-30 01:05] LABS: Device NASAL CANNULA; Modified Allen's Test Pass; Site Drawn LEFT RADIAL
--- NOTE | 2019-06-30 01:08 | PC.NURSE ---
0055 found patient with whole body jerking, hands clenched. Eyes fixed up at the ceiling with loud snoring respirations. He is diaphoretic. Called a rapid response.
[2019-06-30 01:18] LABS: Basophils Absolute Auto 0.2 K/mm3 (0.0-0.1); Basophils Percent Auto 1.4 % (0.2-1.2); Eosinophils Absolute Auto 0.3 K/mm3 (0-0.3); Eosinophils Percent Auto 2.5 % (0-4.4); Hematocrit 26.1 % (42.0-52.0); Hemoglobin 8.6 g/dL (14.0-18.0); Immature Granulocyte Absolute 0.06 K/mm3 (0.00-0.031); Immature Granulocyte Percent A 0.5 % (0-0.5); Lymphocytes Absolute Auto 3.69 K/mm3 (0.9-3.2); Lymphocytes Percent Auto 33.5 % (18.3-44.2); Mean Corpuscular Hemoglobin 29.7 pg (26-34); Mean Platelet Volume 8.5 fl (7.4-10.4); Monocytes Absolute Auto 1.7 K/mm3 (0.1-0.6); Monocytes Percent Auto 15.3 % (2.6-8.5); Neutrophils Absolute Auto 5.1 K/mm3 (1.3-6.7); Neutrophils Percent Auto 46.8 % (45.5-73.1); Platelet Count Result 818 k/mm3 (150-375); Red Cell Distribution Width 14.9 % (11.5-14.5)
[2019-06-30 01:27] LABS: Glucose Point of Care 117 (65-105)
[2019-06-30 01:48] LABS: Troponin I < 0.012 ng/mL (0.000-0.034)
[2019-06-30 01:59] LABS: Alanine Aminotransferase 35 U/L (4-50); Albumin Level 3.3 g/dL (3.5-5.1); Alkaline Phosphatase 76 U/L (38-126); Aspartate Amino Transferase 52 U/L (17-59); Bilirubin,Total 0.4 mg/dL (0.2-1.3); Blood Urea Nitrogen 7 mg/dL (9-20); Calcium 8.6 mg/dL (8.4-10.2); Carbon Dioxide 16 mmol/L (22-30); Chloride 94 mmol/L (98-107); Estimated CRCL calculation 58 ml/min; Estimated Glomerular Filt Rate > 60; Glucose 109 mg/dL (75-110); Magnesium 1.9 mg/dL (1.6-2.3); Phosphorus 3.8 mg/dL (2.5-4.5); Sodium 126 mmol/L (137-145)
[2019-06-30] MEDS: IPRATROPIUM BR 0.02% INH SOLN 0.5 MG/2.5 ML VIAL INHALATION ×4 (02:20→19:29)
[2019-06-30] MEDS: LEVALBUTEROL NEB 1.25 MG/3 ML 0.63 MG INHALATION ×4 (02:20→19:29)
[2019-06-30 04:21] LABS: Reflex Lactic Acid Yes or No Add Lactic
[2019-06-30] MEDS: SODIUM CHLORIDE 0.9% IV 500 ML IV CONT (04:36)
[2019-06-30 04:55] LABS: Hematocrit 24.2 % (42.0-52.0); Hemoglobin 8.1 g/dL (14.0-18.0); Mean Corpuscular HGB Conc 33.5 g/dl (32-36); Mean Corpuscular Hemoglobin 29.9 pg (26-34); Mean Corpuscular Volume 89.3 fl (80-100); Mean Platelet Volume 8.4 fl (7.4-10.4); Platelet Count Result 800 k/mm3 (150-375); Red Blood Count 2.71 M/mm3 (4.6-6.20); White Blood Count 9.7 K/mm3 (4.5-10.0)
[2019-06-30 05:09] LABS: Lactic Acid 0.8 mmol/L (0.7-2.1)
[2019-06-30 05:10] LABS: Alanine Aminotransferase 32 U/L (4-50); Albumin Level 3.1 g/dL (3.5-5.1); Alkaline Phosphatase 74 U/L (38-126); Aspartate Amino Transferase 52 U/L (17-59); Bilirubin,Total 0.4 mg/dL (0.2-1.3); Blood Urea Nitrogen 8 mg/dL (9-20); Calcium 8.4 mg/dL (8.4-10.2); Carbon Dioxide 21 mmol/L (22-30); Chloride 94 mmol/L (98-107); Estimated CRCL calculation 58 ml/min; Estimated Glomerular Filt Rate > 60; Glucose 82 mg/dL (75-110); Magnesium 1.8 mg/dL (1.6-2.3); Sodium 126 mmol/L (137-145)
[2019-06-30] MEDS: GUAIFENESIN 200 MG/10 ML UDC PO ×2 (05:44→16:41)
--- NOTE | 2019-06-30 07:28 | PC.NURSE ---
Called patient's son Ervin to let him know we called a rapid response over night and what our plan of care entailed. Let him know Suspects patient had a seizure. Explained plan of care he voiced understanding with no complaints.
--- NOTE | 2019-06-30 08:19 | PM.IMPN ---
Progress Note: A&P Assessment and Plan (1) Seizure: Code(s): R56.9 - Unspecified convulsions Status: Acute Assessment and Plan: Witnessed seizure overnight. Resolved without medication. IV lorazepam available as needed. Neurology consulted and aware of patient. CT scan without contrast of the brain times to in past 24 hours with no acute changes but chronic old lacunar infarct of left basal ganglia seen along with age related findings. Will re-attempt to get MRI brain/brainstem with without contrast this morning. Does have IV lorazepam available if needed for further seizure activity while awaiting Neurology consultation. Telemetry reviewed on 06/30/2019 with sinus rhythm with heart rate currently around 100 but will increase to 120s at times. Patient also with noted elevated platelet levels. Consider hematology consultation pending MRI results. Will continue to monitor closely. (2) Unresponsive episode: Code(s): R41.89 - Other symptoms and signs involving cognitive functions and awareness Status: Acute Assessment and Plan: Unresponsive episode of questionable etiology yesterday morning. Still concern for this being related to CVA and/or seizure. Now with documented seizure as noted above. Plan for MRI brain today as long as patient is able to tolerate. Await neurology consultation. Able to speak today although not as clear as previous. Did have previous bedside swallow on 06/25/2019 with recommendation for soft and bite sized food. May need to consider repeat swallow study depending on his course. (3) Thrombocythemia: Code(s): D47.3 - Essential (hemorrhagic) thrombocythemia Status: Acute Assessment and Plan: In review of platelets over his hospital stay, platelet count was normal until 06/18/2019 at which time platelet count did rise been decreased to 582,000 on 06/25/2019. Increased to maximum of 978,000 on 06/27/2019 but now down to 800,000. Possibly all related to acute issues. May need to consider hematology consultation given other current neurological events. Not on pharmacologic VTE prophylaxis due to melena on presentation and anemia. (4) Pneumonia: Qualifiers: Pneumonia type: due to unspecified organism Laterality: unspecified laterality Lung location: unspecified part of lung Qualified Code(s): J18.9 - Pneumonia, unspecified organism Code(s): J18.9 - Pneumonia, unspecified organism Status: Acute Assessment and Plan: Appreciate help from pulmonology and Infectious Disease. 1st sputum culture on 06/13/2019 with yeast. 2nd sputum culture on 06/18/2019 with stenotrophomonas maltophilia resulting in current IV antibiotic. Bronchoscopy on 06/19 19 with growth of stenotrophomonas maltophilia and Patt albicans. COVID-19 testing through [facility] negative. Legionella pneumococcal antigens negative. Appreciate help from pulmonology and infectious disease. He was initially on IV ceftriaxone and azithromycin but switched to IV imipenem and vancomycin on 06/17/2019. Finally switched to IV TMP/SMZ on 06/21/2019 per Infectious Disease - on Day #10/. Chest x-ray done early this morning with seizure with slight worsening of airspace disease on the right side. Will continue to monitor. (5) Acute respiratory failure: Qualifiers: Respiratory failure complication: hypoxia Qualified Code(s): J96.01 - Acute respiratory failure with hypoxia Code(s): J96.00 - Acute respiratory failure, unspecified whether with hypoxia or hypercapnia Status: Acute Assessment and Plan: Result of pneumonia and emphysema. Patient was intubated on 06/13/2019 with successful extubation on 06/24/2019. Continue respiratory treatments as noted above. Have not worsened with other events. Remains on 3-4 L oxygen. Continue Xopenex and ipratropium nebulizer treatments. Will monitor with other issues. (6) Tachycardia: Code(s): R00.0 - [place]
[2019-06-30] MEDS: LIDOCAINE 5% PATCH 1 PATCH TRANSDERM (08:55)
[2019-06-30] MEDS: PANTOPRAZOLE SODIUM IV 40 MG VIAL IV PUSH ×2 (08:56→20:08)
[2019-06-30] MEDS: NICOTINE (*PBKC) 21 MG PATCH 1 PATCH TRANSDERM (08:56)
[2019-06-30] MEDS: LORAZEPAM INJ 2 MG/ML VIAL 1 MG IV PUSH ×2 (11:01→12:37)
--- NOTE | 2019-06-30 11:48 | CONS_ITS ---
DATE OF CONSULTATION: 06/12/2019 HISTORY OF PRESENT ILLNESS: A 69-year-old has been admitted to [facility] for the complaints of low back pain in addition to the history of: 1. Alcoholism. 2. GERD. 3. Wooten's esophagus. 4. Peptic ulcer disease. 5. COPD. 6. DVT in addition to the history of dementia with depression, osteoporosis, peripheral neuropathy, history of IVC filter and tobacco abuse. Neurology consultation has been obtained because the patient had a seizure. CT scan of the brain was done 2 times in past 24 hours with no acute changes, but showing lacunar infarct of left basal ganglia along with the age-related finding. MRI of the brain without contrast will be done today. IV lorazepam was available, though it was not given. Other symptomatology includes the cognitive dysfunction in addition to the history of thrombocytopenia and complicated medical course for which different physicians have been involved throughout his hospitalization stay. PHYSICAL EXAMINATION: GENERAL: Today, he is awake, alert, try to follow the verbal commands, though somewhat slower in responses, obviously very emaciated, disheveled and not in acute distress. HEENT: Normocephalic with no meningeal signs. NECK: No lymphadenopathy. HEART: Regular. LUNGS: With rhonchi and crackles. ABDOMEN: Soft. Normal bowel sounds. NEUROLOGICAL: He is awake, alert, tries to follow the instruction fairly well. Speech is of low volume, tries to follow and answer. Pupils round, regular. King of vision grossly full to threat stimuli. Extraocular movements full with no nystagmus. Facial asymmetry is absent. Tongue midline. Uvula midline. Motor examination revealed him to be emaciated with decreased strength, very sluggish reflexes, in addition to the sluggish reflexes and downgoing plantar responses. Considering the complicated history as outlined above, the seizures are likely related to multiple problem, but MRI will be obtained to rule out the possibly underlying tumor. In the meantime, if the seizure recur, he can be treated with Keppra IV. GUERO VERMA M.D. BAKER HEAD BAKER HEAD D I MT: [place]
--- NOTE | 2019-06-30 13:45 | PC.NURSE ---
Pt had 2mg of ativan and is sleeping, arousable to painful stimuli. Vitals stable. Unable to administer PO medications at this time due to patients mental status. Will continue to monitor and attempt PO medications.
[2019-06-30] MEDS: SODIUM CHLORIDE 500 MG TABLET PO (16:41)
[2019-07-01] VITALS (19 sets, daily range): BP systolic 105–123; BP diastolic 64–69; PULSE 102–113; RESP 19–22; TEMP 36.8–36.9; O2SAT 89–99
[2019-07-01] MEDS: GUAIFENESIN 200 MG/10 ML UDC PO ×4 (00:12→17:40)
[2019-07-01] MEDS: LEVALBUTEROL NEB 1.25 MG/3 ML 0.63 MG INHALATION ×4 (01:15→20:35)
[2019-07-01] MEDS: IPRATROPIUM BR 0.02% INH SOLN 0.5 MG/2.5 ML VIAL INHALATION ×4 (01:15→20:36)
[2019-07-01 05:38] LABS: Hematocrit 25.1 % (42.0-52.0); Hemoglobin 8.2 g/dL (14.0-18.0); Mean Corpuscular HGB Conc 32.7 g/dl (32-36); Mean Corpuscular Hemoglobin 29.3 pg (26-34); Mean Corpuscular Volume 89.6 fl (80-100); Mean Platelet Volume 8.3 fl (7.4-10.4); Platelet Count Result 725 k/mm3 (150-375); Red Cell Distribution Width 15.2 % (11.5-14.5); White Blood Count 12.7 K/mm3 (4.5-10.0)
[2019-07-01 06:10] LABS: Albumin Level 3.1 g/dL (3.5-5.1); Blood Urea Nitrogen 6 mg/dL (9-20); Calcium 8.5 mg/dL (8.4-10.2); Carbon Dioxide 22 mmol/L (22-30); Chloride 96 mmol/L (98-107); Estimated CRCL calculation 65 ml/min; Estimated Glomerular Filt Rate > 60; Glucose 72 mg/dL (75-110); Phosphorus 3.9 mg/dL (2.5-4.5); Potassium 3.9 mmol/L (3.4-5.0); Sodium 129 mmol/L (137-145)
[2019-07-01] MEDS: SODIUM CHLORIDE 500 MG TABLET PO ×2 (08:57→17:40)
[2019-07-01] MEDS: polyethylene glycoL 3350 17 GM POWD.PACK PO (08:57)
[2019-07-01] MEDS: LIDOCAINE 5% PATCH 1 PATCH TRANSDERM (08:58)
[2019-07-01] MEDS: THIAMINE HCL 100 MG TABLET PO (08:58)
[2019-07-01] MEDS: PANTOPRAZOLE SODIUM IV 40 MG VIAL IV PUSH ×2 (08:58→21:46)
[2019-07-01] MEDS: FOLIC ACID 1 MG TABLET PO (08:58)
[2019-07-01] MEDS: NICOTINE (*PBKC) 21 MG PATCH 1 PATCH TRANSDERM (08:58)
--- NOTE | 2019-07-01 09:54 | WPDINFPN2 ---
Progress Note: A&P Assessment and Plan (1) Hospital-acquired bacterial pneumonia: Code(s): J15.9 - Unspecified bacterial pneumonia Status: Acute Assessment and Plan: 1. Stenotrophomonas HCAP, improved status. 2. Respiratory failure 3. COPD 4. Alcohol to excess 5. Tobacco 6. Thrombocytosis 7. Decr LOC, seizure REC off TMP-SMX and following (10 days Rx) Subjective Date/time seen: 07/01/19 09:54 Interval history: offers no complaints, up in chair Exam Narrative: Exam Narrative: afebrile Const: Other: cachectic Resp: Effort & Inspection: normal respiratory effort Auscultation: clear to auscultation bilaterally Objective Data Vital Signs Vital Signs: Vital Signs - 24 hr 06/30/19 12:00 06/30/19 13:45 06/30/19 14:00 Temperature 36.4 C Pulse Rate 105 H 105 H 98 Respiratory Rate 12 20 Blood Pressure 114/51 L 118/67 Pulse Oximetry 95 95 06/30/19 14:04 06/30/19 14:20 06/30/19 16:00 Temperature Pulse Rate 96 98 102 H Respiratory Rate 20 20 Blood Pressure Pulse Oximetry 06/30/19 19:30 06/30/19 19:37 06/30/19 20:00 Temperature Pulse Rate 92 91 101 H Respiratory Rate 20 20 Blood Pressure Pulse Oximetry 06/30/19 22:00 06/30/19 23:20 07/01/19 00:00 Temperature 36.6 C Pulse Rate 101 H 104 H 107 H Respiratory Rate 18 Blood Pressure 116/69 Pulse Oximetry 96 94 07/01/19 01:15 07/01/19 01:24 07/01/19 04:00 Temperature Pulse Rate 108 H 102 H 103 H Respiratory Rate 20 20 Blood Pressure Pulse Oximetry 07/01/19 06:00 07/01/19 07:52 07/01/19 07:53 Temperature 36.8 C Pulse Rate 102 H 104 H Respiratory Rate 20 20 Blood Pressure 123/64 Pulse Oximetry 98 90 07/01/19 07:59 07/01/19 08:00 Temperature Pulse Rate 109 H 103 H Respiratory Rate 20 Blood Pressure Pulse Oximetry Intake/Output Intake/Output: Intake & Output 06/28/19 06/29/19 06/30/19 07/01/19 23:59 23:59 23:59 23:59 Intake Total 1760 1115 1590 100 Output Total 1200 100 Balance 560 1115 1590 0 Meds/Results Medications: Active Medications Generic Name Dose Route Start Last Admin Trade Name Freq PRN Reason Stop Dose Admin Acetaminophen 650 mg 06/23/19 12:51 06/23/19 16:31 Tylenol Elixir PO 650 mg Q6H PRN Administration Fever > 100.4 Folic Acid 1 mg 06/12/19 09:00 07/01/19 08:58 Folic Acid PO 1 mg DAILY CANDI Administration Guaifenesin 200 mg 06/19/19 08:00 07/01/19 05:56 Guaifenesin Liq PO 200 mg Q6HR CANDI Administration Ipratropium [place] 0.5 mg 06/18/19 08:00 07/01/19 07:50 Atrovent Neb INHALATION 0.5 mg Q6HRT CANDI Administration Levalbuterol HCl 0.63 mg 06/28/19 20:00 07/01/19 07:50 Xopenex 1.25 Mg/3 Ml INHALATION 0.63 mg Q6HRT CANDI Administration Lidocaine 1 patch 06/12/19 10:00 07/01/19 08:58 Lidoderm TRANSDERM 1 patch DAILY CANDI Administration Lorazepam 2 mg 06/30/19 01:56 Ativan Inj IV PUSH PRN PRN Seizures Multi-Ingred Cream/Lotion/Oil/Oint 1 applic 06/13/19 09:00 07/01/19 08:57 Lubrifresh Pm Eye Ointment EACH EYE 1 applic Q12HR CANDI Administration Nicotine 1 patch 06/11/19 23:10 07/01/19 08:58 Nicoderm Cq 21 Mg TRANSDERM 1 patch QAM CANDI Administration Pantoprazole Sodium 40 mg 06/12/19 09:00 07/01/19 08:58 Protonix Iv IV PUSH 40 mg Q12HR CANDI Administration Polyethylene Glycol 17 gm 06/16/19 14:12 07/01/19 08:57 Miralax PO 17 gm QAM CANDI Administration Sodium Chloride 500 mg 06/30/19 09:00 07/01/19 08:57 Sodium Chloride PO 500 mg BID CANDI Administration Thiamine HCl 100 mg 06/12/19 09:00 07/01/19 08:58 Vitamin B-1 PO 100 mg QAM CANDI Administration Radiology Results: ITS Impressions Chest CT 06/11/19 16:11 IMPRESSION: 1. 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 2: 2.6 cm e
--- NOTE | 2019-07-01 12:06 | PM.IMPN ---
Progress Note: A&P Assessment and Plan (1) Seizure: Code(s): R56.9 - Unspecified convulsions Status: Acute Assessment and Plan: Witnessed seizure chest after midnight on 06/30/2019. Resolved without medication. IV lorazepam available as needed but has not been used. Neurology consulted and appreciate input. 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 Attempted to get MRI brain twice but patient was unable to keep his head down. Head CTA performed late last night with no large vessel occlusion. Discussed with neurology today. Will continue to monitor for now. Will only start Keppra if has another seizure. Telemetry reviewed on 06/30/2019 with sinus tachycardia but heart rate in the low 100s. I did speak with patient's son, Ervin, last evening and updated that that time. I attempted to call today but had to leave message. Continue PT/OT. Plan for discharge to [place] when ready for discharge. (2) Unresponsive episode: Code(s): R41.89 - Other symptoms and signs involving cognitive functions and awareness Status: Acute Assessment and Plan: Unresponsive episode of questionable etiology on 06/29/2019. Brain imaging as noted above. Appreciate help from Neurology. Bedside swallow on 06/25/2019 with recommendation for soft and bite sized food. MBS on 06/30/2019 with no aspiration seen but recommendation for thin liquids and pureed food given unresponsive episode. Will continue to monitor. (3) Thrombocythemia: Code(s): D47.3 - Essential (hemorrhagic) thrombocythemia Status: Acute Assessment and Plan: In review of platelets over his hospital stay, platelet count was normal until 06/18/2019 at which time platelet count did rise been decreased to 582,000 on 06/25/2019. Increased to maximum of 978,000 on 06/27/2019. Continues to decrease down to 725,000 today. May still need hematology consultation at some point but will hold off at this time. Continue to follow. Not on pharmacologic DVT prophylaxis due to melena on presentation as well as anemia. (4) Pneumonia: Qualifiers: Laterality: unspecified laterality Lung location: unspecified part of lung Pneumonia type: due to unspecified organism Qualified Code(s): J18.9 - Pneumonia, unspecified organism Code(s): J18.9 - Pneumonia, unspecified organism Status: Acute Assessment and Plan: Appreciate help from pulmonology and Infectious Disease. 1st sputum culture on 06/13/2019 with yeast. 2nd sputum culture on 06/18/2019 with stenotrophomonas maltophilia resulting in current IV antibiotic. Bronchoscopy on 06/19 19 with growth of stenotrophomonas maltophilia and Patt albicans. COVID-19 testing through [facility] negative. Legionella pneumococcal antigens negative. He was initially on IV ceftriaxone and azithromycin but switched to IV imipenem and vancomycin on 06/17/2019. Finally switched to IV TMP/SMZ on 06/21/2019 per Infectious Disease and completed 10 day course on 06/30/2019. Improved at this point as confirmed on most recent chest x-ray. Continue to monitor off antibiotics. (5) Acute respiratory failure: Qualifiers: Respiratory failure complication: hypoxia Qualified Code(s): J96.01 - Acute respiratory failure with hypoxia Code(s): J96.00 - Acute respiratory failure, unspecified whether with hypoxia or hypercapnia Status: Acute Assessment and Plan: Result of pneumonia and emphysema. Patient was intubated on 06/13/2019 with successful extubation on 06/24/2019. Continue respiratory treatments as noted above. Oxygen needs never increased with unresponsive episode and seizure. Has now weaned down to 2 L oxygen today. Continue Xopenex and ipratropium nebulizer treatments. Will monitor with other issues. (6) Tachycardia: Code(s): R00.0 - Tachyca
[2019-07-02] VITALS (16 sets, daily range): BP systolic 109–142; BP diastolic 65–78; PULSE 88–121; RESP 16–22; TEMP 36.3–36.8; O2SAT 88–98
[2019-07-02] MEDS: LEVALBUTEROL NEB 1.25 MG/3 ML 0.63 MG INHALATION ×4 (02:58→19:50)
[2019-07-02] MEDS: IPRATROPIUM BR 0.02% INH SOLN 0.5 MG/2.5 ML VIAL INHALATION ×4 (02:59→19:50)
[2019-07-02 05:35] LABS: Hematocrit 24.4 % (42.0-52.0); Hemoglobin 8.4 g/dL (14.0-18.0); Mean Corpuscular HGB Conc 34.4 g/dl (32-36); Mean Corpuscular Hemoglobin 30.4 pg (26-34); Mean Corpuscular Volume 88.4 fl (80-100); Mean Platelet Volume 8.2 fl (7.4-10.4); Platelet Count Result 662 k/mm3 (150-375); Red Blood Count 2.76 M/mm3 (4.6-6.20); Red Cell Distribution Width 15.6 % (11.5-14.5); White Blood Count 7.1 K/mm3 (4.5-10.0)
[2019-07-02 05:48] LABS: Potassium 3.4 mmol/L (3.4-5.0)
[2019-07-02 06:14] LABS: Blood Urea Nitrogen 5 mg/dL (9-20); Calcium 8.3 mg/dL (8.4-10.2); Carbon Dioxide 22 mmol/L (22-30); Chloride 97 mmol/L (98-107); Estimated CRCL calculation 65 ml/min; Estimated Glomerular Filt Rate > 60; Glucose 80 mg/dL (75-110); Magnesium 1.8 mg/dL (1.6-2.3); Sodium 130 mmol/L (137-145)
[2019-07-02] MEDS: GUAIFENESIN 200 MG/10 ML UDC PO ×2 (06:30→11:46)
[2019-07-02] MEDS: PANTOPRAZOLE SODIUM IV 40 MG VIAL IV PUSH (08:34)
[2019-07-02] MEDS: NICOTINE (*PBKC) 21 MG PATCH 1 PATCH TRANSDERM (08:34)
[2019-07-02] MEDS: FOLIC ACID 1 MG TABLET PO (08:34)
[2019-07-02] MEDS: THIAMINE HCL 100 MG TABLET PO (08:35)
[2019-07-02] MEDS: SODIUM CHLORIDE 500 MG TABLET PO ×2 (08:35→17:53)
[2019-07-02] MEDS: polyethylene glycoL 3350 17 GM POWD.PACK PO (08:36)
[2019-07-02] MEDS: POTASSIUM CHLORIDE 20 MEQ TABLET 40 MEQ PO (09:56)
[2019-07-02] MEDS: PANTOPRAZOLE 40 MG TABLET PO (09:56)
--- NOTE | 2019-07-02 14:14 | WPDPN ---
Progress Note: A&P Assessment and Plan (1) Pneumonia: Qualifiers: Pneumonia type: due to unspecified organism Laterality: unspecified laterality Lung location: unspecified part of lung Qualified Code(s): J18.9 - Pneumonia, unspecified organism Code(s): J18.9 - Pneumonia, unspecified organism Status: Acute Assessment and Plan: IMP HCAP, clinically resolved REC Off antibiotics and stable, will sign off Exam Narrative: Exam Narrative: afebrile Const: General: no acute distress Resp: Effort & Inspection: normal respiratory effort Auscultation: clear to auscultation bilaterally and diminished lung sounds Objective Data Vital Signs Vital Signs: Vital Signs - 24 hr 07/01/19 14:44 07/01/19 14:53 07/01/19 16:00 Temperature Pulse Rate 104 H 106 H 109 H Respiratory Rate 20 20 Blood Pressure Pulse Oximetry 07/01/19 20:00 07/01/19 20:36 07/01/19 20:41 Temperature 36.8 C Pulse Rate 110 H 102 H Respiratory Rate 22 H 20 Blood Pressure 108/69 Pulse Oximetry 99 89 L 07/01/19 20:43 07/02/19 00:00 07/02/19 02:59 Temperature Pulse Rate 103 H 93 100 Respiratory Rate 20 20 Blood Pressure Pulse Oximetry 07/02/19 03:09 07/02/19 04:00 07/02/19 05:59 Temperature 36.4 C Pulse Rate 102 H 96 111 H Respiratory Rate 20 22 H Blood Pressure 142/78 H Pulse Oximetry 91 07/02/19 09:00 07/02/19 09:03 07/02/19 09:09 Temperature Pulse Rate 91 96 97 Respiratory Rate 18 Blood Pressure Pulse Oximetry 88 L 07/02/19 12:00 07/02/19 13:26 Temperature Pulse Rate 107 H 88 Respiratory Rate 16 Blood Pressure Pulse Oximetry Intake/Output Intake/Output: Intake & Output 06/29/19 06/30/19 07/01/19 07/02/19 23:59 23:59 23:59 23:59 Intake Total 1115 1590 910 120 Output Total 100 Balance 1115 1590 810 120 Meds/Results Medications: Active Medications Generic Name Dose Route Start Last Admin Trade Name Freq PRN Reason Stop Dose Admin Acetaminophen 650 mg 06/23/19 12:51 06/23/19 16:31 Tylenol Elixir PO 650 mg Q6H PRN Administration Fever > 100.4 Folic Acid 1 mg 06/12/19 09:00 07/02/19 08:34 Folic Acid PO 1 mg DAILY CANDI Administration Guaifenesin 200 mg 06/19/19 08:00 07/02/19 11:46 Guaifenesin Liq PO 200 mg Q6HR CANDI Administration Ipratropium [place] 0.5 mg 06/18/19 08:00 07/02/19 13:25 Atrovent Neb INHALATION 0.5 mg Q6HRT CANDI Administration Levalbuterol HCl 0.63 mg 06/28/19 20:00 07/02/19 13:25 Xopenex 1.25 Mg/3 Ml INHALATION 0.63 mg Q6HRT CANDI Administration Lidocaine 1 patch 06/12/19 10:00 07/02/19 08:35 Lidoderm TRANSDERM Not Given DAILY CANDI Lorazepam 2 mg 06/30/19 01:56 Ativan Inj IV PUSH PRN PRN Seizures Multi-Ingred Cream/Lotion/Oil/Oint 1 applic 06/13/19 09:00 07/02/19 08:34 Lubrifresh Pm Eye Ointment EACH EYE 1 applic Q12HR CANDI Administration Nicotine 1 patch 06/11/19 23:10 07/02/19 08:34 Nicoderm Cq 21 Mg TRANSDERM 1 patch QAM CANDI Administration Pantoprazole Sodium 40 mg 07/02/19 09:00 07/02/19 09:56 Protonix PO 40 mg QAM CANDI Administration Polyethylene Glycol 17 gm 07/01/19 12:55 07/02/19 08:36 Miralax PO 17 gm QAM PRN Administration Constipation Sodium Chloride 500 mg 06/30/19 09:00 07/02/19 08:35 Sodium Chloride PO 500 mg BID CANDI Administration Thiamine HCl 100 mg 06/12/19 09:00 07/02/19 08:35 Vitamin B-1 PO 100 mg QAM CANDI Administration Radiology Results: ITS Impressions Chest CT 06/11/19 16:11 IMPRESSION: 1. 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 2: 2.6 cm exophytic right renal mass, concerning for renal cell carcinoma. Recommend consultation. 3: Moderate size hiatal hernia with fluid throughout the esophagus, consistent with reflux. Norm
--- NOTE | 2019-07-02 14:19 | PCDIET ---
Nutrition Follow-Up Complete: Inadequate energy intake related to decreased appetite as evidenced by BMI of 17.7 Meet estimated nutritional needs Goal:Progressing towards goal. Continue with current goal. Pt current nutrition is Puree/Regular +Thrive BID. Nutrition recommendation: Agree Last recorded weight is 60.5 kg (wt up from admit of 57.6kg) Bowel Motility:No BM noted Labs Reviewed:Hgb 8.4, Hct 24.4, Alb 3.1, Na 130, Glucose 72 Meds Noted:Protonix, Thiamin, Folic Acid, Miralax Additional Notes: Pt on puree diet after unresponsive episode. Witness seizure on 06/29. MBS on 06/29 showed no aspiration. Pt eating approximately 45% average of meals. Wt up from admit wt. pt with hiatal hernia and Wooten's esophagus. Thrive offered BID to help meet needs. We will continue to monior wt, labs, and PO intake every five days.
--- NOTE | 2019-07-02 15:02 | PM.PNPUL ---
Progress Note: A&P Assessment and Plan (1) COPD with emphysema: Qualifiers: Emphysema type: unspecified Qualified Code(s): J43.9 - Emphysema, unspecified Code(s): J43.9 - Emphysema, unspecified Status: Chronic Assessment and Plan: Stable, d/c Levabuterol and Ipratropium and start Spiriva 18 mcg 1 puff daily or Respimat 2.5 mcg 2 puffs daily when ready to discharge. Subjective Date/time seen: 07/02/19 15:02 Interval history: Interval history: This 69 yo man had an episode of unresponsiveness while having PT before noon, had a stat head CT. He seemed to improve in 10 minutes, unclear what the precipitating event was. His CXR is better. He is alert, not speaking much; one word answers. O2 need is still low, 3 L/min. June 11-intubated June 18-bronchoscopy June 20- changed to Bactrim for Stenotrophomonas from BAL June 23 - extubated June 24 passed swallow study June 25 moved out of ICU; able to stand with 2 person assist. June 26 increased activity, up to a chair Other issues: Right renal mass needing CT scan with contrast after discharge; GERD; anemia; alcohol dependence. Was found unresponsive on the floor with rhabdomyolysis prior to admission. Review of Systems Review of Systems: All systems reviewed & are unremarkable except as noted in HPI and below Exam Const: General: comfortable and no acute distress Neck: Neck: supple and no JVD Resp: Auscultation: clear to auscultation bilaterally, no crackles, no rales, no rhonchi, no wheezes and diminished lung sounds Cardio: Rate: regular rate Rhythm: regular rhythm GI: Auscultation: normal bowel sounds Skin: General skin exam: normal color Extrem: General: normal to inspection, no edema and no pedal edema Objective Data Vital Signs Vital Signs: Vital Signs - 24 hr 07/01/19 16:00 07/01/19 20:00 07/01/19 20:36 Temperature 36.8 C Pulse Rate 109 H 110 H 102 H Respiratory Rate 22 H 20 Blood Pressure 108/69 Pulse Oximetry 99 07/01/19 20:41 07/01/19 20:43 07/02/19 00:00 Temperature Pulse Rate 103 H 93 Respiratory Rate 20 Blood Pressure Pulse Oximetry 89 L 07/02/19 02:59 07/02/19 03:09 07/02/19 04:00 Temperature Pulse Rate 100 102 H 96 Respiratory Rate 20 20 Blood Pressure Pulse Oximetry 07/02/19 05:59 07/02/19 09:00 07/02/19 09:03 Temperature 36.4 C Pulse Rate 111 H 91 96 Respiratory Rate 22 H Blood Pressure 142/78 H Pulse Oximetry 91 88 L 07/02/19 09:09 07/02/19 12:00 07/02/19 13:26 Temperature Pulse Rate 97 107 H 88 Respiratory Rate 18 16 Blood Pressure Pulse Oximetry Intake/Output Intake/Output: Intake & Output 06/29/19 06/30/19 07/01/19 07/02/19 23:59 23:59 23:59 23:59 Intake Total 1115 1590 910 120 Output Total 100 Balance 1115 1590 810 120 Meds/Results Medications: Active Medications Generic Name Dose Route Start Last Admin Trade Name Freq PRN Reason Stop Dose Admin Acetaminophen 650 mg 06/23/19 12:51 06/23/19 16:31 Tylenol Elixir PO 650 mg Q6H PRN Administration Fever > 100.4 Folic Acid 1 mg 06/12/19 09:00 07/02/19 08:34 Folic Acid PO 1 mg DAILY CANDI Administration Guaifenesin 200 mg 06/19/19 08:00 07/02/19 11:46 Guaifenesin Liq PO 200 mg Q6HR CANDI Administration Ipratropium [place] 0.5 mg 06/18/19 08:00 07/02/19 13:25 Atrovent Neb INHALATION 0.5 mg Q6HRT CANDI Administration Levalbuterol HCl 0.63 mg 06/28/19 20:00 07/02/19 13:25 Xopenex 1.25 Mg/3 Ml INHALATION 0.63 mg Q6HRT CANDI Administration Lidocaine 1 patch 06/12/19 10:00 07/02/19 08:35 Lidoderm TRANSDERM Not Given DAILY CANDI Lorazepam 2 mg 06/30/19 01:56 Ativan Inj IV PUSH PRN PRN Seizures Multi-Ingred Cream/Lotion/Oil/Oint 1 applic 06/13/19 09:00 07/02/19 08:34 Lubrifresh Pm Eye Ointment EACH EYE 1 applic Q12HR CANDI Administration Nicotine 1 patch
--- NOTE | 2019-07-02 15:09 | P.DS_ITS ---
DS: Diagnosis Admitting Diagnosis Admitting Diagnosis: Melena DS: Summary Time Spent with Patient Time attestation: Total time spent providing and/or coordinating discharge services: DS: Data Data Completed and Pending Labs on day of discharge: Labs from last 24 hours 07/02/19 07/02/19 05:08 05:08 WBC 7.1 RBC 2.76 L Hgb 8.4 L Hct 24.4 L MCV 88.4 MCH 30.4 MCHC 34.4 RDW 15.6 H Plt Count 662 H MPV 8.2 Sodium 130 L Potassium 3.4 Chloride 97 L Carbon Dioxide 22 BUN 5 L Creatinine 0.80 Estim Creat Clear Calc 65 Estimated GFR > 60 Glucose 80 Calcium 8.3 L Magnesium 1.8 Preliminary micro results at discharge 06/19/19 13:29 Fungal Culture - Preliminary Bronchial Alveo Lavage Right Lower Lobe Patt albicans 06/19/19 13:29 Acid Fast Bacilli Culture - Preliminary Bronchial Alveo Lavage Right Lower Lobe Discharge Plan Discharge Attending physician on discharge: Julianne Thorpe Consulting providers: Armando Carreno ; Efrain Lucia ; Ciara Villanueva ; Casper Thomson Discharging Clinician: Julianne Thorpe Patient Disposition: [facility] Discharge Instructions: patient to follow up with his primary care provider as soon as possible. Patient Instructions: Antibiotic Form, How to Stop Smoking (DC) Stand Alone Forms: General Discharge Information Discharge Medications: New folic acid 1 mg Tablet 1 mg PO DAILY Qty: 30 RF: 0 Lubrifresh PM 83-15 % Ointment 1 applic LEFTEYE Q12HR Qty: 10 RF: 0 ipratropium bromide 0.02 % Solution 0.5 mg inhalation Q6HRT Qty: 30 RF: 0 guaifenesin 100 mg/5 mL Liquid 200 mg PO Q6HR Qty: 100 RF: 0 acetaminophen [Nortemp] 160 mg/5 mL Suspension 650 mg PO Q6H PRN (Reason: Fever > 100.4) Qty: 100 RF: 0 levalbuterol HCl 1.25 mg/3 mL Solution For Nebulization 0.63 mg inhalation Q6HRT Qty: 36 RF: 0 polyethylene glycol 3350 [Miralax] 17 gram Powder In Packet 17 g PO QAM PRN (Reason: Constipation) Qty: 30 RF: 0 pantoprazole 40 mg Tablet,Delayed Release (Dr/Ec) 40 mg PO QAM Qty: 30 RF: 0 sodium chloride 1 gram tablet 500 mg PO BID Qty: 30 RF: 0 thiamine HCl (vitamin B1) [Vitamin B-1] 100 mg Tablet 100 mg PO QAM Qty: 30 RF: 0 nicotine [Nicoderm CQ] 21 mg/24 hr Patch 24 Hour 1 patch transdermal QAM Qty: 30 RF: 0 lidocaine [Lidoderm] 5 % Adhesive Patch,Medicated 1 patch transdermal DAILY Qty: 15 RF: 0 sodium chloride 1 gram tablet 500 mg PO BID Qty: 30 RF: 0 No Action No Home Medications RF: 0 Date of admission: 06/12/19 09:11 Primary Care Provider: Joe Angel Admitting Provider: Julianne Thorpe Attending physician on admission: Kevin Morejon Condition: Guarded Prognosis Quality VTE Prophylaxis VTE prophylaxis: mechanical ordered
--- NOTE | 2019-07-02 18:10 | PC.NURSE ---
Attempted to call report to [facility] for the third time. Spoke with Mikayla, she states unable to take report at this time due to no bed available . ED Change Management Analyst notified.
[2019-07-03] VITALS (12 sets, daily range): BP systolic 118–137; BP diastolic 52–81; PULSE 92–110; RESP 16–20; TEMP 36.2–37.3; O2SAT 93–95
[2019-07-03] MEDS: LEVALBUTEROL NEB 1.25 MG/3 ML 0.63 MG INHALATION ×4 (02:17→20:39)
[2019-07-03] MEDS: IPRATROPIUM BR 0.02% INH SOLN 0.5 MG/2.5 ML VIAL INHALATION ×4 (02:17→20:32)
[2019-07-03] MEDS: GUAIFENESIN 200 MG/10 ML UDC PO (03:06)
[2019-07-03] MEDS: LIDOCAINE 5% PATCH 1 PATCH TRANSDERM (08:52)
[2019-07-03] MEDS: NICOTINE (*PBKC) 21 MG PATCH 1 PATCH TRANSDERM (08:52)
[2019-07-03] MEDS: FOLIC ACID 1 MG TABLET PO (08:52)
[2019-07-03] MEDS: SODIUM CHLORIDE 500 MG TABLET PO ×2 (08:53→16:10)
[2019-07-03] MEDS: PANTOPRAZOLE 40 MG TABLET PO (08:53)
[2019-07-03] MEDS: THIAMINE HCL 100 MG TABLET PO (08:53)
--- NOTE | 2019-07-03 15:53 | PM.IMPN ---
Progress Note: A&P Assessment and Plan (1) Seizure: Code(s): R56.9 - Unspecified convulsions Status: Acute Assessment and Plan: Witnessed seizure chest after midnight on 06/30/2019. Resolved without medication. IV lorazepam available as needed but has not been used. Neurology consulted and appreciate input. 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 Attempted to get MRI brain twice but patient was unable to keep his head down. Head CTA performed late last night with no large vessel occlusion. Discussed with neurology today. Will continue to monitor for now. Will only start Keppra if has another seizure. Telemetry reviewed on 06/30/2019 with sinus tachycardia but heart rate in the low 100s. I did speak with patient's son, Ervin, last evening and updated that that time. I attempted to call today but had to leave message. Continue PT/OT. Plan for discharge to [place] when ready for discharge. 07/02/19 Patient is 69-year-old male with history of COPD he was admitted with pneumonia healthcare [facility], has completed her 10 days of IV antibiotic had been doing better was seen by Dr. Rios, as well as [place], patient being clinically stable denies any complaint of cough shortness of breath obese, denies any seizures while in the hospital, [facility] due to logistic issue patient was not able to transfer. (2) Unresponsive episode: Code(s): R41.89 - Other symptoms and signs involving cognitive functions and awareness Status: Acute Assessment and Plan: Unresponsive episode of questionable etiology on 06/29/2019. Brain imaging as noted above. Appreciate help from Neurology. Bedside swallow on 06/25/2019 with recommendation for soft and bite sized food. MBS on 06/30/2019 with no aspiration seen but recommendation for thin liquids and pureed food given unresponsive episode. Will continue to monitor. (3) Thrombocythemia: Code(s): D47.3 - Essential (hemorrhagic) thrombocythemia Status: Acute Assessment and Plan: In review of platelets over his hospital stay, platelet count was normal until 06/18/2019 at which time platelet count did rise been decreased to 582,000 on 06/25/2019. Increased to maximum of 978,000 on 06/27/2019. Continues to decrease down to 662,000 today. May still need hematology consultation at some point but will hold off at this time. Continue to follow. Not on pharmacologic DVT prophylaxis due to melena on presentation as well as anemia. (4) Pneumonia: Qualifiers: Pneumonia type: due to unspecified organism Laterality: unspecified laterality Lung location: unspecified part of lung Qualified Code(s): J18.9 - Pneumonia, unspecified organism Code(s): J18.9 - Pneumonia, unspecified organism Status: Acute Assessment and Plan: Appreciate help from pulmonology and Infectious Disease. 1st sputum culture on 06/13/2019 with yeast. 2nd sputum culture on 06/18/2019 with stenotrophomonas maltophilia resulting in current IV antibiotic. Bronchoscopy on 06/19 19 with growth of stenotrophomonas maltophilia and Patt albicans. COVID-19 testing through [facility] negative. Legionella pneumococcal antigens negative. He was initially on IV ceftriaxone and azithromycin but switched to IV imipenem and vancomycin on 06/17/2019. Finally switched to IV TMP/SMZ on 06/21/2019 per Infectious Disease and completed 10 day course on 06/30/2019. Improved at this point as confirmed on most recent chest x-ray. Continue to monitor off antibiotics. (5) Acute respiratory failure: Qualifiers: Respiratory failure complication: hypoxia Qualified Code(s): J96.01 - Acute respiratory failure with hypoxia Code(s): J96.00 - Acute respiratory failure, unspecified whether with hypoxia
--- NOTE | 2019-07-03 16:18 | PM.IMPN ---
Progress Note: A&P Assessment and Plan (1) Seizure: Code(s): R56.9 - Unspecified convulsions Status: Acute Assessment and Plan: Witnessed seizure chest after midnight on 06/30/2019. Resolved without medication. IV lorazepam available as needed but has not been used. Neurology consulted and appreciate input. 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 Attempted to get MRI brain twice but patient was unable to keep his head down. Head CTA performed late last night with no large vessel occlusion. Discussed with neurology today. Will continue to monitor for now. Will only start Keppra if has another seizure. Telemetry reviewed on 06/30/2019 with sinus tachycardia but heart rate in the low 100s. I did speak with patient's son, Ervin, last evening and updated that that time. I attempted to call today but had to leave message. Continue PT/OT. Plan for discharge to [place] when ready for discharge. 07/03/19 16:18 Patient is 69-year-old male with history of COPD he was admitted with [facility], has completed her 10 days of IV antibiotic had been doing better was seen by Dr. Rios, as well as safety professional, patient being clinically stable denies any complaint of cough shortness of breath obese, denies any seizures while in the hospital, was to discharge the patient to group home on July 01, due to logistic issue patient was not able to transfer. Plan was to transfer the patient today however group home is requesting the patient be COVID-19 negative before transferring the patient, patient is clinically stable does not have any complaint, no cough fever or chills, no seizure while in the hospital awaiting COVID-19 test results (2) Unresponsive episode: Code(s): R41.89 - Other symptoms and signs involving cognitive functions and awareness Status: Acute Assessment and Plan: Unresponsive episode of questionable etiology on 06/29/2019. Brain imaging as noted above. Appreciate help from Neurology. Bedside swallow on 06/25/2019 with recommendation for soft and bite sized food. MBS on 06/30/2019 with no aspiration seen but recommendation for thin liquids and pureed food given unresponsive episode. Will continue to monitor. (3) Thrombocythemia: Code(s): D47.3 - Essential (hemorrhagic) thrombocythemia Status: Acute Assessment and Plan: In review of platelets over his hospital stay, platelet count was normal until 06/18/2019 at which time platelet count did rise been decreased to 582,000 on 06/25/2019. Increased to maximum of 978,000 on 06/27/2019. Continues to decrease down to 662,000 today. May still need hematology consultation at some point but will hold off at this time. Continue to follow. Not on pharmacologic DVT prophylaxis due to melena on presentation as well as anemia. (4) Pneumonia: Qualifiers: Pneumonia type: due to unspecified organism Laterality: unspecified laterality Lung location: unspecified part of lung Qualified Code(s): J18.9 - Pneumonia, unspecified organism Code(s): J18.9 - Pneumonia, unspecified organism Status: Acute Assessment and Plan: Appreciate help from pulmonology and Infectious Disease. 1st sputum culture on 06/13/2019 with yeast. 2nd sputum culture on 06/18/2019 with stenotrophomonas maltophilia resulting in current IV antibiotic. Bronchoscopy on 06/19 19 with growth of stenotrophomonas maltophilia and Patt albicans. COVID-19 testing through [facility] negative. Legionella pneumococcal antigens negative. He was initially on IV ceftriaxone and azithromycin but switched to IV imipenem and vancomycin on 06/17/2019. Finally switched to IV TMP/SMZ on 06/21/2019 per Infectious Disease and completed 10 day course on 06/30/2019. Improved at this point as confirmed on most recent chest x-ray
[2019-07-04] VITALS (12 sets, daily range): BP systolic 95–138; BP diastolic 48–77; PULSE 92–104; RESP 16–20; TEMP 36.4–36.8; O2SAT 90–98
[2019-07-04] MEDS: IPRATROPIUM BR 0.02% INH SOLN 0.5 MG/2.5 ML VIAL INHALATION ×4 (02:07→20:20)
[2019-07-04] MEDS: LEVALBUTEROL NEB 1.25 MG/3 ML 0.63 MG INHALATION ×4 (02:07→20:20)
[2019-07-04] MEDS: GUAIFENESIN 200 MG/10 ML UDC PO (06:38)
[2019-07-04] MEDS: THIAMINE HCL 100 MG TABLET PO (09:53)
[2019-07-04] MEDS: PANTOPRAZOLE 40 MG TABLET PO (09:53)
[2019-07-04] MEDS: LIDOCAINE 5% PATCH 1 PATCH TRANSDERM (09:53)
[2019-07-04] MEDS: SODIUM CHLORIDE 500 MG TABLET PO ×2 (09:53→17:20)
[2019-07-04] MEDS: FOLIC ACID 1 MG TABLET PO (09:53)
[2019-07-04] MEDS: NICOTINE (*PBKC) 21 MG PATCH 1 PATCH TRANSDERM (09:54)
--- NOTE | 2019-07-04 13:21 | PM.IMPN ---
Progress Note: A&P Assessment and Plan (1) Seizure: Code(s): R56.9 - Unspecified convulsions Status: Acute Assessment and Plan: Witnessed seizure chest after midnight on 06/30/2019. Resolved without medication. IV lorazepam available as needed but has not been used. Neurology consulted and appreciate input. 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 Attempted to get MRI brain twice but patient was unable to keep his head down. Head CTA performed late last night with no large vessel occlusion. Discussed with neurology today. Will continue to monitor for now. Will only start Keppra if has another seizure. Telemetry reviewed on 06/30/2019 with sinus tachycardia but heart rate in the low 100s. I did speak with patient's son, Ervin, last evening and updated that that time. I attempted to call today but had to leave message. Continue PT/OT. Plan for discharge to [place] when ready for discharge. Patient is 69-year-old male with history of COPD he was admitted with [facility], has completed her 10 days of IV antibiotic had been doing better was seen by Dr. 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 Plan was to transfer the patient today however [facility] is requesting the patient be COVID-19 negative before transferring the patient, patient is clinically stable does not have any complaint, no cough fever or chills, no seizure while in the hospital awaiting COVID-19 test results (2) Unresponsive episode: Code(s): R41.89 - Other symptoms and signs involving cognitive functions and awareness Status: Acute Assessment and Plan: Unresponsive episode of questionable etiology on 06/29/2019. Brain imaging as noted above. Appreciate help from Neurology. Bedside swallow on 06/25/2019 with recommendation for soft and bite sized food. MBS on 06/30/2019 with no aspiration seen but recommendation for thin liquids and pureed food given unresponsive episode. Will continue to monitor. (3) Thrombocythemia: Code(s): D47.3 - Essential (hemorrhagic) thrombocythemia Status: Acute Assessment and Plan: In review of platelets over his hospital stay, platelet count was normal until 06/18/2019 at which time platelet count did rise been decreased to 582,000 on 06/25/2019. Increased to maximum of 978,000 on 06/27/2019. Continues to decrease down to 662,000 today. May still need hematology consultation at some point but will hold off at this time. Continue to follow. Not on pharmacologic DVT prophylaxis due to melena on presentation as well as anemia. (4) Pneumonia: Qualifiers: Laterality: unspecified laterality Lung location: unspecified part of lung Pneumonia type: due to unspecified organism Qualified Code(s): J18.9 - Pneumonia, unspecified organism Code(s): J18.9 - Pneumonia, unspecified organism Status: Acute Assessment and Plan: Appreciate help from pulmonology and Infectious Disease. 1st sputum culture on 06/13/2019 with yeast. 2nd sputum culture on 06/18/2019 with stenotrophomonas maltophilia resulting in current IV antibiotic. Bronchoscopy on 06/19 19 with growth of stenotrophomonas maltophilia and Patt albicans. COVID-19 testing through [facility] negative. Legionella pneumococcal antigens negative. He was initially on IV ceftriaxone and azithromycin but switched to IV imipenem and vancomycin on 06/17/2019. Finally switched to IV TMP/SMZ on 06/21/2019 per Infectious Disease and completed 10 day course on 06/30/2019. Improved at this point as confirmed on most recent chest x-ray. Continue to
[2019-07-05] VITALS (11 sets, daily range): BP systolic 122–140; BP diastolic 69–94; PULSE 87–105; RESP 18–20; TEMP 36.1–36.3; O2SAT 94–96
[2019-07-05] MEDS: LEVALBUTEROL NEB 1.25 MG/3 ML 0.63 MG INHALATION ×4 (01:40→19:59)
[2019-07-05] MEDS: IPRATROPIUM BR 0.02% INH SOLN 0.5 MG/2.5 ML VIAL INHALATION ×4 (01:40→19:59)
[2019-07-05] MEDS: SODIUM CHLORIDE 500 MG TABLET PO ×2 (09:29→17:40)
[2019-07-05] MEDS: THIAMINE HCL 100 MG TABLET PO (09:29)
[2019-07-05] MEDS: PANTOPRAZOLE 40 MG TABLET PO (09:29)
[2019-07-05] MEDS: LIDOCAINE 5% PATCH 1 PATCH TRANSDERM (09:30)
[2019-07-05] MEDS: NICOTINE (*PBKC) 21 MG PATCH 1 PATCH TRANSDERM (09:30)
[2019-07-05] MEDS: FOLIC ACID 1 MG TABLET PO (09:30)
--- NOTE | 2019-07-05 12:19 | PM.IMPN ---
Progress Note: A&P Assessment and Plan (1) Seizure: Code(s): R56.9 - Unspecified convulsions Status: Acute Assessment and Plan: Witnessed seizure chest after midnight on 06/30/2019. Resolved without medication. IV lorazepam available as needed but has not been used. Neurology consulted and appreciate input. 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 Attempted to get MRI brain twice but patient was unable to keep his head down. Head CTA performed late last night with no large vessel occlusion. Discussed with neurology today. Will continue to monitor for now. Will only start Keppra if has another seizure. Telemetry reviewed on 06/30/2019 with sinus tachycardia but heart rate in the low 100s. I did speak with patient's son, Ervin, last evening and updated that that time. I attempted to call today but had to leave message. Continue PT/OT. Plan for discharge to [place] when ready for discharge. 07/05/19 12:19 Patient is 69-year-old male with history of COPD he was admitted with [facility], has completed his 10 days of IV antibiotic had been doing better was seen by Dr. Rios, as well as [employer], patient being clinically stable denies any complaint of cough shortness of breath obese, denies any seizures while in the hospital, was to discharge the patient to [facility] on July 01, due to logistic issue patient was not able to be transferred. Plan was to transfer the patient on 07/01 however [facility] is requesting the patient be tested for COVID-19 must be negative before transferring the patient, patient is clinically stable does not have any complaint, no cough fever or chills, no seizure while in the hospital awaiting COVID-19 test results (2) Unresponsive episode: Code(s): R41.89 - Other symptoms and signs involving cognitive functions and awareness Status: Acute Assessment and Plan: Unresponsive episode of questionable etiology on 06/29/2019. Brain imaging as noted above. Appreciate help from Neurology. Bedside swallow on 06/25/2019 with recommendation for soft and bite sized food. MBS on 06/30/2019 with no aspiration seen but recommendation for thin liquids and pureed food given unresponsive episode. Will continue to monitor. (3) Thrombocythemia: Code(s): D47.3 - Essential (hemorrhagic) thrombocythemia Status: Acute Assessment and Plan: In review of platelets over his hospital stay, platelet count was normal until 06/18/2019 at which time platelet count did rise been decreased to 582,000 on 06/25/2019. Increased to maximum of 978,000 on 06/27/2019. Continues to decrease down to 662,000 today. May still need hematology consultation at some point but will hold off at this time. Continue to follow. Not on pharmacologic DVT prophylaxis due to melena on presentation as well as anemia. (4) Pneumonia: Qualifiers: Pneumonia type: due to unspecified organism Laterality: unspecified laterality Lung location: unspecified part of lung Qualified Code(s): J18.9 - Pneumonia, unspecified organism Code(s): J18.9 - Pneumonia, unspecified organism Status: Acute Assessment and Plan: Appreciate help from pulmonology and Infectious Disease. 1st sputum culture on 06/13/2019 with yeast. 2nd sputum culture on 06/18/2019 with stenotrophomonas maltophilia resulting in current IV antibiotic. Bronchoscopy on 06/19 19 with growth of stenotrophomonas maltophilia and Patt albicans. COVID-19 testing through [facility] negative. Legionella pneumococcal antigens negative. He was initially on IV ceftriaxone and azithromycin but switched to IV imipenem and vancomycin on 06/17/2019. Finally switched to IV TMP/SMZ on 06/21/2019 per Infectious Disease and completed 10 day course on 06/30/2019. Improved at this point as confir
--- NOTE | 2019-07-05 13:03 | PM.PNPUL ---
Progress Note: A&P Assessment and Plan (1) COPD with emphysema: Qualifiers: Emphysema type: unspecified Qualified Code(s): J43.9 - Emphysema, unspecified Code(s): J43.9 - Emphysema, unspecified Status: Chronic Assessment and Plan: Stable, d/c Levabuterol and Ipratropium and start Spiriva 18 mcg 1 puff daily or Respimat 2.5 mcg 2 puffs daily when ready to discharge. Time Spent With Patient Time with patient: 15 - 25 minutes Subjective Date/time seen: 07/05/19 13:03 Interval history: Doing well. Has no complaints. Awaiting discharge to rehab facility Review of Systems Review of Systems: All systems reviewed & are unremarkable except as noted in HPI and below Exam Const: General: comfortable and no acute distress Neck: Neck: supple and no JVD Resp: Auscultation: clear to auscultation bilaterally, no crackles, no rales, no rhonchi, no wheezes and diminished lung sounds Cardio: Rate: regular rate Rhythm: regular rhythm GI: Auscultation: normal bowel sounds Skin: General skin exam: normal color Extrem: General: normal to inspection, no edema and no pedal edema Objective Data Vital Signs Vital Signs: Vital Signs - 24 hr 07/04/19 14:00 07/04/19 14:10 07/04/19 20:22 Temperature 36.8 C Pulse Rate 104 H 98 Respiratory Rate 18 20 Blood Pressure 138/77 Pulse Oximetry 97 96 07/04/19 20:23 07/04/19 20:37 07/04/19 22:00 Temperature 36.4 C Pulse Rate 97 92 92 Respiratory Rate 18 18 20 Blood Pressure 121/66 Pulse Oximetry 98 07/05/19 01:41 07/05/19 06:00 07/05/19 08:40 Temperature 36.1 C L Pulse Rate 96 100 88 Respiratory Rate 18 18 18 Blood Pressure 122/70 Pulse Oximetry 96 07/05/19 08:47 07/05/19 13:00 Temperature 36.3 C L Pulse Rate 92 87 Respiratory Rate 18 18 Blood Pressure 140/94 H Pulse Oximetry 96 96 Intake/Output Intake/Output: Intake & Output 07/02/19 07/03/19 07/04/19 07/05/19 23:59 23:59 23:59 23:59 Intake Total 480 1220 985 300 Output Total 180 775 825 Balance 480 4677 210 -567 Meds/Results Medications: Active Medications Generic Name Dose Route Start Last Admin Trade Name Freq PRN Reason Stop Dose Admin Acetaminophen 650 mg 06/23/19 12:51 06/23/19 16:31 Tylenol Elixir PO 650 mg Q6H PRN Administration Fever > 100.4 Folic Acid 1 mg 06/12/19 09:00 07/05/19 09:30 Folic Acid PO 1 mg DAILY CANDI Administration Guaifenesin 200 mg 07/04/19 12:44 Guaifenesin Liq PO Q6HR PRN Cough Ipratropium [place] 0.5 mg 06/18/19 08:00 07/05/19 08:46 Atrovent Neb INHALATION 0.5 mg Q6HRT CANDI Administration Levalbuterol HCl 0.63 mg 06/28/19 20:00 07/05/19 08:46 Xopenex 1.25 Mg/3 Ml INHALATION 0.63 mg Q6HRT CANDI Administration Lidocaine 1 patch 06/12/19 10:00 07/05/19 09:30 Lidoderm TRANSDERM 1 patch DAILY CANDI Administration Lorazepam 2 mg 06/30/19 01:56 Ativan Inj IV PUSH PRN PRN Seizures Multi-Ingred Cream/Lotion/Oil/Oint 1 applic 06/13/19 09:00 07/05/19 09:29 Lubrifresh Pm Eye Ointment EACH EYE 1 applic Q12HR CANDI Administration Nicotine 1 patch 06/11/19 23:10 07/05/19 09:30 Nicoderm Cq 21 Mg TRANSDERM 1 patch QAM CANDI Administration Pantoprazole Sodium 40 mg 07/02/19 09:00 07/05/19 09:29 Protonix PO 40 mg QAM CANDI Administration Polyethylene Glycol 17 gm 07/01/19 12:55 07/02/19 08:36 Miralax PO 17 gm QAM PRN Administration Constipation Sodium Chloride 500 mg 06/30/19 09:00 07/05/19 09:29 Sodium Chloride PO 500 mg BID CANDI Administration Thiamine HCl 100 mg 06/12/19 09:00 07/05/19 09:29 Vitamin B-1 PO 100 mg QAM CANDI Administration Radiology Results: ITS Impressions Chest CT 06/11/19 16:11 IMPRESSION: 1. 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 2: 2.6 cm ex
[2019-07-06] VITALS (10 sets, daily range): BP systolic 112–116; BP diastolic 56–74; PULSE 96–110; RESP 16–24; TEMP 36.3–36.4; O2SAT 93–98
[2019-07-06] MEDS: LEVALBUTEROL NEB 1.25 MG/3 ML 0.63 MG INHALATION ×4 (01:59→20:03)
[2019-07-06] MEDS: IPRATROPIUM BR 0.02% INH SOLN 0.5 MG/2.5 ML VIAL INHALATION ×4 (01:59→20:03)
[2019-07-06] MEDS: LIDOCAINE 5% PATCH 1 PATCH TRANSDERM (08:01)
[2019-07-06] MEDS: PANTOPRAZOLE 40 MG TABLET PO (08:01)
[2019-07-06] MEDS: FOLIC ACID 1 MG TABLET PO (08:01)
[2019-07-06] MEDS: NICOTINE (*PBKC) 21 MG PATCH 1 PATCH TRANSDERM (08:01)
[2019-07-06] MEDS: SODIUM CHLORIDE 500 MG TABLET PO ×2 (08:01→17:55)
[2019-07-06] MEDS: THIAMINE HCL 100 MG TABLET PO (08:01)
[2019-07-06 08:03] LABS: SARS-CoV-2 RNA PCR Negative
--- NOTE | 2019-07-06 10:53 | PC.NURSE ---
Patient to ultrasound via stretcher.
--- NOTE | 2019-07-06 11:20 | PC.NURSE ---
Patient return from ultrasound.
--- NOTE | 2019-07-06 12:49 | PM.IMPN ---
Progress Note: A&P Assessment and Plan (1) Occlusion of left femoral artery: Code(s): I70.202 - Unspecified atherosclerosis of [place] arteries of extremities, left leg Status: Acute Assessment and Plan: Venous Dopplers incidentally found a segmental occlusion of the mid left femoral artery. The patient is symptomatic with left leg swelling, erythema, tenderness and unable to palpate left DP pulse. Unsure if this is acute vs chronic, radiologist reported from Venous Doppler on 06/28/2019 it did show some parts of arterial flow but unable to determine if occlusion was present at that time or not. Plan is to preform CTA Left Lower Extremity as long as creatinine is within normal limits. Will place the patient on a Heparin Drip for current treatment as long as H&H is stable and will monitor for any abnormal bleeding. Consult Dr. Avalos Cardiology who also works with vascular patients. (2) Seizure: Code(s): R56.9 - Unspecified convulsions Status: Acute Assessment and Plan: Witnessed seizure chest after midnight on 06/30/2019. Resolved without medication. IV lorazepam available as needed but has not been used. 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 Attempted to get MRI brain twice but patient was unable to keep his head down. Head CTA performed late last night with no large vessel occlusion. Discussed with neurology. Will continue to monitor for now. Will only start Keppra if has another seizure. (3) Unresponsive episode: Code(s): R41.89 - Other symptoms and signs involving cognitive functions and awareness Status: Acute Assessment and Plan: Unresponsive episode of questionable etiology on 06/29/2019. Brain imaging as noted above. Bedside swallow on 06/25/2019 with recommendation for soft and bite sized food. MBS on 06/30/2019 with no aspiration seen but recommendation for thin liquids and pureed food given unresponsive episode. Will continue to monitor. (4) Thrombocythemia: Code(s): D47.3 - Essential (hemorrhagic) thrombocythemia Status: Acute Assessment and Plan: In review of platelets over his hospital stay, platelet count was normal until 06/18/2019 at which time platelet count did rise been decreased to 582,000 on 06/25/2019. Increased to maximum of 978,000 on 06/27/2019. Will recheck today. (5) Pneumonia: Qualifiers: Pneumonia type: due to unspecified organism Laterality: unspecified laterality Lung location: unspecified part of lung Qualified Code(s): J18.9 - Pneumonia, unspecified organism Code(s): J18.9 - Pneumonia, unspecified organism Status: Acute Assessment and Plan: Appreciate help from pulmonology and Infectious Disease. 1st sputum culture on 06/13/2019 with yeast. 2nd sputum culture on 06/18/2019 with stenotrophomonas maltophilia. Bronchoscopy on 06/19 19 with growth of stenotrophomonas maltophilia and Patt albicans. Legionella pneumococcal antigens negative. COVID-19 testing through [facility] negative and repeat test on 09/30 was negative. He was initially on IV ceftriaxone and azithromycin but switched to IV imipenem and vancomycin on 06/17/2019. Finally switched to IV TMP/SMZ on 06/21/2019 per Infectious Disease and completed 10 day course on 06/30/2019. (6) Acute respiratory failure: Qualifiers: Respiratory failure complication: hypoxia Qualified Code(s): J96.01 - Acute respiratory failure with hypoxia Code(s): J96.00 - Acute respiratory failure, unspecified whether with hypoxia or hypercapnia Status: Acute Assessment and Plan: Result of pneumonia and emphysema. Patient was intubated on 06/13/2019 with successful extubation on 06/24/2019. Continue respiratory treatments as noted above. He is on room air at th
[2019-07-06 12:50] LABS: Basophils Absolute Auto 0.1 K/mm3 (0.0-0.1); Basophils Percent Auto 1.3 % (0.2-1.2); Eosinophils Absolute Auto 0.3 K/mm3 (0-0.3); Eosinophils Percent Auto 4.8 % (0-4.4); Hematocrit 32.9 % (42.0-52.0); Hemoglobin 10.5 g/dL (14.0-18.0); Immature Granulocyte Absolute 0.03 K/mm3 (0.00-0.031); Immature Granulocyte Percent A 0.4 % (0-0.5); Immature Platelet Fraction Pct 3.9 % (0.9-11.2); Lymphocytes Absolute Auto 2.94 K/mm3 (0.9-3.2); Lymphocytes Percent Auto 41.9 % (18.3-44.2); Mean Corpuscular HGB Conc 31.9 g/dl (32-36); Mean Corpuscular Hemoglobin 29.7 pg (26-34); Mean Corpuscular Volume 92.9 fl (80-100); Mean Platelet Volume 9.3 fl (7.4-10.4); Monocytes Absolute Auto 0.9 K/mm3 (0.1-0.6); Monocytes Percent Auto 12.5 % (2.6-8.5); Neutrophils Absolute Auto 2.7 K/mm3 (1.3-6.7); Neutrophils Percent Auto 39.1 % (45.5-73.1); Platelet Count Result 517 k/mm3 (150-375); Red Blood Count 3.54 M/mm3 (4.6-6.20); Red Cell Distribution Width 15.9 % (11.5-14.5)
[2019-07-06 12:58] LABS: INR 1.1; Prothrombin Time 13.7 Seconds (11.1-14.7)
[2019-07-06 12:59] LABS: Partial Thromboplastin Time 33.9 SECONDS (22.3-36.8)
[2019-07-06 13:01] LABS: Alanine Aminotransferase 24 U/L (4-50); Albumin Level 3.9 g/dL (3.5-5.1); Alkaline Phosphatase 81 U/L (38-126); Aspartate Amino Transferase 42 U/L (17-59); Bilirubin,Total 0.3 mg/dL (0.2-1.3); Blood Urea Nitrogen 10 mg/dL (9-20); Calcium 9.4 mg/dL (8.4-10.2); Carbon Dioxide 28 mmol/L (22-30); Chloride 98 mmol/L (98-107); Estimated CRCL calculation 73 ml/min; Estimated Glomerular Filt Rate > 60; Glucose 116 mg/dL (75-110); Potassium 5.4 mmol/L (3.4-5.0); Sodium 133 mmol/L (137-145)
--- NOTE | 2019-07-06 13:10 | PM.PNPUL ---
Progress Note: A&P Assessment and Plan (1) COPD with emphysema: Qualifiers: Emphysema type: unspecified Qualified Code(s): J43.9 - Emphysema, unspecified Code(s): J43.9 - Emphysema, unspecified Status: Chronic Assessment and Plan: Stable, d/c Levabuterol and Ipratropium and start Spiriva 18 mcg 1 puff daily or Respimat 2.5 mcg 2 puffs daily when ready to discharge. Subjective Date/time seen: 07/06/19 13:10 Interval history: Interval history: Doing well. Has no complaints. Awaiting discharge to rehab facility Review of Systems Review of Systems: All systems reviewed & are unremarkable except as noted in HPI and below Exam Const: General: comfortable and no acute distress Neck: Neck: supple and no JVD Resp: Auscultation: clear to auscultation bilaterally, no crackles, no rales, no rhonchi, no wheezes and diminished lung sounds Cardio: Rate: regular rate Rhythm: regular rhythm GI: Auscultation: normal bowel sounds Skin: General skin exam: normal color Extrem: General: normal to inspection, no edema and no pedal edema Objective Data Vital Signs Vital Signs: Vital Signs - 24 hr 07/05/19 14:38 07/05/19 14:47 07/05/19 20:01 Temperature Pulse Rate 103 H 100 Respiratory Rate 18 18 Blood Pressure Pulse Oximetry 94 07/05/19 20:02 07/05/19 20:16 07/05/19 21:30 Temperature 36.1 C L Pulse Rate 104 H 101 H 105 H Respiratory Rate 18 18 20 Blood Pressure 133/69 Pulse Oximetry 96 07/06/19 01:59 07/06/19 02:07 07/06/19 05:37 Temperature 36.4 C Pulse Rate 100 102 H 100 Respiratory Rate 18 16 Blood Pressure 112/56 L Pulse Oximetry 96 07/06/19 09:00 Temperature Pulse Rate 110 H Respiratory Rate 20 Blood Pressure Pulse Oximetry 97 Intake/Output Intake/Output: Intake & Output 07/03/19 07/04/19 07/05/19 07/06/19 23:59 23:59 23:59 23:59 Intake Total 1220 985 690 340 Output Total 180 775 825 500 Balance 1040 210 -135 -160 Meds/Results Medications: Active Medications Generic Name Dose Route Start Last Admin Trade Name Freq PRN Reason Stop Dose Admin Acetaminophen 650 mg 06/23/19 12:51 06/23/19 16:31 Tylenol Elixir PO 650 mg Q6H PRN Administration Fever > 100.4 Folic Acid 1 mg 06/12/19 09:00 07/06/19 08:01 Folic Acid PO 1 mg DAILY CANDI Administration Guaifenesin 200 mg 07/04/19 12:44 Guaifenesin Liq PO Q6HR PRN Cough Ipratropium [place] 0.5 mg 06/18/19 08:00 07/06/19 08:59 Atrovent Neb INHALATION 0.5 mg Q6HRT CANDI Administration Levalbuterol HCl 0.63 mg 06/28/19 20:00 07/06/19 08:59 Xopenex 1.25 Mg/3 Ml INHALATION 0.63 mg Q6HRT CANDI Administration Lidocaine 1 patch 06/12/19 10:00 07/06/19 08:01 Lidoderm TRANSDERM 1 patch DAILY CANDI Administration Lorazepam 2 mg 06/30/19 01:56 Ativan Inj IV PUSH PRN PRN Seizures Multi-Ingred Cream/Lotion/Oil/Oint 1 applic 06/13/19 09:00 07/06/19 08:02 Lubrifresh Pm Eye Ointment EACH EYE 1 applic Q12HR CANDI Administration Nicotine 1 patch 06/11/19 23:10 07/06/19 08:01 Nicoderm Cq 21 Mg TRANSDERM 1 patch QAM CANDI Administration Pantoprazole Sodium 40 mg 07/02/19 09:00 07/06/19 08:01 Protonix PO 40 mg QAM CANDI Administration Polyethylene Glycol 17 gm 07/01/19 12:55 07/02/19 08:36 Miralax PO 17 gm QAM PRN Administration Constipation Sodium Chloride 500 mg 06/30/19 09:00 07/06/19 08:01 Sodium Chloride PO 500 mg BID CANDI Administration Thiamine HCl 100 mg 06/12/19 09:00 07/06/19 08:01 Vitamin B-1 PO 100 mg QAM CANDI Administration Radiology Results: ITS Impressions Chest CT 06/11/19 16:11 IMPRESSION: 1. 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 2: 2.6 cm exophytic right renal mass, concerning for renal cell carcinoma. Recommend cons
--- NOTE | 2019-07-06 13:26 | PCDIET ---
Nutrition Follow-Up Complete: Inadequate energy intake related to decreased appetite as evidenced by BMI of 17.7 Meet estimated nutritional needs Goal: Progressing towards goal. Continue with current goal. Pt current nutrition is Puree/Regular +Thrive BID. Nutrition recommendation: Agree Last recorded weight is 60.5 kg (wt same from 07/01, recommend new wt. check) Bowel Motility: 07/04 Labs Reviewed:Hgb 10.1, Hct 32.9, Na 133, Potassium 5.4, Glucose 116 Meds Noted:Protonix, folic Acid, Miralax, Thiamin Additional Notes: Pt with possible d/c to [facility] today. He states he ate a good breakfast but didn't like his lunch. He is eating his Thrive supplement. Edu provided on ONS and helping meet nutrition needs when intake is low. Thrive provides 9 grams of protein, 24 vitamins and minerals, 6grams of fiber, and 270 kcal per serving. PO intake average over last three meals is 35%. We will continue to monitor PO intake and wt every five days.
[2019-07-06] MEDS: HEPARIN SODIUM 5,000 UNITS/ML VIAL 5000 UNITS IV PUSH (14:05)
[2019-07-06] MEDS: HEPARIN SOD/D5W 100 UNITS/ML 25,000 UNITS/250 ML BAG 11 UNITS IV CONT (14:06)
--- NOTE | 2019-07-06 15:59 | PM.CNCAR ---
Assessment and Plan Assessment and plan (1) Pneumonia: Qualifiers: Pneumonia type: due to unspecified organism Laterality: unspecified laterality Lung location: unspecified part of lung Qualified Code(s): J18.9 - Pneumonia, unspecified organism Code(s): J18.9 - Pneumonia, unspecified organism Status: Acute (2) Occlusion of left femoral artery: Code(s): I70.202 - Unspecified atherosclerosis of [place] arteries of extremities, left leg Status: Acute Assessment and Plan: This not seems to be acute, as he had no active pain, and he still have some mobility, he has decreased pulses distally, but no significant pallor. Indicative of some collaterals. Agree with heparin, agree with getting CTA to look for possibility of collaterals, and severity of the disease, if he has no significant collaterals then he would need to have angiogram and possible intervention to restore flow. If the CT showed good collaterals or adequate collaterals and will continue with medical treatment and close monitoring. (3) Peripheral vascular disease: Code(s): I73.9 - Peripheral vascular disease, unspecified Status: Acute Assessment and Plan: With decreased pulses bilaterally but more so on the left side with possible acute occlusion of the left SFA. He needs to be on heparin for now, aspirin, and medical treatment (4) Left leg swelling: Code(s): M79.89 - Other specified soft tissue disorders Status: Acute Assessment and Plan: Venous Doppler was negative for DVT, will obtain echocardiogram if possible soon if he is going to be discharged will do that as an outpatient. Additional Plan Thank you for allowing me to participate in this patient's care, I will be following up with you. Please do not hesitate to call me for any other inquiry History of Present Illness History of Present Illness Consult date/time: 07/06/19 15:59 69 years old gentleman, with history of smoking, COPD, was admitted the hospital back on June 13 with shortness of breath and bilateral pneumonia, he was in the hospital for long hospitalization complicated with seizure activity, and respiratory failure, noted to have left leg swelling, and noted to have loss of pulse on the left leg. I was asked to see him for evaluation for possible peripheral vascular disease. The patient himself does not have history of claudication se but isn't very active denies history of pain, however his leg on the left side seems to be significantly swollen and tender, he seems to have limited sensation and limited mobility of the toes, he has not very good historian to state if this is acute new or old. But he stated that prior to admission to the hospital he was able to walk with a walker. Incidentally had venous duplex which showed significant peripheral vascular disease, part of the SFA was visualized and seems to be possibly totally occluded, but the images were mainly to obtain venous images, could not shows he has collaterals are not. According to him the pain and swelling is been there before. No history of known coronary artery disease, he has shortness of breath with recent respiratory failure, no orthopnea Reason For Visit: non-resolving infiltrates Review of Systems Review of Systems: Narrative: Very ill gentleman, significant shortness of breath with COPD, and recent pneumonia Constitutional: Constitutional: Reports body ache(s) Cardiovascular: Cardiovascular: Denies chest pain, Reports leg edema, Denies lightheadedness and Denies palpitations Respiratory: Respiratory: Reports as per [facility] Past Medical History Medical History Alcoholism Anemia Anxiety Arthritis Barretts esophagus Last EGD was on November 10, [address] Contreras and showed Wooten's esophagus, esophageal ulcers, duodenal ulcers, and hiatal hernia. He has had no follow-up since that time. Compression frac
[2019-07-06 20:32] LABS: Hematocrit 27.9 % (42.0-52.0); Hemoglobin 9.2 g/dL (14.0-18.0)
[2019-07-06 20:44] LABS: Partial Thromboplastin Time 134.4 SECONDS (22.3-36.8)
[2019-07-07] VITALS (8 sets, daily range): BP systolic 112–134; BP diastolic 61–78; PULSE 85–123; RESP 16–18; TEMP 36.3–37.1; O2SAT 95–97
[2019-07-07] MEDS: IPRATROPIUM BR 0.02% INH SOLN 0.5 MG/2.5 ML VIAL INHALATION ×2 (01:38→09:57)
[2019-07-07] MEDS: LEVALBUTEROL NEB 1.25 MG/3 ML 0.63 MG INHALATION ×2 (01:38→09:57)
[2019-07-07 04:08] LABS: Basophils Absolute Auto 0.1 K/mm3 (0.0-0.1); Basophils Percent Auto 1.2 % (0.2-1.2); Eosinophils Absolute Auto 0.4 K/mm3 (0-0.3); Eosinophils Percent Auto 5.5 % (0-4.4); Hematocrit 26.8 % (42.0-52.0); Hemoglobin 8.8 g/dL (14.0-18.0); Immature Granulocyte Absolute 0.02 K/mm3 (0.00-0.031); Immature Granulocyte Percent A 0.3 % (0-0.5); Lymphocytes Absolute Auto 3.61 K/mm3 (0.9-3.2); Lymphocytes Percent Auto 48.8 % (18.3-44.2); Mean Corpuscular HGB Conc 32.8 g/dl (32-36); Mean Corpuscular Hemoglobin 29.4 pg (26-34); Mean Corpuscular Volume 89.6 fl (80-100); Mean Platelet Volume 8.6 fl (7.4-10.4); Monocytes Percent Auto 13.3 % (2.6-8.5); Neutrophils Absolute Auto 2.3 K/mm3 (1.3-6.7); Neutrophils Percent Auto 30.9 % (45.5-73.1); Platelet Count Result 565 k/mm3 (150-375); Red Blood Count 2.99 M/mm3 (4.6-6.20); Red Cell Distribution Width 15.8 % (11.5-14.5); White Blood Count 7.4 K/mm3 (4.5-10.0)
[2019-07-07 04:19] LABS: Partial Thromboplastin Time 93.6 SECONDS (22.3-36.8)
[2019-07-07 04:42] LABS: Platelet Estimate Adequate (Adequate)
[2019-07-07 04:43] LABS: Atypical Lymphocytes Present; Hypochromasia 1+ (NORMAL)
[2019-07-07] MEDS: FOLIC ACID 1 MG TABLET PO (08:44)
[2019-07-07] MEDS: LIDOCAINE 5% PATCH 1 PATCH TRANSDERM (08:44)
[2019-07-07] MEDS: NICOTINE (*PBKC) 21 MG PATCH 1 PATCH TRANSDERM (08:45)
[2019-07-07] MEDS: SODIUM CHLORIDE 500 MG TABLET PO ×2 (08:45→18:31)
[2019-07-07] MEDS: PANTOPRAZOLE 40 MG TABLET PO (08:45)
[2019-07-07] MEDS: THIAMINE HCL 100 MG TABLET PO (08:45)
[2019-07-07 10:40] LABS: Blood Urea Nitrogen 6 mg/dL (9-20); Calcium 9.1 mg/dL (8.4-10.2); Carbon Dioxide 29 mmol/L (22-30); Chloride 97 mmol/L (98-107); Estimated CRCL calculation 73 ml/min; Estimated Glomerular Filt Rate > 60; Glucose 73 mg/dL (75-110); Potassium 4.3 mmol/L (3.4-5.0); Sodium 133 mmol/L (137-145)
--- NOTE | 2019-07-07 12:38 | PM.PNCARD ---
Progress Note: A&P Assessment and Plan (1) Pneumonia: Qualifiers: Pneumonia type: due to unspecified organism Laterality: unspecified laterality Lung location: unspecified part of lung Qualified Code(s): J18.9 - Pneumonia, unspecified organism Code(s): J18.9 - Pneumonia, unspecified organism Status: Acute (2) Occlusion of left femoral artery: Code(s): I70.202 - Unspecified atherosclerosis of [place] arteries of extremities, left leg Status: Acute Assessment and Plan: This not seems to be acute, as he had no active pain, and he still have some mobility, he has decreased pulses distally, but no significant pallor. Indicative of some collaterals. Agree with heparin, CTA showed occlusion of the mid SFA but with good collaterals, and reconstitution of the vessel at the popliteal level. He seems to be improving with the heparin, continue with heparin until further flow gnosticist is been done, possibly Tuesday. Will plan for peripheral angiogram and possible intervention to the mid SFA on Tuesday. Until then keep him on heparin (3) Peripheral vascular disease: Code(s): I73.9 - Peripheral vascular disease, unspecified Status: Acute Assessment and Plan: With decreased pulses bilaterally but more so on the left side with possible acute occlusion of the left SFA. He needs to be on heparin for now, aspirin, and medical treatment (4) Left leg swelling: Code(s): M79.89 - Other specified soft tissue disorders Status: Acute Assessment and Plan: Venous Doppler was negative for DVT, will obtain echocardiogram if possible soon if he is going to be discharged will do that as an outpatient. Additional Plan Thank you for allowing me to participate in this patient's care, I will be following up with you. Please do not hesitate to call me for any other inquiry Subjective Date/time seen: 07/07/19 12:38 He feels better today, leg swelling is improved, no chest pain no leg pain on the left leg, he was able to stand and walk with no significant limitation. Exam Narrative: Exam Narrative: Awake alert oriented x3 not in acute distress Neck is supple no obvious JVD, no carotid bruit Chest: Good air entry bilaterally, lungs are clear to auscultation and percussion bilaterally Cardiovascular: Regular rate and rhythm, 2/6 systolic murmur noted left sternal border Abdomen: Soft nontender bowel sounds positive Extremities: Significant edema noted in the left leg, it is warm, and red, he has decreased anterior tibial pulse and posterior tibial pulses, very decreased popliteal pulse on the left side. On the right side he has mildly decreased pulses but present. Tenderness is better, he has significant improvement of movement of the toes, and good temperature of the foot with significant warmth Objective Data Vital Signs Vital Signs: Vital Signs - 24 hr 07/06/19 14:00 07/06/19 14:15 07/06/19 14:24 Temperature 36.4 C Pulse Rate 106 H 100 96 Respiratory Rate 24 H 20 18 Blood Pressure 116/74 Pulse Oximetry 97 07/06/19 20:04 07/06/19 20:14 07/06/19 21:24 Temperature 36.3 C L Pulse Rate 101 H 98 108 H Respiratory Rate 18 18 18 Blood Pressure 116/69 Pulse Oximetry 93 98 07/07/19 01:38 07/07/19 01:47 07/07/19 06:00 Temperature 36.3 C L Pulse Rate 92 94 85 Respiratory Rate 16 18 18 Blood Pressure 112/61 Pulse Oximetry 95 07/07/19 09:57 07/07/19 10:05 Temperature Pulse Rate 92 96 Respiratory Rate 18 18 Blood Pressure Pulse Oximetry Intake/Output Intake/Output: Intake & Output 07/04/19 07/05/19 07/06/19 07/07/19 23:59 23:59 23:59 23:59 Intake Total 951 256 0988 630 Output Total 775 825 775 450 Balance 210 -135 499 180 Meds/Results Medications: Active Medications Generic Name Dose Route Start Last Admin Trade Name Freq PRN Reason Stop Dose Admin Acetaminophen 650 mg 06/23/19 12:51 06/23/19 16:31 Tylenol Elixir PO
--- NOTE | 2019-07-07 12:57 | PM.PNPUL ---
Progress Note: A&P Assessment and Plan (1) COPD with emphysema: Qualifiers: Emphysema type: unspecified Qualified Code(s): J43.9 - Emphysema, unspecified Code(s): J43.9 - Emphysema, unspecified Status: Chronic Assessment and Plan: - d/c levabuterol and ipratropium today - start Spiriva 18 mcg 1 puff daily - start Symbicort 160/4.5 mcg 2 puffs bid via spacer device Subjective Date/time seen: 07/07/19 12:57 Interval history: Doing well, no complaints Review of Systems Review of Systems: All systems reviewed & are unremarkable except as noted in HPI and below Exam Const: General: comfortable and no acute distress Neck: Neck: supple and no JVD Resp: Auscultation: clear to auscultation bilaterally, no crackles, no rales, no rhonchi, no wheezes and diminished lung sounds Cardio: Rate: regular rate Rhythm: regular rhythm GI: Auscultation: normal bowel sounds Skin: General skin exam: normal color Extrem: General: normal to inspection, no edema and no pedal edema Objective Data Vital Signs Vital Signs: Vital Signs - 24 hr 07/06/19 14:00 07/06/19 14:15 07/06/19 14:24 Temperature 36.4 C Pulse Rate 106 H 100 96 Respiratory Rate 24 H 20 18 Blood Pressure 116/74 Pulse Oximetry 97 07/06/19 20:04 07/06/19 20:14 07/06/19 21:24 Temperature 36.3 C L Pulse Rate 101 H 98 108 H Respiratory Rate 18 18 18 Blood Pressure 116/69 Pulse Oximetry 93 98 07/07/19 01:38 07/07/19 01:47 07/07/19 06:00 Temperature 36.3 C L Pulse Rate 92 94 85 Respiratory Rate 16 18 18 Blood Pressure 112/61 Pulse Oximetry 95 07/07/19 09:57 07/07/19 10:05 Temperature Pulse Rate 92 96 Respiratory Rate 18 18 Blood Pressure Pulse Oximetry Intake/Output Intake/Output: Intake & Output 07/04/19 07/05/19 07/06/19 07/07/19 23:59 23:59 23:59 23:59 Intake Total 385 924 [id number] 630 Output Total 526 969 642 450 Balance 210 -135 499 180 Meds/Results Medications: Active Medications Generic Name Dose Route Start Last Admin Trade Name Freq PRN Reason Stop Dose Admin Acetaminophen 650 mg 06/23/19 12:51 06/23/19 16:31 Tylenol Elixir PO 650 mg Q6H PRN Administration Fever > 100.4 Folic Acid 1 mg 06/12/19 09:00 07/07/19 08:44 Folic Acid PO 1 mg DAILY CANDI Administration Guaifenesin 200 mg 07/04/19 12:44 Guaifenesin Liq PO Q6HR PRN Cough Heparin Sodium (Porcine) 5,000 units 07/06/19 14:00 Heparin Sodium IV PUSH PRN PRN aPTT less than 55 seconds Heparin Sodium (Porcine) 2,500 units 07/06/19 14:00 Heparin Sodium IV PUSH PRN PRN aPTT 55 - 70 seconds Heparin Sodium/Dextrose 25,000 units in 250 mls @ 9 mls/hr 07/06/19 14:00 07/07/19 10:48 Heparin Sodium/D5w 100 Units/Ml IV CONT 900 units/hr .Q24H CANDI 9 mls/hr Titration Protocol 900 UNITS/HR Lidocaine 1 patch 06/12/19 10:00 07/07/19 08:44 Lidoderm TRANSDERM 1 patch DAILY CANDI Administration Lorazepam 2 mg 06/30/19 01:56 Ativan Inj IV PUSH PRN PRN Seizures Multi-Ingred Cream/Lotion/Oil/Oint 1 applic 06/13/19 09:00 07/07/19 08:45 Lubrifresh Pm Eye Ointment EACH EYE 1 applic Q12HR CANDI Administration Nicotine 1 patch 06/11/19 23:10 07/07/19 08:45 Nicoderm Cq 21 Mg TRANSDERM 1 patch QAM CANDI Administration Pantoprazole Sodium 40 mg 07/02/19 09:00 07/07/19 08:45 Protonix PO 40 mg QAM CANDI Administration Polyethylene Glycol 17 gm 07/01/19 12:55 07/02/19 08:36 Miralax PO 17 gm QAM PRN Administration Constipation Sodium Chloride 500 mg 06/30/19 09:00 07/07/19 08:45 Sodium Chloride PO 500 mg BID CANDI Administration Thiamine HCl 100 mg 06/12/19 09:00 07/07/19 08:45 Vitamin B-1 PO 100 mg QAM CANDI Administration Radiology Results: ITS Impressions Chest CT 06/11/19 16:11 IMPRESSION: 1. Mixed interstitial and airspace disease
--- NOTE | 2019-07-07 14:17 | PM.IMPN ---
Progress Note: A&P Assessment and Plan (1) Occlusion of left femoral artery: Code(s): I70.202 - Unspecified atherosclerosis of [place] arteries of extremities, left leg Status: Acute Assessment and Plan: Venous Dopplers incidentally found a segmental occlusion of the mid left femoral artery. The patient is symptomatic with left leg swelling, erythema, tenderness and unable to palpate left DP pulse. Unsure if this is acute vs chronic, radiologist reported from Venous Doppler on 06/28/2019 it did show some parts of arterial flow but unable to determine if occlusion was present at that time or not. Plan is to preform CTA Left Lower Extremity as long as creatinine is within normal limits. Will place the patient on a Heparin Drip for current treatment as long as H&H is stable and will monitor for any abnormal bleeding. Consult Dr. Avalos Cardiology who also works with vascular patients. 07/07/19 14:17 Patient is 69-year-old male with history of COPD he was admitted with pneumonia healthcare associated, has completed his 10 days of IV antibiotic had been doing better was seen by Dr. Rios, as well as fitness attendant, patient being clinically stable denies any complaint of cough shortness of breath obese, denies any seizures while in the hospital, [facility], due to logistic issue patient was not able to be transferred. Plan was to transfer the patient on 07/01 however [facility] is requesting the patient be tested for COVID-19 must be negative before transferring the patient, patient is clinically stable does not have any complaint, no cough fever or chills, no seizure while in the hospital, repeat COVID-19 test was negative on , thought patient did not have c/o lower extremity pain however it was swollen and tender CTA of lower extremity showed occulusion of SFA patient was seen by Dr. Avalos recommended to start heparin, today again patient denies any pain in lower extremities, plan is to have patient angiography of the lower extremities and further recommendation to follow. (2) Seizure: Code(s): R56.9 - Unspecified convulsions Status: Acute Assessment and Plan: Witnessed seizure chest after midnight on 06/30/2019. Resolved without medication. IV lorazepam available as needed but has not been used. 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 Attempted to get MRI brain twice but patient was unable to keep his head down. Head CTA performed late last night with no large vessel occlusion. Discussed with neurology. Will continue to monitor for now. Will only start Keppra if has another seizure. (3) Unresponsive episode: Code(s): R41.89 - Other symptoms and signs involving cognitive functions and awareness Status: Acute Assessment and Plan: Unresponsive episode of questionable etiology on 06/29/2019. Brain imaging as noted above. Bedside swallow on 06/25/2019 with recommendation for soft and bite sized food. MBS on 06/30/2019 with no aspiration seen but recommendation for thin liquids and pureed food given unresponsive episode. Will continue to monitor. (4) Thrombocythemia: Code(s): D47.3 - Essential (hemorrhagic) thrombocythemia Status: Acute Assessment and Plan: In review of platelets over his hospital stay, platelet count was normal until 06/18/2019 at which time platelet count did rise been decreased to 582,000 on 06/25/2019. Increased to maximum of 978,000 on 06/27/2019. Will recheck today. (5) Pneumonia: Qualifiers: Pneumonia type: due to unspecified organism Laterality: unspecified laterality Lung location: unspecified part of lung Qualified Code(s): J18.9 - Pneumonia, unspecified organism Code(s): J18.9 - Pneumonia, unspecified organism Status: Ac
[2019-07-07] MEDS: HEPARIN SOD/D5W 100 UNITS/ML 25,000 UNITS/250 ML BAG 9 UNITS IV CONT (16:06)
[2019-07-08 05:19] LABS: Basophils Absolute Auto 0.1 K/mm3 (0.0-0.1); Basophils Percent Auto 1.3 % (0.2-1.2); Eosinophils Absolute Auto 0.4 K/mm3 (0-0.3); Eosinophils Percent Auto 5.8 % (0-4.4); Hemoglobin 8.3 g/dL (14.0-18.0); Immature Granulocyte Absolute 0.01 K/mm3 (0.00-0.031); Immature Granulocyte Percent A 0.2 % (0-0.5); Lymphocytes Percent Auto 53.2 % (18.3-44.2); Mean Corpuscular HGB Conc 33.2 g/dl (32-36); Mean Corpuscular Hemoglobin 29.3 pg (26-34); Mean Corpuscular Volume 88.3 fl (80-100); Mean Platelet Volume 8.8 fl (7.4-10.4); Monocytes Absolute Auto 0.8 K/mm3 (0.1-0.6); Monocytes Percent Auto 12.7 % (2.6-8.5); Neutrophils Absolute Auto 1.7 K/mm3 (1.3-6.7); Neutrophils Percent Auto 26.8 % (45.5-73.1); Platelet Count Result 532 k/mm3 (150-375); Red Blood Count 2.83 M/mm3 (4.6-6.20); Red Cell Distribution Width 15.3 % (11.5-14.5); White Blood Count 6.4 K/mm3 (4.5-10.0)
[2019-07-08 05:30] LABS: Blood Urea Nitrogen 5 mg/dL (9-20); Calcium 8.4 mg/dL (8.4-10.2); Carbon Dioxide 26 mmol/L (22-30); Chloride 99 mmol/L (98-107); Estimated CRCL calculation 85 ml/min; Estimated Glomerular Filt Rate > 60; Glucose 87 mg/dL (75-110); Potassium 3.9 mmol/L (3.4-5.0); Sodium 130 mmol/L (137-145)
[2019-07-08 06:00] VITALS: BP 117/62; PULSE 115; RESP 16; TEMP 37.1; O2SAT 94
[2019-07-08] MEDS: FOLIC ACID 1 MG TABLET PO (09:33)
[2019-07-08] MEDS: PANTOPRAZOLE 40 MG TABLET PO (09:33)
[2019-07-08] MEDS: LIDOCAINE 5% PATCH 1 PATCH TRANSDERM (09:33)
[2019-07-08] MEDS: SODIUM CHLORIDE 500 MG TABLET PO ×2 (09:33→16:41)
[2019-07-08] MEDS: THIAMINE HCL 100 MG TABLET PO (09:33)
[2019-07-08] MEDS: NICOTINE (*PBKC) 21 MG PATCH 1 PATCH TRANSDERM (09:33)
--- NOTE | 2019-07-08 12:21 | PM.IMPN ---
Progress Note: A&P Assessment and Plan (1) Occlusion of left femoral artery: Code(s): I70.202 - Unspecified atherosclerosis of [place] arteries of extremities, left leg Status: Acute Assessment and Plan: Venous Dopplers incidentally found a segmental occlusion of the mid left femoral artery. The patient is symptomatic with left leg swelling, erythema, tenderness and unable to palpate left DP pulse. Unsure if this is acute vs chronic, radiologist reported from Venous Doppler on 06/28/2019 it did show some parts of arterial flow but unable to determine if occlusion was present at that time or not. Plan is to preform CTA Left Lower Extremity as long as creatinine is within normal limits. Will place the patient on a Heparin Drip for current treatment as long as H&H is stable and will monitor for any abnormal bleeding. Consult Dr. Avalos Cardiology who also works with vascular patients. Patient is 69-year-old male with history of COPD he was admitted with pneumonia healthcare associated, has completed his 10 days of IV antibiotic had been doing better was seen by Dr. Rios, as well as consumer credit counselor, patient being clinically stable denies any complaint of cough shortness of breath obese, denies any seizures while in the hospital, was to discharge the patient to halfway on July 01, due to logistic issue patient was not able to be transferred. Plan was to transfer the patient on 07/01 however halfway is requesting the patient be tested for COVID-19 must be negative before transferring the patient, patient is clinically stable does not have any complaint, no cough fever or chills, no seizure while in the hospital, repeat COVID-19 test was negative on , thought patient did not have c/o lower extremity pain however he was not on DVT prophylaxis due to kaitlyn, it was swollen and tender CTA of lower extremity showed occulusion of SFA patient was seen by Dr. Avalos recommended to start heparin, today again patient denies any pain in lower extremities, plan is to have patient angiography of the lower extremities and further recommendation to follow tomorrow. (2) Seizure: Code(s): R56.9 - Unspecified convulsions Status: Acute Assessment and Plan: Witnessed seizure chest after midnight on 06/30/2019. Resolved without medication. IV lorazepam available as needed but has not been used. 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 Attempted to get MRI brain twice but patient was unable to keep his head down. Head CTA performed with no large vessel occlusion. Will continue to monitor for now. Will only start Keppra if has another seizure. (3) Unresponsive episode: Code(s): R41.89 - Other symptoms and signs involving cognitive functions and awareness Status: Acute Assessment and Plan: Unresponsive episode of questionable etiology on 06/29/2019. Brain imaging as noted above. Bedside swallow on 06/25/2019 with recommendation for soft and bite sized food. MBS on 06/30/2019 with no aspiration seen but recommendation for thin liquids and pureed food given unresponsive episode. Will continue to monitor. (4) Thrombocythemia: Code(s): D47.3 - Essential (hemorrhagic) thrombocythemia Status: Acute Assessment and Plan: In review of platelets over his hospital stay, platelet count was normal until 06/18/2019 at which time platelet count did rise been decreased to 582,000 on 06/25/2019. Increased to maximum of 978,000 on 06/27/2019. Will recheck today. (5) Pneumonia: Qualifiers: Laterality: unspecified laterality Lung location: unspecified part of lung Pneumonia type: due to unspecified organism Qualified Code(s): J18.9 - Pneumonia, unspecified organism Code(s): J18.9 - Pneumonia, unspecified organism Status: Acut
[2019-07-08 14:00] VITALS: BP 120/74; PULSE 99; RESP 18; TEMP 36.9; O2SAT 97
--- NOTE | 2019-07-08 14:13 | PM.PNPUL ---
Progress Note: A&P Assessment and Plan (1) COPD with emphysema: Qualifiers: Emphysema type: unspecified Qualified Code(s): J43.9 - Emphysema, unspecified Code(s): J43.9 - Emphysema, unspecified Status: Chronic Assessment and Plan: - d/c levabuterol and ipratropium yesterday - continue Spiriva 18 mcg 1 puff daily - continue Symbicort 160/4.5 mcg 2 puffs bid via spacer device Subjective Date/time seen: 07/08/19 14:13 Interval history: Interval history: Doing well, no complaints. Switched to Spiriva and Symbicort yesterday and seems to be doing well. Review of Systems Review of Systems: All systems reviewed & are unremarkable except as noted in HPI and below Exam Const: General: comfortable and no acute distress Neck: Neck: supple and no JVD Resp: Auscultation: clear to auscultation bilaterally, no crackles, no rales, no rhonchi, no wheezes and diminished lung sounds Cardio: Rate: regular rate Rhythm: regular rhythm GI: Auscultation: normal bowel sounds Skin: General skin exam: normal color Extrem: General: normal to inspection, no edema and no pedal edema Objective Data Vital Signs Vital Signs: Vital Signs - 24 hr 07/07/19 22:00 07/07/19 22:20 07/08/19 06:00 Temperature 37.1 C 37.1 C Pulse Rate 96 115 H Respiratory Rate 18 16 Blood Pressure 134/66 117/62 Pulse Oximetry 96 95 94 Intake/Output Intake/Output: Intake & Output 07/05/19 07/06/19 07/07/19 07/08/19 23:59 23:59 23:59 23:59 Intake Total 580 1274 1696 820 Output Total 825 775 800 875 Balance -135 499 896 -55 Meds/Results Medications: Active Medications Generic Name Dose Route Start Last Admin Trade Name Freq PRN Reason Stop Dose Admin Acetaminophen 650 mg 06/23/19 12:51 06/23/19 16:31 Tylenol Elixir PO 650 mg Q6H PRN Administration Fever > 100.4 Budesonide/Formoterol Fumarate 2 puff 07/07/19 20:00 07/08/19 07:58 Symbicort 160-4.5 Mcg (*Sp) Inhaler INHALATION 2 puff Q12HRT CANDI Administration Folic Acid 1 mg 06/12/19 09:00 07/08/19 09:33 Folic Acid PO 1 mg DAILY CANDI Administration Guaifenesin 200 mg 07/04/19 12:44 Guaifenesin Liq PO Q6HR PRN Cough Heparin Sodium (Porcine) 5,000 units 07/06/19 14:00 Heparin Sodium IV PUSH PRN PRN aPTT less than 55 seconds Heparin Sodium (Porcine) 2,500 units 07/06/19 14:00 Heparin Sodium IV PUSH PRN PRN aPTT 55 - 70 seconds Heparin Sodium/Dextrose 25,000 units in 250 mls @ 9 mls/hr 07/06/19 14:00 07/08/19 05:36 Heparin Sodium/D5w 100 Units/Ml IV CONT 900 units/hr .Q24H CANDI 9 mls/hr Titration Protocol 900 UNITS/HR Lidocaine 1 patch 06/12/19 10:00 07/08/19 09:33 Lidoderm TRANSDERM 1 patch DAILY CANDI Administration Lorazepam 2 mg 06/30/19 01:56 Ativan Inj IV PUSH PRN PRN Seizures Multi-Ingred Cream/Lotion/Oil/Oint 1 applic 06/13/19 09:00 07/08/19 07:55 Lubrifresh Pm Eye Ointment EACH EYE Not Given Q12HR CANDI Nicotine 1 patch 06/11/19 23:10 07/08/19 09:33 Nicoderm Cq 21 Mg TRANSDERM 1 patch QAM CANDI Administration Pantoprazole Sodium 40 mg 07/02/19 09:00 07/08/19 09:33 Protonix PO 40 mg QAM CANDI Administration Polyethylene Glycol 17 gm 07/01/19 12:55 07/02/19 08:36 Miralax PO 17 gm QAM PRN Administration Constipation Sodium Chloride 500 mg 06/30/19 09:00 07/08/19 09:33 Sodium Chloride PO 500 mg BID CANDI Administration Thiamine HCl 100 mg 06/12/19 09:00 07/08/19 09:33 Vitamin B-1 PO 100 mg QAM CANDI Administration Tiotropium [place] 1 cap 07/07/19 13:00 07/08/19 07:58 Spiriva INHALATION 1 cap QAM CANDI Administration Radiology Results: ITS Impressions Chest CT 06/11/19 16:11 IMPRESSION: 1. 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 2:
--- NOTE | 2019-07-08 14:24 | PM.PNCARD ---
Progress Note: A&P Assessment and Plan (1) Pneumonia: Qualifiers: Pneumonia type: due to unspecified organism Laterality: unspecified laterality Lung location: unspecified part of lung Qualified Code(s): J18.9 - Pneumonia, unspecified organism Code(s): J18.9 - Pneumonia, unspecified organism Status: Acute (2) Occlusion of left femoral artery: Code(s): I70.202 - Unspecified atherosclerosis of [place] arteries of extremities, left leg Status: Acute Assessment and Plan: This not seems to be acute, as he had no active pain, and he still have some mobility, he has decreased pulses distally, but no significant pallor. Indicative of some collaterals. Agree with heparin, CTA showed occlusion of the mid SFA but with good collaterals, and reconstitution of the vessel at the popliteal level. He seems to be improving with the heparin, continue with heparin until further flow mandaen is been done, possibly Tuesday. Will plan for peripheral angiogram and possible intervention to the mid SFA in a.m. tomorrow. Until then keep him on heparin (3) Peripheral vascular disease: Code(s): I73.9 - Peripheral vascular disease, unspecified Status: Acute Assessment and Plan: With decreased pulses bilaterally but more so on the left side with possible acute occlusion of the left SFA. He needs to be on heparin for now, aspirin, and medical treatment (4) Left leg swelling: Code(s): M79.89 - Other specified soft tissue disorders Status: Acute Assessment and Plan: Venous Doppler was negative for DVT, will obtain echocardiogram if possible soon if he is going to be discharged will do that as an outpatient. Additional Plan Thank you for allowing me to participate in this patient's care, I will be following up with you. Please do not hesitate to call me for any other inquiry Subjective Date/time seen: 07/08/19 14:24 Feels okay today, still with heaviness to the left leg, but no active pain, swelling is better. Currently he is on heparin Exam Narrative: Exam Narrative: Awake alert oriented x3 not in acute distress Neck is supple no obvious JVD, no carotid bruit Chest: Good air entry bilaterally, lungs are clear to auscultation and percussion bilaterally Cardiovascular: Regular rate and rhythm, 2/6 systolic murmur noted left sternal border Abdomen: Soft nontender bowel sounds positive Extremities: Significant edema noted in the left leg, it is warm, and red, he has decreased anterior tibial pulse and posterior tibial pulses, very decreased popliteal pulse on the left side. On the right side he has mildly decreased pulses but present. Tenderness is better, he has significant improvement of movement of the toes, and good temperature of the foot with significant warmth Objective Data Vital Signs Vital Signs: Vital Signs - 24 hr 07/07/19 22:00 07/07/19 22:20 07/08/19 06:00 Temperature 37.1 C 37.1 C Pulse Rate 96 115 H Respiratory Rate 18 16 Blood Pressure 134/66 117/62 Pulse Oximetry 96 95 94 Intake/Output Intake/Output: Intake & Output 07/05/19 07/06/19 07/07/19 07/08/19 23:59 23:59 23:59 23:59 Intake Total 690 1274 1696 820 Output Total 825 775 800 875 Balance -135 499 896 -55 Meds/Results Medications: Active Medications Generic Name Dose Route Start Last Admin Trade Name Freq PRN Reason Stop Dose Admin Acetaminophen 650 mg 06/23/19 12:51 06/23/19 16:31 Tylenol Elixir PO 650 mg Q6H PRN Administration Fever > 100.4 Budesonide/Formoterol Fumarate 2 puff 07/07/19 20:00 07/08/19 07:58 Symbicort 160-4.5 Mcg (*Sp) Inhaler INHALATION 2 puff Q12HRT CANDI Administration Folic Acid 1 mg 06/12/19 09:00 07/08/19 09:33 Folic Acid PO 1 mg DAILY CANDI Administration Guaifenesin 200 mg 07/04/19 12:44 Guaifenesin Liq PO Q6HR PRN Cough Heparin Sodium (Porcine) 5,000 units 07/06/19 14:00 Heparin Sodium IV
[2019-07-08] MEDS: HEPARIN SOD/D5W 100 UNITS/ML 25,000 UNITS/250 ML BAG 9 UNITS IV CONT (15:36)
[2019-07-08 19:54] VITALS: O2SAT 95
[2019-07-08 20:00] VITALS: PULSE 99; RESP 18; O2SAT 95
[2019-07-08 21:49] VITALS: BP 133/71; PULSE 106; RESP 16; TEMP 36.4; O2SAT 98
[2019-07-09] VITALS (31 sets, daily range): BP systolic 124–184; BP diastolic 70–90; PULSE 80–105; RESP 16–18; TEMP 36.1–37.6; O2SAT 94–100
[2019-07-09 05:06] LABS: Basophils Absolute Auto 0.1 K/mm3 (0.0-0.1); Basophils Percent Auto 0.9 % (0.2-1.2); Eosinophils Absolute Auto 0.2 K/mm3 (0-0.3); Eosinophils Percent Auto 3.5 % (0-4.4); Hematocrit 23.9 % (42.0-52.0); Immature Granulocyte Absolute 0.02 K/mm3 (0.00-0.031); Immature Granulocyte Percent A 0.3 % (0-0.5); Lymphocytes Absolute Auto 3.16 K/mm3 (0.9-3.2); Lymphocytes Percent Auto 46.7 % (18.3-44.2); Mean Corpuscular HGB Conc 33.5 g/dl (32-36); Mean Corpuscular Hemoglobin 29.5 pg (26-34); Mean Corpuscular Volume 88.2 fl (80-100); Mean Platelet Volume 8.5 fl (7.4-10.4); Monocytes Absolute Auto 0.8 K/mm3 (0.1-0.6); Neutrophils Absolute Auto 2.5 K/mm3 (1.3-6.7); Neutrophils Percent Auto 36.6 % (45.5-73.1); Platelet Count Result 497 k/mm3 (150-375); Red Blood Count 2.71 M/mm3 (4.6-6.20); Red Cell Distribution Width 15.3 % (11.5-14.5); White Blood Count 6.8 K/mm3 (4.5-10.0)
[2019-07-09 05:15] LABS: Partial Thromboplastin Time 77.9 SECONDS (22.3-36.8)
[2019-07-09 05:24] LABS: Blood Urea Nitrogen 4 mg/dL (9-20); Calcium 8.2 mg/dL (8.4-10.2); Carbon Dioxide 27 mmol/L (22-30); Chloride 100 mmol/L (98-107); Estimated CRCL calculation 85 ml/min; Estimated Glomerular Filt Rate > 60; Glucose 81 mg/dL (75-110); Potassium 3.6 mmol/L (3.4-5.0); Sodium 131 mmol/L (137-145)
[2019-07-09] MEDS: SODIUM CHLORIDE 0.9% IV 1,000 ML 100 ML (07:34)
--- NOTE | 2019-07-09 07:35 | PC.NURSE ---
Iv fluids started at 0028 for NPO status. NS 1000 hung as fluids were infusing at 100/hr.
--- NOTE | 2019-07-09 08:00 | PC.NURSE ---
Pt to cardiac labor relations manager via hospital bed.
--- NOTE | 2019-07-09 08:25 | WPDMODSED ---
Moderate Sedation Note-Pt Data Patient Data Allergies Allergy/AdvReac Type Severity Reaction Status Date / Time bee pollen Allergy Unknown Anaphylaxis Verified 06/11/19 14:00 Honey Bee Allergy Severe Anaphylaxis Uncoded 06/11/19 14:00 Home Medications Medication Instructions Recorded Confirmed Type acetaminophen [Nortemp] 650 mg PO Q6H PRN #100 ml 07/02/19 Rx folic acid 1 mg PO DAILY #30 tablet 07/02/19 Rx guaifenesin 200 mg PO Q6HR #100 ml 07/02/19 Rx lidocaine [Lidoderm] 1 patch TRANSDERMAL DAILY #15 each 07/02/19 Rx nicotine [Nicoderm CQ] 1 patch TRANSDERMAL QAM #30 ea 07/02/19 Rx pantoprazole 40 mg PO QAM #30 tablet 07/02/19 Rx polyethylene glycol 3350 [Miralax] 17 g PO QAM PRN #30 ea 07/02/19 Rx sodium chloride 500 mg PO BID #30 tablet 07/02/19 Rx thiamine HCl (vitamin B1) [Vitamin 100 mg PO QAM #30 tablet 07/02/19 Rx B-1] white petrolatum-mineral oil 1 applic LEFTEYE Q12HR #10 g 07/02/19 Rx [Lubrifresh PM] tiotropium bromide [Spiriva with 1 cap INHALATION DAILY #30 07/06/19 Rx HandiHaler] inhalation Current Medications: Active Medications Acetaminophen (Tylenol Elixir) 650 mg PO Q6H PRN PRN Reason: Fever > 100.4 Last Admin: 06/23/19 16:31 Dose: 650 mg Documented by: Budesonide/Formoterol Fumarate (Symbicort 160-4.5 Mcg (*Sp) Inhaler) 2 puff INHALATION Q12HRT [facility] Last Admin: 07/08/19 19:51 Dose: 2 puff Documented by: Folic Acid (Folic Acid) 1 mg PO DAILY [facility] Last Admin: 07/08/19 09:33 Dose: 1 mg Documented by: Guaifenesin (Guaifenesin Liq) 200 mg PO Q6HR PRN PRN Reason: Cough Heparin Sodium (Porcine) (Heparin Sodium) 5,000 units IV PUSH PRN PRN PRN Reason: aPTT less than 55 seconds Heparin Sodium (Porcine) (Heparin Sodium) 2,500 units IV PUSH PRN PRN PRN Reason: aPTT 55 - 70 seconds Heparin Sodium/Dextrose (Heparin Sodium/D5w 100 Units/Ml) 25,000 units in 250 mls @ 9 mls/hr IV CONT .Q24H [facility]; Protocol Last Titration: 07/09/19 07:37 Dose: 900 units/hr, 9 mls/hr Documented by: Sodium Chloride (Normal Saline Iv) 500 mls @ 100 mls/hr IV CONT .Q5H [facility] Lidocaine (Lidoderm) 1 patch TRANSDERM DAILY [facility] Last Admin: 07/08/19 09:33 Dose: 1 patch Documented by: Lorazepam (Ativan Inj) 2 mg IV PUSH PRN PRN PRN Reason: Seizures Multi-Ingred Cream/Lotion/Oil/Oint (Lubrifresh Pm Eye Ointment) 1 applic EACH EYE Q12HR [facility] Last Admin: 07/08/19 20:05 Dose: Not Given Documented by: Nicotine (Nicoderm Cq 21 Mg) 1 patch TRANSDERM QAM [facility] Last Admin: 07/08/19 09:33 Dose: 1 patch Documented by: Pantoprazole [facility]odium [facility]Protonix) [facility] Last Admin: 07/08/19 09:33 Dose: 40 mg Documented by: Polyethylene Glycol (Miralax) 17 gm PO QAM PRN PRN Reason: Constipation Last Admin: 07/02/19 08:36 Dose: 17 gm Documented by: Sodium Chloride (Sodium Chloride) 500 mg PO BID [facility] Last Admin: 07/08/19 16:41 Dose: 500 mg Documented by: Thiamine HCl (Vitamin B-1) 100 mg PO [facility] Last Admin: 07/08/19 09:33 Dose: 100 mg Documented by: Tiotropium [place] (Spiriva) 1 cap INHALATION [facility] Last Admin: 07/08/19 07:58 Dose: 1 cap Documented by: Sedation/Anesthesia: No previous sedation/anesthesia problems (including family history). [facility] Past Medical History Medical History Alcoholism Anemia Anxiety Arthritis Barretts esophagus Last EGD was on November 10, [address] Contreras and showed Wooten's esophagus, esophageal ulcers, duodenal ulcers, and hiatal hernia. He has had no follow-up since that time. Compression fracture History of T11 burst fracture. COPD with emphysema Dementia Depression Duodenal ulcer Esophageal ulcer GERD (gastroesophageal reflux disease) Osteoporosis Peripheral neuropathy Presence of IVC filter Inserted after trauma in 2002. Tobacco abuse Surgical History Surgical History History of cholecystectomy History of ortho
--- NOTE | 2019-07-09 10:51 | PM.PNCARD ---
Progress Note: A&P Assessment and Plan (1) Pneumonia: Qualifiers: Pneumonia type: due to unspecified organism Laterality: unspecified laterality Lung location: unspecified part of lung Qualified Code(s): J18.9 - Pneumonia, unspecified organism Code(s): J18.9 - Pneumonia, unspecified organism Status: Acute (2) Occlusion of left femoral artery: Code(s): I70.202 - Unspecified atherosclerosis of [place] arteries of extremities, left leg Status: Acute Assessment and Plan: peripheral angiogram was done today showed severe right external iliac artery stenosis, total occlusion of the mid SFA, extending to the distal portion of the SFA, this was treated with balloon angioplasty followed by stents with good results. He will need to be on aspirin and Plavix, will consider treatment for the right iliac at another occasion (3) Peripheral vascular disease: Code(s): I73.9 - Peripheral vascular disease, unspecified Status: Acute Assessment and Plan: With decreased pulses bilaterally but more so on the left side with possible acute occlusion of the left SFA. He needs to be on heparin for now, aspirin, and medical treatment (4) Left leg swelling: Code(s): M79.89 - Other specified soft tissue disorders Status: Acute Assessment and Plan: Venous Doppler was negative for DVT, will obtain echocardiogram if possible soon if he is going to be discharged will do that as an outpatient. Subjective Date/time seen: 07/09/19 10:51 Feels okay today, peripheral angiogram was done today showed severe right external iliac artery stenosis, total occlusion of the mid SFA, extending to the distal portion of the SFA, this was treated with balloon angioplasty followed by stents with good results Exam Narrative: Exam Narrative: Awake alert oriented x3 not in acute distress Neck is supple no obvious JVD, no carotid bruit Chest: Good air entry bilaterally, lungs are clear to auscultation and percussion bilaterally Cardiovascular: Regular rate and rhythm, 2/6 systolic murmur noted left sternal border Abdomen: Soft nontender bowel sounds positive Extremities: Significant edema noted in the left leg, it is warm, and red, he has decreased anterior tibial pulse and posterior tibial pulses, very decreased popliteal pulse on the left side. On the right side he has mildly decreased pulses but present. Tenderness is better, he has significant improvement of movement of the toes, and good temperature of the foot with significant warmth Objective Data Vital Signs Vital Signs: Vital Signs - 24 hr 07/08/19 14:00 07/08/19 19:54 07/08/19 20:00 Temperature 36.9 C Pulse Rate 99 99 Respiratory Rate 18 18 Blood Pressure 120/74 Pulse Oximetry 97 95 95 07/08/19 21:49 07/09/19 06:00 Temperature 36.4 C L 37.1 C Pulse Rate 106 H 86 Respiratory Rate 16 18 Blood Pressure 133/71 135/73 Pulse Oximetry 98 95 Intake/Output Intake/Output: Intake & Output 07/06/19 07/07/19 07/08/19 07/09/19 23:59 23:59 23:59 23:59 Intake Total 1274 1696 1590 120 Output Total 198 579 0138 1000 Balance 499 439 262 -152 Meds/Results Medications: Active Medications Generic Name Dose Route Start Last Admin Trade Name Freq PRN Reason Stop Dose Admin Acetaminophen 650 mg 06/23/19 12:51 06/23/19 16:31 Tylenol Elixir PO 650 mg Q6H PRN Administration Fever > 100.4 Budesonide/Formoterol Fumarate 2 puff 07/07/19 20:00 07/09/19 08:45 Symbicort 160-4.5 Mcg (*Sp) Inhaler INHALATION Not Given Q12HRT [facility] Folic Acid 1 mg 06/12/19 09:00 07/08/19 09:33 Folic Acid PO 1 mg DAILY [facility] Administration Guaifenesin 200 mg 07/04/19 12:44 Guaifenesin Liq PO Q6HR PRN Cough Heparin Sodium (Porcine) 5,000 units 07/06/19 14:00 Heparin Sodium IV PUSH PRN PRN aPTT less than 55 seconds Heparin Sodium (Porcine) 2,500 units 07/06/19 14:00 Heparin [place]
--- NOTE | 2019-07-09 10:53 | WPDCARDPROC ---
Cardiac Cath Procedure Note Date of procedure:: 07/09/19 Performing physician:: Jan Avalos MD Procedure: 1. Access to the right common femoral artery. 2. Right common femoral artery angiogram. 3. Abdominal aorta angiogram with distal runoff using right sided access. 4. Ultrasound-guided antegrade access to the left common femoral artery. 5. Right common femoral artery angiogram with distal runoff. 6. Crossing chronically totally occluded mid SFA, followed by angioplasty using 5 x 100 balloon. 7. Balloon angioplasty to multiple levels of the mid and distal SFA. 8. Stent placement using Supera stent 5 0 x 120 to the distal SFA. 9. Intravascular ultrasound to the popliteal left artery, left SFA. 10. Balloon angioplasty to the proximal SFA on the left side. 11. Placement of 2 stents the mid and proximal SFA using Supera stents 5 0 x 100 at the midsection and 5 0 x 80 at the proximal section. 12. Final angiogram to the left SFA with distal runoff. 13. Conscious sedation starting at 8:32 a.m. ending 1037 bruising total of 3 Versed and total of 100 mcg fentanyl administered by nurse Harmon under my supervision Field Test Engineer: Dr. Jan Avalos Complications: None. Sedation: Conscious sedation, local anesthesia, using 3 mg of Versed said, 100 mcg of fentanyl, and using 1% lidocaine for local anesthesia. Technique: After informed consent was obtained from patient, was brought to the laborer operator, put in the laborer operator table, prepped and draped in usual sterile fashion. Angiogram was done due to difficulty passing the wire, it showed significant disease, Bentson wire was used and carefully in navigating to the common iliac, using support catheter and glide catheter, subsequently angiogram was done at that level visualizing the aorta bifurcation and visualizing right and left common iliacs. At this moment attention was turned to the left femoral access, an antegrade access was decided to be done due to difficulty going up and over in view of severe disease of the right common iliac. Ultrasound-guided access was obtained to get antegrade access to the left common femoral artery, we using micro puncture catheter, after the wire was advanced that the catheter was advanced and subsequently was exchanged over guidewire to 6 [place] sheath. The sheath was flushed through the sheath angiogram was done with distal runoff. The lesion was identified with severe disease and total occlusion of the mid SFA. At this time patient was given heparin and subsequently using Glidewire and support catheter quick cross catheter I was able to cross the lesion across to the distal portion of the left SFA and to confirm the position we did angiogram at the popliteal level to confirm intraluminal presence. At that time balloon angioplasty was done to the distal, mid, and proximal SFA using 5 0 x 100 balloon. Post balloon angioplasty angiogram was done, showed flow was restored but with significant lesions present. This was treated with stent placement to the distal SFA using Supera stent 5 0 x 100, repeat angiogram showed still persistent flow difficulty right at the area of total occlusion, this was treated with repeat balloon angioplasty and subsequently intravascular ultrasound was done to visualize the lesions, it showed that the wires over was intraluminal except for 1 small spot that is subintimal, right at the area where there was total occlusion. This was treated with repeat angioplasty with balloon followed by stent placement this time 2 stents were placed 1 is as repair 5 0 x 100, and 1 is Supera 5.5 x 80 mm. Final angiogram after the last stent placement showed excellent result with good flow distally. Patient tolerated the procedure well with no complication, [place] [address] unit of heparin a two-stage is 5000 at the beginning 4000 towards the end of the procedure and then 1500 intra-arterial during the procedure. Hemodynamics: aortic pressure 124/60 . Angiographic fin
--- NOTE | 2019-07-09 10:55 | SUR.PHASEII ---
BEGIN PHASE II RECOVERY. 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 NGO. RECEIVED 3 STENTS TO L. SFA. RETURNS W/ 5 FR SHEATH INTACT R. FEM. ARTERY AND 6 FR. SHEATH INTACT ANTEGRADE IN L. FEM ARTERY. AWAKE AND ALERT ON ARRIVAL. REPORTS SOME SORENESS TO AREA JUST BELOW L. GROIN SHEATH INSERTION SITE. SITE IS SOFT, BUT TENDER ON PALP. WILL MONITOR. IVF'S INFUSING ORDERED. BILAT PEDAL PULSES DOPPLE EASILY AND STRONG, BUT R. PEDAL IS STRONGER THAN L. BOTH FEET ARE WARM, PINK. CAPILLARY REFILL TO L. TOES AT APPROX 2 SECONDS. VOIDING PER URINAL PLACED BETWEEN LEGS. VSS. MONITOR SR. WILL CONTINUE TO MONITOR.
--- NOTE | 2019-07-09 11:12 | PCOTNOTE ---
OT re-eval attempted. Patient down for angiogram. Will attempt at later time.
--- NOTE | 2019-07-09 11:16 | PCPTNOTE ---
Re-evaluation attempted this a.m. Pt was at procedure - angiogram. Will try again this p.m.
--- NOTE | 2019-07-09 12:09 | SUR.PHASEII ---
ACT VIA I-STAT IS 191.
--- NOTE | 2019-07-09 13:09 | SUR.PHASEII ---
ACT VIA I-STAT IS 175.
--- NOTE | 2019-07-09 13:45 | SUR.PHASEII ---
DR. LORD HERE TO SEE PT. CONDITION UPDATE GIVEN. PT. HAS HX OF SWALLOWING DIFFICULTY (ON PUREED DIET) AND UNABLE TO SIT UP. HOLDING PO LIQUIDS WHILE HOB FLAT. PT. VERBALLY AGREES.
--- NOTE | 2019-07-09 14:41 | PCPTNOTE ---
Attempted to perform re-eval this p.m. Pt was not back to nursing floor. Will try again tomorrow.
--- NOTE | 2019-07-09 14:51 | PM.PNPUL ---
Progress Note: A&P Assessment and Plan (1) COPD with emphysema: Qualifiers: Emphysema type: unspecified Qualified Code(s): J43.9 - Emphysema, unspecified Code(s): J43.9 - Emphysema, unspecified Status: Chronic Assessment and Plan: - d/c levabuterol and ipratropium 2 days ago - continue Spiriva 18 mcg 1 puff daily - continue Symbicort 160/4.5 mcg 2 puffs bid via spacer device Subjective Date/time seen: 07/09/19 14:51 Interval history: Interval history: Doing well, no complaints. He has had a cath today with 3 stents in his Left leg, is on room air, feeling well. NPO frome the procedure. Yssterday switched to Spiriva and Symbicort yesterday and seems to be doing well. Review of Systems Review of Systems: All systems reviewed & are unremarkable except as noted in HPI and below Exam Narrative: Exam Narrative: Chronically ill appearing, thin. Const: General: comfortable and no acute distress Nutritional Appearance: thin Other: Alert, answers questions easily. HENMT: Face and sinus: normal facial exam Mouth: Yes moist mucous membranes Neck: Neck: no lymphadenopathy, supple and no JVD Chest: Chest palpation & inspection: normal inspection of the chest Resp: Effort & Inspection: normal respiratory effort Auscultation: clear to auscultation bilaterally, no crackles, no rales, no rhonchi, no wheezes and diminished lung sounds Cardio: Rate: regular rate Rhythm: regular rhythm Heart sounds: S1 normal heart sound present and S2 normal heart sound present Urinary Catheter: Urinary Catheter: patent and draining Skin: Other: 1+ edema left foot, pulses palpable, easily heard with doppler; mild tenderness over catheter in situ; site left groin; right groin site shows catheter in situ as well, used to crossover to left side. Psych: Speech and movement: Clear speech present Objective Data Vital Signs Vital Signs: Vital Signs - 24 hr 07/08/19 19:54 07/08/19 20:00 07/08/19 21:49 Temperature 36.4 C L Pulse Rate 99 106 H Respiratory Rate 18 16 Blood Pressure 133/71 Pulse Oximetry 95 95 98 07/09/19 06:00 07/09/19 11:00 Temperature 37.1 C 36.8 C Pulse Rate 86 90 Respiratory Rate 18 16 Blood Pressure 135/73 148/79 H Pulse Oximetry 95 94 Intake/Output Intake/Output: Intake & Output 07/06/19 07/07/19 07/08/19 07/09/19 23:59 23:59 23:59 23:59 Intake Total 1274 1696 1590 120 Output Total 350 118 0476 1000 Balance 499 526 265 -880 Meds/Results Medications: Active Medications Generic Name Dose Route Start Last Admin Trade Name Freq PRN Reason Stop Dose Admin Acetaminophen 650 mg 06/23/19 12:51 06/23/19 16:31 Tylenol Elixir PO 650 mg Q6H PRN Administration Fever > 100.4 Budesonide/Formoterol Fumarate 2 puff 07/07/19 20:00 07/09/19 08:45 Symbicort 160-4.5 Mcg (*Sp) Inhaler INHALATION Not Given Q12HRT [facility] Clopidogrel Bisulfate 75 mg 07/09/19 09:00 Plavix PO QAM [facility] Folic Acid 1 mg 06/12/19 09:00 07/08/19 09:33 Folic Acid PO 1 mg DAILY [facility] Administration Guaifenesin 200 mg 07/04/19 12:44 Guaifenesin Liq PO Q6HR PRN Cough Heparin Sodium (Porcine) 5,000 units 07/06/19 14:00 Heparin Sodium IV PUSH PRN PRN aPTT less than 55 seconds Heparin Sodium (Porcine) 2,500 units 07/06/19 14:00 Heparin Sodium IV PUSH PRN PRN aPTT 55 - 70 seconds Heparin Sodium/Dextrose 25,000 units in 250 mls @ 9 mls/hr 07/06/19 14:00 07/09/19 07:37 Heparin Sodium/D5w 100 Units/Ml IV CONT 900 units/hr .Q24H CANDI 9 mls/hr Titration Protocol 900 UNITS/HR Sodium Chloride 500 mls @ 100 mls/hr 07/09/19 00:01 Normal Saline Iv IV CONT .Q5H [facility] Sodium Chloride 1,000 mls @ 125 mls/hr 07/09/19 11:04 Normal Saline Iv IV CONT 07/09/19 19:03 .Q8H ONE Lidocaine 1 patch 06/12/19 10:00 07/08/19 09:33 Lidoderm TRANSDERM 1 patch DAILY [facility] Administ
--- NOTE | 2019-07-09 14:55 | SUR.PHASEII ---
ACT VIA I-STAT IS 142.
--- NOTE | 2019-07-09 16:10 | SUR.PHASEII ---
ACT VIA I-STAT IS NOW 114. SHEATHS MAY BE DISCONTINUED.
--- NOTE | 2019-07-09 16:26 | SUR.PHASEII ---
Addendum entered by Rona Cagle RN 07/09/19 22:12: NOTE TIME SHOULD BE 1724, NOT 1626. KE. Original Note: R. FA 5FR SHEATH DISCONTINUED VIA MANUAL PULL PER PROTOCOL BY MARIBEL Brooks RN. TOLERATED WELL. FIRM, STEADY MANUAL PRESSURE HELD TO SITE TO ACHIEVE HEMOSTASIS. WILL CONTINUE TO MONITOR.
--- NOTE | 2019-07-09 16:26 | SUR.PHASEII ---
MANUAL 6FR SHEATH PULL L. FA BY MARLIN Brooks RN PER PROTOCOL. FIRM, STEADY, PRESSURE HELD TO SITE. SKIP WELL. DR. SLATER TO BEDSIDE TO SEE PT. VSS.
--- NOTE | 2019-07-09 16:56 | SUR.PHASEII ---
AFTER 30 MINUTES PRESSURE TO L. FA PUNCTURE SITE BY MARLIN Brooks RN, HEMOSTASIS ACHIEVED. SITE SOFT, MILDLY TENDER ON PALP. NO BLEEDING OR HEMATOMA NOTED. DRESSED W/ FOLDED GUAZE AND TEGADERM. REVIEWED BEDREST ACTIVITY RESTRICTIONS. R. FA SHEATH YET TO BE DISCONTINUED. VSS. WILL CONTINUE TO MONITOR.
--- NOTE | 2019-07-09 17:02 | PM.IMPN ---
Progress Note: A&P Assessment and Plan (1) Occlusion of left femoral artery: Code(s): I70.202 - Unspecified atherosclerosis of [place] arteries of extremities, left leg Status: Acute Assessment and Plan: Venous Dopplers incidentally found a segmental occlusion of the mid left femoral artery. The patient is symptomatic with left leg swelling, erythema, tenderness and unable to palpate left DP pulse. Unsure if this is acute vs chronic, radiologist reported from Venous Doppler on 06/28/2019 it did show some parts of arterial flow but unable to determine if occlusion was present at that time or not. Plan is to preform CTA Left Lower Extremity as long as creatinine is within normal limits. Will place the patient on a Heparin Drip for current treatment as long as H&H is stable and will monitor for any abnormal bleeding. Consult Dr. Avalos Cardiology who also works with vascular patients. 07/09/19 17:02 Patient is 69-year-old male with history of COPD he was admitted with pneumonia healthcare associated, has completed his 10 days of IV antibiotic had been doing better was seen by Dr. Rios, as well as drum cleaner, patient being clinically stable denies any complaint of cough shortness of breath obese, denies any seizures while in the hospital, was to discharge the patient to care home on July 01, due to logistic issue patient was not able to be transferred. Plan was to transfer the patient on 07/01 however care home is requesting the patient be tested for COVID-19 must be negative before transferring the patient, patient is clinically stable does not have any complaint, no cough fever or chills, no seizure while in the hospital, repeat COVID-19 test was negative on , thought patient did not have c/o lower extremity pain however he was not on DVT prophylaxis due to kaitlyn, it was swollen and tender CTA of lower extremity showed occulusion of SFA patient was seen by Dr. Avalos recommended to start heparin, today patient was taken to cardiac construction laborer and angiography which showed severe peripheral vascular disease with right-sided iliac disease, and left-sided SFA total occlusion, treated with balloon angioplasty, followed by multiple stent placement with good results. patient now placed on dual antiplatelets therapy with aspirin and plavix, patient stats feeling better dneis any pain, fever or chills, no seizures in the hospital. (2) Seizure: Code(s): R56.9 - Unspecified convulsions Status: Acute Assessment and Plan: Witnessed seizure chest after midnight on 06/30/2019. Resolved without medication. IV lorazepam available as needed but has not been used. 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 Attempted to get MRI brain twice but patient was unable to keep his head down. Head CTA performed with no large vessel occlusion. Will continue to monitor for now. Will only start Keppra if has another seizure. (3) Unresponsive episode: Code(s): R41.89 - Other symptoms and signs involving cognitive functions and awareness Status: Acute Assessment and Plan: Unresponsive episode of questionable etiology on 06/29/2019. Brain imaging as noted above. Bedside swallow on 06/25/2019 with recommendation for soft and bite sized food. MBS on 06/30/2019 with no aspiration seen but recommendation for thin liquids and pureed food given unresponsive episode. Will continue to monitor. (4) Thrombocythemia: Code(s): D47.3 - Essential (hemorrhagic) thrombocythemia Status: Acute Assessment and Plan: In review of platelets over his hospital stay, platelet count was normal until 06/18/2019 at which time platelet count did rise been decreased to 582,000 on 06/25/2019. Increased to maximum of 978,000 on 06/27/2019 and today 497 Will recheck today. (5)
--- NOTE | 2019-07-09 17:49 | SUR.PHASEII ---
HEMOSTASIS ACHIEVED TO PUNCTURE SITE R. FA AFTER 25 MINUTES MANUAL PRESSURE HOLD TO SITE BY MARIBEL Brooks RN. TOLERATED WELL. SITE SOFT, NONTENDER. NO BLEEDING OR HEMATOMA NOTED. DRESSED W/ FOLDED GUAZE AND TEGADERM. VSS. REVIEWED BEDREST ACTIVITY RESTRICTIONS AND THAT WILL HAVE ADDITIONAL 6 HOURS OF BEDREST UNTIL 2348. VOICED UNDERSTANDING. WILL MONITOR.
--- NOTE | 2019-07-09 18:25 | SUR.PHASEII ---
REPORT CALLED TO MARAL DUONG ON [facility]. PT. IS TO RETURN TO 248.
--- NOTE | 2019-07-09 18:50 | SUR.PHASEII ---
PT. RETURNED TO 248 VIA BED BY THIS RN W/ ALL PERSONAL BELONGINGS AND CHART. REPORT UPDATES TO MARAL DUONG ON ARRIVAL AND VIEWED BILAT GROIN SITES TOGETHER. R. AND L. GROIN SITES REMAIN SOFT, NO BLEEDING OR HEMATOMA NOTED. DRESSINGS C/D/I. BILAT PEAL PULSES DOPPLE STRONG AND PALP WEAK.
[2019-07-09] MEDS: PANTOPRAZOLE 40 MG TABLET PO (19:13)
[2019-07-09] MEDS: FOLIC ACID 1 MG TABLET PO (19:13)
[2019-07-09] MEDS: THIAMINE HCL 100 MG TABLET PO (19:13)
[2019-07-09] MEDS: SODIUM CHLORIDE 500 MG TABLET PO (19:13)
[2019-07-09] MEDS: CLOPIDOGREL BISULFATE 300 MG TABLET PO (19:13)
[2019-07-09 19:31] LABS: Activated Clotting Time 213 sec (74-137)
[2019-07-09 19:31] LABS: Activated Clotting Time 191 sec (74-137)
[2019-07-09 19:31] LABS: Activated Clotting Time 142 sec (74-137)
[2019-07-09 19:31] LABS: Activated Clotting Time 175 sec (74-137)
[2019-07-09 19:31] LABS: Activated Clotting Time 114 sec (74-137)
[2019-07-09 19:31] LABS: Activated Clotting Time 175 sec (74-137)
--- NOTE | 2019-07-09 19:46 | PC.NURSE ---
PT RETURNED TO FLOOR VIA HOSPITAL BED.
[2019-07-09] MEDS: POTASSIUM CHLORIDE 20 MEQ PACKET (FOR LIQUID) 40 MEQ PO (20:15)
[2019-07-10 04:57] LABS: Basophils Absolute Auto 0.1 K/mm3 (0.0-0.1); Basophils Percent Auto 1.1 % (0.2-1.2); Eosinophils Absolute Auto 0.1 K/mm3 (0-0.3); Eosinophils Percent Auto 0.8 % (0-4.4); Hematocrit 27.6 % (42.0-52.0); Hemoglobin 8.9 g/dL (14.0-18.0); Immature Granulocyte Absolute 0.02 K/mm3 (0.00-0.031); Immature Granulocyte Percent A 0.3 % (0-0.5); Lymphocytes Absolute Auto 2.05 K/mm3 (0.9-3.2); Lymphocytes Percent Auto 27.9 % (18.3-44.2); Mean Corpuscular HGB Conc 32.2 g/dl (32-36); Mean Corpuscular Hemoglobin 28.9 pg (26-34); Mean Corpuscular Volume 89.6 fl (80-100); Mean Platelet Volume 8.9 fl (7.4-10.4); Monocytes Absolute Auto 1.1 K/mm3 (0.1-0.6); Monocytes Percent Auto 14.9 % (2.6-8.5); Neutrophils Absolute Auto 4.1 K/mm3 (1.3-6.7); Platelet Count Result 452 k/mm3 (150-375); Red Blood Count 3.08 M/mm3 (4.6-6.20); Red Cell Distribution Width 15.3 % (11.5-14.5); White Blood Count 7.4 K/mm3 (4.5-10.0)
[2019-07-10 05:07] LABS: Partial Thromboplastin Time 38.3 SECONDS (22.3-36.8)
[2019-07-10 05:08] LABS: Blood Urea Nitrogen 3 mg/dL (9-20); Calcium 8.8 mg/dL (8.4-10.2); Carbon Dioxide 24 mmol/L (22-30); Chloride 102 mmol/L (98-107); Estimated CRCL calculation 85 ml/min; Estimated Glomerular Filt Rate > 60; Glucose 89 mg/dL (75-110); Sodium 132 mmol/L (137-145)
[2019-07-10 06:00] VITALS: BP 135/75; PULSE 93; RESP 18; TEMP 36.8; O2SAT 97
[2019-07-10] MEDS: CLOPIDOGREL BISULFATE 75 MG TABLET PO (09:06)
[2019-07-10] MEDS: THIAMINE HCL 100 MG TABLET PO (09:06)
[2019-07-10] MEDS: SODIUM CHLORIDE 500 MG TABLET PO ×2 (09:07→16:41)
[2019-07-10] MEDS: FOLIC ACID 1 MG TABLET PO (09:07)
[2019-07-10] MEDS: NICOTINE (*PBKC) 21 MG PATCH 1 PATCH TRANSDERM (09:07)
[2019-07-10] MEDS: LIDOCAINE 5% PATCH 1 PATCH TRANSDERM (09:07)
[2019-07-10] MEDS: PANTOPRAZOLE 40 MG TABLET PO (09:08)
--- NOTE | 2019-07-10 09:27 | PM.PNCARD ---
Progress Note: A&P Assessment and Plan (1) Peripheral vascular disease: Code(s): I73.9 - Peripheral vascular disease, unspecified Status: Acute Assessment and Plan: Wi69 y/o with COPD, active smoker presented initially with pneumonia with prolonged hospital course complicated with seizure as well as lower ext swelling with poor pulses found to have significant PVD s/p intervention on occluded left SFA. Tolerated well. No complications. Continue ASA, Plavix and statin Smoking cessation counseling He is stable for discharge from cardiac standpoint. Will need follow up with Dr Avalos in one week. Plan to arrange for intervention on right illiac disease with 90% stenosis. He will also need cardiac ischemic evaluation at some point if it was not done recently for risk stratification given extensive cardiovascular risk factors and severe PVD (2) Occlusion of left femoral artery: Code(s): I70.202 - Unspecified atherosclerosis of [place] arteries of extremities, left leg Status: Acute Assessment and Plan: peripheral angiogram was done yesterday severe right external iliac artery stenosis, total occlusion of the mid SFA, extending to the distal portion of the SFA, this was treated with balloon angioplasty followed by stents with good results. He will need to be on aspirin and Plavix, will consider treatment for the right iliac at another occasion (3) Pneumonia: Qualifiers: Pneumonia type: due to unspecified organism Laterality: unspecified laterality Lung location: unspecified part of lung Qualified Code(s): J18.9 - Pneumonia, unspecified organism Code(s): J18.9 - Pneumonia, unspecified organism Status: Acute Additional Plan Thank you for allowing me to participate in this patient's care, I will be following up with you. Please do not hesitate to call me for any other inquiry Subjective Date/time seen: 07/10/19 09:27 He feels fine. Dressed up and ready to leave. Denies chest pain or dyspnea. No pain at groin access sites from yesterday procedure Review of Systems Constitutional: Constitutional: Reports body ache(s) Cardiovascular: Cardiovascular: Denies chest pain, Reports leg edema, Denies lightheadedness and Denies palpitations Respiratory: Respiratory: Reports as per HPI Endocrine: Endocrine: Denies palpitations Exam Narrative: Exam Narrative: Awake alert oriented x3 not in acute distress Neck is supple no obvious JVD, no carotid bruit Chest: Good air entry bilaterally, lungs are clear to auscultation and percussion bilaterally Cardiovascular: Regular rate and rhythm, 2/6 systolic murmur noted left sternal border Abdomen: Soft nontender bowel sounds positive Extremities: Significant edema noted in the left leg, it is warm, and red, he has decreased anterior tibial pulse and posterior tibial pulses, very decreased popliteal pulse on the left side. On the right side he has mildly decreased pulses but present. Tenderness is better, he has significant improvement of movement of the toes, and good temperature of the foot with significant warmth Objective Data Vital Signs Vital Signs: Vital Signs - 24 hr 07/09/19 11:00 07/09/19 11:15 07/09/19 11:30 Temperature 36.8 C Pulse Rate 90 85 80 Respiratory Rate 16 16 16 Blood Pressure 148/79 H 164/77 H 171/82 H Pulse Oximetry 94 95 96 07/09/19 11:45 07/09/19 12:15 07/09/19 12:45 Temperature Pulse Rate 81 81 88 Respiratory Rate 16 16 16 Blood Pressure 184/80 H 157/75 H 159/75 H Pulse Oximetry 97 97 99 07/09/19 13:45 07/09/19 14:45 07/09/19 15:45 Temperature 37.6 C Pulse Rate 88 86 88 Respiratory Rate 16 16 16 Blood Pressure 149/82 H 151/77 H 155/81 H Pulse Oximetry 100 99 99 07/09/19 16:20 07/09/19 16:30 07/09/19 16:45 Temperature Pulse Rate 92 99 98 Respiratory Rate 16 16 16 Blood Pressure 146/81 H 143/90 H 147/82 H Pulse Oximetry 99 99 98 07/09/19 17:00 07/09/19 17:15 07/08
[2019-07-10 10:00] VITALS: BP 118/68; PULSE 116; RESP 16; TEMP 37; O2SAT 99
--- NOTE | 2019-07-10 10:45 | PM.DS ---
DS: Diagnosis Admitting Diagnosis Admitting Diagnosis: DOS 07/11/2019 Low back pain Discharge Diagnosis (1) Occlusion of left femoral artery: Code(s): I70.202 - Unspecified atherosclerosis of [place] arteries of extremities, left leg Status: Acute Assessment and Plan: Patient is 69-year-old male with history of COPD he was admitted with pneumonia healthcare associated, has completed his 10 days of IV antibiotic had been doing better was seen by Dr. Rios, as well as database analyst, patient being clinically stable denies any complaint of cough shortness of breath obese, denies any seizures while in the hospital, was to discharge the patient to [facility] on July 01, due to logistic issue patient was not able to be transferred. Plan was to transfer the patient on 07/01 however [facility] is requesting the patient be tested for COVID-19 must be negative before transferring the patient, patient is clinically stable does not have any complaint, no cough fever or chills, no seizure while in the hospital, repeat COVID-19 test was negative on , thought patient did not have c/o lower extremity pain however he was not on DVT prophylaxis due to kaitlyn, it was swollen and tender CTA of lower extremity showed occulusion of SFA patient was seen by Dr. Avalos recommended to start heparin, today patient was taken to cardiac paint laboratory technician and angiography which showed severe peripheral vascular disease with right-sided iliac disease, and left-sided SFA total occlusion, treated with balloon angioplasty, followed by multiple stent placement with good results. See above hospital course from previous notes, pt is stable for discharge today from medical and cardiology point of view. Pt [facility] be [facility]. Will be discharged when bed is available. Pt has been here for 4 weeks. Pt to continue with ASA, Plavix and statin. Smoking cessation adviced. (2) Seizure: Code(s): R56.9 - Unspecified convulsions Status: Acute Assessment and Plan: Witnessed seizure chest after midnight on 06/30/2019. Resolved without medication. 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 Attempted to get MRI brain twice but patient was unable to tolerate it. Head CTA performed with no large vessel occlusion. Keppra not started. (3) Unresponsive episode: Code(s): R41.89 - Other symptoms and signs involving cognitive functions and awareness Status: Acute Assessment and Plan: Unresponsive episode of questionable etiology on 06/29/2019. Brain imaging as noted above. Bedside swallow on 06/25/2019 with recommendation for soft and bite sized food. Pt to have rpt MBS prior to discharge . (4) Thrombocythemia: Code(s): D47.3 - Essential (hemorrhagic) thrombocythemia Status: Acute Assessment and Plan: Plts are 452. (5) Pneumonia: Qualifiers: Laterality: unspecified laterality Lung location: unspecified part of lung Pneumonia type: due to unspecified organism Qualified Code(s): J18.9 - Pneumonia, unspecified organism Code(s): J18.9 - Pneumonia, unspecified organism Status: Acute Assessment and Plan: Appreciate help from pulmonology and Infectious Disease. 1st sputum culture on 06/13/2019 with yeast. 2nd sputum culture on 06/18/2019 with stenotrophomonas maltophilia. Bronchoscopy on 06/19 19 with growth of stenotrophomonas maltophilia and Patt albicans. Legionella pneumococcal antigens negative. COVID-19 testing through [facility] negative and repeat test on 09/30 was negative. He was initially on IV ceftriaxone and azithromycin but switched to IV imipenem and vancomycin on 06/17/2019. Finally switched to IV TMP/SMZ on 06/21/2019 per Infectious Disease and completed 10 day course on 06/30/2019. Pt is currently no on any oral abx
[2019-07-10 14:00] VITALS: BP 121/67; PULSE 120; RESP 16; TEMP 37.4; O2SAT 98
--- NOTE | 2019-07-10 14:29 | PCSTNOTE ---
Please refer to the Bedside Swallow Evaluation in the EMR.
[2019-07-10] MEDS: ACETAMINOPHEN ELIXIR 325 MG/10.15 ML UDC 650 MG PO (16:44)
--- NOTE | 2019-07-10 17:03 | PM.IMPN ---
Progress Note: A&P Assessment and Plan (1) Occlusion of left femoral artery: Code(s): I70.202 - Unspecified atherosclerosis of [place] arteries of extremities, left leg Status: Acute Assessment and Plan: Patient is 69-year-old male with history of COPD he was admitted with pneumonia healthcare associated, has completed his 10 days of IV antibiotic had been doing better was seen by Dr. Rios, as well as yacht rigger, patient being clinically stable denies any complaint of cough shortness of breath obese, denies any seizures while in the hospital, was to discharge the patient to [facility] on July 01, due to logistic issue patient was not able to be transferred. Plan was to transfer the patient on 07/01 however [facility] is requesting the patient be tested for COVID-19 must be negative before transferring the patient, patient is clinically stable does not have any complaint, no cough fever or chills, no seizure while in the hospital, repeat COVID-19 test was negative on , CTA of lower extremity showed occulsion of SFA. Patient was seen by Dr. Avalos recommended to start heparin, today patient was taken to cardiac chemical lab technician and angiography which showed severe peripheral vascular disease with right-sided iliac disease, and left-sided SFA total occlusion, treated with balloon angioplasty, followed by multiple stent placement with good results. See above hospital course from previous notes, pt is stable for discharge today from medical and cardiology point of view. Pt to be discharged to [facility] [place]. Will be discharged when bed is available. Pt has been here for 4 weeks. Rpt swallow test and ambulatory oxygen test prior to discharge. Pt to continue with ASA, Plavix and statin. Smoking cessation adviced. (2) Seizure: Code(s): R56.9 - Unspecified convulsions Status: Acute Assessment and Plan: Witnessed seizure chest after midnight on 06/30/2019. Resolved without medication. 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 Attempted to get MRI brain twice but patient was unable to tolerate it. Head CTA performed with no large vessel occlusion. Keppra not started. (3) Unresponsive episode: Code(s): R41.89 - Other symptoms and signs involving cognitive functions and awareness Status: Acute Assessment and Plan: Unresponsive episode of questionable etiology on 06/29/2019. Brain imaging as noted above. Bedside swallow on 06/25/2019 with recommendation for soft and bite sized food. Pt to have rpt MBS prior to discharge. (4) Thrombocythemia: Code(s): D47.3 - Essential (hemorrhagic) thrombocythemia Status: Acute Assessment and Plan: Plts are 452. (5) Pneumonia: Qualifiers: Pneumonia type: due to unspecified organism Laterality: unspecified laterality Lung location: unspecified part of lung Qualified Code(s): J18.9 - Pneumonia, unspecified organism Code(s): J18.9 - Pneumonia, unspecified organism Status: Acute Assessment and Plan: Appreciate help from pulmonology and Infectious Disease. 1st sputum culture on 06/13/2019 with yeast. 2nd sputum culture on 06/18/2019 with stenotrophomonas maltophilia. Bronchoscopy on 06/19 19 with growth of stenotrophomonas maltophilia and Patt albicans. Legionella pneumococcal antigens negative. COVID-19 testing through [facility] negative and repeat test on 09/30 was negative. He was initially on IV ceftriaxone and azithromycin but switched to IV imipenem and vancomycin on 06/17/2019. Finally switched to IV TMP/SMZ on 06/21/2019 per Infectious Disease and completed 10 day course on 06/30/2019. Pt is currently no on any oral abx. (6) Acute respiratory failure: Qualifiers: Respiratory failure complication: hypoxia Qualified Code(s): J96.01
--- NOTE | 2019-07-10 17:27 | PCCCNOTE ---
Spoke with Erin (Jed); pt was approved on the for [facility] in [place]; Is this still available? Contact Erin at [facility] [phone] regarding discharge placement and needs
[2019-07-10 18:11] VITALS: BP 102/53; PULSE 120; RESP 18; TEMP 36.7; O2SAT 97
--- NOTE | 2019-07-10 18:59 | PM.PNPUL ---
Progress Note: A&P Assessment and Plan (1) COPD with emphysema: Qualifiers: Emphysema type: unspecified Qualified Code(s): J43.9 - Emphysema, unspecified Code(s): J43.9 - Emphysema, unspecified Status: Chronic Assessment and Plan: - stable, no longer on levabuterol and ipratropium - continue Spiriva 18 mcg 1 puff daily - continue Symbicort 160/4.5 mcg 2 puffs bid via spacer device - infiltrates last noted on 07/01, over a week ago. Will repeat CXR. Subjective Date/time seen: 07/10/19 18:59 Interval history: Interval history: Doing well, no complaints. He appears significantly improved, up in a chair watching an old baseball game, doing well on Spiriva and Symbicort. he was able to walk in the halls today, on room air. Review of Systems Review of Systems: All systems reviewed & are unremarkable except as noted in HPI and below Exam Narrative: Exam Narrative: Chronically ill appearing, thin. Sitting up in chair, watching TV. Speech is fluent, clear. Yomi is much better. Const: General: comfortable and no acute distress Nutritional Appearance: thin Other: Alert, answers questions easily. HENMT: Face and sinus: normal facial exam Eyes: General: appearance normal, both eyes and all related structures Neck: Neck: no lymphadenopathy, supple and no JVD Chest: Chest palpation & inspection: normal inspection of the chest Resp: Effort & Inspection: normal respiratory effort Auscultation: clear to auscultation bilaterally, no crackles, no rales, no rhonchi, no wheezes and diminished lung sounds Cardio: Rate: regular rate Rhythm: regular rhythm GI: Auscultation: normal bowel sounds Skin: General skin exam: normal color Other: He is wearing athletic shoes, swelling in the left foot has improved. Neuro: Speech: No normal speech Extrem: General: normal to inspection, no edema and no pedal edema Psych: Speech and movement: Clear speech present Objective Data Vital Signs Vital Signs: Vital Signs - 24 hr 07/09/19 19:00 07/09/19 19:45 07/09/19 20:00 Temperature 36.3 C L 36.6 C Pulse Rate 94 94 98 Respiratory Rate 16 18 18 Blood Pressure 152/76 H 155/76 H Pulse Oximetry 97 96 96 07/09/19 20:45 05/04/20 20:58 07/09/19 20:59 Temperature 36.5 C Pulse Rate 100 98 98 Respiratory Rate 18 Blood Pressure 135/83 Pulse Oximetry 96 96 07/09/19 21:45 07/09/19 22:00 07/09/19 22:45 Temperature 36.6 C 36.5 C 36.5 C Pulse Rate 93 100 98 Respiratory Rate 18 18 18 Blood Pressure 141/70 H 135/83 134/73 Pulse Oximetry 97 96 96 07/09/19 23:45 07/10/19 06:00 07/10/19 10:00 Temperature 36.1 C L 36.8 C 37.0 C Pulse Rate 105 H 93 116 H Respiratory Rate 18 18 16 Blood Pressure 140/79 135/75 118/68 Pulse Oximetry 96 97 99 07/10/19 14:00 07/10/19 18:11 Temperature 37.4 C 36.7 C Pulse Rate 120 H 120 H Respiratory Rate 16 18 Blood Pressure 121/67 102/53 L Pulse Oximetry 98 97 Intake/Output Intake/Output: Intake & Output 07/07/19 07/08/19 07/09/19 07/10/19 23:59 23:59 23:59 23:59 Intake Total 1696 0569 806 2980 Output Total 800 1325 2800 1400 Balance 896 265 -2680 120 Meds/Results Medications: Active Medications Generic Name Dose Route Start Last Admin Trade Name Freq PRN Reason Stop Dose Admin Acetaminophen 650 mg 06/23/19 12:51 07/10/19 16:44 Tylenol Elixir PO 650 mg Q6H PRN Administration Fever > 100.4 Budesonide/Formoterol Fumarate 2 puff 07/07/19 20:00 07/10/19 09:41 Symbicort 160-4.5 Mcg (*Sp) Inhaler INHALATION 2 puff Q12HRT CANDI Administration Clopidogrel Bisulfate 75 mg 07/10/19 09:00 07/10/19 09:06 Plavix PO 75 mg QAM CANDI Administration Folic Acid 1 mg 06/12/19 09:00 07/10/19 09:07 Folic Acid PO 1 mg DAILY CANDI Administration Guaifenesin 200 mg 07/04/19 12:44 Guaifenesin Liq PO Q6HR PRN Cough Lidocaine 1 patch 06/12/19 10:00 07/10/19 09:07 Lidoderm TRANSDERM
[2019-07-10 22:00] VITALS: BP 105/61; PULSE 89; RESP 20; TEMP 36.2; O2SAT 94
[2019-07-11 04:58] LABS: Basophils Absolute Auto 0.1 K/mm3 (0.0-0.1); Basophils Percent Auto 0.7 % (0.2-1.2); Eosinophils Absolute Auto 0.2 K/mm3 (0-0.3); Eosinophils Percent Auto 1.8 % (0-4.4); Hematocrit 25.3 % (42.0-52.0); Hemoglobin 8.5 g/dL (14.0-18.0); Immature Granulocyte Absolute 0.03 K/mm3 (0.00-0.031); Immature Granulocyte Percent A 0.4 % (0-0.5); Lymphocytes Absolute Auto 2.85 K/mm3 (0.9-3.2); Lymphocytes Percent Auto 34.9 % (18.3-44.2); Mean Corpuscular HGB Conc 33.6 g/dl (32-36); Mean Corpuscular Hemoglobin 29.4 pg (26-34); Mean Corpuscular Volume 87.5 fl (80-100); Mean Platelet Volume 8.9 fl (7.4-10.4); Monocytes Absolute Auto 1.5 K/mm3 (0.1-0.6); Monocytes Percent Auto 17.9 % (2.6-8.5); Neutrophils Absolute Auto 3.6 K/mm3 (1.3-6.7); Neutrophils Percent Auto 44.3 % (45.5-73.1); Platelet Count Result 409 k/mm3 (150-375); Red Blood Count 2.89 M/mm3 (4.6-6.20); Red Cell Distribution Width 15.3 % (11.5-14.5); White Blood Count 8.2 K/mm3 (4.5-10.0)
[2019-07-11 05:11] LABS: Blood Urea Nitrogen 7 mg/dL (9-20); Calcium 8.5 mg/dL (8.4-10.2); Carbon Dioxide 24 mmol/L (22-30); Chloride 100 mmol/L (98-107); Estimated CRCL calculation 85 ml/min; Estimated Glomerular Filt Rate > 60; Glucose 91 mg/dL (75-110); Potassium 3.3 mmol/L (3.4-5.0); Sodium 133 mmol/L (137-145)
[2019-07-11 06:00] VITALS: BP 111/57; PULSE 84; RESP 18; TEMP 36.5; O2SAT 93
[2019-07-11 06:46] LABS: Partial Thromboplastin Time 39.7 SECONDS (22.3-36.8)
[2019-07-11] MEDS: THIAMINE HCL 100 MG TABLET PO (08:08)
[2019-07-11] MEDS: PANTOPRAZOLE 40 MG TABLET PO (08:08)
[2019-07-11] MEDS: CLOPIDOGREL BISULFATE 75 MG TABLET PO (08:08)
[2019-07-11] MEDS: LIDOCAINE 5% PATCH 1 PATCH TRANSDERM (08:08)
[2019-07-11] MEDS: SODIUM CHLORIDE 500 MG TABLET PO (08:08)
[2019-07-11] MEDS: FOLIC ACID 1 MG TABLET PO (08:08)
[2019-07-11] MEDS: NICOTINE (*PBKC) 21 MG PATCH 1 PATCH TRANSDERM (08:09)
--- NOTE | 2019-07-11 10:36 | PM.PNCARD ---
Progress Note: A&P Assessment and Plan (1) Peripheral vascular disease: Code(s): I73.9 - Peripheral vascular disease, unspecified Status: Acute Assessment and Plan: i69 y/o male with h/o COPD, active smoker presented initially with pneumonia with prolonged hospital course complicated with seizure as well as lower ext swelling with poor pulses found to have significant PVD s/p intervention on occluded left SFA. Tolerated well. No complications. Continue ASA, Plavix and statin Smoking cessation counseling He is stable for discharge from cardiac standpoint. Will need follow up with Dr Avalos in one week. Plan to arrange for intervention on right illiac disease with 90% stenosis. He will also need cardiac ischemic evaluation at some point if it was not done recently for risk stratification given extensive cardiovascular risk factors and severe PVD (2) Occlusion of left femoral artery: Code(s): I70.202 - Unspecified atherosclerosis of [place] arteries of extremities, left leg Status: Acute Assessment and Plan: peripheral angiogram was done on 07/09/2019 severe right external iliac artery stenosis, total occlusion of the mid SFA, extending to the distal portion of the SFA, this was treated with balloon angioplasty followed by stents with good results. He will need to be on aspirin and Plavix, will consider treatment for the right iliac at another occasion (3) Pneumonia: Qualifiers: Pneumonia type: due to unspecified organism Laterality: unspecified laterality Lung location: unspecified part of lung Qualified Code(s): J18.9 - Pneumonia, unspecified organism Code(s): J18.9 - Pneumonia, unspecified organism Status: Acute Additional Plan Thank you for allowing me to participate in this patient's care, I will be following up with you. Please do not hesitate to call me for any other inquiry Subjective Date/time seen: 07/11/19 Reports headache but otherwise feels fine. Denies chest pain or dsypnea. Review of Systems Constitutional: Constitutional: Reports body ache(s) Cardiovascular: Cardiovascular: Denies chest pain, Reports leg edema, Denies lightheadedness and Denies palpitations Respiratory: Respiratory: Reports as per HPI Endocrine: Endocrine: Denies palpitations Exam Narrative: Exam Narrative: Awake alert oriented x3 not in acute distress Neck is supple no obvious JVD, no carotid bruit Chest: Good air entry bilaterally, lungs are clear to auscultation and percussion bilaterally Cardiovascular: Regular rate and rhythm, 2/6 systolic murmur noted left sternal border Abdomen: Soft nontender bowel sounds positive Extremities: Significant edema noted in the left leg, it is warm, and red, he has decreased anterior tibial pulse and posterior tibial pulses, very decreased popliteal pulse on the left side. On the right side he has mildly decreased pulses but present. Tenderness is better, he has significant improvement of movement of the toes, and good temperature of the foot with significant warmth Objective Data Vital Signs Vital Signs: Vital Signs - 24 hr 07/10/19 14:00 07/10/19 18:11 07/10/19 22:00 Temperature 37.4 C 36.7 C 36.2 C L Pulse Rate 120 H 120 H 89 Respiratory Rate 16 18 20 Blood Pressure 121/67 102/53 L 105/61 Pulse Oximetry 98 97 94 07/11/19 06:00 Temperature 36.5 C Pulse Rate 84 Respiratory Rate 18 Blood Pressure 111/57 L Pulse Oximetry 93 Intake/Output Intake/Output: Intake & Output 07/08/19 07/09/19 07/10/19 07/11/19 23:59 23:59 23:59 23:59 Intake Total 0760 269 8563 400 Output Total 1325 2800 1400 600 Balance 265 -2680 120 -200 Meds/Results Medications: Active Medications Generic Name Dose Route Start Last Admin Trade Name Freq PRN Reason Stop Dose Admin Acetaminophen 650 mg 06/23/19 12:51 07/10/19 16:44 Tylenol Elixir PO 650 mg Q6H PRN Administration Fever > 100.4 Budesonide/Formoterol Fumarat
--- NOTE | 2019-07-11 13:38 | PM.IMPN ---
Progress Note: A&P Assessment and Plan (1) Occlusion of left femoral artery: Code(s): I70.202 - Unspecified atherosclerosis of [place] arteries of extremities, left leg Status: Acute Assessment and Plan: Patient is 69-year-old male with history of COPD he was admitted with pneumonia healthcare associated, has completed his 10 days of IV antibiotic had been doing better was seen by Dr. Rios, as well as commercial loan underwriter, patient being clinically stable denies any complaint of cough shortness of breath obese, denies any seizures while in the hospital, was to discharge the patient to [facility] on July 01, due to logistic issue patient was not able to be transferred. Plan was to transfer the patient on 07/01 however [facility] is requesting the patient be tested for COVID-19 must be negative before transferring the patient, patient is clinically stable does not have any complaint, no cough fever or chills, no seizure while in the hospital, repeat COVID-19 test was negative on , CTA of lower extremity showed occulsion of SFA. Patient was seen by Dr. Avalos recommended to start heparin, today patient was taken to cardiac slab grinder and angiography which showed severe peripheral vascular disease with right-sided iliac disease, and left-sided SFA total occlusion, treated with balloon angioplasty, followed by multiple stent placement with good results. See above hospital course from previous notes, pt is stable for discharge today from medical and cardiology point of view. Pt to be discharged to [facility]. Will be discharged when bed is available. Pt has been here for 4 weeks. Rpt swallow test and ambulatory oxygen test prior to discharge. Pt to continue with ASA, Plavix and statin. Smoking cessation adviced. (2) Seizure: Code(s): R56.9 - Unspecified convulsions Status: Acute Assessment and Plan: Witnessed seizure chest after midnight on 06/30/2019. Resolved without medication. 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 Attempted to get MRI brain twice but patient was unable to tolerate it. Head CTA performed with no large vessel occlusion. Keppra not started. (3) Unresponsive episode: Code(s): R41.89 - Other symptoms and signs involving cognitive functions and awareness Status: Acute Assessment and Plan: Unresponsive episode of questionable etiology on 06/29/2019. Brain imaging as noted above. Bedside swallow on 06/25/2019 with recommendation for soft and bite sized food. Pt to have rpt MBS prior to discharge. (4) Thrombocythemia: Code(s): D47.3 - Essential (hemorrhagic) thrombocythemia Status: Acute Assessment and Plan: Plts are 452. (5) Pneumonia: Qualifiers: Pneumonia type: due to unspecified organism Laterality: unspecified laterality Lung location: unspecified part of lung Qualified Code(s): J18.9 - Pneumonia, unspecified organism Code(s): J18.9 - Pneumonia, unspecified organism Status: Acute Assessment and Plan: Appreciate help from pulmonology and Infectious Disease. 1st sputum culture on 06/13/2019 with yeast. 2nd sputum culture on 06/18/2019 with stenotrophomonas maltophilia. Bronchoscopy on 06/19 19 with growth of stenotrophomonas maltophilia and Patt albicans. Legionella pneumococcal antigens negative. COVID-19 testing through [facility] negative and repeat test on 09/30 was negative. He was initially on IV ceftriaxone and azithromycin but switched to IV imipenem and vancomycin on 06/17/2019. Finally switched to IV TMP/SMZ on 06/21/2019 per Infectious Disease and completed 10 day course on 06/30/2019. Pt is currently no on any oral abx. (6) Acute respiratory failure: Qualifiers: Respiratory failure complication: hypoxia Qualified Code(s): J96.01
[2019-07-11 14:00] VITALS: BP 119/64; PULSE 120; RESP 16; TEMP 36.4; O2SAT 98
--- NOTE | 2019-07-11 14:08 | PCNFU ---
Nutrition Follow-Up Complete: Inadequate energy intake related to decreased appetite as evidenced by BMI of 17.7 Goal: Meet estimated nutritional needs Progressing towards goal. We will continue current goal. Pt current nutrition is Soft and Bite Sized, Level 6. Nutrition recommendation:Agree Last recorded weight is 60.5 kg. Bowel Motility:+BM 5/ Labs Reviewed:Cr 0.6,BUN 7,Na 133,K 3.3 Meds Noted:Folic Acid, Thiamine,Miralax Additional Notes: Spoke with nursing today regarding patient follow up due to COVID 19 precautions. Patient is medical stable for discharge, waiting for placement. Oral Intake has improved 90% of breakfast meal today. Agree with diet orders. Will continue to monitor, weight, labs, intake, supplement preferences every 5 days.
[2019-07-11 14:10] VITALS: PULSE 116
[2019-07-11 15:17] VITALS: PULSE 113
--- NOTE | 2019-08-01 08:34 | PM.IMPN ---
Subjective Date/time seen: 07/02/2019 Objective Data Meds/Results Radiology Results: ITS Impressions Chest CT 06/11/19 16:11 IMPRESSION: 1. 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 2: 2.6 cm exophytic right renal mass, concerning for renal cell carcinoma. Recommend consultation. 3: Moderate size hiatal hernia with fluid throughout the esophagus, consistent with reflux. Normal abnormal thickening of the distal esophagus near the gastroesophageal junction above the diaphragm which may relate to esophagitis, although underlying mass is not excluded. 4: Stable bilateral pulmonary nodules, likely benign. Lumbar Spine X-Ray 06/11/19 16:24 Impression: 1: No acute fracture. 2: Progression of chronic T11 burst fracture. 3: Moderate lumbar spondylosis. Abdomen X-Ray 06/13/19 07:34 IMPRESSION: 1. Nasogastric tube tip in the stomach. Head CT 06/30/19 08:13 IMPRESSION: 1. No acute intracranial abnormality. 2. Age related findings. 3. Bilateral mastoid effusions, right greater than left. Modified Barium Swallow 06/30/19 12:32 IMPRESSION: 1. No aspiration or penetration. Please refer to the speech therapy report for additional swallow-related findings and intake recommendations. CT Brain Angiography 07/01/19 12:21 IMPRESSION: 1. No large vessel occlusion. Chest X-Ray 07/02/19 10:27 IMPRESSION: 1. Stable airspace opacities in right mid and lower lung zones, consistent with pneumonia. 2. Small right pleural effusion. Venous Doppler Study 07/06/19 12:14 IMPRESSION: 1. No deep venous thrombosis in the left lower limb. 2. 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 Duplex Scan Lower Extremity Artery 07/06/19 17:36 Impression: 1: Patent right lower extremity arteries without evidence for occlusion. 2: Minimal-no flow visualized in the mid left femoral artery, suspicious for hemodynamically significant stenosis. The remainder of the left lower extremity arteries are patent. Lower Extremity CTA 07/07/19 14:36 IMPRESSION: 1. 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 2. Total occlusion of distal left superficial femoral artery with reconstitution of flow in above-knee popliteal artery. 3. Moderate stenosis of left tibioperoneal trunk. 4. Small left posterior tibial artery and peroneal artery with moderate to severe stenosis. Quality VTE Prophylaxis VTE prophylaxis: mechanical ordered
== END 2019-07-11 17:38 | disposition swing bed (61) | DRG 166 ==
LOC: ANHED 17:34 → ANH2MED 18:02 → ANHICU 06-18 14:20 → ANH2MED 07-02 15:08 → ANHICU 07-12 07:34
PROVIDERS: Family Medicine; Hospitalist; Internal Medicine; Internal Medicine Critical Care Medicine; Physician Assistant; Specialist; Admitting Provider Family Medicine; Emergency Provider Emergency Medicine; PCP Internal Medicine; Visit Provider Family Medicine
PROC: 0BJ08ZZ Inspection of Tracheobronchial Tree, Via Natural or Artificial Opening Endoscopic (ICD-10-PCS; CPT 31622; principal; 2019-06-19 12:30)
PROC: 047L3FZ Dilation of Left Femoral Artery with Three Intraluminal Devices, Percutaneous Approach (ICD-10-PCS; CPT 75630; principal; 2019-07-09 08:00)
PROC: 047L3FZ Dilation of Left Femoral Artery with Three Intraluminal Devices, Percutaneous Approach (ICD-10-PCS; 2019-07-09 08:00)
PROC: 047L3FZ Dilation of Left Femoral Artery with Three Intraluminal Devices, Percutaneous Approach (ICD-10-PCS; CPT 36200; 2019-07-09 08:00)
PROC: 047L3FZ Dilation of Left Femoral Artery with Three Intraluminal Devices, Percutaneous Approach (ICD-10-PCS; CPT 36140; 2019-07-09 08:00)
PROC: 047L3FZ Dilation of Left Femoral Artery with Three Intraluminal Devices, Percutaneous Approach (ICD-10-PCS; CPT 37252; 2019-07-09 08:00)
DX: J18.9 Pneumonia, unspecified organism (principal); J96.01 Acute respiratory failure with hypoxia; E46 Unspecified protein-calorie malnutrition; Z68.1 Body mass index [BMI] 19.9 or less, adult; K92.1 Melena; B37.89 Other sites of candidiasis; M62.82 Rhabdomyolysis; E87.1 Hypo-osmolality and hyponatremia; I77.1 Stricture of artery; I77.89 Other specified disorders of arteries and arterioles; I70.292 Other atherosclerosis of native arteries of extremities, left leg; Z20.828 Contact with and (suspected) exposure to other viral communicable diseases; F41.8 Other specified anxiety disorders; M19.90 Unspecified osteoarthritis, unspecified site; K22.70 Barrett's esophagus without dysplasia; B96.89 Other specified bacterial agents as the cause of diseases classified elsewhere; J43.9 Emphysema, unspecified; F03.90 Unspecified dementia, unspecified severity, without behavioral disturbance, psychotic disturbance, mood disturbance, and anxiety; G62.9 Polyneuropathy, unspecified; F10.20 Alcohol dependence, uncomplicated; D64.9 Anemia, unspecified; K21.9 Gastro-esophageal reflux disease without esophagitis; N28.89 Other specified disorders of kidney and ureter; E87.6 Hypokalemia; D47.3 Essential (hemorrhagic) thrombocythemia; M81.0 Age-related osteoporosis without current pathological fracture; R00.0 Tachycardia, unspecified; F17.210 Nicotine dependence, cigarettes, uncomplicated; Z96.641 Presence of right artificial hip joint; Z87.11 Personal history of peptic ulcer disease; Z86.718 Personal history of other venous thrombosis and embolism; Z90.49 Acquired absence of other specified parts of digestive tract; R56.9 Unspecified convulsions; R41.89 Other symptoms and signs involving cognitive functions and awareness
CPT/HCPCS: 31500; 36140; 36200; 36415; 36600; 37227; 37252; 70450; 70496; 71045; 71046; 71260; 72100; 73706; 75630; 76882; 80048; 80053; 80069; 80202; 80307; 82274; 82375; 82550; 82607; 82728; 82805; 83050; 83605; 83615; 83690; 83735; 84100; 84146; 84443; 84484; 85014; 85018; 85025; 85027; 85055; 85380; 85610; 85730; 85999; 86140; 86850; 86900; 86901; 87015; 87040; 87070; 87075; 87077; 87086; 87102; 87106; 87116; 87186; 87205; 87206; 87252; 87449; 87635; 87899; 88104; 88108; 88305; 92610; 93005; 93925; 93970; 93971; 94002; 94003; 94640; 96361; 96365; 96366; 96367; 96375; 97110; 97116; 97161; 97162; 97164; 97165; 97166; 97168; 97530; 97535; 99285; A9270; C1725; C1753; C1769; C1876; C1877; C1887; C1894; C9113; G0378; J0131; J0456; J0696; J0743; J1644; J1940; J2060; J2250; J2704; J3010; J3370; J3411; J3475; J3480; J7030; J7040; J7050; J7060; Q9967; U0003

== ENCOUNTER 2019-07-11 18:29 | Inpatient (IN) | payer MEDICARE, SELFPAY ==
[2019-07-11 18:56] VITALS: BMI 16.9
[2019-07-11 19:48] VITALS: RESP 18
--- NOTE | 2019-07-11 20:21 | ADMGEN ---
This patient, Arvind Bone, was admitted to 2nd Floor Room 205-2. Patient/family oriented to hospital policies and general routines including ID bracelet, bed and alarms, visiting hours, pain management, procedures, bathroom and other care routines, personal items, smoking policy, room service/diet, and visiting hours. Valuables list has been completed. Information on how to activate the Rapid Response Team has been discussed. Patient/Family are encouraged to report perceived risks to care and to ask questions if they do not understand what they are told or what they should do.
--- NOTE | 2019-07-11 20:21 | PC.NURSE ---
upon entering room pt requests to shave, er nurse makenna assists pt to begin shaving, pt able to shave on his own once set up, moved to bed for wieght then to chair, pt asks if he is required to call for getting up, informed he needs to call when he wants to go to bed or the restroom, legs up in chair
[2019-07-11] MEDS: ACETAMINOPHEN 325 MG TABLET 650 MG PO (21:04)
[2019-07-11 22:00] VITALS: BP 135/85; PULSE 110; RESP 18; TEMP 36.6; O2SAT 97
[2019-07-12] MEDS: GUAIFENESIN 200 MG/10 ML UDC PO ×3 (01:23→12:45)
[2019-07-12 01:31] VITALS: BP 126/68; PULSE 110; RESP 20; TEMP 37.3; O2SAT 92
[2019-07-12] MEDS: SODIUM CHLORIDE 1 GM TABLET 0.5 GM PO (09:59)
[2019-07-12] MEDS: PANTOPRAZOLE 40 MG TABLET PO (09:59)
[2019-07-12] MEDS: LIDOCAINE 5% PATCH 1 PATCH TRANSDERM (09:59)
[2019-07-12] MEDS: NICOTINE (*PBKC) 21 MG PATCH 1 PATCH TRANSDERM (09:59)
[2019-07-12] MEDS: FOLIC ACID 1 MG TABLET PO (10:00)
[2019-07-12] MEDS: THIAMINE HCL 100 MG TABLET PO (10:00)
[2019-07-12 14:00] VITALS: BP 148/70; PULSE 95; RESP 20; TEMP 36.9; O2SAT 97
--- NOTE | 2019-07-12 17:14 | PM.IMHP ---
H&P: HPI History of Present Illness Chief complaint: therapy Narrative: Arvind Bone is a 69 year old male THAT PRESENTED TO [facility] ON 06/11/2019 FOR LOWER BACK PAIN AND WAS ADMITTED FOR PNEUMONIA AND MELENA. HE HAS A PAST MEDICAL HISTORY OF ALCOHOLISM, ANEMIA, ANXIETY, ARTHRITIS, HURST'S ESOPHAGUS, COMPRESSION FRACTURE OF T11, COPD WITH EMPHYSEMA, DEMENTIA, DEPRESSION, DUODENAL AND ESOPHAGEAL ULCERS, GERD, OSTEOARTHRITIS, PERIPHERAL NEUROPATHY, IV FILTER, TOBACCO ABUSE. THIS PATIENT HAD AN EXTENSIVE STAY AT THE HOSPITAL ON 06/10 HE WAS ADMITTED TO THE HOSPITAL FOR PNEUMONIA AND MELENA, ON 06/11 HE WAS INTUBATED AND EXTUBATED ON 06/24/2019, 06/17/2019 THE ART HISTORY PROFESSOR WAS CONSULTED AND IN A BRONCHOSCOPE WAS COMPLETED. THERE WAS SYLWIA ALBICAN FOUND IN THE RIGHT LOBE DURING THE BRONCH HIS SPUTUM ALSO GREW STENOTROPHOMONAS MELTOPHILIA. AT THAT TIME INFECTIOUS DISEASE WAS CONSULTED PATIENT COMPLETED ROCEPHIN AND AZITHROMYCIN THAT WAS LATER CHANGED TO IMIPENUM AND VANCOMYCIN , HE THEN STARTED BACTRIM AND COMPLETED HIS IV ANTIBIOTIC TREATMENT ON 06/30/2019. GI WAS ALSO CONSULTED DUE TO HIS POSITIVE OCCULT BLOOD THEY PLAN TO COMPLETE A EGD IN THE FUTURE OUTPATIENTAND STARTED HIM ON PROTONIX. HIS IMAGING ALSO INDICATED A RENAL MASS 2.6 CM SO UROLOGY WAS CONSULTED PATIENT IS TO FOLLOW-UP OUTPATIENT FOR FUTURE IMAGING. PATIENT ALSO HAD 2 SEIZURES DURING HIS HOSPITAL STAY AND HE WAS SEEN BY NEURO, BOTH CTS OF THE HEAD WAS NEGATIVE NO INTERVENTION WAS NEEDED AT THAT TIME. CARDIOLOGY WAS ALSO CONSULTED DUE TO PATIENT'S SEVERE PVD. ON 07/09/19 A CARDIAC CATHETERIZATION WAS COMPLETED WITH ANGIOPLASTY FOLLOWED BY MULTIPLE STENT PLACEMENTS WITH GOOD RESULTS. CARDIO SUGGESTED PATIENT STARTS ASPIRIN PLAVIX AND STATINS. PATIENT ALSO TESTED NEGATIVE FOR COVID AND RSV. PATIENT ADMITTED IN SWING BED FOR REHABILITATION DUE TO DECREASED BALANCE DECREASED MOBILITY IN SEVERE LIMITED FUNCTION ENDURANT AND/OR MOBILITY. Review of Systems Constitutional: Constitutional: Denies chills, Denies fatigue, Denies fever(s), Denies poor appetite and Reports weakness Cardiovascular: Cardiovascular: Denies chest pain, Denies syncope, Reports leg edema ( LEFT LEG) and Denies dyspnea Respiratory: Respiratory: Reports no additional respiratory complaints, Denies chest congestion, Denies cough, Denies dyspnea and Denies wheezing Gastrointestinal: Gastrointestinal: Reports no additional gastrointestinal complaints, Denies heartburn, Denies diarrhea, Denies nausea and Denies vomiting Genitourinary: Genitourinary: Reports no additional male genitourinary complaints, Denies urinary frequency, Denies urinary hesitancy and Denies urinary urgency Musculoskeletal: Musculoskeletal: Reports no additional musculoskeletal complaints and Denies muscle weakness Integumentary/Breasts: Skin/Breast: Reports system reviewed and no additional complaints, except as docu Neurologic: Reports system reviewed and no additional complaints, except as documented, Denies confusion, Denies vertigo, Denies dizziness, Denies syncope and Denies frequent falls Psychiatric: Psychiatric: Reports anxiety ( ANXIOUS TO DISCHARGE HOME), Denies change in appetite, Denies confusion and Denies depression Hematologic/Lymphatic: Hematologic/Lymphatic: Reports no additional hematologic/lymphatic complaints [facility] Social History Social History Social History: The patient lives alone in [place]. He is on disability. He designates his son, Gigi, as his surrogate decision maker and he wishes to be a full code. He smokes between 2 and 2.5 packs of cigarettes per day and has for over 50 years. He drinks between 6 and 12 beers per day He denies drug use. Smoking packs per day: 3 Smoking cigarettes per day: 60.0 Smoking status: Current every day smoker Tobacco type: cigarettes Alcohol intake: current Drinks per week: 21 Substance use:
--- NOTE | 2019-07-12 19:41 | PC.NURSE ---
Patient up to toilet with wheeled walker and gait belt. Gait weak and unsteady. Passed gassed but no BM resulted
[2019-07-12] MEDS: MINERAL OIL/PETROLATUM OPHTH OINT 3.5 GM (EYE LUBRICANT) 1 APPLIC EACH EYE (20:25)
[2019-07-12] MEDS: DOCUSATE SODIUM 100 MG CAPSULE PO (20:25)
[2019-07-12 23:52] VITALS: BP 128/72; PULSE 109; RESP 16; TEMP 37.1; O2SAT 94
[2019-07-13] MEDS: GUAIFENESIN 200 MG/10 ML UDC PO ×2 (00:02→05:23)
[2019-07-13 08:00] VITALS: BP 145/71; PULSE 113; RESP 20; TEMP 37; O2SAT 94
[2019-07-13] MEDS: SODIUM CHLORIDE 1 GM TABLET 0.5 GM PO ×2 (09:55→17:43)
[2019-07-13] MEDS: ASPIRIN 325 MG ENTERIC TABLET PO (09:55)
[2019-07-13] MEDS: LIDOCAINE 5% PATCH 1 PATCH TRANSDERM (09:55)
[2019-07-13] MEDS: CLOPIDOGREL BISULFATE 75 MG TABLET PO (09:56)
[2019-07-13] MEDS: NICOTINE (*PBKC) 21 MG PATCH 1 PATCH TRANSDERM (09:56)
[2019-07-13] MEDS: THIAMINE HCL 100 MG TABLET PO (09:56)
[2019-07-13] MEDS: DOCUSATE SODIUM 100 MG CAPSULE PO ×2 (09:56→21:32)
[2019-07-13] MEDS: PANTOPRAZOLE 40 MG TABLET PO (09:56)
[2019-07-13] MEDS: FOLIC ACID 1 MG TABLET PO (09:56)
[2019-07-13] MEDS: ATORVASTATIN 10 MG TABLET PO (09:56)
[2019-07-13 14:00] VITALS: BP 121/77; PULSE 112; RESP 16; TEMP 37; O2SAT 96
--- NOTE | 2019-07-13 21:22 | PC.NURSE ---
Assisted to bed using one assist, walker and gait belt. Gait slow and steady.
[2019-07-13 21:28] VITALS: BP 143/77; PULSE 101; RESP 18; TEMP 37.1; O2SAT 96
[2019-07-13] MEDS: METOPROLOL TARTRATE 25 MG TABLET 6.25 MG PO (21:32)
[2019-07-13] MEDS: MINERAL OIL/PETROLATUM OPHTH OINT 3.5 GM (EYE LUBRICANT) 1 APPLIC EACH EYE (21:32)
--- NOTE | 2019-07-14 01:22 | PC.NURSE ---
2350 Pt assessed for the shift; Pt said he wanted to be discharged now so he could go home. Staff explained to pt that he could discuss this with the doctor in the morning.
--- NOTE | 2019-07-14 01:26 | PC.NURSE ---
Pt watching TV quietly in bed and doesnt voice any concerns at this time. 150 ml of clear, yellow urine emptied from the urinal.
--- NOTE | 2019-07-14 02:43 | PC.NURSE ---
Pt asleep and no signs of discomfort noted.
--- NOTE | 2019-07-14 03:20 | PC.NURSE ---
Pt resting quietly in bed and doesnt voice any c/o discomfort.
--- NOTE | 2019-07-14 04:16 | PC.NURSE ---
Pt watching tv and voided 350 ml of clear, yellow urine in the urinal.
[2019-07-14 06:00] VITALS: BP 134/75; PULSE 94; RESP 20; TEMP 37.5; O2SAT 92
--- NOTE | 2019-07-14 06:46 | PC.NURSE ---
Pt resting quietly in bed and watching tv. 75 mls of clear, yellow urine emptied from urinal.l
[2019-07-14 07:50] VITALS: BP 130/70; PULSE 92; RESP 18; TEMP 37.2; O2SAT 97
[2019-07-14] MEDS: ATORVASTATIN 10 MG TABLET PO (08:43)
[2019-07-14] MEDS: DOCUSATE SODIUM 100 MG CAPSULE PO ×2 (08:43→21:35)
[2019-07-14] MEDS: ASPIRIN 325 MG ENTERIC TABLET PO (08:43)
[2019-07-14] MEDS: CLOPIDOGREL BISULFATE 75 MG TABLET PO (08:43)
[2019-07-14] MEDS: LIDOCAINE 5% PATCH 1 PATCH TRANSDERM (08:44)
[2019-07-14] MEDS: THIAMINE HCL 100 MG TABLET PO (08:44)
[2019-07-14] MEDS: FOLIC ACID 1 MG TABLET PO (08:44)
[2019-07-14] MEDS: METOPROLOL TARTRATE 25 MG TABLET 6.25 MG PO ×2 (08:45→21:35)
[2019-07-14] MEDS: PANTOPRAZOLE 40 MG TABLET PO (08:45)
[2019-07-14] MEDS: MINERAL OIL/PETROLATUM OPHTH OINT 3.5 GM (EYE LUBRICANT) 1 APPLIC EACH EYE ×2 (08:45→21:36)
[2019-07-14] MEDS: SODIUM CHLORIDE 1 GM TABLET 0.5 GM PO ×2 (08:45→16:32)
[2019-07-14] MEDS: NICOTINE (*PBKC) 21 MG PATCH 1 PATCH TRANSDERM (08:45)
[2019-07-14 14:00] VITALS: BP 133/74; PULSE 88; RESP 16; TEMP 36.9; O2SAT 98
[2019-07-14 21:35] VITALS: PULSE 90
[2019-07-14 22:00] VITALS: BP 126/82; PULSE 80; RESP 14; TEMP 36.3; O2SAT 97
--- NOTE | 2019-07-14 23:48 | PM.EVENT ---
Event Note Event Note Event Note: Pt's records reviewed. On exam pt. is disoriented to place; know's he's here to get stronger. Lungs CTA Reviewed Dmitry Li's note and discussed, agree with assessment and plan.
--- NOTE | 2019-07-15 00:16 | PC.NURSE ---
Pt sitting up in the chair; Lungs are clear bilaterally and pt doesnt voice any c/o shortness of breath.
--- NOTE | 2019-07-15 02:51 | PC.NURSE ---
Pt resting quietly and doesnt voice any c/o discomfort.
--- NOTE | 2019-07-15 05:30 | PC.NURSE ---
Pt asleep in the chair. No signs of discomfort noted.
[2019-07-15 06:00] VITALS: BP 144/84; PULSE 108; RESP 20; TEMP 36.8; O2SAT 94
[2019-07-15 06:37] LABS: Hematocrit 31.1 % (37.0-46.0); Hemoglobin 10.1 g/dL (12.4-15.3); Mean Corpuscular HGB Conc 32.5 g/dL (32.0-36.0); Mean Corpuscular Hemoglobin 29.1 pg (27.0-31.0); Mean Corpuscular Volume 89.6 fL (78.0-102.0); Mean Platelet Volume 8.9 fl (8.7-11.0); Platelet Count Result 541 K/mm3 (150-420); Red Blood Count 3.47 M/mm3 (4.70-6.10); Red Cell Distribution Width 15.8 % (11.6-14.4)
[2019-07-15 07:05] LABS: Alanine Aminotransferase 21 U/L (16-63); Albumin Level 3.2 g/dL (3.4-5.0); Alkaline Phosphatase 84 U/L (46-116); Anion Gap 15.6 mmol/L (7-16); Aspartate Amino Transferase 31 U/L (15-37); Bilirubin,Total 0.4 mg/dL (0.00-1.00); Blood Urea Nitrogen 7 mg/dL (7-18); Calcium 9.3 mg/dL (8.5-10.1); Carbon Dioxide 27 mmol/L (21-32); Chloride 97 mmol/L (98-108); Estimated CRCL calculation 81 ml/min; Estimated Glomerular Filt Rate > 60; Glucose 77 mg/dL (70-99); Magnesium 1.5 mg/dL (1.8-2.4); Osmolality Calculated 279 mOsm/kg (285-295); Potassium 3.6 mmol/L (3.5-5.1); Sodium 136 mmol/L (136-145); Total Protein 6.6 g/dL (6.4-8.2)
[2019-07-15] MEDS: SODIUM CHLORIDE 1 GM TABLET 0.5 GM PO ×2 (08:36→16:34)
[2019-07-15] MEDS: PANTOPRAZOLE 40 MG TABLET PO (08:36)
[2019-07-15] MEDS: ASPIRIN 325 MG ENTERIC TABLET PO (08:37)
[2019-07-15] MEDS: FOLIC ACID 1 MG TABLET PO (08:37)
[2019-07-15] MEDS: CLOPIDOGREL BISULFATE 75 MG TABLET PO (08:37)
[2019-07-15] MEDS: METOPROLOL TARTRATE 25 MG TABLET 6.25 MG PO ×2 (08:37→20:42)
[2019-07-15] MEDS: ATORVASTATIN 10 MG TABLET PO (08:37)
[2019-07-15] MEDS: THIAMINE HCL 100 MG TABLET PO (08:38)
[2019-07-15] MEDS: NICOTINE (*PBKC) 21 MG PATCH 1 PATCH TRANSDERM (08:38)
[2019-07-15] MEDS: LIDOCAINE 5% PATCH 1 PATCH TRANSDERM (08:38)
[2019-07-15] MEDS: MINERAL OIL/PETROLATUM OPHTH OINT 3.5 GM (EYE LUBRICANT) 1 APPLIC EACH EYE ×2 (08:39→20:42)
[2019-07-15] MEDS: MAGNESIUM OXIDE 400 MG TABLET PO (11:22)
[2019-07-15 13:25] VITALS: BP 129/80; PULSE 52; RESP 16; TEMP 36.6; O2SAT 96
--- NOTE | 2019-07-15 13:27 | PC.NURSE ---
Patient wanted to go home today. At times was getting restlessness about it. Dmitry SECURITY CONTROL CENTER OPERATOR, hospitalist talked to son on phone about dc Tuesday. Also talked to patient about it. Patient in agreement and is cooperative about it now. No other concerns.
--- NOTE | 2019-07-15 14:24 | PM.EVENT ---
Event Note Event Note Event Note: Spoke with patient's son today concerning his discharge. patient very active and agitated today, ready To discharge home. Call to son to see if patient could possibly discharge today. patient's son noted that he is repairing his father's home h so that he can return. Patient's son also got very upset noted that patient should not be discharged if he is not ready to discharge safely home. I informed the patient's son that he he was cleared to discharge on Tuesday by physical therapy/occupational therapy and we allowed him to stay additional days to allow him to repair patient's house.
[2019-07-15 15:40] VITALS: BP 130/86; PULSE 100; RESP 18; TEMP 37; O2SAT 98
[2019-07-15 16:00] VITALS: PULSE 100; RESP 18; TEMP 37; O2SAT 98
--- NOTE | 2019-07-15 17:25 | PC.NURSE ---
IN chair eating dinner, no distress noted
[2019-07-15 20:42] VITALS: PULSE 72
[2019-07-15] MEDS: DOCUSATE SODIUM 100 MG CAPSULE PO (20:42)
[2019-07-16] VITALS: BP 120/57; PULSE 82; RESP 20; TEMP 36.9; O2SAT 96
[2019-07-16 07:12] VITALS: BP 141/84; PULSE 78; RESP 16; TEMP 36.6; O2SAT 96
[2019-07-16] MEDS: ASPIRIN 325 MG ENTERIC TABLET PO (08:12)
[2019-07-16] MEDS: ATORVASTATIN 10 MG TABLET PO (08:12)
[2019-07-16] MEDS: CLOPIDOGREL BISULFATE 75 MG TABLET PO (08:12)
[2019-07-16] MEDS: MINERAL OIL/PETROLATUM OPHTH OINT 3.5 GM (EYE LUBRICANT) 1 APPLIC EACH EYE (08:13)
[2019-07-16] MEDS: FOLIC ACID 1 MG TABLET PO (08:13)
[2019-07-16] MEDS: MAGNESIUM OXIDE 400 MG TABLET PO (08:13)
[2019-07-16] MEDS: METOPROLOL TARTRATE 25 MG TABLET 6.25 MG PO (08:13)
[2019-07-16] MEDS: DOCUSATE SODIUM 100 MG CAPSULE PO (08:13)
[2019-07-16] MEDS: LIDOCAINE 5% PATCH 1 PATCH TRANSDERM (08:13)
[2019-07-16] MEDS: PANTOPRAZOLE 40 MG TABLET PO (08:14)
[2019-07-16] MEDS: SODIUM CHLORIDE 1 GM TABLET 0.5 GM PO (08:14)
[2019-07-16] MEDS: NICOTINE (*PBKC) 21 MG PATCH 1 PATCH TRANSDERM (08:14)
[2019-07-16] MEDS: THIAMINE HCL 100 MG TABLET PO (08:15)
--- NOTE | 2019-07-16 09:50 | P.DS_ITS ---
DS: Diagnosis Admitting Diagnosis Admitting Diagnosis: Peripheral vascular disease, unspecified Discharge Diagnosis (1) Peripheral vascular disease: Code(s): I73.9 - Peripheral vascular disease, unspecified Status: Acute Assessment and Plan: * cardio consulted while he was inpatient and is in hospital cardiac catheterization completed or severe PVD * s/p intervention on occluded left SFA. * Continue ASA, Plavix and statin * Smoking cessation counseling * Will need follow up with Dr Avalos in one week. Plan to arrange for interv ention on right illiac disease with 90% stenosis. He will also need cardiac ischemic evaluation at some point if it was not done recently for risk stratification given extensive cardiovascular risk factors and severe PVD (2) Occlusion of left femoral artery: Code(s): I70.202 - Unspecified atherosclerosis of [place] arteries of extremities, left leg Status: Acute Assessment and Plan: cardio consulted while he was inpatient and is in hospital cardiac catheterization completed or severe PVD * s/p intervention on occluded left SFA. * continue ASA, Plavix and statin * Smoking cessation counseling * Will need follow up with Dr Avalos in one week. Plan to arrange for intervention on right illiac disease with 90% stenosis. He will also need cardiac ischemic evaluation at some point if it was not done recently for risk stratification given extensive cardiovascular risk factors and severe PVD (3) Seizure: Code(s): R56.9 - Unspecified convulsions Status: Acute Assessment and Plan: * per Dr. Thomson Considering the complicated history as outlined above, the seizures are likely related to multiple problem. * head CT x2 unremarkable * no intervention needed (4) Melena: Code(s): K92.1 - Melena Status: Acute Assessment and Plan: * while in the ED patient occult blood positive * GI consulted * patient with history of barretts esophagus * a randomly monitor H&H * patient will need to follow-up with GI after discharge with the EGD * patient is not actively (5) Barretts esophagus: Qualifiers: Wooten's esophagus type: with dysplasia of unspecified degree Qualified Code(s): K22.719 - Wooten's esophagus with dysplasia, unspecified Code(s): K22.70 - Wooten's esophagus without dysplasia Status: Chronic Assessment and Plan: while in the ED patient occult blood positive * GI consulted * patient with history of barretts esophagus * a randomly monitor H&H * patient will need to follow-up with GI after discharge with the EGD * patient is not actively (6) Right renal mass: Code(s): N28.89 - Other specified disorders of kidney and ureter Status: Acute Assessment and Plan: * imaging indicated of renal mass of 2.6 cm * urology consulted while at [facility] * n patient will have a follow-up with urology as outpatient for further imaging (7) COPD with emphysema: Qualifiers: Emphysema type: unspecified Qualified Code(s): J43.9 - Emphysema, unspecified Code(s): J43.9 - Emphysema, unspecified Status: Chronic Assessment and Plan: * STABLE (8) DVT prophylaxis: Code(s): Z29.9 - Encounter for prophylactic measures, unspecified Status: Acute Assessment and Plan: * CONTINUE LOVENOX (9) GERD (gastroesophageal reflux disease): Code(s): K21.9 - Gastro-esophageal reflux disease without esophagitis Status: Acute Assessment and Plan
--- NOTE | 2019-07-16 09:50 | PM.DS ---
DS: Diagnosis Admitting Diagnosis Admitting Diagnosis: Peripheral vascular disease, unspecified Discharge Diagnosis (1) Peripheral vascular disease: Code(s): I73.9 - Peripheral vascular disease, unspecified Status: Acute Assessment and Plan: cardio consulted while he was inpatient and is in hospital cardiac catheterization completed or severe PVD s/p intervention on occluded left SFA. Continue ASA, Plavix and statin Smoking cessation counseling Will need follow up with Dr Avalos in one week. Plan to arrange for intervention on right illiac disease with 90% stenosis. He will also need cardiac ischemic evaluation at some point if it was not done recently for risk stratification given extensive cardiovascular risk factors and severe PVD (2) Occlusion of left femoral artery: Code(s): I70.202 - Unspecified atherosclerosis of [place] arteries of extremities, left leg Status: Acute Assessment and Plan: cardio consulted while he was inpatient and is in hospital cardiac catheterization completed or severe PVD s/p intervention on occluded left SFA. continue ASA, Plavix and statin Smoking cessation counseling Will need follow up with Dr Avalos in one week. Plan to arrange for intervention on right illiac disease with 90% stenosis. He will also need cardiac ischemic evaluation at some point if it was not done recently for risk stratification given extensive cardiovascular risk factors and severe PVD (3) Seizure: Code(s): R56.9 - Unspecified convulsions Status: Acute Assessment and Plan: per Dr. Thomson Considering the complicated history as outlined above, the seizures are likely related to multiple problem. head CT x2 unremarkable no intervention needed (4) Melena: Code(s): K92.1 - Melena Status: Acute Assessment and Plan: while in the ED patient occult blood positive GI consulted patient with history of barretts esophagus a randomly monitor H&H patient will need to follow-up with GI after discharge with the EGD patient is not actively (5) Barretts esophagus: Qualifiers: Wooten's esophagus type: with dysplasia of unspecified degree Qualified Code(s): K22.719 - Wooten's esophagus with dysplasia, unspecified Code(s): K22.70 - Wooten's esophagus without dysplasia Status: Chronic Assessment and Plan: while in the ED patient occult blood positive GI consulted patient with history of barretts esophagus a randomly monitor H&H patient will need to follow-up with GI after discharge with the EGD patient is not actively (6) Right renal mass: Code(s): N28.89 - Other specified disorders of kidney and ureter Status: Acute Assessment and Plan: imaging indicated of renal mass of 2.6 cm urology consulted while at [facility] patient will have a follow-up with urology as outpatient for further imaging (7) COPD with emphysema: Qualifiers: Emphysema type: unspecified Qualified Code(s): J43.9 - Emphysema, unspecified Code(s): J43.9 - Emphysema, unspecified Status: Chronic Assessment and Plan: STABLE (8) DVT prophylaxis: Code(s): Z29.9 - Encounter for prophylactic measures, unspecified Status: Acute Assessment and Plan: CONTINUE LOVENOX (9) GERD (gastroesophageal reflux disease): Code(s): K21.9 - Gastro-esophageal reflux disease without esophagitis Status: Acute Assessment and Plan: CONTINUE PROTONIX (10) Weakness: Code(s): R53.1 - Weakness Status: Acute Assessment and Plan: Exhibit tolerance during physical activity as evidenced by a normal fluctuation of vital signs during physical activity. Patient will be ability to perform required activities of daily living. Provide appropriate nutrition for healing and strength. Use appropriate to prevent falls. Cont
[2019-07-16 11:20] LABS: Magnesium 1.6 mg/dL (1.8-2.4)
--- NOTE | 2019-07-23 07:56 | PCOTNOTE ---
Patient is discharged from skilled OT services as he has returned home by himself. See last treatment note for patient's skills and level of function. MS
== END 2019-07-16 15:15 | disposition home or self-care (01) | DRG 947 ==
PROVIDERS: Nurse Practitioner; Admitting Provider Emergency Medicine; Visit Provider Emergency Medicine
DX: R53.1 Weakness (principal); J18.9 Pneumonia, unspecified organism; K92.1 Melena; R26.89 Other abnormalities of gait and mobility; K22.70 Barrett's esophagus without dysplasia; K26.9 Duodenal ulcer, unspecified as acute or chronic, without hemorrhage or perforation; K21.9 Gastro-esophageal reflux disease without esophagitis; G62.9 Polyneuropathy, unspecified; I73.9 Peripheral vascular disease, unspecified; I70.202 Unspecified atherosclerosis of native arteries of extremities, left leg; N28.89 Other specified disorders of kidney and ureter; J43.9 Emphysema, unspecified; M19.90 Unspecified osteoarthritis, unspecified site; F17.210 Nicotine dependence, cigarettes, uncomplicated; F41.9 Anxiety disorder, unspecified; F03.90 Unspecified dementia, unspecified severity, without behavioral disturbance, psychotic disturbance, mood disturbance, and anxiety; F32.9 Major depressive disorder, single episode, unspecified; F10.20 Alcohol dependence, uncomplicated
CPT/HCPCS: 36415; 80053; 83735; 85027; 97110; 97161; 97165; 97530; 97535; A9270

== ENCOUNTER 2019-07-31 14:30 | Emergency (ER) | payer MEDICARE, SELFPAY ==
--- NOTE | ~2019-07-31 | CT_ITS ---
EXAMINATION: CT lumbar spine eli cedeno EXAM DATE: 07/31/2019 15:27 INDICATION: Low back pain, symptoms 2 weeks. TECHNIQUE: Spiral CT lumbar spine was performed without contrast. Axial, coronal and sagittal images of the lumbar spine were reviewed. The dose-length product (DLP) for this examination was 410.91 mGy- cm. The exposure was tailored according to patient size (auto mA exposure control), and iterative re construction (ASIR) was used as additional dose reduction technique. Comparison is made to prior exam ination from 07/14/2011. Correlation was made with lumbar x-ray 06/11/2019. FINDINGS: Incidental note made of a 2.6 cm right renal slightly hyperdense but heterogeneous region, appearance most consistent with a solid mass, renal cell cancer. This was recently reported on a ches t CT from last month as well. Posterior subsegmental atelectasis. IVC filter. Compared to last month x-ray there is been interval development of L3 burst fracture with moderate lo ss of this vertebral body height centrally, extension to the posterior cortex of the vertebral body w ith about 3 mm buckling of the posterior superior endplate into the spinal canal, causing mild centra l canal stenosis. Mild loss of the L2 and L5 vertebral body heights without acute fracture lines identified. The bones are osteopenic. There is chronic L5 spondylolysis with grade 2 anterolisthesis L5 on S1, moderate anthony ateral neural foraminal stenosis at this level. The vertebral bodies are otherwise aligned. L4-5 has mild to moderate bilateral neural foraminal stenosis. Less stenosis of the upper lumbar levels. Moder ate lower lumbar facet arthropathy. Sacral cortices appear intact. There is extensive aortic arterial sclerosis. IMPRESSION: 1. Acute L3 burst fracture with moderate loss of disc height centrally, mild retropulsion, mild cent ral canal stenosis. 2. Chronic mild compressions of L2 and L5. 3. Chronic L5 spondylolysis with grade 2 anterolisthesis, moderate bilateral neural foraminal stenos is. 4. Incidental right renal mass likely RCC. 5. Osteopenia. Reviewed, dictated and finalized at location A. IMPRESSION: 1. Acute L3 burst fracture with moderate loss of disc height centrally, mild r etropulsion, mild central canal stenosis. 2. Chronic mild compressions of L2 and L5. 3. Chronic L5 spondylolysis with grade 2 anterolisthesis, moderate bilateral n eural foraminal stenosis. 4. Incidental right renal mass likely RCC. 5. Osteopenia.
[2019-07-31 14:30] VITALS: BP 135/95; PULSE 110; RESP 20; TEMP 36.4; O2SAT 99
[2019-07-31 15:25] LABS: Basophils Absolute Auto 0.1 K/mm3 (0.0-0.1); Basophils Percent Auto 1.3 % (0.2-1.2); Eosinophils Absolute Auto 0.1 K/mm3 (0-0.3); Eosinophils Percent Auto 1.7 % (0-4.4); Hematocrit 41.3 % (42.0-52.0); Hemoglobin 13.5 g/dL (14.0-18.0); Immature Granulocyte Absolute 0.05 K/mm3 (0.00-0.031); Immature Granulocyte Percent A 0.7 % (0-0.5); Immature Platelet Fraction Pct 1.2 % (0.9-11.2); Lymphocytes Absolute Auto 2.21 K/mm3 (0.9-3.2); Lymphocytes Percent Auto 30.9 % (18.3-44.2); Mean Corpuscular HGB Conc 32.7 g/dl (32-36); Mean Corpuscular Hemoglobin 29.1 pg (26-34); Mean Platelet Volume 9.3 fl (7.4-10.4); Monocytes Absolute Auto 0.6 K/mm3 (0.1-0.6); Monocytes Percent Auto 8.8 % (2.6-8.5); Neutrophils Absolute Auto 4.1 K/mm3 (1.3-6.7); Neutrophils Percent Auto 56.6 % (45.5-73.1); Platelet Count Result 504 k/mm3 (150-375); Red Blood Count 4.64 M/mm3 (4.6-6.20); Red Cell Distribution Width 15.7 % (11.5-14.5); White Blood Count 7.2 K/mm3 (4.5-10.0)
[2019-07-31 15:35] LABS: Blood Urea Nitrogen 17 mg/dL (9-20); Calcium 9.8 mg/dL (8.4-10.2); Carbon Dioxide 25 mmol/L (22-30); Chloride 106 mmol/L (98-107); Estimated CRCL calculation 78 ml/min; Estimated Glomerular Filt Rate > 60; Glucose 203 mg/dL (75-110); Potassium 3.7 mmol/L (3.4-5.0); Sodium 140 mmol/L (137-145)
--- NOTE | 2019-07-31 15:58 | ED.BACK ---
HPI - Back Pain/Injury General Chief Complaint: Back Pain/Injury Stated Complaint: back pain Time Seen by Provider: 07/31/19 14:32 Source: RN notes reviewed History of Present Illness HPI Narrative: Patient presents emergency department via EMS for back pain. Patient states pain is been ongoing for the past 2 weeks. He states he fell approximately 2 weeks ago and since that time is been having progressively worsening back pain. He states he normally walks with a cane around his house where he lives alone but is been able to get up and around secondary to pain for the last several days he denies any numbness or tingling in extremities and denies any bowel or bladder incontinence denies any fevers or chills abdominal pain nausea vomiting or any other symptoms. States he has been taking aspirin for pain at home with minimal relief Related Data Home Medications Medication Instructions Recorded Confirmed aspirin 325 mg tablet 325 mg PO DAILY 07/25/19 07/25/19 Allergies Allergy/AdvReac Type Severity Reaction Status Date / Time bee pollen Allergy Unknown Anaphylaxis Verified 07/25/19 10:48 Honey Bee Allergy Severe Anaphylaxis Uncoded 07/25/19 10:48 Review of Systems Review of Systems: Narrative: Gen.: Denies fevers or chills Eyes: Denies eye pain or visual change ENT: Denies congestion Respiratory: Denies shortness of breath or cough CV: Denies chest pain or palpitations GI: Denies abdominal pain nausea, emesis or diarrhea denies incontinence Musculoskeletal: Reports back pain Neuro: Denies numbness, tingling, weakness or focal weakness Skin: Denies rash Except as documented, all other systems reviewed and negative [facility] Past Medical History Medical History Alcoholism Anemia Anxiety Arthritis Barretts esophagus Last EGD was on November 10, [address] Contreras and showed Wooten's esophagus, esophageal ulcers, duodenal ulcers, and hiatal hernia. He has had no follow-up since that time. Compression fracture History of T11 burst fracture. COPD with emphysema Dementia Depression Duodenal ulcer Esophageal ulcer GERD (gastroesophageal reflux disease) Osteoporosis Peripheral neuropathy Presence of IVC filter Inserted after trauma in 2002. Tobacco abuse Social History Social History Social History: The patient lives alone in [place]. He is on disability. He designates his son, Gigi, as his surrogate decision maker and he wishes to be a full code. He smokes between 2 and 2.5 packs of cigarettes per day and has for over 50 years. He drinks between 6 and 12 beers per day He denies drug use. Smoking packs per day: 3 Smoking cigarettes per day: 60.0 Smoking status: Current every day smoker Tobacco type: cigarettes Alcohol intake: current Drinks per week: 21 Substance use: never Substance use type: does not use Additional living arrangements comments: Gender identity (if verbalized by the patient): Male Spiritual care concerns: No Agree to blood products: Yes Exam Narrative: Exam Narrative: APPEARANCE: No acute distress, nontoxic, resting in bed EYES: EOMI HEENT: Normocephalic, atraumatic, OMM RESPIRATORY: No respiratory distress Clear to auscultation bilaterally with no rhonchi wheezing or rales. CARDIOVASCULAR: Regular rate and rhythm without murmurs rubs or gallops. ABDOMINAL: Soft, nontender, nondistended, no rebound or guarding Back: No thoracic lumbar tenderness palpation tender palpation diffusely along lumbar spine midline and bilateral paravertebral muscles pain with any movement MUSCULOSKELETAl: Moves all extremities. No clubbing, cyanosis or edema. NEURO: Awake and alert. Following commands, speech normal, no focal deficits muscle strength 5 out of 5 in bilateral lower extremities SKIN:: Warm, dry. No rashes lesions or abrasions PSYCHIATRIC: Normal affec
[2019-07-31] MEDS: MORPHINE SULFATE 2 MG/ML INJ IV PUSH (16:46)
[2019-07-31 16:53] VITALS: BP 122/78; PULSE 98; RESP 20; O2SAT 100
--- NOTE | 2019-07-31 17:01 | PC.NURSE ---
reports called to rafal rudolph at [facility]
[2019-07-31 17:41] VITALS: BP 142/70; PULSE 90; RESP 20; O2SAT 99
== END 2019-07-31 17:44 | disposition short-term general hospital (02) ==
PROVIDERS: Emergency Provider Emergency Medicine
DX: S32.031A Stable burst fracture of third lumbar vertebra, initial encounter for closed fracture (principal); F41.9 Anxiety disorder, unspecified; J44.9 Chronic obstructive pulmonary disease, unspecified; K21.9 Gastro-esophageal reflux disease without esophagitis; G62.9 Polyneuropathy, unspecified; F17.210 Nicotine dependence, cigarettes, uncomplicated; W19.XXXA Unspecified fall, initial encounter
CPT/HCPCS: 36415; 72131; 80048; 85025; 85055; 96365; 96375; 99285; J0131; J2270

== ENCOUNTER 2020-05-14 11:05 | Outpatient (CLI) | payer MEDICARE, SELFPAY | END 2020-05-14 11:06 | disposition home or self-care (01) | LOC: ANHCOVIDVC 11:05 | DX: Z23 Encounter for immunization (principal) | CPT/HCPCS: 0001A; 91300 ==

== ENCOUNTER 2020-06-04 10:55 | Outpatient (CLI) | payer MEDICARE, SELFPAY | END 2020-06-04 10:56 | disposition home or self-care (01) | LOC: ANHCOVIDVC 10:55 | DX: Z23 Encounter for immunization (principal) | CPT/HCPCS: 0002A; 91300 ==

== ENCOUNTER 2021-09-29 15:34 | Outpatient (CLI) | payer MEDICARE, SELFPAY ==
--- NOTE | ~2021-09-29 | XR_ITS ---
EXAM: XR tibia fibula RT 2V DATE: 09/29/2021 15:56 HISTORY: ? protruding hardware from previous surgery . COMPARISON: 11/23/2005. FINDINGS: Screw and plate fixation of the proximal and lateral right tibia. No hardware fracture or evidence of loosening. The third screw, numbering proximal to distal, projects 2 mm beyond the medial cortex of the proximal tibia. The sixth screw projects 5 mm beyond the medial tibial cortex at the j unction of the proximal and middle thirds. Profound decreased mineralization, worsened since the prio r study, likely secondary to disuse. No acute fracture or dislocation. IMPRESSION: Screw and plate proximal right tibial fixation, without fracture or loosening. Two screws project beyond the medial tibial cortex, as described above. Reviewed, dictated and finalized at location K. IMPRESSION: Screw and plate proximal right tibial fixation, without fracture or loosening. Two screws project beyond the medial tibial cortex, as described ab linke.
== END 2021-09-29 15:35 | disposition home or self-care (01) ==
PROVIDERS: Visit Provider Nurse Practitioner
DX: M79.604 Pain in right leg (principal)
CPT/HCPCS: 73590